=== PATIENT | female | born 1995 | race Caucasian/White ===

== ENCOUNTER → 2023-06-22 | Outpatient (CLI) | payer OTHER, SELFPAY | END | disposition home or self-care (01) | LOC: LAB 16:06 | PROVIDERS: Referring Provider Advanced Practice Midwife; Visit Provider Advanced Practice Midwife | DX: O26.859 Spotting complicating pregnancy, unspecified trimester (principal); Z3A.00 Weeks of gestation of pregnancy not specified | CPT/HCPCS: 36415; 84702; 86850; 86900; 86901 ==

== ENCOUNTER → 2023-06-24 | Outpatient (CLI) | payer OTHER, SELFPAY | END | disposition home or self-care (01) | LOC: LAB 07:46 | PROVIDERS: Referring Provider Advanced Practice Midwife; Visit Provider Advanced Practice Midwife | DX: O26.859 Spotting complicating pregnancy, unspecified trimester (principal); Z3A.00 Weeks of gestation of pregnancy not specified | CPT/HCPCS: 36415; 84702 ==

== ENCOUNTER → 2023-07-07 | Outpatient (CLI) | payer OTHER, SELFPAY ==
[2023-07-07 10:56] LABS: Absolute Lymphocyte Count 1.83 X10^3/uL (0.83-4.51); Absolute Neutrophil Count 6.8 X10^3/uL (2.0-7.7); Basophil# 0.04 X10^3/uL; Basophil% 0.4 % (0-1); Eosinophil# 0.07 X10^3/uL; Eosinophils% 0.8 % (0-5); Hematocrit 37.8 % (37-47); Hemoglobin 12.6 g/dL (12.0-15.0); Lymphocyte # 1.83 X10^3/ul (0.83-4.51); Lymphocyte % 19.7 % (19-41); Mean Corp Hgb Conc 33.3 g/dL (32-36); Mean Corpuscular Hgb 28.9 pg (27.0-32.0); Mean Corpuscular Volume 86.7 fL (81-99); Mean Platelet Vol. 9.8 fl (6.2-12.0); Monocyte# 0.49 X10^3/uL; Monocyte% 5.3 % (0-10); NRBC Flagged by Analyzer 0 % (0-5); Neutrophil # 6.82 X10^3/uL (2.7-7.7); Neutrophil % 73.5 % (47-70); Platelet Count 208 K/mm3 (150-450); RBC Distribution Width SD 40.6 fl (35.1-43.9); Red Blood Count 4.36 M/mm3 (4.2-5.4); White Blood Count 9.3 K/mm3 (4.4-11.0)
[2023-07-07 11:59] LABS: HIV - WCH Non-Reactive (Nonreactive); Hepatitis B Surface Antigen Non-Reactive (Nonreactive); Hepatitis C Antibody Non-Reactive (Nonreactive); Rubella IgG Reactive (Nonreactive); Syphilis Antibodies Non-reactive
[2023-07-10 22:07] LABS: Chlamydia By Nucleic Acid AMP Negative (Negative); Gonococcus By Nucleic Acid AMP Negative (Negative)
[2023-07-12 20:28] LABS: HPV Reflexed? NOT INDICATED
== END | disposition home or self-care (01) ==
PROVIDERS: Referring Provider Registered Nurse; Visit Provider Registered Nurse
DX: Z34.00 Encounter for supervision of normal first pregnancy, unspecified trimester (principal); Z3A.00 Weeks of gestation of pregnancy not specified
CPT/HCPCS: 36415; 85025; 86703; 86762; 86780; 86803; 86850; 86900; 86901; 87086; 87088; 87340; 87491; 87591; 88175; G0145

== ENCOUNTER → 2023-10-02 | Outpatient (CLI) | payer OTHER, SELFPAY | END | disposition home or self-care (01) | LOC: LAB 10:28 | PROVIDERS: Referring Provider Obstetrics & Gynecology; Visit Provider Obstetrics & Gynecology | DX: Z34.82 Encounter for supervision of other normal pregnancy, second trimester (principal); Z3A.00 Weeks of gestation of pregnancy not specified | CPT/HCPCS: 36415 ==

== ENCOUNTER 2023-10-31 08:10 | Outpatient (CLI) | payer OTHER, SELFPAY ==
[2023-10-31 08:26] VITALS: BP 110/72; PULSE 91; RESP 15; TEMP 36.5; O2SAT 100
[2023-10-31 08:27] VITALS: PULSE 93; O2SAT 99
--- NOTE | 2023-10-31 09:31 | OB.TRI.PN ---
Progress Notes Date of Service: 10/31/23 Progress Note: Patient presents for triage evaluation secondary to decreased movement FHT: 125 appropriate for gestational age reactive no decelerations [place]: no Contractions Assessment and plan: Reactive NST, reassuring maternal and status patient discharged to home to follow-up in office at next appt. movement present. See problem list details for additional plan information. Charges/Coding Multi Select Codes Urinary/Genital Urinary/Genital CPT Codes: 38486-78 non-stress test Interp Assessment & Plan (1) Decreased movement affecting management of mother, antepartum: PLAN: reactive NST (2) Nuchal fold thickening on ultrasound: COMMENT: mfm following and offered genetic testing. low risk NIPT. recommend growth US q 4 weeks 28 weeks on. weekly nsts from (3) headache in second trimester: COMMENT: declines RX. Enc tylenol, caffeine (4) Supervision of normal first : QUALIFIERS: Trimester: second trimester Qualified Code(s): Z34.02 - Encounter for supervision of normal first , second trimester COMMENT: PRR FANTA 02/06/24, surprise Kailash. (5) : QUALIFIERS: Weeks of gestation: 24 weeks Qualified Code(s): Z3A.24 - 24 weeks gestation of COMMENT: plan NIPT & carrier testing. DeclinesAFP NIPT low risk
[2023-10-31 09:43] VITALS: BP 101/70; PULSE 99
== END 2023-10-31 09:50 | disposition home or self-care (01) ==
LOC: WPOUT 08:20 → WP 08:20
PROVIDERS: Referring Provider Advanced Practice Midwife; Visit Provider Advanced Practice Midwife
DX: O36.8120 Decreased fetal movements, second trimester, not applicable or unspecified (principal); O26.892 Other specified pregnancy related conditions, second trimester; R51.9 Headache, unspecified; Z3A.24 24 weeks gestation of pregnancy
CPT/HCPCS: 59050; 99221; G0378

== ENCOUNTER → 2023-11-13 | Outpatient (CLI) | payer OTHER, SELFPAY ==
[2023-11-13 12:41] LABS: Absolute Lymphocyte Count 2.02 X10^3/uL (0.83-4.51); Absolute Neutrophil Count 6.8 X10^3/uL (2.0-7.7); Basophil# 0.05 X10^3/uL; Basophil% 0.5 % (0-1); Eosinophil# 0.05 X10^3/uL; Eosinophils% 0.5 % (0-5); Hematocrit 37.1 % (37-47); Hemoglobin 12.1 g/dL (12.0-15.0); Lymphocyte # 2.02 X10^3/ul (0.83-4.51); Lymphocyte % 21.3 % (19-41); Mean Corp Hgb Conc 32.6 g/dL (32-36); Mean Corpuscular Hgb 29.5 pg (27.0-32.0); Mean Corpuscular Volume 90.5 fL (81-99); Monocyte# 0.44 X10^3/uL; Monocyte% 4.6 % (0-10); NRBC Flagged by Analyzer 0 % (0-5); Neutrophil # 6.83 X10^3/uL (2.7-7.7); Neutrophil % 72.3 % (47-70); Platelet Count 176 K/mm3 (150-450); RBC Distribution Width CV 13.1 % (11.6-14.6); White Blood Count 9.5 K/mm3 (4.4-11.0)
[2023-11-13 12:59] LABS: Glucose Challenge Gest 1H 50g 96 mg/dL (70-140)
[2023-11-13 17:58] LABS: HIV - WCH Non-Reactive (Nonreactive); Syphilis Antibodies Non-reactive
== END | disposition home or self-care (01) ==
LOC: LAB 12:17
PROVIDERS: Referring Provider Registered Nurse; Visit Provider Registered Nurse
DX: Z34.90 Encounter for supervision of normal pregnancy, unspecified, unspecified trimester (principal); Z3A.00 Weeks of gestation of pregnancy not specified
CPT/HCPCS: 36415; 82950; 85025; 86703; 86780; 86850; 86900; 86901

== ENCOUNTER → 2023-11-22 | Outpatient (CLI) | payer OTHER, SELFPAY ==
--- NOTE | 2023-11-22 12:01 | US_ITS ---
EXAM: US , LIMITED CLINICAL INDICATION: growth TECHNIQUE: Real-time limited ultrasound of the maternal uterus with image documentation. COMPARISON: No relevant prior studies available. FINDINGS: FETUS: Single fetus. GESTATIONAL AGE: Gestational age by measurements is 30 weeks 0 days. Clinical gestational age is 29 weeks 1 day. AFNTA: Clinical FANTA is February 06, 2024. EFW: Estimated weight is 1375 g. Which is at the 44th percentile. BPD: Biparietal diameter is 7.7 cm. HC: Head circumference is 28.2 cm. AC: Abdominal circumference is 25.7 cm. FL: Femur length is 5.2 cm. POSITION: Cephalic presentation. HEART RATE: cardiac rate is 130 bpm. PLACENTA: Anterior placenta. AMNIOTIC FLUID: Amniotic fluid index is 16.8 cm which is normal. CERVIX: Cervix appears closed. US/OB Limited With Biometrics IMPRESSION: Single live early third trimester intrauterine gestation. Electronically Signed: Nigel Cordon MD at 16:11 EDT ,
== END | disposition home or self-care (01) ==
PROVIDERS: Referring Provider Obstetrics & Gynecology; Visit Provider Obstetrics & Gynecology
DX: O28.3 Abnormal ultrasonic finding on antenatal screening of mother (principal); Z3A.00 Weeks of gestation of pregnancy not specified
CPT/HCPCS: 76816

== ENCOUNTER → 2024-01-15 | Outpatient (CLI) | payer SELFPAY | END | disposition home or self-care (01) | PROVIDERS: Referring Provider Obstetrics & Gynecology; Visit Provider Obstetrics & Gynecology | DX: Z34.03 Encounter for supervision of normal first pregnancy, third trimester (principal); Z3A.00 Weeks of gestation of pregnancy not specified | CPT/HCPCS: 87077; 87081; 87186 ==

== ENCOUNTER → 2024-01-17 | Outpatient (CLI) | payer OTHER, SELFPAY ==
--- NOTE | 2024-01-17 09:15 | US_ITS ---
STUDY: SECOND AND THIRD TRIMESTER OBSTETRICAL ULTRASOUND - LIMITED REASON FOR EXAM: Female, 28 years old growth LMP: May 02, 2023. PRIOR ULTRASOUND: Comparison is made with prior study November 22, 2023. TECHNIQUE: Transabdominal TECHNICAL QUALITY: Adequate. FINDINGS: There is a single intrauterine fetus. The fetus is in a cephalic presentation. There is demonstrated cardiac activity with a heart rate of 121 bpm. There is a normal amniotic fluid volume. The largest amniotic fluid pocket measures 5.2 cm x 3.3 cm. The amniotic fluid index (GILBERT) is 17.03 cm. The placenta is anterior in location and is not low lying. There are Grade 2 placental changes. The cervix measures 3 cm in length. BIOMETRY: BPD: 9.3 cm: 37 weeks, 6 days HC: 33.84 cm: 38 weeks, 6 days AC: 33.84 sign: 37 weeks, 5 days FL: 6.81 cm: 35 weeks, 0 days Age by LMP: 37 weeks, 1 days. FANTA by LMP: February 06, 2024. age by prior US: 38 weeks, 0 days. FANTA by prior US: January 31, 2024. age by current US: 37 weeks, 4 days. FANTA by current US: February 03, 2024. Estimated weight: 3141 grams, +/- 471 grams, 58 percentile. US/OB Limited With Biometrics IMPRESSION: Single live uterine gestation with a mean gestational age of 38 weeks. The measurements obtained today fall within the normal expected range. Electronically Signed: Eb Wood MD at 14:30 EDT ,
== END | disposition home or self-care (01) ==
PROVIDERS: Referring Provider Obstetrics & Gynecology; Visit Provider Obstetrics & Gynecology
DX: O28.3 Abnormal ultrasonic finding on antenatal screening of mother (principal); Z3A.00 Weeks of gestation of pregnancy not specified
CPT/HCPCS: 76816

== ENCOUNTER 2024-01-26 15:45 | Inpatient (IN) | payer OTHER, SELFPAY ==
[2024-01-26] VITALS (13 sets, daily range): BP systolic 87–125; BP diastolic 48–83; PULSE 105–136; RESP 14–18; TEMP 36.2–37.5; O2SAT 99–100; BMI 28.3
[2024-01-26 17:42] LABS: Absolute Lymphocyte Count 0.71 X10^3/uL (0.83-4.51); Absolute Neutrophil Count 7.2 X10^3/uL (2.0-7.7); Basophil# 0.02 X10^3/uL; Basophil% 0.2 % (0-1); Eosinophil# 0.03 X10^3/uL; Eosinophils% 0.3 % (0-5); Hematocrit 35.2 % (37-47); Hemoglobin 11.8 g/dL (12.0-15.0); Lymphocyte # 0.71 X10^3/ul (0.83-4.51); Lymphocyte % 8.3 % (19-41); Mean Corp Hgb Conc 33.5 g/dL (32-36); Mean Corpuscular Hgb 29.8 pg (27.0-32.0); Mean Corpuscular Volume 88.9 fL (81-99); Mean Platelet Vol. 10.9 fl (6.2-12.0); Monocyte# 0.54 X10^3/uL; Monocyte% 6.3 % (0-10); NRBC Flagged by Analyzer 0 % (0-5); Neutrophil # 7.22 X10^3/uL (2.7-7.7); Neutrophil % 84.2 % (47-70); Platelet Count 156 K/mm3 (150-450); RBC Distribution Width CV 12.7 % (11.6-14.6); RBC Distribution Width SD 41.8 fl (35.1-43.9); Red Blood Count 3.96 M/mm3 (4.2-5.4); White Blood Count 8.6 K/mm3 (4.4-11.0)
[2024-01-26] MEDS: Penicillin G Pot 5,000,000 UNITS in 0.9% Normal Saline (100mL MB+) 100 ML 150 UNITS IV (18:08)
[2024-01-26 18:11] LABS: Syphilis Antibodies Non-reactive
[2024-01-26] MEDS: 0.9% Saline Lock 10 ML Syringe IV ×3 (18:15→19:56)
[2024-01-26] MEDS: Ondansetron 4 MG/2 ML Vial IV (19:18)
--- NOTE | 2024-01-26 19:38 | HP.PCM.OB_ITS ---
HPI - General General Date of Admission: 01/26/24 HPI Narrative NAVEEN DIAZ, is a 28 F who presents at at 38.3 with leaking of fluid at 9am, seen in the office with gross ROM observed. 4cm, presented to [facility] for active labor. GBS positive. Maternal Data Information FANTA Calculator Estimated Delivery Date Method Current WG Current Estimate 02/06/24 LMP (Certain) 38w 3d PFSH PFSH Home Medications ?Medication ?Instructions ?Recorded ?Last Taken ?Type multivitamin no.47-iron fum 27 cap PO 06/27/23 Unknown History mg-folate no.1 1 mg-dha 300 mg capsule (PNV-DHA) Allergy/AdvReac Type Severity Reaction Status Date / Time No Known Allergies Allergy Verified 01/26/24 16:06 Family History Mother Family history of recurrent miscarriage 3 miscarriages Surgical History [place] teeth extracted Social History adopted: No household members: spouse current occupational status: employed current occupation: [employer] current occupational exposures/hazards: No pets and animals: No history of recent travel: Yes ([facility] in December) out of country: Yes sexually active: Yes Smoking Status: Never smoker alcohol intake: never substance use type: does not use well-balanced diet: about half the time caffeine: No eating out: rarely or never during the past year weight has: remained stable what type of physical activity do you participate in: walking frequency: 1-2 times per week duration: 30-45 minutes/day kimberly/temple: Jewish seatbelt use: sometimes do you feel safe at home: Yes additional social history: Kailash - Boarding [employer] History 1 Elective abortions Hx Para 0 Spontaneous abortions Hx # Term Pregnancies Ectopic pregnancies Hx # Pregnancies Multiple births # of living children Visit Details Expected Delivery Route/Plan Labor Preferences- CB/BF classes: discussed labor support person: Kailash labor intervention preferences: unmedicated pain management options preferred: [] cut cord/dad catch: yes : wants PP control planned: discussed discussed possible routes of delivery and associated risks: [] special requests: [] Plans Covid status: [] Flu vaccine: declined Tdap vaccine: declines Rhogam:na LARC form signed: done Problem list reviewed and updated with the most current plan of care details and appropriate orders placed. Relevant counseling for the gestational age provided. Continue routine care and follow up unless otherwise noted in visit notes/problem list details OB Flowsheet Initial Weight: 141 lb Date -?-?-?-?-?-?-?-?-?-?-?-?- EGA Weight BP Urine Prot -?-?-?-?-?-?-?-?-?-?-?-?- Glucose FHR FuHt Pres Dilation -?-?-?-?-?-?-?-?-?-?-?-?- Effaced St Visit Note 07/07/23 -?-?-?-?-?-?-?-?-?-?-?-?- 9w 3d 141 lb (+0 oz) 92/56 Trace A -?-?-?-?-?-?-?-?-?-?-?-?- Negative 171 -?-?-?-?-?-?-?-?-?-?-?-?- LC- CRL con with LMP. LC- CRL con with LMP. consid ering nipt 08/02/23 -?-?-?-?-?-?-?-?-?-?-?-?- 13w 1d 139 lb (-2 lb) 122/80 Negative -?-?-?-?-?-?-?-?-?-?-?-?- Negative 144 -?-?-?-?-?-?-?-?-?-?-?-?- JV- CRL measured and is 13 weeks. normal labs. 08/30/23 -?-?-?-?-?-?-?-?-?-?-?-?- 17w 1d 141 lb 4 oz (+4 oz) 98/64 Negative -?-?-?-?-?-?-?-?-?-?-?-?- Negative 151 -?-?-?-?-?-?-?-?-?-?-?-?- MH-No VB or cram ping. Noting more headaches. No vision changes. Some benefit w tylenol/sleep. Discussed caffeine intake. Declines phenergan. 09/29/23 -?-?-?-?-?-?-?-?-?-?-?-?- 21w 3d 147 lb 6 oz (+6 lb 6 oz) 119/76 Negative -?-?-?-?-?-?-?-?-?-?-?-?- Negative 150 -?-?-?-?-?-?-?-?-?-?-?-?- SM- no vb lof cr amping SM- no vb lof cramping discu ssed anatomy US findings, plan NIPT today 10/23/23 -?-?-?-?-?-?-?-?-?-?-?-?- 24w 6d 151 lb (+10 lb) 113/82 Negative -?-?-?-?-?-?-?-?-?-?-?-?- Negative 130 24 -?-?-?-?-?-?-?-?-?-?-?-?- SM- no vb lof go od fm nor egualr ctx growth US ordered for increased NT. 11/22/23 -?-?-?-?-?-?-?-?-?-?-?-?- 29w 1d 156 lb 8 oz (+15 lb 8 oz) 108/71 Negative -?-?-?-?-?-?-?-?-?-?-?-?- Negative 135 -?-?-?-?-?-?-?-?-?-?-?-?- JV- pt to have g rowth scan today for thickened NT. low risk NIPT and declined amnio. no complaints today. tdap discussed. 12/04/23 -?-?-?-?-?-?-?-?-?-?-?-?- 30w 6d 155 lb 6 oz (+14 lb 6 oz) 117/81 Negative -?-?-?-?-?--?-?-?-?-?-?-?- Negative 128 30 -?-?-?-?-?-?-?-?-?-?-?-?- KW- no vb/lof/ct x. good fm. US at 44%NIPT low risk. Requesting not to do growth US due to nl NIPT and 44%. agreed to 36 week US per recommendations. LARC today. declined Tdap 12/21/23 -?-?-?-?-?-?-?-?-?-?-?-?- 33w 2d 160 lb (+19 lb) 114/78 Negative -?-?-?-?-?-?-?-?-?-?-?-?- Negative 126 33 -?-?-?-?-?-?-?-?-?-?-?-?- MH-No VB, LOF. G ood FM. Pt will rpt growth US 36 wk 01/01/24 -?-?-?-?-?--?-?-?-?-?-?-?- 34w 6d 164 lb 6 oz (+23 lb 6 oz) 111/74 Negative -?-?-?-?-?-?-?-?-?-?-?-?- Negative 120 34 Cephalic -?-?-?-?-?--?-?-?-?-?-?-?- kw- no vb/lof/ct x. good fm. no concerns today. 36 week US scheduled 01/08/24 -?-?-?-?-?-?-?-?-?-?-?-?- 35w 6d 165 lb (+24 lb) 110/74 Negative -?-?-?-?-?-?-?-?-?-?-?-?- Negative 123 35 -?-?-?-?-?-?-?-?-?-?-?-?- JV- no lof, vagi nal bleeding, or dec fm. has us next monday. plan gbs next visit. 01/15/24 -?-?-?-?-?-?-?-?-?-?-?-?- 36w 6d 169 lb (+28 lb) 116/77 Negative -?-?-?-?-?-?-?-?-?-?-?-?- Negative 134 35 0.5 -?-?-?-?-?-?-?-?-?-?-?-?- JV- no lof, vagi nal bleeding, or dec fm. has growth scan coming up. gbs collected. 01/26/24 -?-?-?-?-?-?-?-?-?-?-?-?- 38w 3d 171 lb 2 oz (+30 lb 2 oz) 121/81 Negative -?-?-?-?-?-?-?-?-?-?-?-?- Negative 140 4 -?-?-?-?-?-?-?-?-?-?-?-?- 90 -1 JV- pt is grossly ruptured and ermelinda. sending to L&D for labor management. ROS Cardiovascular Cardiovascular: Denies abdominal pain, chest pain, diaphoresis or dyspnea Respiratory/Chest Respiratory/Chest: Denies change in mental status, chest congestion, chest tightness, cough, shortness of breath at rest, shortness of breath with exertion, breast mass, breast pain, breast skin changes, breast swelling, change in breast shape or nipple discharge Genitourinary Genitourinary: Reports change in urinary stream Musculoskeletal Musculoskeletal: Reports none Integumentary Integumentary: Reports none Neurologic Neurologic: Reports none Psychiatric Psychiatric: Reports none Endocrine Endocrinology: Reports none Hematologic/Lymphatic Hematologic/Lymphatic: Reports none Allergic/Immunologic Allergic/Immunologic: Reports none Vital Signs Vital Signs Vital Signs: 01/26/24 17:26 01/26/24 17:26 01/26/24 17:27 Temperature Temperature Source Temporal Pulse Rate 106 H Blood Pressure 125/83 H BP Systolic 125 BP Diastolic 83 Pulse Ox 01/26/24 17:27 01/26/24 19:00 01/26/24 19:00 Temperature 98.7 F 97.1 F L Temperature Source Temporal Pulse Rate Blood Pressure BP Systolic BP Diastolic Pulse Ox 01/26/24 19:27 01/26/24 19:27 01/26/24 19:27 Temperature Temperature Source Pulse Rate 136 H 105 H Blood Pressure 87/48 L BP Systolic 87 BP Diastolic 48 Pulse Ox 01/26/24 19:27 01/26/24 19:28 01/26/24 19:28 Temperature Temperature Source Pulse Rate 111 H Blood Pressure 102/56 L BP Systolic 102 BP Diastolic 56 Pulse Ox 100 01/26/24 19:29 01/26/24 19:29 Temperature 98.4 F Temperature Source Temporal Pulse Rate Blood Pressure BP Systolic BP Diastolic Pulse Ox Weight Weight: 170 lb Body Mass Index (BMI) 28.3 Physical Exam Const alert, oriented x3 and no apparent distress General Appearance: cooperative, comfortable and well kempt Orientation / Consciousness: awake and oriented to person Exam Limitations: no limitations HEENT normocephalic Neck full ROM Chest inspection of chest normal Resp normal respiratory effort, normal air movement and no retractions Effort and Inspection: able to speak in complete sentences and symmetric chest movement Cardio regular rate Peripheral Pulses: pulses 2+ throughout GI normal to inspection, nondistended, normoactive bowel sounds Inspection: gravid no CVA tenderness and appearance of the vagina normal External Female Exam: normal appearance of the urethra; Negative for external lesion OB / External & Speculum: external exam normal Manual OB Exam: estimated gestational size appropriate and presentation cephalic Uterus Palpation: Negative for uterus tender Extremity normal to inspection Skin no rashes or lesions noted Neuro deep tendon reflexes 2+ bilaterally and gait normal Motor Exam: strength 5/5 throughout and clonus absent Psych Activity / Motor Behavior: appropriate eye contact Speech: normal speech Labs Labs Labs: Blood Type O POSITIVE Antibody Screen NEGATIVE Hct 35.2 % (37-47) L Hgb 11.8 g/dL (12.0-15.0) L Obstetrics Ultrasound Syphilis Total Ab Non-reactive Rubella IgG Antibody Reactive (Nonreactive) Hep Bs Antigen Non-Reactive (Nonreactive) Hepatitis C Antibody Non-Reactive (Nonreactive) Chlamydia DNA (BANDAR) Negative (Negative) N.gonorrhoeae DNA (BANDAR) Negative (Negative) HIV 1&2 Antibody Non-Reactive (Nonreactive) Glucose 1 Hr 50 gm 96 mg/dL (70-140) Assessment & Plan (1) Group B streptococcal infection during : COMMENT: PCN in labor (2) headache in second trimester: COMMENT: declines RX. Enc tylenol, caffeine (3) Supervision of normal first : QUALIFIERS: Trimester: third trimester Qualified Code(s): Z34.03 - Encounter for supervision of normal first , third trimester COMMENT: PRR FANTA 02/06/24, surprise Kailash. (4) : QUALIFIERS: Weeks of gestation: 38 weeks Qualified Code(s): Z3A .38 - 38 weeks gestation of COMMENT: plan NIPT & carrier testing. DeclinesAFP NIPT low risk PLAN: Plan Patient presents IAL, plan expectant management for , pitocin/AROM PRN if needed. Pain management: plans unmedicated. GBS positive plan IV PCN. Management of any complications: none I have reviewed the [facility] and made any clinically relevant updates. Dr. Peters updated on admission, exam and poc. low risk, primary midwifery management, available as needed
[2024-01-26] MEDS: proCHLORPERazine 10 MG/2 ML Vial IV (19:56)
[2024-01-26] MEDS: Lactated Ringers 1,000 ML 999 ML IV (20:28)
[2024-01-26] MEDS: Penicillin G 3,000,000 Units 50 ML 100 UNITS IV (22:10)
[2024-01-26] MEDS: Lidocaine 1% (20 ml mdv) 20 ML Vial INFILT (22:28)
[2024-01-26] MEDS: Oxytocin 15 Units/NS 250ml 15 UNITS/250 ML IV.SOLN 334 UNITS IV (22:40)
[2024-01-26] MEDS: Methylergonovine 0.2 MG/ML Ampul IM (22:43)
--- NOTE | 2024-01-26 22:57 | OP.PCM_ITS ---
Assessment & Plan (1) (spontaneous vaginal delivery): COMMENT: LC IAL/SROM boy: Richie (2) Hemorrhage: COMMENT: 600 EBL s/p pit, methergine manual clot removal Maternal Data Information FANTA Calculator Estimated Delivery Date Method Current WG Current Estimate 02/06/24 LMP (Certain) 38w 3d Final FANTA: 02/06/24 Final FANTA Source: LMP Gestational age: 38.3 Vaginal Delivery Maternal Presentation Maternal Presentation: Active Labor and Spontaneous Rupture of Membranes Operative Information Date of Procedure: 01/26/24 Pre-Operative Diagnosis: see problem list Post-Operative Diagnosis: Surgery / Procedure Performed: Spontaneous Vaginal Delivery Type of Anesthesia: Local with 1% Lidocaine Estimated Blood Loss: 600 Time of Delivery: 22:26 Findings Description of Procedure: Patient began pushing and delivered the head in the MARK ANTHONY presentation. The head was delivered atraumatically and a loose nuchal cord ?1 was identified and easily reduced over the 's head. The anterior and posterior shoulders delivered without complication followed by the rest of the and the infant was placed on the maternal abdomen. Delayed cord clamping was employed for approximately 60 seconds. Cord was clamped and cut and gentle traction was applied to the cord and the placenta delivered spontaneously immediately following it was noted to be intact with three-vessel cord. The perineum and vagina were inspected and noted to have 1st degree laceration, repaired with 3-0 vicryl in usual fashion. brisk bleeding noted after placenta removal, manual removal of clots, pitocin and methergine given for uterine atony. EBL was 600ml. excellent hemostasis achieved Patient and infant tolerated delivery well. Presentation: Vertex Amniotic Membrane Rupture Type: Spontaneous Time of Membrane Rupture: 0900 Amniotic Fluid Description: Clear Placental Delivery Description: Spontaneous Placenta Disposition: [facility] Cord Vessel Description: 3 Vessels Cord Entanglement: Around neck x 1, loose Infant A Gender: Male (1 minute): 9 (5 minute): 9 Delayed Cord Clamping: Yes Post Vaginal Delivery Medications Given After Delivery: IV Pitocin and IM Methergin Episiotomy Description: None Laceration: 1st degree Procedures Urinary/Genital [id number]: [id number] Vaginal Delivery [facility]
--- NOTE | 2024-01-26 23:02 | DCINST_ITS ---
Discharge Instructions Diet Discharge Diet: No restrictions Activity Discharge Activity: May Not Drive and May Shower May resume sexual activity in: 6 weeks Weight Bearing Status: Full weight bearing Dressing / Incision Call your doctor if your incision/area has: Sudden Increased Bleeding, Increased Pain/ Swelling and Foul Smelling Discharge Call your doctor if you observe: Fever of 101 or Higher, Numbness or Tingling, Change in Color, Inability to urinate, Inability to have a bowel movement, Using more than 1 pad per hour, Shortness of breath, Dizziness, Fainting spells, Chest pain, Calf discomfort and Uncontrolled pain Follow Up Care Please Follow Up With: Fauzia Martines CNM When: 6 weeks , please call office to make an appointment. Congratulations on the of your baby! Test Results: Test results from this visit will be discussed in further detail at your follow- up appointment, if applicable. Discharge Plan Admission Admit Date/Time: 01/26/24 15:45 Attending Provider: Fauzia Martines Primary Care Provider: KENNETH JAVIER Discharge Orders/Prescriptions Prescriptions: No Action PNV-DHA 27 mg iron-1 mg -300 mg capsule PO Referrals / Follow Up: KENNETH JAVIER [Other]
[2024-01-26] MEDS: Oxytocin 15 Units/NS 250ml 15 UNITS/250 ML IV.SOLN 83 UNITS IV (23:24)
[2024-01-27] VITALS (11 sets, daily range): BP systolic 94–125; BP diastolic 62–91; PULSE 72–108; RESP 15–18; TEMP 36.1–37.3; O2SAT 98–100
[2024-01-27] MEDS: Benzocaine/Lanolin/Aloe Vera 1 SPRAY EACH TOPICAL (00:46)
[2024-01-27] MEDS: Naproxen 500 MG Tablet PO ×3 (00:46→21:05)
[2024-01-27] MEDS: 0.9% Saline Lock 10 ML Syringe IV (02:26)
[2024-01-27 04:24] LABS: Absolute Lymphocyte Count 0.61 X10^3/uL (0.83-4.51); Absolute Neutrophil Count 12.4 X10^3/uL (2.0-7.7); Basophil# 0.02 X10^3/uL; Basophil% 0.1 % (0-1); Hematocrit 30.3 % (37-47); Hemoglobin 10.5 g/dL (12.0-15.0); Lymphocyte # 0.61 X10^3/ul (0.83-4.51); Lymphocyte % 4.4 % (19-41); Mean Corp Hgb Conc 34.7 g/dL (32-36); Mean Corpuscular Hgb 30.6 pg (27.0-32.0); Mean Corpuscular Volume 88.3 fL (81-99); Monocyte# 0.86 X10^3/uL; Monocyte% 6.2 % (0-10); NRBC Flagged by Analyzer 0 % (0-5); Neutrophil # 12.37 X10^3/uL (2.7-7.7); Neutrophil % 88.7 % (47-70); Platelet Count 110 K/mm3 (150-450); RBC Distribution Width CV 12.6 % (11.6-14.6); RBC Distribution Width SD 40.1 fl (35.1-43.9); Red Blood Count 3.43 M/mm3 (4.2-5.4); White Blood Count 13.9 K/mm3 (4.4-11.0)
--- NOTE | 2024-01-27 09:18 | PCM.PN.OB ---
Subjective Subjective Patient doing well without complaints. Tolerating PO. Ambulating and voiding without difficulty. Feeding well. Denies chest pain, shortness of breath, calf pain/swelling, fevers, chills, lightheadedness. Objective Data Objective Data Vital Signs: Vital Signs Temp Pulse Resp BP Pulse Ox O2 Del Method 98.6 F 89 15 94/62 99 Room Air 01/27/24 04:09 01/27/24 04:09 01/27/24 04:09 01/27/24 04:09 01/27/24 04:09 01/27/24 04:09 Oxygen Delivery Method Room Air Weight: 170 lb Body Mass Index (BMI) 28.3 Intake & Output: Intake and Output for Last 24 Hours 01/25/24 01/26/24 01/27/24 23:59 23:59 23:59 Intake Total 1219.33 / 1219.33 250 / 250 Output Total 600 / 600 200 / 200 Balance 619.33 / 619.33 50 / 50 Lab / Micro Data 01/27/24 04:15 Labs: Laboratory Results - last 24 hr 01/26/24 17:00: WBC 8.6, RBC 3.96 L, Hgb 11.8 L, Hct 35.2 L, MCV 88.9, MCH 29.8, MCHC 33.5, RDW Std Deviation 41.8, RDW Coeff of Porfirio 12.7, Plt Count 156, MPV 10.9, Immature Gran % (Auto) 0.700, Neut % (Auto) 84.2 H, Lymph % (Auto) 8.3 L, [place] % (Auto) 6.3, Eos % (Auto) 0.3, Baso % (Auto) 0.2, Absolute Neuts (auto) 7.2, Absolute Lymphs (auto) 0.71 L, Nucleated RBC % 0, Syphilis Total Ab Non-reactive, Blood Type O POSITIVE, Antibody Screen NEGATIVE 01/27/24 04:15: WBC 13.9 H, RBC 3.43 L, Hgb 10.5 L, Hct 30.3 L, MCV 88.3, MCH 30.6, MCHC 34.7, RDW Std Deviation 40.1, RDW Coeff of Porfirio 12.6, Plt Count 110 L, MPV 11.0, Immature Gran % (Auto) 0.600, Neut % (Auto) 88.7 H, Lymph % (Auto) 4.4 L, [place] % (Auto) 6.2, Eos % (Auto) 0.0, Baso % (Auto) 0.1, Absolute Neuts (auto) 12.4 H, Absolute Lymphs (auto) 0.61 L, Nucleated RBC % 0 Physical Exam Const alert and oriented x3 Eyes PERRL Neck full ROM Lymph Lymphatic: no lymphadenopathy noted Chest inspection of chest normal and inspection of breasts normal Resp normal respiratory effort and normal air movement Auscultation: clear to auscultation bilaterally Cardio regular rate and regular rhythm GI normal to inspection, nondistended, normoactive bowel sounds Uterus Palpation: uterus fundus firm Extremity normal to inspection, full ROM and no calf tenderness Skin no rashes or lesions noted Psych mental status grossly normal Assessment & Plan (1) Hemorrhage: COMMENT: 600 EBL s/p pit, methergine manual clot removal PLAN: stable H&H this AM. thrombocytopenia- likely due to consumption. plan to repeat cbc at 1600 (2) (spontaneous vaginal delivery): COMMENT: LC IAL/SROM boy: Richie (3) Thrombocytopenia: COMMENT: 110 /. likely d/t consumption. plan repeat at 1600 01/26 PLAN: Plan s/p PPD # 1 1. routine post delivery care 2. breast feeding- support given 3. rh positive 4. rubella immune 5. repeat cbc this afternoon 6. d/c home tomorrow
[2024-01-27 17:56] LABS: Absolute Neutrophil Count 8.6 X10^3/uL (2.0-7.7); Basophil# 0.04 X10^3/uL; Basophil% 0.4 % (0-1); Eosinophil# 0.04 X10^3/uL; Eosinophils% 0.4 % (0-5); Hematocrit 31.1 % (37-47); Hemoglobin 10.6 g/dL (12.0-15.0); Lymphocyte % 14.1 % (19-41); Mean Corp Hgb Conc 34.1 g/dL (32-36); Mean Corpuscular Hgb 30.4 pg (27.0-32.0); Mean Corpuscular Volume 89.1 fL (81-99); Mean Platelet Vol. 10.7 fl (6.2-12.0); Monocyte# 0.95 X10^3/uL; Monocyte% 8.4 % (0-10); NRBC Flagged by Analyzer 0 % (0-5); Neutrophil # 8.59 X10^3/uL (2.7-7.7); Neutrophil % 75.7 % (47-70); Platelet Count 149 K/mm3 (150-450); RBC Distribution Width CV 13.1 % (11.6-14.6); RBC Distribution Width SD 42.3 fl (35.1-43.9); Red Blood Count 3.49 M/mm3 (4.2-5.4); White Blood Count 11.3 K/mm3 (4.4-11.0)
[2024-01-28 02:00] VITALS: BP 101/64; PULSE 82; RESP 16; TEMP 36.2; O2SAT 99
[2024-01-28 08:53] VITALS: BP 107/76; PULSE 93; RESP 16; TEMP 36.4; O2SAT 100
--- NOTE | 2024-01-28 09:52 | PN.OBGYN_ITS ---
Subjective Subjective Patient doing well without complaints. Tolerating PO. Ambulating and voiding without difficulty. Feeding well. Denies chest pain, shortness of breath, calf pain/swelling, fevers, chills, lightheadedness. Objective Data Objective Data Vital Signs: Vital Signs Temp Pulse Resp BP Pulse Ox O2 Del Method 97.5 F L 93 16 107/76 100 Room Air 01/28/24 08:53 01/28/24 08:53 01/28/24 08:53 01/28/24 08:53 01/28/24 08:53 01/28/24 08:53 Oxygen Delivery Method Room Air Weight: 170 lb Body Mass Index (BMI) 28.3 Intake & Output: Intake and Output for Last 24 Hours 01/26/24 01/27/24 01/28/24 23:59 23:59 23:59 Intake Total 1219.33 / 1219.33 250 / 250 Output Total 600 / 600 1100 / 1100 Balance 619.33 / 619.33 -850 / -850 Lab / Micro Data 01/27/24 17:45 Labs: Laboratory Results - last 24 hr 01/27/24 17:45: WBC 11.3 H, RBC 3.49 L, Hgb 10.6 L, Hct 31.1 L, MCV 89.1, MCH 30.4, MCHC 34.1, RDW Std Deviation 42.3, RDW Coeff of Porfirio 13.1, Plt Count 149 L, MPV 10.7, Immature Gran % (Auto) 1.000 H, Neut % (Auto) 75.7 H, Lymph % (Auto) 14.1 L, [place] % (Auto) 8.4, Eos % (Auto) 0.4, Baso % (Auto) 0.4, Absolute Neuts (auto) 8.6 H, Absolute Lymphs (auto) 1.60, Nucleated RBC % 0 Physical Exam Const alert and oriented x3 Eyes PERRL Neck full ROM Lymph Lymphatic: no lymphadenopathy noted Chest inspection of chest normal and inspection of breasts normal Resp normal respiratory effort and normal air movement Auscultation: clear to auscultation bilaterally Cardio regular rate and regular rhythm GI normal to inspection, nondistended, normoactive bowel sounds Uterus Palpation: uterus fundus firm Extremity normal to inspection, full ROM and no calf tenderness Skin no rashes or lesions noted Psych mental status grossly normal Assessment & Plan (1) Thrombocytopenia: COMMENT: 110 01/26. likely d/t consumption. plan repeat at 1600 01/26 PLAN: normalized. (2) Hemorrhage: COMMENT: 600 EBL s/p pit, methergine manual clot removal PLAN: stable bleeding, cbc stable. (3) (spontaneous vaginal delivery): COMMENT: LC IAL/SROM boy: Richie PLAN: Plan s/p PPD # 1 1. routine post delivery care 2. breast feeding- support given 3. rh positive 4. rubella immune 5. plan on d/c home today after 24 hour testing is stable.
== END 2024-01-28 11:45 | disposition home or self-care (01) | DRG 807 ==
PROVIDERS: Admitting Provider Registered Nurse; Referring Provider Registered Nurse; Visit Provider Registered Nurse
DX: O99.824 Streptococcus B carrier state complicating childbirth (principal); Z37.0 Single live birth; D69.6 Thrombocytopenia, unspecified; O70.0 First degree perineal laceration during delivery; O99.12 Other diseases of the blood and blood-forming organs and certain disorders involving the immune mechanism complicating childbirth; O72.1 Other immediate postpartum hemorrhage; Z3A.38 38 weeks gestation of pregnancy; O69.81X0 Labor and delivery complicated by cord around neck, without compression, not applicable or unspecified
CPT/HCPCS: 59025; 59050; 85025; 86780; 86850; 86900; 86901; 99221; J7120; A4216; G0378; J2405

== ENCOUNTER → 2024-01-26 | Outpatient (CLI) | payer OTHER, SELFPAY ==
[2024-01-26 15:44] LABS: ROM Internal Control Test YES-OK TO RESULT pt. (Internal QC); ROM Patient Test POSITIVE (Negative); Record Kit Lot#, ROM+ K1866
== END | disposition home or self-care (01) ==
LOC: LABSPEC 15:18
PROVIDERS: Referring Provider Obstetrics & Gynecology; Visit Provider Obstetrics & Gynecology
DX: O26.899 Other specified pregnancy related conditions, unspecified trimester (principal); N89.8 Other specified noninflammatory disorders of vagina
CPT/HCPCS: 84112

== ENCOUNTER → 2024-06-19 | Outpatient (CLI) | payer OTHER, SELFPAY ==
[2024-06-19 16:20] LABS: Absolute Lymphocyte Count 2.23 X10^3/uL (0.83-4.51); Absolute Neutrophil Count 6.1 X10^3/uL (2.0-7.7); Basophil# 0.03 X10^3/uL; Basophil% 0.3 % (0-1); Eosinophil# 0.07 X10^3/uL; Eosinophils% 0.8 % (0-5); Hematocrit 37.9 % (37-47); Hemoglobin 12.5 g/dL (12.0-15.0); Lymphocyte # 2.23 X10^3/ul (0.83-4.51); Mean Corpuscular Hgb 27.4 pg (27.0-32.0); Mean Corpuscular Volume 82.9 fL (81-99); Monocyte# 0.49 X10^3/uL; Monocyte% 5.5 % (0-10); NRBC Flagged by Analyzer 0 % (0-5); Neutrophil # 6.06 X10^3/uL (2.7-7.7); Neutrophil % 68.1 % (47-70); Platelet Count 262 K/mm3 (150-450); RBC Distribution Width CV 13.4 % (11.6-14.6); RBC Distribution Width SD 40.7 fl (35.1-43.9); Red Blood Count 4.57 M/mm3 (4.2-5.4); White Blood Count 8.9 K/mm3 (4.4-11.0)
[2024-06-20 08:46] LABS: HIV - WCH Non-Reactive (Nonreactive); Hepatitis B Surface Antigen Non-Reactive (Nonreactive); Hepatitis C Antibody Non-Reactive (Nonreactive); Rubella IgG Reactive (Nonreactive); Syphilis Antibodies Non-reactive
[2024-06-22 10:07] LABS: Chlamydia By Nucleic Acid AMP Negative (Negative); Gonococcus By Nucleic Acid AMP Negative (Negative)
== END | disposition home or self-care (01) ==
LOC: BWCLAB 14:39
PROVIDERS: Referring Provider Obstetrics & Gynecology; Visit Provider Obstetrics & Gynecology
DX: Z34.90 Encounter for supervision of normal pregnancy, unspecified, unspecified trimester (principal)
CPT/HCPCS: 36415; 85025; 86703; 86762; 86780; 86803; 86850; 86900; 86901; 87086; 87340; 87491; 87591

== ENCOUNTER → 2024-11-07 | Outpatient (CLI) | payer OTHER, SELFPAY ==
[2024-11-07 14:34] LABS: Absolute Lymphocyte Count 1.84 X10^3/uL (0.83-4.51); Absolute Neutrophil Count 6.1 X10^3/uL (2.0-7.7); Basophil# 0.03 X10^3/uL; Basophil% 0.3 % (0-1); Eosinophil# 0.09 X10^3/uL; Hemoglobin 12.3 g/dL (12.0-15.0); Lymphocyte # 1.84 X10^3/ul (0.83-4.51); Lymphocyte % 21.4 % (19-41); Mean Corp Hgb Conc 34.2 g/dL (32-36); Mean Corpuscular Hgb 30.2 pg (27.0-32.0); Mean Corpuscular Volume 88.5 fL (81-99); Mean Platelet Vol. 9.7 fl (6.2-12.0); Monocyte# 0.48 X10^3/uL; Monocyte% 5.6 % (0-10); NRBC Flagged by Analyzer 0 % (0-5); Neutrophil # 6.06 X10^3/uL (2.7-7.7); Neutrophil % 70.7 % (47-70); Platelet Count 191 K/mm3 (150-450); RBC Distribution Width CV 13.8 % (11.6-14.6); RBC Distribution Width SD 44.6 fl (35.1-43.9); Red Blood Count 4.07 M/mm3 (4.2-5.4); White Blood Count 8.6 K/mm3 (4.4-11.0)
[2024-11-07 15:41] LABS: Glucose Challenge Gest 1H 50g 81 mg/dL (70-140); HIV Nonreactive (Nonreactive); Syphilis Antibodies Nonreactive (Nonreactive)
== END | disposition home or self-care (01) ==
LOC: BWCLAB 14:10
PROVIDERS: Referring Provider Obstetrics & Gynecology; Visit Provider Obstetrics & Gynecology
DX: Z34.82 Encounter for supervision of other normal pregnancy, second trimester (principal)
CPT/HCPCS: 36415; 82950; 85025; 86703; 86780

== ENCOUNTER → 2025-01-02 | Outpatient (CLI) | payer OTHER, SELFPAY | END | disposition home or self-care (01) | LOC: LABSPEC 11:13 | PROVIDERS: Referring Provider Obstetrics & Gynecology; Visit Provider Obstetrics & Gynecology | DX: Z34.83 Encounter for supervision of other normal pregnancy, third trimester (principal) | CPT/HCPCS: 87077; 87081; 87186 ==

== ENCOUNTER 2025-01-20 00:48 | Inpatient (IN) | payer OTHER, SELFPAY ==
[2025-01-19 22:46] VITALS: BMI 28.3
--- OUTSIDE RECORDS SUMMARY | 2025-01-19 22:48 | XMS RPT_ITS | CCD ---
Author Organization [facility] CliniSyn[facility] Care Team Providers Care Toxics Program Officer Name Role Phone Davis, Kenneth Unavailable Unavailable Davis, Kenneth N Unavailable Unavailable Update Needed Unavailable Unavailable Unavailable Primary Care Provider Unavailabl e Davis DO, Kenneth N Primary Care Provider [phone] ZOHAIB Martines Attending Provider [phone] davis, kenneth Primary Care Provider Unavailabl e davis, kenneth Referring Provider Unavailable ZOHAIB Martines Attending Provider davis, kenneth Primary Care Provider Unavailabl e davis, kenneth Referring Provider Unavailable Dr. Tracie Mcdaniels Attending Provider [phone] DAVIS, KENNETH Primary Care Provider Unavailabl e DAVIS, KENNETH Referring Provider Unavailable Tamir FILLING TECHNICIAN, FILLING TECHNICIAN-C Jarrell Attending Provider [phone] Dr. Renuka Peters Attending Provider [phone] Care Physician, No Primary Primary Care Provider Unavailable ZOHAIB Thurston Attending Provider [phone] ZOHAIB Thurston Referring Provider [phone] ZOHAIB Thurston Other Provider [phone] NO PRIMARY CARE, MD Primary Care Unavailable LACI HEWITT Attending Unavailable TRACIE ZHOU Referring Unavailab le JARRELL ALVARES Referring Unavailable DAVIS, KENNETH Primary Care Unavailable JARRELL ALVARES S Attending Unavailable Tamir HUANGCJarrell Attending Provider Dr. Tracie Mcdaniels DO Attending Provider Dr. Renuka Peters MD Attending Provider Dr. Renuka Peters MD Referring Provider [phone] Jarrell Delarosa Attending Provider Conrad PENNY, Fauzia Attending Provider [phone] Tamir DANIEL, Jarrell Attending Provider [phone] Bertrand PENNY, Renée Attending Provider [phone] Dr. Tracie Mcdaniels DO Attending Provider Tamir FILLING TECHNICIAN, Jarrell Attending Unavailable Andrey Jackson, Tracie Attending Unavailabl e MarcanthRenuka guzmán Attending Unavailable Vande Velever, Tracie Attending Unavailabl e Vande Velde, Tracie Attending Unavailabl e [facility] Unavailable Care Physician, No Primary Referring Unava ilable Martines, Fauzia Admitting Unavailable Martines, Fauzia Referring Unavailable Martines, Fauzia Attending Unavailable [facility] Primary Care Unavailable Marcanthony, Renuka Referring Unavailable Marcanthony, Renuka Attending Unavailable Marcanthony, Renuka Referring Unavailable Marcanthony, Renuka Attending Unavailable Marcanthony, Renuka Referring Unavailable Marcanthony, Renuka Attending Unavailable Vande Velever, Tracie Referring Unavailabl e Vande Velde, Tracie Attending Unavailabl e WILL, GELY Primary Care Unavailable Marcanthony, Renuka Attending Unavailable Tamir FILLING TECHNICIAN, Jarrell Attending Unavailable Kang FILLING TECHNICIAN, Pat Attending Unavailable [facility] Primary Care Unavailable Marcanthony, Renuka Attending Unavailable Martines, Fauzia Consulting Unavailable Martines, Fauzia Admitting Unavailable Martines, Fauzia Referring Unavailable Martines, Fauzia Attending [facility]available [facility] Primary Care Unavailable Vande Velever, Tracie Attending Unavailabl e Vande Velde, Tracie Attending Unavailabl e Martines, Fauzia Attending Unavailable Marcanthony, Renuka Attending Unavailable Tamir FILLING TECHNICIAN, Jarrell Attending Unavailable Renée Thurston Attending Unavailable Fran, Renuka Attending Unavailable Medications Current Medications Medication Drug Class(es) Dates Sig (Normalized) Sig (Original) atovaquone 250 mg / proguanil hydrochloride 100 mg oral tablet (1 source) Antimalarial, Antiprotozoal Start: 12-01-2022 atovaquone-progu Iraida (Malarone) 250-100 mg tablet Indications: Encounter for counseling for travel Start taking 1-2 days prior to travel and continue until 7 days after exposure Do not start before December 01, 2022. 60 tablet 0 12/01/2022 Active Start: 12-01-2022 atovaquone-pro guaniL (Malarone) 250-100 mg tablet Indications: Encounter for counseling for travel Start taking 1-2 days prior to travel and continue until 7 days after exposure Do not start before December 01, 2022. 60 tablet 0 12/01/2022 Active cholecalciferol 0.025 mg oral capsule (9 sources) Vitamin D Start: 03-08-2024 take 1 capsule by mouth once daily Cholecalciferol (Vitamin D3) 25 mcg (1,000 unit) capsule Active 25 ug PO daily March 08, 2024 12:00am Start: 09-07-2020 take 1 capsule by mo [facility] once daily cholecalciferol (Vitamin D-3) 50 mcg (2,000 unit) capsule Take 1 capsule (50 mcg) by mouth once daily. 0 09/07/2020 Active ciprofloxacin 500 mg oral tablet (1 source) Quinolone Antimicrobial Start: 10-05-2022 End: 10-12-2022 take 1 tablet by mouth in the morning ciprofloxacin (Cipro) 500 mg tablet Indications: Encounter for counseling for travel Take 1 tablet (500 mg) by mouth in the morning and 1 tablet (500 mg) before bedtime. Do all this for 7 days. 14 tablet 0 10/05/2022 10/12/2022 Active Multivit 18-Xmdd-Grgxth 1-Dha (Pnv-Dha) 27 mg iron-1 mg -300 mg capsule (13 sources) Start: 06-27-2023 Multivit 34-Xhlb-Fywope 1-Dha (Pnv-Dha) 27 mg iron-1 mg -300 mg capsule Active NMA PO June 27, 2023 1:00am Start: 06-27-2023 Multivit 47-Ir on-Folate 1-Dha (Pnv-Dha) 27 mg iron-1 mg -300 mg capsule Active CAP PO June 27, 2023 1:00am Start: 06-27-2023 Multivit 47-Ir on-Folate 1-Dha (Pnv-Dha) 27 mg iron-1 mg -300 mg capsule Active CAP PO June 27, 2023 12:00am Completed/Discontinued Medications Medication Drug Class(es) Dates Sig (Normalized) Sig (Original) amoxicillin 875 mg oral tablet (1 source) Penicillin-class Antibacterial Start: 03-20-2019 take 1 tablet by mouth every twelve hours Amoxicillin 875 MG Oral Tablet TAKE 1 TABLET Every twelve hours Quantity: 20 Refills: 0 Kenneth Davis DO Start : 20-Mar-2019 Active nitrofurantoin, macrocrystals 25 mg / nitrofurantoin, monohydrate 75 mg oral capsule (11 sources) Nitrofuran Antibacterial Start: 07-07-2023 End: 07-07-2023 take 1 capsule by mouth every twelve hours at mealtime Nitrofurantoin Monohyd/M-Cryst (Macrobid) 100 mg capsule Discontinued 100 mg PO Q12H 14 7 0 July 07, 2023 1:00am July 13, 2023 1:00am July 07, 2023 7:23pm must administer with a meal/food phenazopyridine hydrochloride 100 mg oral tablet (11 sources) Start: 07-07-2023 End: 07-07-2023 take 1 tablet by mouth three times daily Phenazopyridine (Pyridium) 100 mg tablet Discontinued 100 mg PO THREE TIMES A DAY 9 0 July 07, 2023 1:00am July 07, 2023 7:23pm Problems Active Problems Problem Classification Problem Date Documented Date Episodic/Chronic Administrative/socia l admission (1 source) Patient encounter status; Translations: [Encounter for health counseling related to travel] 10-05-2022 Episodic Cardiac dysrhythmias (1 source) Tachycardia; Translations: [Tachycardia] Episodic Coagulation and hemorrhagic disorders (9 sources) Thrombocytopenic disorder; Translations: [Thrombocytopenia, unspecified] Onset: 02-22-2024 02-03-2024 Chronic Comment on above: 110 01/26.likely d/t consumption. plan repeat at 1600 01/26 Headache; including migraine (2 sources) Headache; including migraine; Translations: [Headache, unspecified] Onset: 01-26-2024 Other circulatory disease (8 sources) Bleeding; Translations: [Hemorrhage, not elsewhere classified] 02-03-2024 Episodic Comment on above: 600 EBL s/p pit, met hergine manual clot removal Other complications of (13 sources) Spotting per vagina in ; Translations: [Spotting complicating , unspecified trimester] 06-22-2023 Episodic Comment on above: HCG x 2, type & scre en Other complications of (10 sources) Headache; Translations: [Other specified related conditions, second trimester] 08-30-2023 Episodic Comment on above: declines RX. Enc tyl enol, caffeine Other complications of (10 sources) ultrasound scan abnormal; Translations: [Abnormal ultrasonic finding on screening of mother] 09-29-2023 Episodic Comment on above: low risk NIPT. recom mend growth US q 4 weeks 28 weeks on. 44%. Pt request to repeat at 36 wk only. 01/16: 38 wk: EFW 58%. AC 78% Other complications of (2 sources) Spotting complicating , unspecified trimester; Translations: [Spotting complicating , unspecified as to episode of care or not applicable] 08-02-2023 Episodic Other complications of (9 sources) Reduced movement; Translations: [Decreased movements, unspecified trimester, not applicable or unspecified] 10-31-2023 Episodic Other complications of (8 sources) Streptococcus agalactiae infection; Translations: [Other maternal infectious and parasitic diseases complicating , unspecified trimester] 06-11-2024 Episodic Comment on above: PCN in labor Other complications of (7 sources) Group B Streptococcus carrier; Translations: [Streptococcus B carrier state complicating ] 01-06-2025 Episodic Comment on above: treat in labor Other complications of (1 source) Streptococcus B carrier state complicating ; Translations: [Streptococcus B carrier state complicating ] Onset: 01-14-2025 Episodic Other and delivery including normal (20 sources) Normal ; Translations: [Encounter for supervision of normal first , unspecified trimester] Onset: 01-30-2024 06-27-2023 Episodic Comment on above: PRR FANTA 02/06/24, surprise Kailash. PRR , FANTA 5,girl (gender and name secret) PC Richie Kailash. LC IAL/SROM boy: Richie declined NIPT & Fuentes ier testing. nl anatomy w/MFM. plan NIPT & carrier testing. DeclinesAFPNIPT low risk Residual codes; unclassified (20 sources) Family history of disorder; Translations: [Family history of other specified conditions] 06-11-2024 Episodic Comment on above: Mother 3 miscarriage s Residual codes; unclassified (1 source) Family history of other specified conditions; Translations: [Family history of other specified conditions] Onset: 01-14-2025 Episodic Residual codes; unclassified (2 sources) 38 weeks gestation of ; Translations: [38 weeks gestation of ] Onset: 02-24-2024 Episodic Residual codes; unclassified (1 source) 37 weeks gestation of ; Translations: [37 weeks gestation of ] Onset: 01-08-2025 Episodic Residual codes; unclassified (1 source) 36 weeks gestation of ; Translations: [36 weeks gestation of ] Onset: 01-02-2025 Episodic Residual codes; unclassified (1 source) 34 weeks gestation of ; Translations: [34 weeks gestation of ] Onset: 12-18-2024 Episodic Past or Other Problems Problem Classification Problem Date Documented Date Episodic/Chronic Acute bronchitis (1 source) Acute bronchitis; Translations: [Acute bronchitis] Episodic Bacterial infection; unspecified site (2 sources) Streptococcus, group B, as the cause of diseases classified elsewhere; Translations: [Streptococcus, group B, as the cause of diseases classified elsewhere] Onset: 01-26-2024 Episodic Other circulatory disease (1 source) Hemorrhage, not elsewhere classified; Translations: [Hemorrhage, not elsewhere classified] Onset: 02-22-2024 Episodic Other complications of (8 sources) Other specified related conditions, second trimester; Translations: [Other specified complications of , antepartum condition or complication] Onset: 01-26-2024 08-30-2023 Episodic Other complications of (5 sources) Abnormal ultrasonic finding on screening of mother; Translations: [Abnormal finding on screening] Onset: 01-26-2024 09-29-2023 Episodic Other complications of (2 sources) Decreased movements, unspecified trimester, not applicable or unspecified; Translations: [Decreased movements, affecting management of mother, antepartum condition or complication] Onset: 01-26-2024 10-31-2023 Episodic Other complications of (2 sources) Other maternal infectious and parasitic diseases complicating , unspecified trimester; Translations: [Other maternal infectious and parasitic diseases complicating , unspecified trimester] Onset: 01-26-2024 Episodic Other complications of (1 source) Other specified related conditions, unspecified trimester; Translations: [Other specified related conditions, unspecified trimester] Onset: 02-19-2024 Episodic Other female genital disorders (1 source) Other specified noninflammatory disorders of vagina; Translations: [Other specified noninflammatory disorders of vagina] Onset: 01-26-2024 Episodic Residual codes; unclassified (1 source) 8 weeks gestation of ; Translations: [8 weeks gestation of ] Onset: 06-19-2024 Episodic Results Test Name Value Interpretation Reference Range Facility Respiratory Director Office Visit Reporton 01-14-2025 Respiratory Director Office Visit Report [facility]'s [address], [address] [place] [address] OFFICE VISIT Date of Service: 01/14/25 MR#: [id number] Acct: [id number] Name: SHELBY DIAZ Rep #: [id number] : 1995 Provider: Dr. Tracie Mujica DO Age/Sex: 29/F [place] [facility] [place]: [place]igned Intake Vital Signs 12/18/24 13:09 01/08/25 07:58 01/14/25 14:21 Height 5 ft 5 in 5 ft 5 in 5 ft 5 in Weight: 172 lb BMI 28.6 BP 112/77 Intake Visit Reasons: 38 wk ob Chief Complaint: 38wk OB Tension Worker Required: No Is patient in pain?: No Allergies No Known Allergies Allergy (Verified 01/14/25 14:19) Medications ???Medication ???Instructions ???Recorded ???Confirmed ???Type multivitamin no.47-iron fum 27 cap PO 06/27/23 01/14/25 History mg-folate no.1 1 mg-dha 300 mg capsule (PNV-DHA) cholecalciferol (vitamin D3) 25 25 mcg PO QDAY 03/08/24 01/14/25 H istory mcg (1,000 unit) capsule Last Menstrual Period: 04/20/24 : No Have you fallen in the past year?: No PFSH PFSH Surgical History [place] teeth extracted Family History Mother Family history of recurrent miscarriage 3 miscarriages Social History adopted: No household members: spouse and children number of children: 1 current occupational status: unemployed current occupation: [employer] current occupational exposures/hazards: No pets and animals: No history of recent travel: Yes (- May) out of state: Yes out of country: No sexually active: Yes Smoking Status: Never smoker alcohol intake: never substance use type: does not use well-balanced diet: about half the time caffeine: No eating out: rarely or never during the past year weight has: increased > 10 lbs what type of physical activity do you participate in: walking frequency: 1-2 times per week duration: 30-45 minutes/day kimberly/orthodoxy: Jain seatbelt use: always do you feel safe at home: Yes 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 Date Name GA/Weeks Outcome Route Bth Weight Infant Gen Labor Lgth Anesthesia Del Locatn Provider FOB 01/26/24 Richie 38 live - full term 7#1oz Male none [facility] Kailash Delivery Date: 01/26/24 Last Updated by: Chanelle Kerns IOL [facility] HPI 38 wk ob Details: SHELBY DIAZ is a 29 year old who presents for routine OB visit. OB Visit FANTA Calculator Estimated Delivery Date Method Current WG Current Estimate 01/25/25 LMP (Certain) 38w 3d Other Estimates 01/29/25 Ultrasound #1 37w 6d Expected Delivery Route/Plan Labor Preferences- CB/BF classes: no labor support person: Kailash labor intervention preferences: [] pain management options preferred: limited cut cord/dad catch: yes : yes PP control planned: discussed discussed possible routes of delivery and associated risks: [] special requests: [] Specific Issue/Plans Covid status: [] Flu vaccine: [] Tdap vaccine: declines Rhogam: na LARC form signed: yes Problem list reviewed and updated with the most current plan of care details and appropriate orders placed. Relevant counseling for the gestational age provided. Continue routine care and follow up unless otherwise noted in visit notes/problem list details Initial Weight: Not Recorded Date -???-???-???-???-???- ???-???-???-???-???-? ??-???- EGA Weight BP Urine Prot -???-???-???-???-???- ???-???-???-???-???-? ??-???- Glucose FHR FuHt Pres Dilation -???-???-???-???-???- ???-???-???-???-???-? ??-???- Effaced St Visit Note 06/19/24 -???-???-???-???-???- ???-???-???-???-???-? ??-???- 8w 4d 153 lb 2 oz 108/73 -???-???-???-???-???- ???-???-???-???-???-? ??-???- 160 -???-???-???-???-???- ???-???-???-???-???-? ??-???- SM- no vb cr amping CRL SM- no vb cramping CRL 8w0d cons w ith LMP 07/17/24 -???-???-???-???-???- ???-???-???-???-???-? ??-???- 12w 4d 150 lb 9.6 oz 110/76 Negati ve -???-???-???-???-???- ???-???-???-???-???-? ??-???- Negative 150 -???-???-???-???-???- ???-???-???-???-???-? ??-???- -No VB. Ma naging nausea. PN labs reviewed. 08/14/24 -???-???-???-???-???- ???-???-???-???-???-? ??-???- 16w 4d 152 lb 6 oz 113/76 Negative -???-???-???-???-???- ???-???-???-???-???-? ??-???- Negative 148 -???-???-???-???-???- ???-???-???-???-???-? ??-???- -No VB. No flutters yet. Nausea resolved. Anatomy US scheduled 09/12/24 (more content not included)... Normal [facility] - Chemistry and C hemistry - challengeOrdered By: Renée Thurstno on 01-08-2025 Glucose Ql (U) Negative [facility] - UrinalysisOrder ed By: Renée Thurston on 01-08-2025 Protein Ql (U) Trace [facility] Respiratory Director Office Visit Reporton 01-08-2025 Respiratory Director Office Visit Report [facility]'s [address], [address] [place] [address] OFFICE VISIT Date of Service: 01/08/25 MR#: [id number] Acct: [id number] Name: SHELBY DIAZ Rep #: [id number] : 1995 Provider: ZOHAIB Mcclellan ams Age/Sex: 29/F Location: [facility] Status: Signed Intake Vital Signs 12/18/24 13:09 01/02/25 09:58 01/08/25 07:54 01/08/25 07:58 Height 5 ft 5 in 5 ft 5 in 5 ft 5 in 5 ft 5 in Weight: 169 lb BMI 28.1 BP 102/72 Intake Visit Reasons: 37 wk ob Tension Worker Required: No Is patient in pain?: No Allergies No Known Allergies Allergy (Verified 01/08/25 07:53) Medications ???Medication ???Instructions ???Recorded ???Confirmed ???Type multivitamin no.47-iron fum 27 cap PO 06/27/23 01/08/25 History mg-folate no.1 1 mg-dha 300 mg capsule (PNV-DHA) cholecalciferol (vitamin D3) 25 25 mcg PO QDAY 03/08/24 01/08/25 H istory mcg (1,000 unit) capsule Last Menstrual Period: 04/20/24 : No PFSH PFSH Surgical History [place] teeth extracted Family History Mother Family history of recurrent miscarriage 3 miscarriages Social History adopted: No household members: spouse and children number of children: 1 current occupational status: unemployed current occupation: [employer] current occupational exposures/hazards: No pets and animals: No history of recent travel: Yes (- May) out of state: Yes out of country: No sexually active: Yes Smoking Status: Never smoker alcohol intake: never substance use type: does not use well-balanced diet: about half the time caffeine: No eating out: rarely or never during the past year weight has: increased > 10 lbs what type of physical activity do you participate in: walking frequency: 1-2 times per week duration: 30-45 minutes/day kimberly/orthodoxy: Jain seatbelt use: always do you feel safe at home: Yes 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 Date Name GA/Weeks Outcome Route Bth Weight Gen Labor Lgth Anesthesia Del Locatn Provider FOB 01/26/24 Richie 38 live - full term 7#1oz Male none [facility] Kail[facility] Delivery Date: 01/26/24 Last Updated by: Chanelle Kerns IOL [facility] HPI 37 wk ob Details: SHELBY DIAZ is a 29 year old who presents for routine OB visit. OB Visit FANTA Calculator Estimated Delivery Date Method Current WG Current Estimate 01/25/25 LMP (Certain) 37w 4d Other Estimates 01/29/25 Ultrasound #1 37w 0d Expected Delivery Route/Plan Labor Preferences- CB/BF classes: no labor support person: Kailash labor intervention preferences: [] pain management options preferred: limited cut cord/dad catch: yes : yes PP control planned: discussed discussed possible routes of delivery and associated risks: [] special requests: [] Specific Issue/Plans Covid status: [] Flu vaccine: [] Tdap vaccine: declines Rhogam: na LARC form signed: yes Problem list reviewed and updated with the most current plan of care details and appropriate orders placed. Relevant counseling for the gestational age provided. Continue routine care and follow up unless otherwise noted in visit notes/problem list details Initial Weight: Not Recorded Date -???-???-???-???-???- ???-???-???-???-???-? ??-???- EGA Weight BP Urine Prot -???-???-???-???-???- ???-???-???-???-???-? ??-???- Glucose FHR FuHt Pres Dilation -???-???-???-???-???- ???-???-???-???-???-? ??-???- Effaced St Visit Note 06/19/24 -???-???-???-???-???- ???-???-???-???-???-? ??-???- 8w 4d 153 lb 2 oz 108/73 -???-???-???-???-???- ???-???-???-???-???-? ??-???- 160 -???-???-???-???-???- ???-???-???-???-???-? ??-???- SM- no vb cr amping CRL SM- no vb cramping CRL 8w0d cons w ith LMP 07/17/24 -???-???-???-???-???- ???-???-???-???-???-? ??-???- 12w 4d 150 lb 9.6 oz 110/76 Negati ve -???-???-???-???-???- ???-???-???-???-???-? ??-???- Negative 150 -???-???-???-???-???- ???-???-???-???-???-? ??-???- -No VB. Ma naging nausea. PN labs reviewed. 08/14/24 -???-???-???-???-???- ???-???-???-???-???-? ??-???- 16w 4d 152 lb 6 oz 113/76 Negative -???-???-???-???-???- ???-???-???-???-???-? ??-???- Negative 148 -???-???-???-???-???- ???-???-???-???-???-? ??-???- -No VB. No flutters yet. Nausea resolved. Anatomy US scheduled 09/12/24 -???-???-???-???-???- ???-???-???-???-???-? ??-??? (more content not included)... Normal [facility] Rule out Beta Strep (Grp. B) on 01-06-2025 JESUS Streptococcus agalactiae (B) Amount Growth Growth Streptococcus agalactiae (B): REACTION Ampicillin Islt CHILO <=0.25 cefTRIAXone Islt CHILO <=0.12 S Clindamycin Islt CHILO >=1 R Clindamycin.induced Susc Islt NEG Linezolid Islt CHILO <=2 S Vancomycin Islt CHILO 0.5 S Normal [facility] Comment on above: Performed By: #### M 100.3400 #### [facility] [address] [place], [address] Laboratory - Chemistry and C hemistry - challengeOrdered By: Renuka Peters on 01-02-2025 Glucose Ql (U) Negative [facility] - UrinalysisOrder ed By: Renuka Peters on 01-02-2025 Protein Ql (U) Negative [facility] Respiratory Director Office Visit Reporton 01-02-2025 Respiratory Director Office Visit Report [facility]'s [address], [address] [place] [address] OFFICE VISIT Date of Service: 01/02/25 MR#: [id number] Acct: [id number] Name: SHELBY DIAZ Rep #: [id number] : 1995 Provider: Dr. Renuka wilkinson MD Age/Sex: 29/F [place] [facility] [place]: Signed Intake Vital Signs 11/07/24 14:15 12/18/24 13:09 01/02/25 09:55 01/02/25 09:58 Height 5 ft 5 in 5 ft 5 in 5 ft 5 in 5 ft 5 in Weight: 168 lb 4 oz BMI 28.0 BP 112/78 Intake Visit Reasons: 36 wk ob Tension Worker Required: No Is patient in pain?: No Allergies No Known Allergies Allergy (Verified 01/02/25 09:54) Medications ???Medication ???Instructions ???Recorded ???Confirmed ???Type multivitamin no.47-iron fum 27 cap PO 06/27/23 01/02/25 History mg-folate no.1 1 mg-dha 300 mg capsule (PNV-DHA) cholecalciferol (vitamin D3) 25 25 mcg PO QDAY 03/08/24 01/02/25 H istory mcg (1,000 unit) capsule Last Menstrual Period: 04/20/24 Zika: Zika virus screening: Negative : No PFSH PFSH Surgical History [place] teeth extracted Family History Mother Family history of recurrent miscarriage 3 miscarriages Social History adopted: No household members: spouse and children number of children: 1 current occupational status: unemployed current occupation: [employer] current occupational exposures/hazards: No pets and animals: No history of recent travel: Yes (- May) out of state: Yes out of country: No sexually active: Yes Smoking Status: Never smoker alcohol intake: never substance use type: does not use well-balanced diet: about half the time caffeine: No eating out: rarely or never during the past year weight has: increased > 10 lbs what type of physical activity do you participate in: walking frequency: 1-2 times per week duration: 30-45 minutes/day kimberly/orthodoxy: Jain seatbelt use: always do you feel safe at home: Yes 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 Date Name GA/Weeks Outcome Route Bth Weight Infant Gen Labor Lgth Anesthesia Del Locatn Provider FOB 01/26/24 Richie 38 live - full term 7#1oz Male none [facility] Kailash Delivery Date: 01/26/24 Last Updated by: Chanelle Kerns IOL SROM HPI 36 wk ob Details: SHELBY DIAZ is a 29 year old who presents for routine OB visit. OB Visit FANTA Calculator Estimated Delivery Date Method Current WG Current Estimate 01/25/25 LMP (Certain) 36w 5d Other Estimates 01/29/25 Ultrasound #1 36w 1d Expected Delivery Route/Plan Labor Preferences- CB/BF classes: no labor support person: Kailash labor intervention preferences: [] pain management options preferred: limited cut cord/dad catch: yes : yes PP control planned: discussed discussed possible routes of delivery and associated risks: [] special requests: [] Specific Issue/Plans Covid status: [] Flu vaccine: [] Tdap vaccine: declines Rhogam: na LARC form signed: yes Problem list reviewed and updated with the most current plan of care details and appropriate orders placed. Relevant counseling for the gestational age provided. Continue routine care and follow up unless otherwise noted in visit notes/problem list details Initial Weight: Not Recorded Date -???-???-???-???-???- ???-???-???-???-???-? ??-???- EGA Weight BP Urine Prot -???-???-???-???-???- ???-???-???-???-???-? ??-???- Glucose FHR FuHt Pres Dilation -???-???-???-???-???- ???-???-???-???-???-? ??-???- Effaced St Visit Note 06/19/24 -???-???-???-???-???- ???-???-???-???-???-? ??-???- 8w 4d 153 lb 2 oz 108/73 -???-???-???-???-???- ???-???-???-???-???-? ??-???- 160 -???-???-???-???-???- ???-???-???-???-???-? ??-???- SM- no vb cr amping CRL SM- no vb cramping CRL 8w0d cons w ith LMP 07/17/24 -???-???-???-???-???- ???-???-???-???-???-? ??-???- 12w 4d 150 lb 9.6 oz 110/76 Negati ve -???-???-???-???-???- ???-???-???-???-???-? ??-???- Negative 150 -???-???-???-???-???- ???-???-???-???-???-? ??-???- -No VB. Ma naging nausea. PN labs reviewed. 08/14/24 -???-???-???-???-???- ???-???-???-???-???-? ??-???- 16w 4d 152 lb 6 oz 113/76 Negative -???-???-???-???-???- ???-???-???-???-???-? ??-???- Negative 148 -???-???-???-???-???- ???-???-???-???-???-? ??-???- -No VB. No flutters yet. Nausea resolved. Anatomy US scheduled (more content not included)... Normal [facility] Screening beta-hemolytic Str eptococcus cultureOrdered By: Renuka Peters on 01-02-2025 Beta-hemolytic Streptococcus culture Streptococcus agalactiae (B) Abnormal [facility] - Chemistry and C hemistry - challengeOrdered By: Renuka Peters on 12-18-2024 Glucose Ql (U) Negative [facility] - UrinalysisOrder ed By: Renuka Peters on 12-18-2024 Protein Ql (U) Negative [facility] Respiratory Director Office Visit Reporton 12-18-2024 Respiratory Director Office Visit Report [facility]'s [address], [address] [place] [address] OFFICE VISIT Date of Service: 12/18/24 MR#: [id number] Acct: [id number] Name: JOE,SHELBY LINETTE Rep #: [id number] : 1995 Provider: Dr. Renuka wilkinson MD Age/Sex: 29/F [place] [facility] [place]: Signed Intake Vital Signs 11/07/24 14:15 12/06/24 14:05 12/18/24 13:05 12/18/24 13:09 Height 5 ft 5 in 5 ft 5 in 5 ft 5 in 5 ft 5 in Weight: 168 lb 4 oz BMI 28.0 BP 111/74 Intake Visit Reasons: 34 wk ob Tension Worker Required: No Is patient in pain?: No Allergies No Known Allergies Allergy (Verified 12/18/24 13:06) Medications ???Medication ???Instructions ???Recorded ???Confirmed ???Type multivitamin no.47-iron fum 27 cap PO 06/27/23 12/18/24 History mg-folate no.1 1 mg-dha 300 mg capsule (PNV-DHA) cholecalciferol (vitamin D3) 25 25 mcg PO QDAY 03/08/24 12/18/24 H istory mcg (1,000 unit) capsule Last Menstrual Period: 04/20/24 Zika: Zika virus screening: Negative : No PFSH PFSH Surgical History [place] teeth extracted Family History Mother Family history of recurrent miscarriage 3 miscarriages Social History adopted: No household members: spouse and children number of children: 1 current occupational status: unemployed current occupation: [employer] current occupational exposures/hazards: No pets and animals: No history of recent travel: Yes (- May) out of state: Yes out of country: No sexually active: Yes Smoking Status: Never smoker alcohol intake: never substance use type: does not use well-balanced diet: about half the time caffeine: No eating out: rarely or never during the past year weight has: increased > 10 lbs what type of physical activity do you participate in: walking frequency: 1-2 times per week duration: 30-45 minutes/day kimberly/orthodoxy: Jain seatbelt use: always do you feel safe at home: Yes 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 Date Name GA/Weeks Outcome Route Bth Weight Gen Labor Lgth Anesthesia Del Maganatn Provider FOB 01/26/24 Richie 38 live - full term 7#1oz Male none [facility] Kailash Delivery Date: 01/26/24 Last Updated by: Chanelle Kerns IOL SROM HPI 34 wk ob Details: SHELBY DIAZ is a 29 year old who presents for routine OB visit. OB Visit FANTA Calculator Estimated Delivery Date Method Current WG Current Estimate 01/25/25 LMP (Certain) 34w 4d Other Estimates 01/29/25 Ultrasound #1 34w 0d Expected Delivery Route/Plan Labor Preferences- CB/BF classes: no labor support person: Kailash labor intervention preferences: [] pain management options preferred: limited cut cord/dad catch: yes : yes PP control planned: discussed discussed possible routes of delivery and associated risks: [] special requests: [] Specific Issue/Plans Covid status: [] Flu vaccine: [] Tdap vaccine: declines Rhogam: na LARC form signed: yes Problem list reviewed and updated with the most current plan of care details and appropriate orders placed. Relevant counseling for the gestational age provided. Continue routine care and follow up unless otherwise noted in visit notes/problem list details Initial Weight: Not Recorded Date -???-???-???-???-???- ???-???-???-???-???-? ??-???- EGA Weight BP Urine Prot -???-???-???-???-???- ???-???-???-???-???-? ??-???- Glucose FHR FuHt Pres Dilation -???-???-???-???-???- ???-???-???-???-???-? ??-???- Effaced St Visit Note 06/19/24 -???-???-???-???-???- ???-???-???-???-???-? ??-???- 8w 4d 153 lb 2 oz 108/73 -???-???-???-???-???- ???-???-???-???-???-? ??-???- 160 -???-???-???-???-???- ???-???-???-???-???-? ??-???- SM- no vb cr amping CRL SM- no vb cramping CRL 8w0d cons w ith LMP 07/17/24 -???-???-???-???-???- ???-???-???-???-???-? ??-???- 12w 4d 150 lb 9.6 oz 110/76 Negati ve -???-???-???-???-???- ???-???-???-???-???-? ??-???- Negative 150 -???-???-???-???-???- ???-???-???-???-???-? ??-???- -No VB. Ma naging nausea. PN labs reviewed. 08/14/24 -???-???-???-???-???- ???-???-???-???-???-? ??-???- 16w 4d 152 lb 6 oz 113/76 Negative -???-???-???-???-???- ???-???-???-???-???-? ??-???- Negative 148 -???-???-???-???-???- ???-???-???-???-???-? ??-???- MH-No VB. No flutters yet. Nausea resolved. Anatomy US scheduled (more content not included)... Normal [facility] - Chemistry and C hemistry - challengeOrdered By: Fauzia Martines on 12-06-2024 Glucose Ql (U) Negative [facility] - UrinalysisOrder ed By: Fauzia Martines on 12-06-2024 Protein Ql (U) Trace [facility] Respiratory Director Office Visit Reporton 12-06-2024 Respiratory Director Office Visit Report [facility]'s [address], [address] [place] [address] OFFICE VISIT Date of Service: 12/06/24 MR#: [id number] Acct: [id number] Name: SHELBY DIAZ Rep #: [id number] : 1995 Provider: ZOHAIB landa Age/Sex: 29/F [place] [facility] [place]: Signed Intake Vital Signs 07/17/24 08:52 11/20/24 09:09 12/06/24 14:05 Height 5 ft 5 in 5 ft 5 in 5 ft 5 in Weight: 165 lb 2 oz BMI 27.4 BP 109/72 Intake Visit Reasons: 32 wk ob Tension Worker Required: No Is patient in pain?: No Allergies No Known Allergies Allergy (Verified 12/06/24 14:06) Medications ???Medication ???Instructions ???Recorded ???Confirmed ???Type multivitamin no.47-iron fum 27 cap PO 06/27/23 12/06/24 History mg-folate no.1 1 mg-dha 300 mg capsule (PNV-DHA) cholecalciferol (vitamin D3) 25 25 mcg PO QDAY 03/08/24 12/06/24 H istory mcg (1,000 unit) capsule Last Menstrual Period: 04/20/24 Zika: Zika virus screening: Negative : No PFSH PFSH Surgical History [place] teeth extracted Family History Mother Family history of recurrent miscarriage 3 miscarriages Social History adopted: No household members: spouse and children number of children: 1 current occupational status: unemployed current occupation: [employer] current occupational exposures/hazards: No pets and animals: No history of recent travel: Yes (- May) out of state: Yes out of country: No sexually active: Yes Smoking Status: Never smoker alcohol intake: never substance use type: does not use well-balanced diet: about half the time caffeine: No eating out: rarely or never during the past year weight has: increased > 10 lbs what type of physical activity do you participate in: walking frequency: 1-2 times per week duration: 30-45 minutes/day kimberly/orthodoxy: Jain seatbelt use: always do you feel safe at home: Yes 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 Date Name GA/Weeks Outcome Route Bth Weight Gen Labor Lgth Anesthesia Del Locatn Provider FOB 01/26/24 Richie 38 live - full term 7#1oz Male none [facility] Delivery Date: 01/26/24 Last Updated by: Chanelle Kerns IOL SROM HPI 32 wk ob Details: SHELBY DIAZ is a 29 year old who presents for routine OB visit. OB Visit FANTA Calculator Estimated Delivery Date Method Current Current Estimate 01/25/25 LMP (Certain) 32w 6d Other Estimates 01/29/25 Ultrasound #1 32w 2d Expected Delivery Route/Plan Labor Preferences- CB/BF classes: no labor support person: Kailash labor intervention preferences: [] pain management options preferred: limited cut cord/dad catch: yes : yes PP control planned: discussed discussed possible routes of delivery and associated risks: [] special requests: [] Specific Issue/Plans Covid status: [] Flu vaccine: [] Tdap vaccine: declines Rhogam: na LARC form signed: yes Problem list reviewed and updated with the most current plan of care details and appropriate orders placed. Relevant counseling for the gestational age provided. Continue routine care and follow up unless otherwise noted in visit notes/problem list details Initial Weight: Not Recorded Date -???-???-???-???-???- ???-???-???-???-???-? ??-???- EGA Weight BP Urine Prot -???-???-???-???-???- ???-???-???-???-???-? ??-???- Glucose FHR FuHt Pres Dilation -???-???-???-???-???- ???-???-???-???-???-? ??-???- Effaced St Visit Note 06/19/24 -???-???-???-???-???- ???-???-???-???-???-? ??-???- 8w 4d 153 lb 2 oz 108/73 -???-???-???-???-???- ???-???-???-???-???-? ??-???- 160 -???-???-???-???-???- ???-???-???-???-???-? ??-???- SM- no vb cr amping CRL SM- no vb cramping CRL 8w0d cons w ith LMP 07/17/24 -???-???-???-???-???- ???-???-???-???-???-? ??-???- 12w 4d 150 lb 9.6 oz 110/76 Negati ve -???-???-???-???-???- ???-???-???-???-???-? ??-???- Negative 150 -???-???-???-???-???- ???-???-???-???-???-? ??-???- MH-No VB. Ma naging nausea. PN labs reviewed. 08/14/24 -???-???-???-???-???- ???-???-???-???-???-? ??-???- 16w 4d 152 lb 6 oz 113/76 Negative -???-???-???-???-???- ???-???-???-???-???-? ??-???- Negative 148 -???-???-???-???-???- ???-???-???-???-???-? ??-???- MH-No VB. No flutters yet. Nausea resolved. Anatomy US scheduled 09/12/24 -???-???-???-???-???- (more content not included)... Normal [facility] - Chemistry and C hemistry - challengeOrdered By: Tracie Jackson on 11-20-2024 Glucose Ql (U) Negative [facility] - UrinalysisOrder ed By: Tracie Jackson on 11-20-2024 Protein Ql (U) Negative [facility] Respiratory Director Office Visit Reporton 11-20-2024 Respiratory Director Office Visit Report [facility]'s [address], [address] [place] [address] OFFICE VISIT Date of Service: 11/20/24 MR#: [id number] Acct: [id number] Name: SHELBY DIAZ Rep #: [id number] : 1995 Provider: Dr. Tracie Mujica, Age/Sex: 29/F [place] [facility] [place]: Signed Intake Vital Signs 07/17/24 08:52 11/07/24 14:15 11/20/24 09:09 11/20/24 09:09 Height 5 ft 5 in 5 ft 5 in 5 ft 5 in 5 ft 5 in Weight: 165 lb 8 oz BMI 27.5 BP 113/74 Intake Visit Reasons: 30 wk ob Tension Worker Required: No Is patient in pain?: No Allergies No Known Allergies Allergy (Verified 11/20/24 09:09) Medications ???Medication ???Instructions ???Recorded ???Confirmed ???Type multivitamin no.47-iron fum 27 cap PO 06/27/23 11/20/24 History mg-folate no.1 1 mg-dha 300 mg capsule (PNV-DHA) cholecalciferol (vitamin D3) 25 25 mcg PO QDAY 03/08/24 11/20/24 H istory mcg (1,000 unit) capsule Last Menstrual Period: 04/20/24 Zika: Zika virus screening: Negative : No PFSH PFSH Surgical History [place] teeth extracted Family History Mother Family history of recurrent miscarriage 3 miscarriages Social History adopted: No household members: spouse and children number of children: 1 current occupational status: unemployed current occupation: [employer] current occupational exposures/hazards: No pets and animals: No history of recent travel: Yes (- May) out of state: Yes out of country: No sexually active: Yes Smoking Status: Never smoker alcohol intake: never substance use type: does not use well-balanced diet: about half the time caffeine: No eating out: rarely or never during the past year weight has: increased > 10 lbs what type of physical activity do you participate in: walking frequency: 1-2 times per week duration: 30-45 minutes/day kimberly/orthodoxy: Jain seatbelt use: always do you feel safe at home: Yes 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 Date Name GA/Weeks Outcome Route Bth Weight Infant Gen Labor Lgth Anesthesia Del Locatn Provider FOB 01/26/24 Richie 38 live - full term 7#1oz Male none [facility] Delivery Date: 01/26/24 Last Updated by: Chanelle Kerns IOL SROM HPI 30 wk ob Details: SHELBY DIAZ is a 29 year old who presents for routine OB visit. OB Visit FANTA Calculator Estimated Delivery Date Method Current WG Current Estimate 01/25/25 LMP (Certain) 30w 4d Other Estimates 01/29/25 Ultrasound #1 30w 0d Expected Delivery Route/Plan Labor Preferences- CB/BF classes: no labor support person: Kailash labor intervention preferences: [] pain management options preferred: limited cut cord/dad catch: yes : yes PP control planned: discussed discussed possible routes of delivery and associated risks: [] special requests: [] Specific Issue/Plans Covid status: [] Flu vaccine: [] Tdap vaccine: declines Rhogam: na LARC form signed: yes Problem list reviewed and updated with the most current plan of care details and appropriate orders placed. Relevant counseling for the gestational age provided. Continue routine care and follow up unless otherwise noted in visit notes/problem list details Initial Weight: Not Recorded Date -???-???-???-???-???- ???-???-???-???-???-? ??-???- EGA Weight BP Urine Prot -???-???-???-???-???- ???-???-???-???-???-? ??-???- Glucose FHR FuHt Pres Dilation -???-???-???-???-???- ???-???-???-???-???-? ??-???- Effaced St Visit Note 06/19/24 -???-???-???-???-???- ???-???-???-???-???-? ??-???- 8w 4d 153 lb 2 oz 108/73 -???-???-???-???-???- ???-???-???-???-???-? ??-???- 160 -???-???-???-???-???- ???-???-???-???-???-? ??-???- SM- no vb cr amping CRL SM- no vb cramping CRL 8w0d cons w ith LMP 07/17/24 -???-???-???-???-???- ???-???-???-???-???-? ??-???- 12w 4d 150 lb 9.6 oz 110/76 Negati ve -???-???-???-???-???- ???-???-???-???-???-? ??-???- Negative 150 -???-???-???-???-???- ???-???-???-???-???-? ??-???- -No VB. Ma naging nausea. PN labs reviewed. 08/14/24 -???-???-???-???-???- ???-???-???-???-???-? ??-???- 16w 4d 152 lb 6 oz 113/76 Negative -???-???-???-???-???- ???-???-???-???-???-? ??-???- Negative 148 -???-???-???-???-???- ???-???-???-???-???-? ??-???- MH-No VB. No flutters yet. Nausea resolved. Anatomy US scheduled (more content not included)... Normal [facility] Absolute lymphocyte countOrd ered By: Renuka Peters on 11-07-2024 Lymphocytes Auto (Unsp spec) [#/Vol] 1.84 10*3/uL 0.83-4.51 [facility] Absolute neutrophil countOrd ered By: Renuka Peters on 11-07-2024 Neutrophils (Bld) [#/Vol] 6.1 10*3/uL 2.0-7.7 [facility] Automated lymphocyte count a s percentage of total leukocytesOrdered By: Renuka Peters on 11-07-2024 Lymphocytes/100 WBC Auto (Unsp spec) 21.4 % 19-41 [facility] Basophil percentageOrdered B y: Renuka Peters on 11-07-2024 Basophils/100 WBC (Bld) 0.3 % 0-1 [facility] CBC W/Diff, Automatedon Absolute Lymph 1.84 X10 3/uL Normal 0.83-4.51 [facility] Comment on above: Performed By: #### L 100.0100, L501.0250, L509.8002, L3890.6006 #### [facility] [address] [place], [address] Absolute Neut 6.1 X10 3/uL Normal 2.0-7.7 [facility] Comment on above: Performed By: #### L 100.0100, L501.0250, L509.8002, L3890.6006 #### [facility] [address] [place], [address] Basophils/100 WBC (Bld) 0.3 % Normal 0-1 [facility] Comment on above: Performed By: #### L 100.0100, L501.0250, L509.8002, L3890.6006 #### [facility] [address] [place], [address] Eosinophils/100 WBC (Bld) 1.0 % Normal 0-5 [facility] Comment on above: Performed By: #### L 100.0100, L501.0250, L509.8002, [id number] #### [facility] [address] [place], [address] Erythrocyte distribution width (RBC) [Ratio] 13.8 % Normal 11.6-14.6 [facility] Comment on above: Performed By: #### L 100.0100, L501.0250, L509.8002, L3890.6006 #### [facility] [address] [place], [address] Hematocrit (Bld) [Volume fraction] 36.0 % Low 37-47 [facility] Comment on above: Performed By: #### L 100.0100, L501.0250, L509.8002, L3890.6006 #### [facility] [address] [place], [address] Hemoglobin (Bld) [Mass/Vol] 12.3 g/dL Normal 12.0-15.0 [facility] Comment on above: Performed By: #### L 100.0100, L501.0250, L509.8002, L3890.6006 #### [facility] [address] [place], [address] IG% 1.000 High 0.0-0.9 [facility] Comment on above: Result Comment: IG% - Immature Granulocytes (promyelocytes, myelocytes and metamyelocytes) > 1% indicates that a LEFT SHIFT is Present. Performed By: #### L 100.0100, L501.0250, L509.8002, L3890.6006 #### [facility] [address] [place], [address] Lymphocytes/100 WBC (Bld) 21.4 % Normal 19-41 [facility] Comment on above: Performed By: #### L 100.0100, L501.0250, L509.8002, L3890.6006 #### [facility] [address] [place], [address] MCH (RBC) [Entitic mass] 30.2 pg Normal 27.0-32.0 [facility] Comment on above: Performed By: #### L 100.0100, L501.0250, L509.8002, L3890.6006 #### [facility] [address] [place], [address] MCHC (RBC) [Mass/Vol] 34.2 g/dL Normal 32-36 [facility] Comment on above: Performed By: #### L 100.0100, L501.0250, L509.8002, L3890.6006 #### [facility] [address] [place], [address] MCV (RBC) [Entitic vol] 88.5 fL Normal 81-99 [facility] Comment on above: Performed By: #### L 100.0100, L501.0250, L509.8002, L3890.6006 #### [facility] [address] [place], [address] Monocytes/100 WBC (Bld) 5.6 % Normal 0-10 [facility] Comment on above: Performed By: #### L 100.0100, L501.0250, L509.8002, L3890.6006 #### [facility] [address] [place], [address] Neutrophils/100 WBC (Bld) 70.7 % High 47-70 [facility] Comment on above: Performed By: #### L 100.0100, L501.0250, L509.8002, L3890.6006 #### [facility] [address] [place], [address] Nucleated RBC (Bld) [#/Vol] 0 10*3/uL Normal 0-5 [facility] Comment on above: Performed By: #### L 100.0100, L501.0250, L509.8002, L3890.6006 #### [facility] [address] [place], [address] Platelet mean volume (Bld) [Entitic vol] 9.7 fL Normal 6.2-12.0 [facility] Comment on above: Performed By: #### L 100.0100, L501.0250, L509.8002, L3890.6006 #### [facility] [address] [place], [address] Platelets (Bld) [#/Vol] 191 10*3/uL Normal 150-450 [facility] Comment on above: Performed By: #### L 100.0100, L501.0250, L509.8002, L3890.6006 #### [facility] [address] [place], [address] RBC (Bld) [#/Vol] 4.07 10*6/uL Low 4.2-5.4 [facility] Comment on above: Performed By: #### L 100.0100, L501.0250, L509.8002, L3890.6006 #### [facility] [address] [place], [address] RDW SD 44.6 fl High 35.1-43.9 [facility] Comment on above: Performed By: #### L 100.0100, L501.0250, L509.8002, L3890.6006 #### [facility] [address] [place], [address] WBC (Bld) [#/Vol] 8.6 10*3/uL Normal 4.4-11.0 [facility] Comment on above: Performed By: #### L 100.0100, L501.0250, L509.8002, L3890.6006 #### [facility] [address] [place], [address] Eosinophil percentageOrdered By: Renuka Peters on 11-07-2024 Eosinophils/100 WBC (Bld) 1.0 % 0-5 [facility] Erythrocyte distribution wid th ratioOrdered By: Renuka Peters on 11-07-2024 Erythrocyte distribution width (RBC) [Ratio] 13.8 % 11.6-14.6 [facility] Erythrocyte distribution wid th standard deviationOrdered By: Renuka Peters on 11-07-2024 Erythrocyte distribution width (RBC) [Ratio] 44.6 fl High 35.1-43.9 [facility] Glucose Challenge Gest 1H 50 acacia 11-07-2024 GLU GEST 50g 1H 81 mg/dL Normal 70-140 [facility] Comment on above: Performed By: #### L 100.0100, L501.0250, L509.8002, L3890.6006 #### [facility] [address] [place], [address] Glucose measurement at 2 radha rs post-dose gestational glucose tolerance testOrdered By: Renuka Peters on 11-07-2024 Glucose [Mass/Vol] 81 mg/dL 70-140 [facility] HIVon 11-07-2024 HIV Non-Reactive Normal Nonreactive [facility] Comment on above: Result Comment: Non- Reactive Reactive Repeatedly reactive samples must be confirmed according to CDC recommended confirmatory algorithms. The subresults for either HIVAG or AHIV can be used as an aid in the selection of the confirmation algorithm for reactive samples. Send out specimens with Reactive results to [facility] for confirmation. Order the HIV antibody detection and differentiation: #[id number] Performed By: #### L 100.0100, L501.0250, L509.8002, L3890.6006 #### [facility] [address] [place], [place], [id number] Hematocrit Auto (Bld) [Volum e fraction]Ordered By: Renuka Peters on 11-07-2024 Hematocrit (Bld) [Volume fraction] 36.0 % Low 37-47 [facility] Hemoglobin measurementOrdere d By: Renuka Peters on 11-07-2024 Hemoglobin (Bld) [Mass/Vol] 12.3 g/dL 12.0-15.0 [facility] Immature granulocytes/100 WB C Auto (Bld)Ordered By: Renuka Peters on 11-07-2024 Immature granulocytes/100 WBC (Bld) 1.000 % High 0.0-0.9 [facility] Comment on above: IG% - Immature Granu locytes (promyelocytes, myelocytes and metamyelocytes) > 1% indicates that a LEFT SHIFT is Present. Laboratory - Chemistry and C hemistry - challengeOrdered By: Jarrell Alvares on 11-07-2024 Glucose Ql (U) Negative [facility] - UrinalysisOrder ed By: Jarrell Alvares on 11-07-2024 Protein Ql (U) Negative [facility] MCV (mean corpuscular volume ) determinationOrdered By: Renuka Peters on 11-07-2024 MCV (RBC) [Entitic vol] 88.5 fL 81-99 [facility] Mean corpuscular hemoglobin (MCH) determinationOrdered By: Renuka Peters on 11-07-2024 MCH (RBC) [Entitic mass] 30.2 pg 27.0-32.0 [facility] Mean corpuscular hemoglobin concentration (MCHC) determinationOrdered By: Renuka Peters on 11-07-2024 MCHC (RBC) [Mass/Vol] 34.2 g/dL 32-36 [facility] Mean platelet volume determi nationOrdered By: Renuka Peters on 11-07-2024 Platelet mean volume (Bld) [Entitic vol] 9.7 fL 6.2-12.0 [facility] Monocyte percentageOrdered B y: Renuka Peters on 11-07-2024 Monocytes/100 WBC (Bld) 5.6 % 0-10 [facility] Neutrophil percentageOrdered By: Renuka Peters on 11-07-2024 Neutrophils/100 WBC (Bld) 70.7 % High 47-70 [facility] No Panel InformationOrdered By: Renuka Peters on 11-07-2024 HIV (1&2) Antibody Non-Reactive Nonreactive [facility] Comment on above: Non-ReactiveReactive Repeatedly reactive samples must be confirmed according to CDC recommended confirmatory algorithms. The subresults for either HIVAG or AHIV can be used as an aid in the selection of the confirmation algorithm for reactive samples.Send out specimens with Reactive results to [facility] for confirmation.Order the HIV antibody detection and differentiation: #[id number] Nucleated red blood cell per centageOrdered By: Renuka Peters on 11-07-2024 Nucleated RBC/100 WBC (Bld) [Ratio] 0 % 0-5 [facility] Respiratory Director Office Visit Reporton 11-07-2024 Respiratory Director Office Visit Report [facility] [address], [address] [place] [address] OFFICE VISIT Date of Service: 11/07/24 MR#: [id number] Acct: [id number] Name: SHELBY DIAZ Rep #: [id number] : 1995 Provider: MARÍA andrew Age/Sex: 29/F [place] [facility] [place]: [place]igned Intake Vital Signs 07/17/24 08:52 10/09/24 09:41 11/07/24 14:14 11/07/24 14:15 Height 5 ft 5 in 5 ft 5 in 5 ft 5 in 5 ft 5 in Weight: 162 lb 8 oz BMI 27.0 BP 112/64 Intake Visit Reasons: 28 wk ob/glucose Chief Complaint: 28 Week OB Tension Worker Required: No Is patient in pain?: No Allergies No Known Allergies Allergy (Verified 11/07/24 14:14) Medications ???Medication ???Instructions ???Recorded ???Confirmed ???Type multivitamin no.47-iron fum 27 cap PO 06/27/23 11/07/24 History mg-folate no.1 1 mg-dha 300 mg capsule (PNV-DHA) cholecalciferol (vitamin D3) 25 25 mcg PO QDAY 03/08/24 11/07/24 H istory mcg (1,000 unit) capsule Last Menstrual Period: 04/20/24 Zika: Zika virus screening: Negative : Yes PFSH PFSH Surgical History [place] teeth extracted Family History Mother Family history of recurrent miscarriage 3 miscarriages Social History adopted: No household members: spouse and children number of children: 1 current occupational status: unemployed current occupation: SAHM current occupational exposures/hazards: No pets and animals: No history of recent travel: Yes (- May) out of state: Yes out of country: No sexually active: Yes Smoking Status: Never smoker alcohol intake: never substance use type: does not use well-balanced diet: about half the time caffeine: No eating out: rarely or never during the past year weight has: increased > 10 lbs what type of physical activity do you participate in: walking frequency: 1-2 times per week duration: 30-45 minutes/day kimberly/orthodoxy: Jain seatbelt use: always do you feel safe at home: Yes 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 Date Name GA/Weeks Outcome Route Bth Weight Infant Gen Labor Lgth Anesthesia Del Locatn Provider FOB 01/26/24 Richie 38 live - full term 7#1oz Male none [facility] Delivery Date: 01/26/24 Last Updated by: Chanelle Kerns IOL SROM HPI 28 wk ob/glucose Details: SHELBY DIAZ is a 29 year old who presents for routine OB visit. OB Visit FANTA Calculator Estimated Delivery Date Method Current WG Current Estimate 01/25/25 LMP (Certain) 28w 5d Other Estimates 01/29/25 Ultrasound #1 28w 1d Expected Delivery Route/Plan Labor Preferences- CB/BF classes: no labor support person: Kailash labor intervention preferences: [] pain management options preferred: limited cut cord/dad catch: yes : yes PP control planned: discussed discussed possible routes of delivery and associated risks: [] special requests: [] Specific Issue/Plans Covid status: [] Flu vaccine: [] Tdap vaccine: declines Rhogam: na LARC form signed: yes Problem list reviewed and updated with the most current plan of care details and appropriate orders placed. Relevant counseling for the gestational age provided. Continue routine care and follow up unless otherwise noted in visit notes/problem list details Initial Weight: Not Recorded Date -???-???-???-???-???- ???-???-???-???-???-? ??-???- EGA Weight BP Urine Prot -???-???-???-???-???- ???-???-???-???-???-? ??-???- Glucose FHR FuHt Pres Dilation -???-???-???-???-???- ???-???-???-???-???-? ??-???- Effaced St Visit Note 06/19/24 -???-???-???-???-???- ???-???-???-???-???-? ??-???- 8w 4d 153 lb 2 oz 108/73 -???-???-???-???-???- ???-???-???-???-???-? ??-???- 160 -???-???-???-???-???- ???-???-???-???-???-? ??-???- SM- no vb cr amping CRL SM- no vb cramping CRL 8w0d cons w ith LMP 07/17/24 -???-???-???-???-???- ???-???-???-???-???-? ??-???- 12w 4d 150 lb 9.6 oz 110/76 Negati ve -???-???-???-???-???- ???-???-???-???-???-? ??-???- Negative 150 -???-???-???-???-???- ???-???-???-???-???-? ??-???- MH-No VB. Ma naging nausea. PN labs reviewed. 08/14/24 -???-???-???-???-???- ???-???-???-???-???-? ??-???- 16w 4d 152 lb 6 oz 113/76 Negative -???-???-???-???-???- ???-???-???-???-???-? ??-???- Negative 148 -???-???-???-???-???- ???-???-???-???-???-? ??-???- MH-No VB. No flutters ye (more content not included)... Normal [facility] Platelet countOrdered By: Rob Peters on 11-07-2024 Platelets (Bld) [#/Vol] 191 10*3/uL 150-450 [facility] RBC Auto (Bld) [#/Vol]Ordere d By: Renuka Peters on 11-07-2024 RBC (Bld) [#/Vol] 4.07 10*6/uL Low 4.2-5.4 [facility] Syphilis Antibodieson 2024 Syphilis Abs Non-Reactive Normal Nonreactive [facility] Comment on above: Performed By: #### L 100.0100, L501.0250, L509.8002, L3890.6006 #### [facility] [address] [place], [place] [address], [address] White blood cell (WBC) count Ordered By: Renuka Peters on 11-07-2024 WBC (Bld) [#/Vol] 8.6 10*3/uL 4.4-11.0 [facility] - Chemistry and C hemistry - challengeOrdered By: Renuka Peters on 10-09-2024 Glucose Ql (U) Negative [facility] - UrinalysisOrder ed By: Renuka Peters on 10-09-2024 Protein Ql (U) Negative [facility] Respiratory Director Office Visit Reporton 10-09-2024 Respiratory Director Office Visit Report [facility] [address], [address] [place] [address] OFFICE VISIT Date of Service: 10/09/24 MR#: [id number] Acct: [id number] Name: SHELBY DIAZ Rep #: [id number] : 1995 Provider: Dr. Renuka wilkinson MD Age/Sex: 29/F [place] [facility] [place]: Signed Intake Vital Signs 07/17/24 08:52 08/14/24 13:49 09/12/24 09:50 10/09/24 09:41 Height 5 ft 5 in 5 ft 5 in 5 ft 5 in 5 ft 5 in Weight: 156 lb 2 oz BMI 25.9 BP 115/61 Intake Visit Reasons: 24 wk ob Tension Worker Required: No Is patient in pain?: No Allergies No Known Allergies Allergy (Verified 10/09/24 09:46) Medications ???Medication ???Instructions ???Recorded ???Confirmed ???Type multivitamin no.47-iron fum 27 cap PO 06/27/23 10/09/24 History mg-folate no.1 1 mg-dha 300 mg capsule (PNV-DHA) cholecalciferol (vitamin D3) 25 25 mcg PO QDAY 03/08/24 10/09/24 H istory mcg (1,000 unit) capsule Last Menstrual Period: 04/20/24 Zika: Zika virus screening: Negative : No PFSH PFSH Surgical History [place] teeth extracted Family History Mother Family history of recurrent miscarriage 3 miscarriages Social History adopted: No household members: spouse and children number of children: 1 current occupational status: unemployed current occupation: [employer] current occupational exposures/hazards: No pets and animals: No history of recent travel: Yes (- May) out of state: Yes out of country: No sexually active: Yes Smoking Status: Never smoker alcohol intake: never substance use type: does not use well-balanced diet: about half the time caffeine: No eating out: rarely or never during the past year weight has: increased > 10 lbs what type of physical activity do you participate in: walking frequency: 1-2 times per week duration: 30-45 minutes/day kimberly/orthodoxy: Jain seatbelt use: always do you feel safe at home: Yes 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 Date Name GA/Weeks Outcome Route Bth Weight Gen Labor Lgth Anesthesia Del Locatn Provider FOB 01/26/24 Richie 38 live - full term 7#1oz Male none [facility] Delivery Date: 01/26/24 Last Updated by: Chanelle Kerns IOL SROM HPI 24 wk ob Details: SHELBY DIAZ is a 29 year old who presents for routine OB visit. OB Visit FANTA Calculator Estimated Delivery Date Method Current WG Current Estimate 01/25/25 LMP (Certain) 24w 4d Other Estimates 01/29/25 Ultrasound #1 24w 0d Expected Delivery Route/Plan Labor Preferences- CB/BF classes: [] labor support person: [] labor intervention preferences: [] pain management options preferred: [] cut cord/dad catch: [] : [] PP control planned: [] discussed possible routes of delivery and associated risks: [] special requests: [] Specific Issue/Plans Covid status: [] Flu vaccine: [] Tdap vaccine: [] Rhogam: [] LARC form signed: [] Problem list reviewed and updated with the most current plan of care details and appropriate orders placed. Relevant counseling for the gestational age provided. Continue routine care and follow up unless otherwise noted in visit notes/problem list details Initial Weight: Not Recorded Date -???-???-???-???-???- ???-???-???-???-???-? ??-???- EGA Weight BP Urine Prot -???-???-???-???-???- ???-???-???-???-???-? ??-???- Glucose FHR FuHt Pres Dilation -???-???-???-???-???- ???-???-???-???-???-? ??-???- Effaced St Visit Note 06/19/24 -???-???-???-???-???- ???-???-???-???-???-? ??-???- 8w 4d 153 lb 2 oz 108/73 -???-???-???-???-???- ???-???-???-???-???-? ??-???- 160 -???-???-???-???-???- ???-???-???-???-???-? ??-???- SM- no vb cr amping CRL SM- no vb cramping CRL 8w0d cons w ith LMP 07/17/24 -???-???-???-???-???- ???-???-???-???-???-? ??-???- 12w 4d 150 lb 9.6 oz 110/76 Negati ve -???-???-???-???-???- ???-???-???-???-???-? ??-???- Negative 150 -???-???-???-???-???- ???-???-???-???-???-? ??-???- MH-No VB. Ma naging nausea. PN labs reviewed. 08/14/24 -???-???-???-???-???- ???-???-???-???-???-? ??-???- 16w 4d 152 lb 6 oz 113/76 Negative -???-???-???-???-???- ???-???-???-???-???-? ??-???- Negative 148 -???-???-???-???-???- ???-???-???-???-???-? ??-???- MH-No VB. No flutters yet. Nausea resolved. Anatomy US scheduled 09/12/24 -???-???-???-???- (more content not included)... Normal [facility] - Chemistry and C hemistry - challengeOrdered By: Tracie Jackson on 09-12-2024 Glucose Ql (U) Negative [facility] - UrinalysisOrder ed By: Tracie Jackson on 09-12-2024 Protein Ql (U) Negative [facility] Respiratory Director Office Visit Reporton 09-12-2024 Respiratory Director Office Visit Report [facility] [address], [address] [place] [address] OFFICE VISIT Date of Service: 09/12/24 MR#: [id number] Acct: [id number] Name: SHELBY DIAZ Rep #: [id number] : 1995 Provider: Dr. Tracie Mujica DO Age/Sex: 29/F [place] [facility] [place]: Signed Intake Vital Signs 07/17/24 08:52 08/14/24 13:49 09/12/24 09:50 Height 5 ft 5 in 5 ft 5 in 5 ft 5 in Weight: 153 lb 2 oz BMI 25.4 BP 111/71 Intake Visit Reasons: 20 wk ob Tension Worker Required: No Is patient in pain?: No Allergies No Known Allergies Allergy (Verified 08/14/24 13:50) Medications ???Medication ???Instructions ???Recorded ???Confirmed ???Type multivitamin no.47-iron fum 27 cap PO 06/27/23 09/12/24 History mg-folate no.1 1 mg-dha 300 mg capsule (PNV-DHA) cholecalciferol (vitamin D3) 25 25 mcg PO QDAY 03/08/24 09/12/24 H istory mcg (1,000 unit) capsule Last Menstrual Period: 04/20/24 Zika: Zika virus screening: Negative : No PFSH PFSH Surgical History [place] teeth extracted Family History Mother Family history of recurrent miscarriage 3 miscarriages Social History adopted: No household members: spouse and children number of children: 1 current occupational status: unemployed current occupation: [employer] current occupational exposures/hazards: No pets and animals: No history of recent travel: Yes (- May) out of state: Yes out of country: No sexually active: Yes Smoking Status: Never smoker alcohol intake: never substance use type: does not use well-balanced diet: about half the time caffeine: No eating out: rarely or never during the past year weight has: increased > 10 lbs what type of physical activity do you participate in: walking frequency: 1-2 times per week duration: 30-45 minutes/day kimberly/orthodoxy: Jain seatbelt use: always do you feel safe at home: Yes 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 Date Name GA/Weeks Outcome Route Bth [facility] Richie 38 live - full term 7#1oz Male none [facility] Delivery Date: 01/26/24 Last Updated by: Chanelle Kerns IOL SROM HPI 20 wk ob Details: SHELBY DIAZ is a 29 year old who presents for routine OB visit. OB Visit FANTA Calculator Estimated Delivery Date Method Current WG Current Estimate 01/25/25 LMP (Certain) 20w 5d Other Estimates 01/29/25 Ultrasound #1 20w 1d Expected Delivery Route/Plan Labor Preferences- CB/BF classes: [] labor support person: [] labor intervention preferences: [] pain management options preferred: [] cut cord/dad catch: [] : [] PP control planned: [] discussed possible routes of delivery and associated risks: [] special requests: [] Specific Issue/Plans Covid status: [] Flu vaccine: [] Tdap vaccine: [] Rhogam: [] LARC form signed: [] Problem list reviewed and updated with the most current plan of care details and appropriate orders placed. Relevant counseling for the gestational age provided. Continue routine care and follow up unless otherwise noted in visit notes/problem list details Initial Weight: Not Recorded Date -???-???-???-???-???- ???-???-???-???-???-? ??-???- EGA Weight BP Urine Prot -???-???-???-???-???- ???-???-???-???-???-? ??-???- Glucose FHR FuHt Pres Dilation -???-???-???-???-???- ???-???-???-???-???-? ??-???- Effaced St Visit Note 06/19/24 -???-???-???-???-???- ???-???-???-???-???-? ??-???- 8w 4d 153 lb 2 oz 108/73 -???-???-???-???-???- ???-???-???-???-???-? ??-???- 160 -???-???-???-???-???- ???-???-???-???-???-? ??-???- SM- no vb cr amping CRL SM- no vb cramping CRL 8w0d cons w ith LMP 07/17/24 -???-???-???-???-???- ???-???-???-???-???-? ??-???- 12w 4d 150 lb 9.6 oz 110/76 Negati ve -???-???-???-???-???- ???-???-???-???-???-? ??-???- Negative 150 -???-???-???-???-???- ???-???-???-???-???-? ??-???- -No VB. Ma naging nausea. PN labs reviewed. 08/14/24 -???-???-???-???-???- ???-???-???-???-???-? ??-???- 16w 4d 152 lb 6 oz 113/76 Negative -???-???-???-???-???- ???-???-???-???-???-? ??-???- Negative 148 -???-???-???-???-???- ???-???-???-???-???-? ??-???- -No VB. No flutters yet. Nausea resolved. Anatomy US scheduled 09/12/24 -???-???-???-???-???- ???-???-???-??? (more content not included)... Normal [facility] - Chemistry and C hemistry - challengeOrdered By: Renuka Peters on 08-14-2024 Glucose Ql (U) Negative [facility] - UrinalysisOrder ed By: Renuka Peters on 08-14-2024 Protein Ql (U) Negative [facility] Respiratory Director Office Visit Reporton 08-14-2024 Respiratory Director Office Visit Report [address], [address] [place] [address] OFFICE VISIT Date of Service: 08/14/24 MR#: [id number] Acct: [id number] Name: SHELBY DIAZ Rep #: [id number] : 1995 Provider: MARÍA andrew Age/Sex: 29/F [place] [facility] [place]: Signed Intake Vital Signs 06/19/24 14:00 07/17/24 08:52 08/14/24 13:49 Height 5 ft 5 in 5 ft 5 in 5 ft 5 in Weight: 152 lb 6 oz BMI 25.3 BP 113/76 Intake Visit Reasons: 16 wk ob Tension Worker Required: No Is patient in pain?: No Feel stressed/tense/nervou s/anxious/difficulty sleeping: not at all Allergies No Known Allergies Allergy (Verified 08/14/24 13:50) Medications ???Medication ???Instructions ???Recorded ???Confirmed ???Type multivitamin no.47-iron fum 27 cap PO 06/27/23 08/14/24 History mg-folate no.1 1 mg-dha 300 mg capsule (PNV-DHA) cholecalciferol (vitamin D3) 25 25 mcg PO QDAY 03/08/24 08/14/24 H istory mcg (1,000 unit) capsule Last Menstrual Period: 04/20/24 Zika: Zika virus screening: Negative : No Have you fallen in the past year?: No PFSH PFSH Surgical History [place] teeth extracted Family History Mother Family history of recurrent miscarriage 3 miscarriages Social History adopted: No household members: spouse and children number of children: 1 current occupational status: unemployed current occupation: [employer] current occupational exposures/hazards: No pets and animals: No history of recent travel: Yes (- May) out of state: Yes out of country: No sexually active: Yes Smoking Status: Never smoker alcohol intake: never substance use type: does not use well-balanced diet: about half the time caffeine: No eating out: rarely or never during the past year weight has: increased > 10 lbs what type of physical activity do you participate in: walking frequency: 1-2 times per week duration: 30-45 minutes/day kimberly/orthodoxy: Jain seatbelt use: always do you feel safe at home: Yes 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 Date Name GA/Weeks Outcome Route Bth Weight Infant Gen Labor Lgth Anesthesia Del Locatn Provider FOB 01/26/24 Richie 38 live - full term 7#1oz Male none [facility] Delivery Date: 01/26/24 Last Updated by: Chanelle Kerns IOL SROM HPI 16 wk ob Details: SHELBY DIAZ is a 29 year old who presents for routine OB visit. OB Visit FANTA Calculator Estimated Delivery Date Method Current WG Current Estimate 01/25/25 LMP (Certain) 16w 4d Other Estimates 01/29/25 Ultrasound #1 16w 0d Expected Delivery Route/Plan Labor Preferences- CB/BF classes: [] labor support person: [] labor intervention preferences: [] pain management options preferred: [] cut cord/dad catch: [] : [] PP control planned: [] discussed possible routes of delivery and associated risks: [] special requests: [] Specific Issue/Plans Covid status: [] Flu vaccine: [] Tdap vaccine: [] Rhogam: [] LARC form signed: [] Problem list reviewed and updated with the most current plan of care details and appropriate orders placed. Relevant counseling for the gestational age provided. Continue routine care and follow up unless otherwise noted in visit notes/problem list details Initial Weight: Not Recorded Date -???-???-???-???-???- ???-???-???-???-???-? ??-???- EGA Weight BP Urine Prot -???-???-???-???-???- ???-???-???-???-???-? ??-???- Glucose FHR FuHt Pres Dilation -???-???-???-???-???- ???-???-???-???-???-? ??-???- Effaced St Visit Note 06/19/24 -???-???-???-???-???- ???-???-???-???-???-? ??-???- 8w 4d 153 lb 2 oz 108/73 -???-???-???-???-???- ???-???-???-???-???-? ??-???- 160 -???-???-???-???-???- ???-???-???-???-???-? ??-???- SM- no vb cr amping CRL SM- no vb cramping CRL 8w0d cons w ith LMP 07/17/24 -???-???-???-???-???- ???-???-???-???-???-? ??-???- 12w 4d 150 lb 9.6 oz 110/76 Negati ve -???-???-???-???-???- ???-???-???-???-???-? ??-???- Negative 150 -???-???-???-???-???- ???-???-???-???-???-? ??-???- MH-No VB. Ma naging nausea. PN labs reviewed. 08/14/24 -???-???-???-???-???- ???-???-???-???-???-? ??-???- 16w 4d 152 lb 6 oz 113/76 Negative -???-???-???-???-???- ???-???-???-???-???-? ??-???- Negative 148 -???-???-???-???-???- ???-???-???-???-???-? ??-???- MH-No VB. No flutters (more content not included)... Normal [facility] - Chemistry and C hemistry - challengeon 07-17-2024 Glucose Ql (U) Negative [facility] - Urinalysison Protein Ql (U) Negative [facility] Respiratory Director Office Visit Reporton 07-17-2024 Respiratory Director Office Visit Report [facility], [address] [place] [address] OFFICE VISIT Date of Service: 07/17/24 MR#: [id number] Acct: [id number] Name: SHELBY DIAZ Rep #: [id number] : 1995 Provider: MARÍA andrew Age/Sex: 29/F [place] [facility] [place]: Signed Intake Vital Signs 03/08/24 15:16 06/19/24 14:00 07/17/24 08:52 07/17/24 09:14 Height 5 ft 5 in 5 ft 5 in 5 ft 5 in Weight: 150 lb 9.6 oz BP 110/76 Intake Visit Reasons: 12wk OB Chief Complaint: 12 Week OB Tension Worker Required: No Is patient in pain?: No Allergies No Known Allergies Allergy (Verified 07/17/24 08:57) Medications ???Medication ???Instructions ???Recorded ???Confirmed ???Type multivitamin no.47-iron fum 27 cap PO 06/27/23 07/17/24 History mg-folate no.1 1 mg-dha 300 mg capsule (PNV-DHA) cholecalciferol (vitamin D3) 25 25 mcg PO QDAY 03/08/24 07/17/24 History mcg (1,000 unit) capsule Last Menstrual Period: 04/20/24 Zika: Zika virus screening: Negative : No PFSH PFSH Surgical History [place] teeth extracted Family History Mother Family history of recurrent miscarriage 3 miscarriages Social History adopted: No household members: spouse and children number of children: 1 current occupational status: unemployed current occupation: [employer] current occupational exposures/hazards: No pets and animals: No history of recent travel: Yes (- May) out of state: Yes out of country: No sexually active: Yes Smoking Status: Never smoker alcohol intake: never substance use type: does not use well-balanced diet: about half the time caffeine: No eating out: rarely or never during the past year weight has: increased > 10 lbs what type of physical activity do you participate in: walking frequency: 1-2 times per week duration: 30-45 minutes/day kimberly/orthodoxy: Jain seatbelt use: always do you feel safe at home: Yes 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 Date Name GA/Weeks Outcome Route Bth Weight Infant Gen Labor Lgth Anesthesia Del Locatn Provider FOB 01/26/24 Richie 38 live - full term 7#1oz Male none [facility]ailash Delivery Date: 01/26/24 Last Updated by: Chanelle Kerns IOL SROM HPI 12wk OB Details: SHELBY DIAZ is a 29 year old who presents for routine OB visit. OB Visit FANTA Calculator Estimated Delivery Date Method Current WG Current Estimate 01/25/25 LMP (Certain) 12w 4d Other Estimates 01/29/25 Ultrasound #1 12w 0d Expected Delivery Route/Plan Labor Preferences- CB/BF classes: [] labor support person: [] labor intervention preferences: [] pain management options preferred: [] cut cord/dad catch: [] : [] PP control planned: [] discussed possible routes of delivery and associated risks: [] special requests: [] Specific Issue/Plans Covid status: [] Flu vaccine: [] Tdap vaccine: [] Rhogam: [] LARC form signed: [] Problem list reviewed and updated with the most current plan of care details and appropriate orders placed. Relevant counseling for the gestational age provided. Continue routine care and follow up unless otherwise noted in visit notes/problem list details Initial Weight: Not Recorded Date -???-???-???-???-???- ???-???-???-???-???-? ??-???- EGA Weight BP Urine Prot -???-???-???-???-???- ???-???-???-???-???-? ??-???- Glucose FHR FuHt Pres Dilation -???-???-???-???-???- ???-???-???-???-???-? ??-???- Effaced St Visit Note 06/19/24 -???-???-???-???-???- ???-???-???-???-???-? ??-???- 8w 4d 153 lb 2 oz 108/73 -???-???-???-???-???- ???-???-???-???-???-? ??-???- 160 -???-???-???-???-???- ???-???-???-???-???-? ??-???- SM- no vb cr amping CRL SM- no vb cramping CRL 8w0d cons w ith LMP 07/17/24 -???-???-???-???-???- ???-???-???-???-???-? ??-???- 12w 4d 150 lb 9.6 oz 110/76 Negati ve -???-???-???-???-???- ???-???-???-???-???-? ??-???- Negative 150 -???-???-???-???-???- ???-???-???-???-???-? ??-???- MH-No VB. Angelica galvan nausea. PN labs reviewed. ACOG First Trimester First Trimester: Desire for , Alcohol, Tobacco Cessation, Illicit/Recreational Drug/Substance Use, Intimate Partner Violence, Barriers to care, Unstable Housing, Communication Barriers, Environmental/Work Hazards, Anticipated Course of Care, Toxoplasmosis Precati (more content not included)... Normal [facility] Chlamydia/GC BANDAR aptimaon CHLAMY,NUC ACID Negative Normal Negative [facility] Comment on above: Performed By: #### L 7000.1800, M100.2200 ####[facility] [address] [place], [address] GC BY NUC ACID Negative Normal Negative [facility] Comment on above: Result Comment: Perf ormed at: =G - [facility] [address] [id number] Bobbin Trucker: Bea Acosta MD, Phone: [phone] Performed By: #### L 7000.1800, M100.2200 ####[facility] [address] [place], [address] HIV - WCHon 06-20-2024 HIV Non-Reactive Normal Nonreactive [facility] Comment on above: Order Comment: Reaso n for Exam: Performed By: #### L 509.8000, L3890.6005, L100.0100, L3890.6300, L3890.6100, BTS, L509.4005 ####[facility] [address] [place], [address] Hepatitis B Surface Antigeno n 06-20-2024 HEP B Surf Ag Non-Reactive Normal Nonreactive [facility] Comment on above: Order Comment: Reaso n for Exam: Performed By: #### L 509.8000, L3890.6005, L100.0100, L3890.6300, L3890.6100, BTS, L509.4005 ####[facility] [address] [place], [address] Hepatitis C Antibodyon 06-20 Hepatitis C AB Non-Reactive Normal Nonreactive [facility] Comment on above: Order Comment: Reaso n for Exam: Result Comment: Non Reactive: < 0.8 Equivocal: >/= 0.8 to < 1.0 Reactive: >/= 1.[address] [facility] requires that a reactive/equivocal HCV antibody result be sent out for confirmation. HCV Quant by PCR testing. Performed By: #### L 509.8000, L3890.6005, L100.0100, L3890.6300, L3890.6100, BTS, L509.4005 ####[facility] [address] [place], [address] L509.8000on 06-20-2024 Syphilis Abs Non-Reactive Normal [facility] Comment on above: Order Comment: Reaso n for Exam: Performed By: #### L 509.8000, L3890.6005, L100.0100, L3890.6300, L3890.6100, BTS, L509.4005 ####[facility] [address] [place], [address] Rubella IgGon 06-20-2024 Rubella IgG Reactive Normal Nonreactive [facility] Comment on above: Order Comment: Reaso n for Exam: Result Comment: Anti body Results Interpretation of Immune Status Non Reactive Presumed Non-Immune Equivocal Equivocal Reactive Presumed Immune Performed By: #### L 509.8000, L3890.6005, L100.0100, L3890.6300, L3890.6100, BTS, L509.4005 ####[facility] [address] [place], [address] Urine Cultureon 06-20-2024 URC Culture exhibits no growth. Normal [facility] Comment on above: Performed By: #### L 7000.1800, M100.2200 ####[facility] [address] [place], [address] CBC W/Diff, Automatedon 06-02 Absolute Lymph 2.23 X10 3/uL Normal 0.83-4.51 [facility] Comment on above: Performed By: #### L 509.8000, L3890.6005, L100.0100, L3890.6300, L3890.6100, BTS, L509.4005 #### [facility] [address] [place], [address] Absolute Neut 6.1 X10 3/uL Normal 2.0-7.7 [facility] Comment on above: Performed By: #### L 509.8000, L3890.6005, L100.0100, L3890.6300, L3890.6100, BTS, L509.4005 #### [facility] [address] [place], [address] Basophils/100 WBC (Bld) 0.3 % Normal 0-1 [facility] Comment on above: Performed By: #### L 509.8000, L3890.6005, L100.0100, L3890.6300, L3890.6100, BTS, L509.4005 #### [facility] [address] [place], [address] Eosinophils/100 WBC (Bld) 0.8 % Normal 0-5 [facility] Comment on above: Performed By: #### L 509.8000, L3890.6005, L100.0100, L3890.6300, L3890.6100, BTS, L509.4005 #### [facility] [address] [place], [address] Erythrocyte distribution width (RBC) [Ratio] 13.4 % Normal 11.6-14.6 [facility] Comment on above: Performed By: #### L 509.8000, L3890.6005, L100.0100, L3890.6300, L3890.6100, BTS, L509.4005 #### [facility] [address] [place], [address] Hematocrit (Bld) [Volume fraction] 37.9 % Normal 37-47 [facility] Comment on above: Performed By: #### L 509.8000, L3890.6005, L100.0100, L3890.6300, L3890.6100, BTS, L509.4005 #### [facility] [address] [place], [address] Hemoglobin (Bld) [Mass/Vol] 12.5 g/dL Normal 12.0-15.0 [facility] Comment on above: Performed By: #### L 509.8000, L3890.6005, L100.0100, L3890.6300, L3890.6100, BTS, L509.4005 #### [facility] [address] [place], [address] IG% 0.300 Normal 0.0-0.9 [facility] Comment on above: Result Comment: IG% - Immature Granulocytes (promyelocytes, myelocytes and metamyelocytes) > 1% indicates that a LEFT SHIFT is Present. Performed By: #### L 509.8000, L3890.6005, L100.0100, L3890.6300, L3890.6100, BTS, L509.4005 #### [facility] [address] [place], [address] Lymphocytes/100 WBC (Bld) 25.0 % Normal 19-41 [facility] Comment on above: Performed By: #### L 509.8000, L3890.6005, L100.0100, L3890.6300, L3890.6100, BTS, L509.4005 #### [facility] [address] [place], [address] MCH (RBC) [Entitic mass] 27.4 pg Normal 27.0-32.0 [facility] Comment on above: Performed By: #### L 509.8000, L3890.6005, L100.0100, L3890.6300, L3890.6100, BTS, L509.4005 #### [facility] [address] [place], [address] MCHC (RBC) [Mass/Vol] 33.0 g/dL Normal 32-36 [facility] Comment on above: Performed By: #### L 509.8000, L3890.6005, L100.0100, L3890.6300, L3890.6100, BTS, L509.4005 #### [facility] [address] [place], [address] MCV (RBC) [Entitic vol] 82.9 fL Normal 81-99 [facility] Comment on above: Performed By: #### L 509.8000, L3890.6005, L100.0100, L3890.6300, L3890.6100, BTS, L509.4005 #### [facility] [address] [place], [address] Monocytes/100 WBC (Bld) 5.5 % Normal 0-10 [facility] Comment on above: Performed By: #### L 509.8000, L3890.6005, L100.0100, L3890.6300, L3890.6100, BTS, L509.4005 #### [facility] [address] [place], [address] Neutrophils/100 WBC (Bld) 68.1 % Normal 47-70 [facility] Comment on above: Performed By: #### L 509.8000, L3890.6005, L100.0100, L3890.6300, L3890.6100, BTS, L509.4005 #### [facility] [address] [place], [address] Nucleated RBC (Bld) [#/Vol] 0 10*3/uL Normal 0-5 [facility] Comment on above: Performed By: #### L 509.8000, L3890.6005, L100.0100, L3890.6300, L3890.6100, BTS, L509.4005 #### [facility] [address] [place], [address] Platelet mean volume (Bld) [Entitic vol] 10.0 fL Normal 6.2-12.0 [facility] Comment on above: Performed By: #### L 509.8000, L3890.6005, L100.0100, L3890.6300, L3890.6100, BTS, L509.4005 #### [facility] [address] [place], [address] Platelets (Bld) [#/Vol] 262 10*3/uL Normal 150-450 [facility] Comment on above: Performed By: #### L 509.8000, L3890.6005, L100.0100, L3890.6300, L3890.6100, BTS, L509.4005 #### [facility] [address] [place], [address] RBC (Bld) [#/Vol] 4.57 10*6/uL Normal 4.2-5.4 [facility] Comment on above: Performed By: #### L 509.8000, L3890.6005, L100.0100, L3890.6300, L3890.6100, BTS, L509.4005 #### [facility] [address] [place], [address] RDW SD 40.7 fl Normal 35.1-43.9 [facility] Comment on above: Performed By: #### L 509.8000, L3890.6005, L100.0100, L3890.6300, L3890.6100, BTS, L509.4005 #### [facility] [address] [place], [address] WBC (Bld) [#/Vol] 8.9 10*3/uL Normal 4.4-11.0 [facility] Comment on above: Performed By: #### L 509.8000, L3890.6005, L100.0100, L3890.6300, L3890.6100, BTS, L509.4005 #### [facility] [address] [place], [address] Respiratory Director Office Visit Reporton 06-19-2024 Respiratory Director Office Visit Report [facility] [address], [address] [place] [address] OFFICE VISIT Date of Service: 06/19/24 MR#: [id number] Acct: [id number] Name: SHELBY DIAZ Rep #: [id number] : 1995 Provider: Dr. Renuka wilkinson MD Age/Sex: 29/F [place] [facility] [place]: Signed Intake Vital Signs 03/08/24 15:16 06/19/24 13:59 06/19/24 14:00 06/19/24 14:36 Height 5 ft 5 in 5 ft 5 in 5 ft 5 in Weight: 153 lb 2 oz BMI 25.4 BP 108/73 Intake Visit Reasons: New OB, LMP 04/20, FANTA 01/25 Tension Worker Required: No Is patient in pain?: No Feel stressed/tense/nervou s/anxious/difficulty sleeping: not at all Allergies No Known Allergies Allergy (Verified 06/19/24 13:59) Medications ???Medication ???Instructions ???Recorded ???Confirmed ???Type multivitamin no.47-iron fum 27 cap PO 06/27/23 03/08/24 History mg-folate no.1 1 mg-dha 300 mg capsule (PNV-DHA) cholecalciferol (vitamin D3) 25 25 mcg PO QDAY 03/08/24 03/08/24 History mcg (1,000 unit) capsule Last Menstrual Period: 04/20/24 : No Have you fallen in the past year?: No PFSH PFSH Surgical History [place] teeth extracted Family History Mother Family history of recurrent miscarriage 3 miscarriages Social History adopted: No household members: spouse and children number of children: 1 service: No current occupational status: unemployed current occupation: [employer] current occupational exposures/hazards: No pets and animals: No history of recent travel: Yes (- May) out of state: Yes out of country: No sexually active: Yes Smoking Status: Never smoker alcohol intake: never substance use type: does not use well-balanced diet: about half the time caffeine: No eating out: rarely or never during the past year weight has: increased > 10 lbs what type of physical activity do you participate in: walking frequency: 1-2 times per week duration: 30-45 minutes/day kimberly/orthodoxy: Jain seatbelt use: always do you feel safe at home: Yes 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 Date Name GA/Weeks Outcome Route Bth Weight Gen Labor Lgth Anesthesia Del Locatn Provider FOB 01/26/24 Richie 38 live - full term 7#1oz Male none [facility] Delivery Date: 01/26/24 Last Updated by: Chanelle Kerns IOL SROM HPI New OB, LMP 04/20, FANTA 01/25 Details: SHELBY DIAZ is a 29 year old who presents for New OB visit. OB Visit FANTA Calculator Estimated Delivery Date Method Current WG Current Estimate 01/25/25 LMP (Certain) 8w 4d Other Estimates 01/29/25 Ultrasound #1 8w 0d Comments: HIV: Urine Culture: Sequential Screen: NIPT Screen: Estimated Due Date: 01/25/25 Expected Delivery Route/Plan Labor Preferences- CB/BF classes: [] labor support person: [] labor intervention preferences: [] pain management options preferred: [] cut cord/dad catch: [] : [] PP control planned: [] discussed possible routes of delivery and associated risks: [] special requests: [] Specific Issue/Plans Covid status: [] Flu vaccine: [] Tdap vaccine: [] Rhogam: [] LARC form signed: [] Problem list reviewed and updated with the most current plan of care details and appropriate orders placed. Relevant counseling for the gestational age provided. Continue routine care and follow up unless otherwise noted in visit notes/problem list details Initial Weight: Not Recorded Date -???-???-???-???-???- ???-???-???-???-???-? ??-???- EGA Weight BP Urine Prot -???-???-???-???-???- ???-???-???-???-???-? ??-???- Glucose FHR FuHt Pres Dilation -???-???-???-???-???- ???-???-???-???-???-? ??-???- Effaced St Visit Note 06/19/24 -???-???-???-???-???- ???-???-???-???-???-? ??-???- 8w 4d 153 lb 2 oz 108/73 -???-???-???-???-???- ???-???-???-???-???-? ??-???- 160 -???-???-???-???-???- ???-???-???-???-???-? ??-???- SM- no vb cr amping CRL SM- no vb cramping CRL 8w0d cons w ith LMP Menstrual History Last Menstrual Period: 04/20/24 Reported LMP: definite Normal amount/duration: Yes Frequency in days: 28 On hormonal BC at conception: No hCG+: 06/03/24 Antepartum Record Genetic Screening: Congenital Heart Defect: Other, Neural Tube Defect: Other, Hemoglobinopathy Or Carrier: Other, Cystic Fibrosis: Other, Chromosome Abnormality: Other, (more content not included)... Normal [facility] Type AND Screenon 06-19-2024 ABO and Rh group Nom (Bld) Blood group O Rh(D) positive Normal [facility] Comment on above: Order Comment: PN Performed By: #### L 509.8000, L3890.6005, L100.0100, L3890.6300, L3890.6100, BTS, L509.4005 ####[facility] [address] [place], [address] Respiratory Director Office Visit Reporton 03-08-2024 Respiratory Director Office Visit Report [facility] [address], [address] [place] [address] OFFICE VISIT Date of Service: 03/08/24 MR#: [id number] Acct: [id number] Name: SHELBY DIAZ Rep #: [id number] : 1995 Provider: Dr. Renuka wilkinson MD Age/Sex: 28/F [place] [facility] [place]: Signed Intake Vital Signs 01/29/24 08:56 03/08/24 15:14 03/08/24 15:16 Height 5 ft 5 in 5 ft 5 in 5 ft 5 in Weight: 151 lb BMI 25.1 BP 114/75 Intake Visit Reasons: visit (obstetrics) Tension Worker Required: No Is patient in pain?: No Allergies No Known Allergies Allergy (Verified 03/08/24 15:14) Medications ???Medication ???Instructions ???Recorded ???Confirmed ???Type multivitamin no.47-iron fum 27 cap PO 06/27/23 03/08/24 History mg-folate no.1 1 mg-dha 300 mg capsule (PNV-DHA) cholecalciferol (vitamin D3) 25 25 mcg PO QDAY 03/08/24 03/08/24 History mcg (1,000 unit) capsule : Yes PFSH Surgical History [place] teeth extracted Family History Mother Family history of recurrent miscarriage 3 miscarriages Social History adopted: No household members: spouse current occupational status: employed current occupation: [employer] current occupational exposures/hazards: No pets and animals: No history of recent travel: Yes ([place] in December) out of country: Yes sexually active: Yes Smoking Status: Never smoker alcohol intake: never substance use type: does not use well-balanced diet: about half the time caffeine: No eating out: rarely or never during the past year weight has: remained stable what type of physical activity do you participate in: walking frequency: 1-2 times per week duration: 30-45 minutes/day kimberly/orthodoxy: Jain seatbelt use: sometimes do you feel safe at home: Yes additional social history: Kailash - [employer] History 1 Elective abortions Hx Para 0 Spontaneous abortions Hx # Term Pregnancies 1 Ectopic pregnancies Hx # Pregnancies Multiple births # of living children 1 Past Pregnancies Del. Date Name GA/Weeks Outcome Route Bth Weight Infant Gen Labor Lgth Anesthesia [facility] Provider FOB 01/26/24 Richie 38 live - full term Male [facility] Delivery Date: 01/26/24 Last Updated by: Chanelle MCKINNON SROM Depression Screen PHQ-2/9 PHQ-2 Over the last 2 weeks, how often have you been bothered by any of the following problems? 1. Little interest or pleasure in doing things: not at all 2. Feeling down, depressed, or hopeless: not at all Total score: 0 Post HPI Routine Follow-Up: Details: SHELBY DIAZ is a 28 year old who presents for her post visit. Infant Feeding: Breast Menses resumed: No [place] since delivery: No Emotional Support: Yes Last Pap:: 07/07/2023 ROS Const Reports system reviewed and no additional complaints, except as documented GI Reports system reviewed and no additional complaints, except as documented, Denies bloating, Denies constipation, Denies nausea and Denies vomiting Reports system reviewed and no additional complaints, except as documented, Denies abnormal vaginal bleeding, Denies pelvic pain, Denies sexual dysfunction, Denies urinary incontinence, Denies urinary hesitancy, Denies urinary urgency and Denies vaginal discharge Skin/Breast Reports system reviewed and no additional complaints, except as documented and Reports as per HPI Psych Reports as per HPI Exam Const General: cooperative, healthy appearing, comfortable and no acute distress HENMT Head: normal to inspection Neck Neck: normal visual inspection and no lymphadenopathy Thyroid: thyroid normal Chest Breast inspection: normal inspection of the breasts and normal inspection of the axillae Breast palpation: normal palpation of the breasts and normal palpation of the axillae Resp Effort Inspection: normal respiratory effort GI Inspection: normal to inspection Palpation: soft, no hepatosplenomegaly and nontender General: bladder normal to palpation External Female Exam: normal external appearance and normal appearance of the urethra Urethra: normal appearance of the urethra Speculum Exam - Vagina: normal appearance of the vagina and normal vaginal discharge Speculum Exam - Cervix: normal appearance of the cervix Bimanual Exam- Vagina Uterus: normal bimanual exam, uterine size normal, bladder normal to palpation, uterine shape normal and non-tender Bimanual Exam- Adnexa, other: normal adnexae and normal Pelvic Support: normal Skin General: no rashes or lesions noted Coding Level of (more content not included)... Normal [facility] [address] [facility] [place] [address] OFFICE VISIT Date of Service: 01/29/24 MR#: [id number] Acct: [id number] Name: SHELBY DIAZ Rep #: [id number] : 1995 Provider: Pat Kapadia NP Age/Sex: 28/F Location: [facility] [place] [place] Status: Signed Intake Vital Signs 01/26/24 16:13 Height 5 ft 5 in Intake Visit Reasons: Chief Complaint: assessment Accompanied by: Allergies No Known Allergies Allergy (Verified 01/26/24 16:06) : Yes PFSH PFSH Surgical History [place] teeth extracted Family History Mother Family history of recurrent miscarriage 3 miscarriages Social History adopted: No household members: spouse current occupational status: employed current occupation: [employer] current occupational exposures/hazards: No pets and animals: No history of recent travel: Yes ([place] in December) out of country: Yes sexually active: Yes Smoking Status: Never smoker alcohol intake: never substance use type: does not use well-balanced diet: about half the time caffeine: No eating out: rarely or never during the past year weight has: remained stable what type of physical activity do you participate in: walking frequency: 1-2 times per week duration: 30-45 minutes/day kimberly/orthodoxy: Jain seatbelt use: sometimes do you feel safe at home: Yes 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 History provided by the patient. ROS ROS Const Constitutional: Denies fever(s) or lethargy : Denies nipple discharge Skin Skin/Breast: Denies breast pain, breast skin changes or nipple discharge Details: q2.5-3 hours, 7-15 minutes per side, states milk starting to come in, feeling more full and hearing more frequent swallowing with feeds, having some nipple discomfort with latch, at times is does last the whole feed, using cream PRN Exam Maternal Assessment Breast Assessment Bilateral Breasts: Full Areolar Tissue Areolar Tissue: Pliable Assessment Baby Feeding History Is your baby latching onto the breast: Yes Number of Breast Feedings in 24 hours: 8-10 Minutes per breast: First Breast: 7-15 Minutes per breast: Second Breast: 7-15 Supplements Supplement Type:: None Breast Pumping Type of Breast Pump: Spectra, Haakaa Frequency: has not started pumping Goals Breast Feeding Goals: Exclusive Exam Const General: comfortable and no acute distress Orientation: alert and oriented x3 Chest Breast inspection: normal inspection of the breasts Breast palpation: normal palpation of the breasts Other: right nipple slight reddened Resp Effort Inspection: normal respiratory effort Skin General: no rashes or lesions noted Psych Appearance: grossly normal Mental Status: mental status grossly normal Affect: normal affect Assessment and Plan Assessment and Plan (1) Care and examination of lactating mother: Plan: Educated on feeding on demand, offering both sides with each feed, haakaa use, pumping, milk supply, milk storage and milk regulation. Provided with gel pads for nipple discomfort and can use cream as well, never using together (recommended alternating). Follow up with PRN. Coding Level of Care Code 96945 PRVT COUNSELING INDIVID Diagnoses Care and examination of lactating mother Z39.1 Time Spent (min) 01/29/24 0856 Date Pat Kang FILLING TECHNICIAN FILLING TECHNICIAN-C Cosigner Signature: Date (if applicable) CC: Normal [facility] CBC W/Diff, Automatedon 07-2 Absolute Lymph 1.60 X10 3/uL Normal 0.83-4.51 [facility] Comment on above: Performed By: #### L 100.0100 ####[facility] [address] [place], [address] Absolute Neut 8.6 X10 3/uL High 2.0-7.7 [facility] Comment on above: Performed By: #### L 100.0100 ####[facility] [address] [place], [address] Basophils/100 WBC (Bld) 0.4 % Normal 0-1 [facility] Comment on above: Performed By: #### L 100.0100 ####[facility] [address] [place], [address] Eosinophils/100 WBC (Bld) 0.4 % Normal 0-5 [facility] Comment on above: Performed By: #### L 100.0100 ####[facility] [address] [place], [address] Erythrocyte distribution width (RBC) [Ratio] 13.1 % Normal 11.6-14.6 [facility] Comment on above: Performed By: #### L 100.0100 ####[facility] [address] [place], [address] Hematocrit (Bld) [Volume fraction] 31.1 % Low 37-47 [facility] Comment on above: Performed By: #### L 100.0100 ####[facility] [address] [place], [address] Hemoglobin (Bld) [Mass/Vol] 10.6 g/dL Low 12.0-15.0 [facility] Comment on above: Performed By: #### L 100.0100 ####[facility] [address] [place], [address] IG% 1.000 High 0.0-0.9 [facility] Comment on above: Result Comment: IG% - Immature Granulocytes (promyelocytes, myelocytes and metamyelocytes) > 1% indicates that a LEFT SHIFT is Present. Performed By: #### L 100.0100 ####[facility] [address] [place], [address] Lymphocytes/100 WBC (Bld) 14.1 % Low 19-41 [facility] Comment on above: Performed By: #### L 100.0100 ####[facility] [address] [place], [address] MCH (RBC) [Entitic mass] 30.4 pg Normal 27.0-32.0 [facility] Comment on above: Performed By: #### L 100.0100 ####[facility] [address] [place], [address] MCHC (RBC) [Mass/Vol] 34.1 g/dL Normal 32-36 [facility] Comment on above: Performed By: #### L 100.0100 ####[facility] [address] [place], [address] MCV (RBC) [Entitic vol] 89.1 fL Normal 81-99 [facility] Comment on above: Performed By: #### L 100.0100 ####[facility] [address] [place], [address] Monocytes/100 WBC (Bld) 8.4 % Normal 0-10 [facility] Comment on above: Performed By: #### L 100.0100 ####[facility] [address] [place], [address] Neutrophils/100 WBC (Bld) 75.7 % High 47-70 [facility] Comment on above: Performed By: #### L 100.0100 ####[facility] [address] [place], [address] Nucleated RBC (Bld) [#/Vol] 0 10*3/uL Normal 0-5 [facility] Comment on above: Performed By: #### L 100.0100 ####[facility] [address] [place], [address] Platelet mean volume (Bld) [Entitic vol] 10.7 fL Normal 6.2-12.0 [facility] Comment on above: Performed By: #### L 100.0100 ####[facility] [address] [place], [address] Platelets (Bld) [#/Vol] 149 10*3/uL Low 150-450 [facility] Comment on above: Performed By: #### L 100.0100 ####[facility] [address] [place], [address] RBC (Bld) [#/Vol] 3.49 10*6/uL Low 4.2-5.4 [facility] Comment on above: Performed By: #### L 100.0100 ####[facility] [address] [place], [address] RDW SD 42.3 fl Normal 35.1-43.9 [facility] Comment on above: Performed By: #### L 100.0100 ####[facility] [address] [place], [address] WBC (Bld) [#/Vol] 11.3 10*3/uL High 4.4-11.0 [facility] Comment on above: Performed By: #### L 100.0100 ####[facility] [address] [place], [address] Absolute Lymph 0.61 X10 3/uL Low 0.83-4.51 [facility] Comment on above: Order Comment: Comme nts: First day Performed By: #### L 100.0100 ####[facility] [address] [place], [address] Absolute Neut 12.4 X10 3/uL High 2.0-7.7 [facility] Comment on above: Order Comment: Comme nts: First day Performed By: #### L 100.0100 ####[facility] [address] [place], [address] Basophils/100 WBC (Bld) 0.1 % Normal 0-1 [facility] Comment on above: Order Comment: Comme nts: First day Performed By: #### L 100.0100 ####[facility] [address] [place], [address] Eosinophils/100 WBC (Bld) 0.0 % Normal 0-5 [facility] Comment on above: Order Comment: Comme nts: First day Performed By: #### L 100.0100 ####[facility] [address] [place], [address] Erythrocyte distribution width (RBC) [Ratio] 12.6 % Normal 11.6-14.6 [facility] Comment on above: Order Comment: Comme nts: First day Performed By: #### L 100.0100 ####[facility] [address] [place], [address] Hematocrit (Bld) [Volume fraction] 30.3 % Low 37-47 [facility] Comment on above: Order Comment: Comme nts: First day Performed By: #### L 100.0100 ####[facility] [address] [place], [address] Hemoglobin (Bld) [Mass/Vol] 10.5 g/dL Low 12.0-15.0 [facility] Comment on above: Order Comment: Comme nts: First day Performed By: #### L 100.0100 ####[facility] [address] [place], [address] IG% 0.600 Normal 0.0-0.9 [facility] Comment on above: Order Comment: Comme nts: First day Result Comment: IG% - Immature Granulocytes (promyelocytes, myelocytes and metamyelocytes) > 1% indicates that a LEFT SHIFT is Present. Performed By: #### L 100.0100 ####[facility] [address] [place], [address] Lymphocytes/100 WBC (Bld) 4.4 % Low 19-41 [facility] Comment on above: Order Comment: Comme nts: First day Performed By: #### L 100.0100 ####[facility] [address] [place], [address] MCH (RBC) [Entitic mass] 30.6 pg Normal 27.0-32.0 [facility] Comment on above: Order Comment: Comme nts: First day Performed By: #### L 100.0100 ####[facility] [address] [place], [address] MCHC (RBC) [Mass/Vol] 34.7 g/dL Normal 32-36 [facility] Comment on above: Order Comment: Comme nts: First day Performed By: #### L 100.0100 ####[facility] [address] [place], [address] MCV (RBC) [Entitic vol] 88.3 fL Normal 81-99 [facility] Comment on above: Order Comment: Comme nts: First day Performed By: #### L 100.0100 ####[facility] [address] [place], [address] Monocytes/100 WBC (Bld) 6.2 % Normal 0-10 [facility] Comment on above: Order Comment: Comme nts: First day Performed By: #### L 100.0100 ####[facility] [address] [place], [address] Neutrophils/100 WBC (Bld) 88.7 % High 47-70 [facility] Comment on above: Order Comment: Comme nts: First day Performed By: #### L 100.0100 ####[facility] [address] [place], [address] Nucleated RBC (Bld) [#/Vol] 0 10*3/uL Normal 0-5 [facility] Comment on above: Order Comment: Comme nts: First day Performed By: #### L 100.0100 ####[facility] [address] [place], [address] Platelet mean volume (Bld) [Entitic vol] 11.0 fL Normal 6.2-12.0 [facility] Comment on above: Order Comment: Comme nts: First day Performed By: #### L 100.0100 ####[facility] [address] [place], [address] Platelets (Bld) [#/Vol] 110 10*3/uL Low 150-450 [facility] Comment on above: Order Comment: Comme nts: First day Performed By: #### L 100.0100 ####[facility] [address] [place], [address] RBC (Bld) [#/Vol] 3.43 10*6/uL Low 4.2-5.4 [facility] Comment on above: Order Comment: Comme nts: First day Performed By: #### L 100.0100 ####[facility] [address] [place], [address] RDW SD 40.1 fl Normal 35.1-43.9 [facility] Comment on above: Order Comment: Comme nts: First day Performed By: #### L 100.0100 ####[facility] [address] [place], [address] WBC (Bld) [#/Vol] 13.9 10*3/uL High 4.4-11.0 [facility] Comment on above: Order Comment: Comme nts: First day Performed By: #### L 100.0100 ####[facility] [address] [place], [address] (ROM) Rupture Of Membraneson 01-26-2024 ROM Positive Abnormal Negative [facility] Comment on above: Result Comment: Amni otic fluid present indicates rupture of Membranes. RESULTS CALLED TO SANTINO SNYDER AT [facility] 01/26/24 Coby4 Renetta Santos. REPORT READ BACK BY SAME . Performed By: #### L 205.1000 ####[facility] [address] [place], [address] CBC W/Diff, Automatedon - Absolute Lymph 0.71 X10 3/uL Low 0.83-4.51 [facility] Comment on above: Performed By: #### B BRENDAN, L100.0100 ####[facility] [address] [place], [address] Absolute Neut 7.2 X10 3/uL Normal 2.0-7.7 [facility] Comment on above: Performed By: #### B BRENDAN, L100.0100 ####[facility] [address] [place], [address] Basophils/100 WBC (Bld) 0.2 % Normal 0-1 [facility] Comment on above: Performed By: #### B BRENDAN, L100.0100 ####[facility] [address] [place], [address] Eosinophils/100 WBC (Bld) 0.3 % Normal 0-5 [facility] Comment on above: Performed By: #### Nasrin CARDONA, L100.0100 ####[facility] [address] [place], [address] Erythrocyte distribution width (RBC) [Ratio] 12.7 % Normal 11.6-14.6 [facility] Comment on above: Performed By: #### Nasrin CARDONA, L100.0100 ####[facility] [address] [place], [address] Hematocrit (Bld) [Volume fraction] 35.2 % Low 37-47 [facility] Comment on above: Performed By: #### Nasrin CARDONA, L100.0100 ####[facility] [address] [place], [address] Hemoglobin (Bld) [Mass/Vol] 11.8 g/dL Low 12.0-15.0 [facility] Comment on above: Performed By: #### Nasrin CARDONA, L100.0100 ####[facility] [address] [place], [address] IG% 0.700 Normal 0.0-0.9 [facility] Comment on above: Result Comment: IG% - Immature Granulocytes (promyelocytes, myelocytes and metamyelocytes) > 1% indicates that a LEFT SHIFT is Present. Performed By: #### Nasrin CARDONA, L100.0100 ####[facility] [address] [place], [address] Lymphocytes/100 WBC (Bld) 8.3 % Low 19-41 [facility] Comment on above: Performed By: #### Nasrin CARDONA, L100.0100 ####[facility] [address] [place], [address] MCH (RBC) [Entitic mass] 29.8 pg Normal 27.0-32.0 [facility] Comment on above: Performed By: #### Nasrin CARDONA, L100.0100 ####[facility] [address] [place], [address] MCHC (RBC) [Mass/Vol] 33.5 g/dL Normal 32-36 [facility] Comment on above: Performed By: #### Nasrin CARDONA, L100.0100 ####[facility] [address] [place], [address] MCV (RBC) [Entitic vol] 88.9 fL Normal 81-99 [facility] Comment on above: Performed By: #### Nasrin CARDONA, L100.0100 ####[facility] [address] [place], [address] Monocytes/100 WBC (Bld) 6.3 % Normal 0-10 [facility] Comment on above: Performed By: #### Nasrin CADRONA, L100.0100 ####[facility] [address] [place], [address] Neutrophils/100 WBC (Bld) 84.2 % High 47-70 [facility] Comment on above: Performed By: #### Nasrin CARDONA, L100.0100 ####[facility] [address] [place], [address] Nucleated RBC (Bld) [#/Vol] 0 10*3/uL Normal 0-5 [facility] Comment on above: Performed By: #### Nasrin CARDONA, L100.0100 ####[facility] [address] [place], [address] Platelet mean volume (Bld) [Entitic vol] 10.9 fL Normal 6.2-12.0 [facility] Comment on above: Performed By: #### Nasrin CARDONA, L100.0100 ####[facility] [address] [place], [address] Platelets (Bld) [#/Vol] 156 10*3/uL Normal 150-450 [facility] Comment on above: Performed By: #### Nasrin CARDONA, L100.0100 ####[facility] [address] [place], [address] RBC (Bld) [#/Vol] 3.96 10*6/uL Low 4.2-5.4 [facility] Comment on above: Performed By: #### Nasrin CARDONA, L100.0100 ####[facility] [address] [place], [address] RDW SD 41.8 fl Normal 35.1-43.9 [facility] Comment on above: Performed By: #### Nasrin CARDONA, L100.0100 ####[facility] [address] [place], [address] WBC (Bld) [#/Vol] 8.6 10*3/uL Normal 4.4-11.0 [facility] Comment on above: Performed By: #### Nasrin CARDONA, L100.0100 ####[facility] [address] [place], [address] Discharge Instructionon 01-[address] [facility] [address] [place] [address] Instructions for Home/Discharge Instructions 01/26/24 2302 MR#: [id number] Acct: [id number] Name: SHELBY DIAZ Rep #: [id number] : 1995 28 From: Fauzia Martines CNM PCP: KENNETH DAVIS Status:ADM IN Discharge Instructions Diet Discharge Diet: No restrictions Activity Discharge Activity: May Not Drive and May Shower May resume sexual activity in: 6 weeks Weight Bearing Status: Full weight bearing Dressing / Incision Call your doctor if your incision/area has: Sudden Increased Bleeding, Increased Pain/ Swelling and Foul Smelling Discharge Call your doctor if you observe: Fever of 101 or Higher, Numbness or Tingling, Change in Color, Inability to urinate, Inability to have a bowel movement, Using more than 1 pad per hour, Shortness of breath, Dizziness, Fainting spells, Chest pain, Calf discomfort and Uncontrolled pain Follow Up Care Please Follow Up With: Fauzia Martines CNM When: 6 weeks , please call office to make an appointment. Congratulations on the of your baby! Test Results: Test results from this visit will be discussed in further detail at your follow-up appointment, if applicable. Discharge Plan Admission Admit Date/Time: 01/26/24 15:45 Attending Provider: Fauzia Martines Primary Care Provider: KENNETH DAVIS Discharge Orders/Prescriptions Prescriptions: No Action PNV-DHA 27 mg iron-1 mg -300 mg capsule PO Referrals / Follow Up: KENNETH DAVIS [Other] 01/26/242301 Fauzia Martines CNM CC: KENNETH DAVIS Signed Normal [facility] H AND P Exam - OB/GYNon 01-01 H&P Exam - QUALITY IMPROVEMENT MANAGER [facility] [address] [place] [address] H P Exam - QUALITY IMPROVEMENT MANAGER 01/26/24 1938 MR#: [id number] Acct: [id number] Name: SHELBY DIAZ Rep #: [id number] : 1995 From: Fauzia Martines CNM PCP: KENNETH DAVIS Status:ADM IN Location: [id number] HPI - General General Date of Admission: 01/26/24 HPI Narrative SHELBY DIAZ, is a 28 F who presents at at 38.3 with leaking of fluid at 9am, seen in the office with gross ROM observed. 4cm, presented to for active labor. GBS positive. Maternal Data Information FANTA Calculator Estimated Delivery Date Method Current WG Current Estimate 02/06/24 LMP (Certain) 38w 3d PFSH PFSH Home Medications ???Medication ???Instructions ???Recorded ???Last Taken ???Type multivitamin no.47-iron fum 27 cap PO 06/27/23 Unknown History mg-folate no.1 1 mg-dha 300 mg capsule (PNV-DHA) Allergy/AdvReac Type Severity Reaction Status Date / Time No Known Allergies Allergy Verified 01/26/24 16:06 Family History Mother Family history of recurrent miscarriage 3 miscarriages Surgical History [place] teeth extracted Social History adopted: No household members: spouse current occupational status: employed current occupation: [employer] current occupational exposures/hazards: No pets and animals: No history of recent travel: Yes ([facility] in December) out of country: Yes sexually active: Yes Smoking Status: Never smoker alcohol intake: never substance use type: does not use well-balanced diet: about half the time caffeine: No eating out: rarely or never during the past year weight has: remained stable what type of physical activity do you participate in: walking frequency: 1-2 times per week duration: 30-45 minutes/day kimberly/orthodoxy: Jain seatbelt use: sometimes do you feel safe at home: Yes additional social history: Kailash - [employer] History 1 Elective abortions Hx Para 0 Spontaneous abortions Hx # Term Pregnancies Ectopic pregnancies Hx # Pregnancies Multiple births # of living children Visit Details Expected Delivery Route/Plan Labor Preferences- CB/BF classes: discussed labor support person: Kailash labor intervention preferences: unmedicated pain management options preferred: [] cut cord/dad catch: yes : wants PP control planned: discussed discussed possible routes of delivery and associated risks: [] special requests: [] Plans Covid status: [] Flu vaccine: declined Tdap vaccine: declines Rhogam:na LARC form signed: done Problem list reviewed and updated with the most current plan of care details and appropriate orders placed. Relevant counseling for the gestational age provided. Continue routine care and follow up unless otherwise noted in visit notes/problem list details OB Flowsheet Initial Weight: 141 lb Date -???-???-???-???-???- ???-???-???-???-???-? ??-???- EGA Weight BP Urine Prot -???-???-???-???-???- ???-???-???-???-???-? ??-???- Glucose FHR FuHt Pres Dilation -???-???-???-???-???- ???-???-???-???-???-? ??-???- Effaced St Visit Note 07/07/23 -???-???-???-???-???- ???-???-???-???-???-? ??-???- 9w 3d 141 lb (+0 oz) 92/56 Trace A -???-???-???-???-???- ???-???-???-???-???-? ??-???- Negative 171 -???-???-???-???-???- ???-???-???-???-???-? ??-???- LC- CRL con with LMP. LC- CRL con with LMP. considering nipt 08/02/23 -???-???-???-???-???- ???-???-???-???-???-? ??-???- 13w 1d 139 lb (-2 lb) 122/80 Negative -???-???-???-???-???- ???-???-???-???-???-? ??-???- Negative 144 -???-???-???-???-???- ???-???-???-???-???-? ??-???- JV- CRL otis ured and is 13 weeks. normal labs. 08/30/23 -???-???-???-???-???- ???-???-???-???-???-? ??-???- 17w 1d 141 lb 4 oz (+4 oz) 98/64 Negative -???-???-???-???-???- ???-???-???-???-???-? ??-???- Negative 151 -???-???-???-???-???- ???-???-???-???-???-? ??-???- MH-No VB or cramping. Noting more headaches. No vision changes. Some benefit w tylenol/sleep. Discussed caffeine intake. Declines phenergan. 09/29/23 -???-???-???-???-???- ???-???-???-???-???-? ??-???- 21w 3d 147 lb 6 oz (+6 lb 6 oz) 119/76 Negative -???-???-???-???-???- ???-???-???-???-???-? ??-???- Negative 150 -???-???-???-???-???- ???-???-???-???-???-? ??-???- SM- no vb lo f cramping SM- no vb lof cramping discussed a natomy US findings, plan NIPT today 10/23/23 -???-???-???-???-???- ???-???-???-???-???-? ??-???- 24w 6d 151 lb (+10 lb) 113/82 Negative -???-???-???-???-???- ???-???-???-???-???-? ??-???- Negative 130 24 -???-???-???-???-???- ???-???-???-???-? (more content not included)... Normal [facility] L509.8000on 01-26-2024 Syphilis Abs Non-Reactive Normal [facility] Comment on above: Performed By: #### L 509.8000 ####[facility] [address] [place], [address] Respiratory Director Office Visit Reporton 01-26-2024 Respiratory Director Office Visit Report [facility] [address] [place] [address] OFFICE VISIT Date of Service: 01/26/24 MR#: [id number] Acct: [id number] Name: SHELBY DIAZ Rep #: [id number] : 1995 Provider: Dr. Tracie Mujica DO Age/Sex: 28/F [place] [facility] [place]: Signed Intake Vital Signs 12/21/23 13:44 01/15/24 11:55 01/26/24 14:31 01/26/24 14:31 Height 5 ft 5 in 5 ft 5 in 5 ft 5 in 5 ft 5 in Weight: 171 lb 2 oz BMI 28.5 BP 121/81 H Intake Visit Reasons: 38 WK OB Tension Worker Required: No Is patient in pain?: No Allergies No Known Allergies Allergy (Verified 01/26/24 14:31) Medications ???Medication ???Instructions ???Recorded ???Confirmed ???Type multivitamin no.47-iron fum 27 cap PO 06/27/23 01/26/24 History mg-folate no.1 1 mg-dha 300 mg capsule (PNV-DHA) Last Menstrual Period: 05/02/23 Zika: Zika virus screening: Negative : No PFSH PFSH Surgical History [place] teeth extracted Family History Mother Family history of recurrent miscarriage 3 miscarriages Social History adopted: No household members: spouse current occupational status: employed current occupation: [employer] current occupational exposures/hazards: No pets and animals: No history of recent travel: Yes ([facility] in December) out of country: Yes sexually active: Yes Smoking Status: Never smoker alcohol intake: never substance use type: does not use well-balanced diet: about half the time caffeine: No eating out: rarely or never during the past year weight has: remained stable what type of physical activity do you participate in: walking frequency: 1-2 times per week duration: 30-45 minutes/day kimberly/orthodoxy: Jain seatbelt use: sometimes do you feel safe at home: Yes 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 OB Visit FANTA Calculator Estimated Delivery Date Method Current WG Current Estimate 02/06/24 LMP (Certain) 38w 3d Expected Delivery Route/Plan Labor Preferences- CB/BF classes: discussed labor support person: Kailash labor intervention preferences: unmedicated pain management options preferred: [] cut cord/dad catch: yes : wants PP control planned: discussed discussed possible routes of delivery and associated risks: [] special requests: [] Specific Issue/Plans Covid status: [] Flu vaccine: declined Tdap vaccine: declines Rhogam:na LARC form signed: done Problem list reviewed and updated with the most current plan of care details and appropriate orders placed. Relevant counseling for the gestational age provided. Continue routine care and follow up unless otherwise noted in visit notes/problem list details Initial Weight: 141 lb Date -???-???-???-???-???- ???-???-???-???-???-? ??-???- EGA Weight BP Urine Prot -???-???-???-???-???- ???-???-???-???-???-? ??-???- Glucose FHR FuHt Pres Dilation -???-???-???-???-???- ???-???-???-???-???-? ??-???- Effaced St Visit Note 07/07/23 -???-???-???-???-???- ???-???-???-???-???-? ??-???- 9w 3d 141 lb (+0 oz) 92/56 Trace A -???-???-???-???-???- ???-???-???-???-???-? ??-???- Negative 171 -???-???-???-???-???- ???-???-???-???-???-? ??-???- LC- CRL con with LMP. LC- CRL con with LMP. considering nipt 08/02/23 -???-???-???-???-???- ???-???-???-???-???-? ??-???- 13w 1d 139 lb (-2 lb) 122/80 Negative -???-???-???-???-???- ???-???-???-???-???-? ??-???- Negative 144 -???-???-???-???-???- ???-???-???-???-???-? ??-???- JV- CRL otis ured and is 13 weeks. normal labs. 08/30/23 -???-???-???-???-???- ???-???-???-???-???-? ??-???- 17w 1d 141 lb 4 oz (+4 oz) 98/64 Negative -???-???-???-???-???- ???-???-???-???-???-? ??-???- Negative 151 -???-???-???-???-???- ???-???-???-???-???-? ??-???- MH-No VB or cramping. Noting more headaches. No vision changes. Some benefit w tylenol/sleep. Discussed caffeine intake. Declines phenergan. 09/29/23 -???-???-???-???-???- ???-???-???-???-???-? ??-???- 21w 3d 147 lb 6 oz (+6 lb 6 oz) 119/76 Negative -???-???-???-???-???- ???-???-???-???-???-? ??-???- Negative 150 -???-???-???-???-???- ???-???-???-???-???-? ??-???- SM- no vb lo f cramping SM- no vb lof cramping discussed a natomy US findings, plan NIPT today 10/23/23 -???-???-???-???-???- ?? (more content not included)... Normal [facility] Operative Reporton 4 Operative Report [facility] Medical Records Department [address] [place] [address] Operative Report 01/26/24 2257 MR#: [id number] Acct: [id number] Name: SHELBY DIAZ Rep #: [id number] : 1995 28 From: Fauzia Martines CNM PCP: KENNETH DAVIS Status:ADM IN Location: [id number] Assessment Plan (1) (spontaneous vaginal delivery): COMMENT: LC IAL/SROM boy: Richie (2) Hemorrhage: COMMENT: 600 EBL s/p pit, methergine manual clot removal Maternal Data Information FANTA Calculator Estimated Delivery Date Method Current WG Current Estimate 02/06/24 LMP (Certain) 38w 3d Final FANTA: 02/06/24 Final FANTA Source: LMP Gestational age: 38.3 Vaginal Delivery Maternal Presentation Maternal Presentation: Active Labor and Spontaneous Rupture of Membranes Operative Information Date of Procedure: 01/26/24 Pre-Operative Diagnosis: see problem list Post-Operative Diagnosis: Surgery / Procedure Performed: Spontaneous Vaginal Delivery Type of Anesthesia: Local with 1% Lidocaine Estimated Blood Loss: 600 Time of Delivery: 22:26 Findings Description of Procedure: Patient began pushing and delivered the head in the MARK ANTHONY presentation. The head was delivered atraumatically and a loose nuchal cord ???1 was identified and easily reduced over the infant's head. The anterior and posterior shoulders delivered without complication followed by the rest of the infant and the was placed on the maternal abdomen. Delayed cord clamping was employed for approximately 60 seconds. Cord was clamped and cut and gentle traction was applied to the cord and the placenta delivered spontaneously immediately following it was noted to be intact with three- vessel cord. The perineum and vagina were inspected and noted to have 1st degree laceration, repaired with 3-0 vicryl in usual fashion. brisk bleeding noted after placenta removal, manual removal of clots, pitocin and methergine given for uterine atony. EBL was 600ml. excellent hemostasis achieved Patient and infant tolerated delivery well. Presentation: Vertex Amniotic Membrane Rupture Type: Spontaneous Time of Membrane Rupture: 0900 Amniotic Fluid Description: Clear Placental Delivery Description: Spontaneous Placenta Disposition: [facility] Cord Vessel Description: 3 Vessels Cord Entanglement: Around neck x 1, loose A Gender: Male (1 minute): 9 (5 minute): 9 Delayed Cord Clamping: Yes Post Vaginal Delivery Medications Given After Delivery: IV Pitocin and IM Methergin Episiotomy Description: None Laceration: 1st degree Procedures Urinary/Genital 52xxx-59xxx: 35687 Vaginal Delivery global pkg 01/26/24 2302 Cosigner Signature (if applicable): CC: ZOHAIB Martines; KENNETH DAVIS Signed Normal [facility] Type AND Screenon 01-26-2024 Ab SCREEN GEL Negative Normal [facility] Comment on above: Order Comment: Labor Performed By: #### B TS, L100.0100 ####[facility] [id number] [place], [address] Laboratory - Chemistry and C hemistry - challengeon 10-23-2023 Glucose Ql (U) Negative [facility] Laboratory - Urinalysison Protein Ql (U) Negative [facility] No Panel InformationOrdered By: Renuka Peters on 10-02-2023 Miscellaneous Test Comment SEE SCANNED REPORT [facility] Laboratory - Chemistry and C hemistry - challengeon 09-29-2023 Glucose Ql (U) Negative [facility] Laboratory - Urinalysison Protein Ql (U) Negative [facility] Laboratory - Chemistry and C hemistry - challengeon 08-30-2023 Glucose Ql (U) Negative [facility] Laboratory - Urinalysison Protein Ql (U) Negative [facility] Laboratory - Chemistry and C hemistry - challengeon 08-02-2023 Glucose Ql (U) Negative [facility] Laboratory - Urinalysison Protein Ql (U) Negative [facility] Absolute lymphocyte countOrd ered By: Fauzia Martines on 07-07-2023 Lymphocytes Auto (Unsp spec) [#/Vol] 1.83 10*3/uL 0.83-4.51 [facility] Basophil percentageOrdered B y: Fauzia Martines on 07-07-2023 Basophils/100 WBC (Bld) 0.4 % 0-1 [facility] Eosinophils/100 WBC (Bld) 0.8 % 0-5 [facility] Neutrophils (Bld) [#/Vol] 6.8 10*3/uL 2.0-7.7 [facility] Neutrophils/100 WBC (Bld) 73.5 % 47-70 [facility] WBC (Bld) [#/Vol] 9.3 10*3/uL 4.4-11.0 [facility] Blood erythrocytes count (nu mber/volume)Ordered By: Fauzia Martines on 07-07-2023 RBC (Bld) [#/Vol] 4.36 10*6/uL 4.2-5.4 [facility] Blood hemoglobin measurement (mass/volume)Ordered By: Fauzia Martines on 07-07-2023 Hemoglobin (Bld) [Mass/Vol] 12.6 g/dL 12.0-15.0 [facility] Blood lymphocytes/100 leukoc ytesOrdered By: Fauzia Martines on 07-07-2023 Lymphocytes/100 WBC (Bld) 19.7 % 19-41 [facility] Blood monocytes/100 leukocyt esOrdered By: Fauzia Martines on 07-07-2023 Monocytes/100 WBC (Bld) 5.3 % 0-10 [facility] Blood platelet mean volumeOr dered By: Fauzia Martines on 07-07-2023 Platelet mean volume (Bld) [Entitic vol] 9.8 fL 6.2-12.0 [facility] Cervical or vagninal specime n microscopic examination by cytology stain (reported asOrdered By: Fauzia Martines on 07-07-2023 Cytology report Cyto stain Doc (Cvx/Vag) Comment . [facility] Comment on above: The Pap smear is a s creening test designed to aid in thedetection of premalignant and malignant conditions of theuterine cervix. It is not a diagnostic procedure andshould not be used as the sole means of detecting cervicalcancer. Both false-positive and false-negative reports dooccur. Chlamydia trachomatis rRNA d etection by probe and target amplification methodOrdered By: Fauzia Martines on 07-07-2023 C. trachomatis rRNA BANDAR+probe Ql (Unsp spec) Negative Negative [facility] Culture, urineOrdered By: Modesta Martines on 07-07-2023 Bacteria identified Cx Nom (U) Mixed Gram Pos & Gram Neg Org [facility] Bacteria identified Cx Nom (U) Mixed Gram Pos & Gram Neg Org [facility] Determination of erythrocyte mean corpuscular volume (MCV)Ordered By: Fauzia Martines on 07-07-2023 MCV (RBC) [Entitic vol] 86.7 fL 81-99 [facility] HIV 1 and HIV-2 antibody ass ay with HIV-1 p24 antigen detectionOrdered By: Fauzia Martines on 07-07-2023 HIV 1+2 Ab+HIV1 p24 Ag IA Ql Non-Reactive Nonreactive [facility] Hematocrit Auto (Bld) [Volum e fraction]Ordered By: Fauzia Martines on 07-07-2023 Hematocrit (Bld) [Volume fraction] 37.8 % 37-47 [facility] Laboratory - Chemistry and C hemistry - challengeon 07-07-2023 Bilirubin Ql (U) Small (1+) [facility] Glucose Ql (U) Negative [facility] Ketones Ql (U) Negative [facility] pH (U) 5.0 [pH] [facility] Specific gravity (U) [Rel density] 1.015 [facility] Urobilinogen (U) [Mass/Vol] 0.9705032 mg/dL [facility] Laboratory - CytologyOrdered By: Fauzia Martines on 07-07-2023 Networking Technician Cyto stain Nom (Cvx/Vag) [ID] Comment . [facility] Comment on above: Flo Tapia , Change Analyst (ASCP) Laboratory - Hematology and Cell countsOrdered By: Fauzia Martines on 07-07-2023 Erythrocyte distribution width (RBC) [Entitic vol] 40.6 fL 35.1-43.9 [facility] Erythrocyte distribution width (RBC) [Ratio] 13.0 % 11.6-14.6 [facility] Immature granulocytes/100 WBC (Bld) 0.300 % 0.0-0.9 [facility] Comment on above: IG% - Immature Granu locytes (promyelocytes, myelocytes and metamyelocytes) > 1% indicates that a LEFT SHIFT is Present. MCH (RBC) [Entitic mass] 28.9 pg 27.0-32.0 [facility] Nucleated RBC/100 WBC (Bld) [Ratio] 0 % 0-5 [facility] Laboratory - Hematology and Cell countson 07-07-2023 Hemoglobin Ql (U) Negative [facility] Laboratory - Microbiology an d Antimicrobial susceptibilityOrdered By: Fauzia Martines on 07-07-2023 N. gonorrhoeae DNA BANDAR+probe Ql (Unsp spec) Negative Negative [facility] Comment on above: Performed at: =G - [facility] [address] [id number] Director: Bea Acosta MD, Phone: [phone] Laboratory - Miscellaneous t estsOrdered By: Fauzia Martines on 07-07-2023 Service comment (Unsp spec) [Interp] Comment . [facility] Comment on above: This liquid based Th inPrep(R) pap test was screened withthe use of an image guided system. Service comment (Unsp spec) [Interp] . . [facility] Laboratory - Specimen inform ationon 07-07-2023 Clarity (U) Slightly Hazy [facility] Color (U) DARK YELLOW [facility] Laboratory - Urinalysison Nitrite Ql (U) Negative [facility] Protein Ql (U) Trace [facility] MCHC Auto (RBC) [Mass/Vol]Or dered By: Fauzia Martines on 07-07-2023 MCHC (RBC) [Mass/Vol] 33.3 g/dL 32-36 [facility] No Panel InformationOrdered By: Fauzia Martines on 07-07-2023 Human Papillomavirus Screen Comment . [facility] Comment on above: The HPV DNA reflex c riteria were not met with this specimenresult therefore, no HPV testing was performed.Performed at: WB - [facility] [address] [id number] Director: Bea Acosta MD, Phone: [phone] Pathology report final diagnosis Narrative Comment . [facility] Comment on above: NEGATIVE FOR INTRAEP ITHELIAL LESION OR MALIGNANCY. Hepatitis B Surface Antigen Non-Reactive Nonreactive [facility] Hepatitis C Antibody Non-Reactive Nonreactive [facility] Comment on above: Non Reactive: < 0.8 Equivocal: >/= 0.8 to < 1.0 Reactive: >/= 1.0The CDC recommends that a reactive/equivocal HCV antibody result be followed up by the HCV Nucleic Acid Amplificationtest (150036) Rubella IgG Antibody Reactive Nonreactive [facility] Comment on above: Antibody Results Int erpretation of Immune Status Non Reactive Presumed Non-Immune Equivocal Equivocal Reactive Presumed Immune No Panel Informationon 07-07 Urine Leukocytes Positive [facility] Urine Non-Hemolyzed Blood Negative [facility] Platelets bldOrdered By: Deysi Martines on 07-07-2023 Platelets (Bld) [#/Vol] 208 10*3/uL 150-450 [facility] Serum Treponema species anti body detectionOrdered By: Fauzia Martines on 07-07-2023 Treponema sp Ab Ql (S) Non-Reactive [facility] Serum or plasma choriogonado tropin detectionOrdered By: Renée Thurston on 06-24-2023 HCG ( [place]) [place] [address] mIU/mL <4 [facility] Comment on above: hCG levels with Gest ational AgeGestational Age hCG mIU/mL (IU/L)0.2 - 1 week 5 - 501-2 weeks 50 - 5002-3 weeks 100 - 66232-7 weeks 500 - 582780-2 weeks 1000 - 189906-4 weeks 81019 - 100,0006-8 weeks 42411 - 200,0002-3 months 20845 - 100,000 Serum or plasma choriogonado tropin detectionOrdered By: Renée Thurston on 06-22-2023 HCG ( test) Ql 28789 mIU/mL <4 [facility] Comment on above: hCG levels with Gest ational AgeGestational Age hCG mIU/mL (IU/L)0.2 - 1 week 5 - 501-2 weeks 50 - 5002-3 weeks 100 - 70099-9 weeks 500 - 685359-4 weeks 1000 - 906987-3 weeks 54636 - 100,0006-8 weeks 61642 - 200,0002-3 months 75259 - 100,000 NURSING PROGon 09-23-2020 NURSING PROG HNO ID: [id number] Author: Fouzia (Rn) LILLIAN Kevin Service: Cardiovascular Testing Author Type: Registered Nurse Type: Nursing Progress Note Filed: 09/23/2020 10:30 AM Note Text: Echo with Agitated Saline Bubble Study performed per protocol. IV #22 Left AC inserted. Pt tolerated well. IV d/cd prior to discharge - no infiltrate. Normal [facility] Otheron 09-23-2020 LV Ejection Fraction 60 % [facility] PT EDon 09-21-2020 PT ED HNO ID: [id number] Author: Tamara SheaRn) LILLIAN Barfield Service: ? Author Type: Registered Nurse Type: Patient Education Filed: 09/21/2020 3:19 PM Note Text: Patient educated on 48 hour holter monitor, and verbalizes understanding. Normal [facility] CBC AND DIFFERENTIALon 09-04 % AUTOMATED IMMATURE GRAN 0.3 % Normal 0.0 - 0.9 [facility] Comment on above: Result Comment: Maria Del Carmen ture Granulocyte Count (IG) includes promyelocytes, myelocytes and metamyelocytes but does not include bands. Percent differential counts (%) should be interpreted in the context of the absolute cell counts (cells/L). Performed By: #### C BCDF #### [facility] [address] [place] [address] Basophils (Bld) [#/Vol] 0.05 10*3/uL Normal 0.00 - 0.1 0 [facility] Comment on above: Performed By: #### C BCDF #### [facility] [address] [place] [address] Basophils/100 WBC (Bld) 0.8 % Normal 0.0 - 2.0 [facility] Comment on above: Performed By: #### C BCDF #### [facility] [address] [place] [address] Eosinophils (Bld) [#/Vol] 0.10 10*3/uL Normal 0.00 - 0.70 [facility] Comment on above: Performed By: #### C BCDF #### [facility] [address] [place] [address] Eosinophils/100 WBC (Bld) 1.5 % Normal 0.0 - 6.0 [facility] Comment on above: Performed By: #### C BCDF #### [facility] [address] [place] [address] Erythrocyte distribution width (RBC) [Ratio] 12.8 % Normal 11.5 - 14.5 [facility] Comment on above: Performed By: #### C BCDF #### [facility] [address] [place] [address] Hematocrit (Bld) [Volume fraction] 43.3 % Normal 36.0 - 46.0 [facility] Comment on above: Performed By: #### C BCDF #### [facility] [address] [place] [address] Hemoglobin (Bld) [Mass/Vol] 14.2 g/dL Normal 12.0 - 16.0 [facility] Comment on above: Performed By: #### C BCDF #### [facility] [address] [place] [address] Lymphocytes (Bld) [#/Vol] 2.69 10*3/uL Normal 1.20 - 4.80 [facility] Comment on above: Performed By: #### C BCDF #### [facility] [address] [place] [address] Lymphocytes/100 WBC (Bld) 41.4 % Normal 13.0 - 44.0 [facility] Comment on above: Performed By: #### C BCDF #### [facility] [address] [place] [address] MCHC (RBC) [Mass/Vol] 32.8 g/dL Normal 32.0 - 36.0 [facility] Comment on above: Performed By: #### C BCDF #### [facility] [address] [place] [address] MCV (RBC) [Entitic vol] 90 fL Normal 80 - 100 [facility] Comment on above: Performed By: #### C BCDF #### [facility] [address] [place] [address] Monocytes (Bld) [#/Vol] 0.48 10*3/uL Normal 0.10 - 1.0 0 [facility] Comment on above: Performed By: #### C BCDF #### [place] [address] [place] [address] Monocytes/100 WBC (Bld) 7.4 % Normal 2.0 - 10.0 [facility] Comment on above: Performed By: #### C BCDF #### [facility] [address] [place] [address] Neutrophils (Bld) [#/Vol] 3.15 10*3/uL Normal 1.20 - 7.70 [facility] Comment on above: Performed By: #### C BCDF #### [facility] [address] [place] [address] Neutrophils/100 WBC (Bld) 48.6 % Normal 40.0 - 80.0 [facility] Comment on above: Performed By: #### C BCDF #### [facility] [address] [place] [address] Nucleated RBC/100 WBC (Bld) [Ratio] 0.0 /100 WBC Normal 0.0-0.0 [facility] Comment on above: Performed By: #### C BCDF #### [facility] [address] [place] [address] Platelets (Bld) [#/Vol] 252 10*3/uL Normal 150 - 450 [facility] Comment on above: Performed By: #### C BCDF #### [facility] [address] [place] [address] RBC (Bld) [#/Vol] 4.81 x10E12/L Normal 4.00 - 5.20 [facility] Comment on above: Performed By: #### C BCDF #### [facility] [address] [place] [address] WBC (Bld) [#/Vol] 6.5 10*3/uL Normal 4.4 - 11.3 [facility] Comment on above: Performed By: #### C BCDF #### [facility] [address] [place] [address] COMPREHENSIVE PANELon 2020 Albumin [Mass/Vol] 4.5 g/dL Normal 3.4 - 5.0 [facility] Comment on above: Performed By: #### C MP #### [facility] [address] [place] [address] ALP [Catalytic activity/Vol] 59 U/L Normal 33 - 110 [facility] Comment on above: Performed By: #### C MP #### [facility] [address] [place] [address] ALT [Catalytic activity/Vol] 22 U/L Normal 7 - 45 [facility] Comment on above: Result Comment: Estela ents treated with Sulfasalazine may generate falsely decreased results for ALT. Performed By: #### C MP #### [facility] [address] [place] [address] Anion gap [Moles/Vol] 13 mmol/L Normal 10 - 20 [facility] Comment on above: Performed By: #### C MP #### [facility] [address] [place] [address] AST [Catalytic activity/Vol] 17 U/L Normal 9 - 39 [facility] Comment on above: Performed By: #### C MP #### [facility] [address] [place] [address] Bilirubin [Mass/Vol] 0.5 mg/dL Normal 0.0 - 1.2 [facility] Comment on above: Performed By: #### C MP #### [facility] [address] [place] [address] Calcium [Mass/Vol] 9.4 mg/dL Normal 8.6 - 10.6 [facility] Comment on above: Performed By: #### C MP #### [facility] [address] [place] [address] Chloride [Moles/Vol] 104 mmol/L Normal 98 - 107 [facility] Comment on above: Performed By: #### C MP #### [facility] [address] [place] [address] Creatinine [Mass/Vol] 0.92 mg/dL Normal 0.50 - 1.05 [facility] Comment on above: Performed By: #### C MP #### [facility] [address] [place] [address] GFR- AM. >60 Normal >60 [facility] Comment on above: Result Comment: CALC ULATIONS OF ESTIMATED GFR ARE PERFORMED USING THE MDRD STUDY EQUATION FOR THE IDMS-TRACEABLE CREATININE METHODS. CLIN CHEM 2007;53:766-72 Performed By: #### C MP #### [facility] [address] [place] [address] GFR-NON AM. >60 Normal >60 [facility] Comment on above: Performed By: #### C MP #### [facility] [address] [place] [address] Glucose [Mass/Vol] 85 mg/dL Normal 74 - 99 [facility] Comment on above: Performed By: #### C MP #### [facility] [address] [place] [address] HCO3 (Bld) [Moles/Vol] 26 mmol/L Normal 21 - 32 [facility] Comment on above: Performed By: #### C MP #### [facility] [address] [place] [address] Potassium [Moles/Vol] 4.2 mmol/L Normal 3.5 - 5.3 [facility] Comment on above: Performed By: #### C MP #### [facility] [address] [place] [address] Protein [Mass/Vol] 7.0 g/dL Normal 6.4 - 8.2 [facility] Comment on above: Performed By: #### C MP #### [facility] [address] [place] [address] Sodium [Moles/Vol] 139 mmol/L Normal 136 - 145 [facility] Comment on above: Performed By: #### C MP #### [facility] [address] [place] [address] Urea nitrogen [Mass/Vol] 13 mg/dL Normal 6 - 23 [facility] Comment on above: Performed By: #### C MP #### [facility] [address] [place] [address] LIPID PANEL (CORONARY RISK 2 )on 09-04-2020 Cholesterol [Mass/Vol] 177 mg/dL Normal 0 - 199 [facility] Comment on above: Result Comment: . AGE DESIRABLE BORDERLINE HIGH HIGH 0-19 Y 0 - 169 170 - 199 >/= 200 20-24 Y 0 - 189 190 - 224 >/= 225 >24 Y 0 - 199 200 - 239 >/= 240 All ranges are based on fasting samples. Specific therapeutic targets will vary based on patient-specific cardiac risk. . Pediatric guidelines reference:Pediatrics 2011, 128(S5). Adult guidelines reference: NCEP ATPIII Guidelines, SAGAR 2001, 258:2486-97 . Venipuncture immediately after or during the administration of Metamizole may lead to falsely low results. Testing should be performed immediately prior to Metamizole dosing. Performed By: #### L IPID #### [facility] [address] [place] [address] Cholesterol in HDL [Mass/Vol] 69.3 mg/dL Normal [facility] Comment on above: Result Comment: . AGE VERY LOW LOW NORMAL HIGH 0-19 Y < 35 < 40 40-45 ---- 20-24 Y ---- < 40 >45 ---- >24 Y ---- < 40 40-60 >60 . Performed By: #### L IPID #### [facility] [address] [place] [address] Cholesterol in LDL [Mass/Vol] 98 mg/dL Normal 0 - 119 [facility] Comment on above: Result Comment: . NEAR BORD AGE DESIRABLE OPTIMAL HIGH HIGH VERY HIGH 0-19 Y 0 - 109 --- 110-129 >/= 130 ---- 20-24 Y 0 - 119 --- 120-159 >/= 160 ---- >24 Y 0 - 99 100-129 130-159 160-189 >/=190 . Performed By: #### L IPID #### [facility] [address] [place] [address] Cholesterol in VLDL [Mass/Vol] 10 mg/dL Normal 0 - 40 [facility] Comment on above: Performed By: #### L IPID #### [facility] [id number] [place] [id number] Cholesterol.total/Choles terol in HDL [Mass ratio] 2.6 {ratio} Normal [facility] Comment on above: Result Comment: REF VALUES DESIRABLE < 3.4 HIGH RISK > 5.0 Performed By: #### L IPID #### [facility] [address] [place] [address] Triglyceride [Mass/Vol] 50 mg/dL Normal 0 - 149 [facility] Comment on above: Result Comment: . AGE DESIRABLE BORDERLINE HIGH HIGH VERY HIGH 0 D-90 D 19 - 174 ---- ---- ---- 91 D- 9 Y 0 - 74 75 - 99 >/= 100 ---- 10-19 Y 0 - 89 90 - 129 >/= 130 ---- 20-24 Y 0 - 114 115 - 149 >/= 150 ---- >24 Y 0 - 149 150 - 199 200- 499 >/= 500 . Venipuncture immediately after or during the administration of Metamizole may lead to falsely low results. Testing should be performed immediately prior to Metamizole dosing. Performed By: #### L IPID #### [facility] [address] [place] [address] TSH WITH REFLEX TO FREE T4 I F ABNORMALon 09-04-2020 TSH Qn 0.96 m[IU]/L Normal 0.44 - 3.98 [facility] Comment on above: Result Comment: TSH testing is performed using different testing methodology at [facility] than at other [facility]. Direct result comparisons should only be made within the same method. Performed By: #### T HYDS #### [facility] [address] [place] [address] VITAMIN D, 25-HYDROXYon 03-0 VITAMIN D, 25-HYDROXY 22 ng/mL Abnormal [facility] Comment on above: Result Comment: . DEFICIENCY: < 20 NG/ML INSUFFICIENCY: 20-29 NG/ML SUFFICIENCY: 30-100 NG/ML THIS ASSAY ACCURATELY QUANTIFIES THE SUM OF VITAMIN D3, 25-HYDROXY AND VIT D2,25-HYDROXY. Performed By: #### V TDOH #### [facility] [address] [place] [address] Vital Signs Date Time Vital Sign Value Performing Clinician Faci lity 01-14-2025 14:21-0400 Body height 165.[address] Renuka Peters MD Work Phone: [facility] 01-14-2025 14:21-0400 Body mass index (BMI) [Ratio] 28.6 kg/m2 Dr. Renuka Peters MD Work Phone: 3(516)384-606395 [place] [address] 01-14-2025 14:21-0400 Body weight 78.[address] Renuka Peters MD Work Phone: 0(636)762-202295 [place] [address] 01-14-2025 14:21-0400 Diastolic blood pressure 77 mm[Hg] Dr. Renuka Peters MD Work Phone: 2(564)243-616795 [place] [address] 01-14-2025 14:21-0400 Systolic blood pressure 112 mm[Hg] Dr. Renuka Peters MD Work Phone: 3(164)749-873695 [place] [address] 01-08-2025 07:58-0400 Body height 165.[address] Renuka Peters MD Work Phone: 6(989)526-924995 [place] [address] 01-08-2025 07:54-0400 Body mass index (BMI) [Ratio] 28.1 kg/m2 Dr. Renuka Peters MD Work Phone: 3(432)679-155495 [place] [address] 01-08-2025 07:54-0400 Body weight 76.[address] Renuka Peters MD Work Phone: 3(052)301-275195 [place] [address] 01-08-2025 07:54-0400 Diastolic blood pressure 72 mm[Hg] Dr. Renuka Peters MD Work Phone: 4(524)152-680895 [place] [address] 01-08-2025 07:54-0400 Systolic blood pressure 102 mm[Hg] Dr. Renuka Peters MD Work Phone: 9(144)854-652495 [place] [address] 01-02-2025 09:58-0400 Body height 165.[address] Renuka Peters MD Work Phone: 8(388)274-355295 [place] [address] 01-02-2025 09:55-0400 Body mass index (BMI) [Ratio] 28 kg/m2 Dr. Renuka Peters MD Work Phone: 6(451)022-867795 [place] [address] 01-02-2025 09:55-0400 Body weight 76.[address] Renuka Peters MD Work Phone: [facility] 01-02-2025 09:55-0400 Diastolic blood pressure 78 mm[Hg] Dr. Renuka Peters MD Work Phone: 0(318)714-340895 [place] [address] 01-02-2025 09:55-0400 Systolic blood pressure 112 mm[Hg] Dr. Renuka Peters MD Work Phone: 1(823)390-855195 [place] [address] 12-18-2024 13:09-0400 Body height 165.[address] Renuka Peters MD Work Phone: 1(726)751-713995 [place] [address] 12-18-2024 13:05-0400 Body mass index (BMI) [Ratio] 28 kg/m2 Dr. Renuka Peters MD Work Phone: 8(156)762-157295 [place] [address] 12-18-2024 13:05-0400 Body weight 76.[address] Renuka Peters MD Work Phone: 0(649)267-707795 [place] [address] 12-18-2024 13:05-0400 Diastolic blood pressure 74 mm[Hg] Dr. Renuka Peters MD Work Phone: 8(934)101-980495 [place] [address] 12-18-2024 13:05-0400 Systolic blood pressure 111 mm[Hg] Dr. Renuka Peters MD Work Phone: 8(295)074-657195 [place] [address] 12-06-2024 14:05-0400 Body height 165.[address] Renuka Peters MD Work Phone: 9(831)099-454595 [place] [address] 12-06-2024 14:05-0400 Body mass index (BMI) [Ratio] 27.4 kg/m2 Dr. Renuka Peters MD Work Phone: 1(666)595-551895 [place] [address] 12-06-2024 14:05-0400 Body weight 74.[address] Renuka Peters MD Work Phone: 3(126)800-995295 [place] [address] 12-06-2024 14:05-0400 Diastolic blood pressure 72 mm[Hg] Dr. Renuka Peters MD Work Phone: 6(526)765-813495 [place] [address] 12-06-2024 14:05-0400 Systolic blood pressure 109 mm[Hg] Dr. Renuka Peters MD Work Phone: 6(427)287-388995 [place] [address] 11-20-2024 09:09-0400 Body height 165.[address] Renuka Peters MD Work Phone: 4(530)563-445395 [place] [address] 11-20-2024 09:09-0400 Body mass index (BMI) [Ratio] 27.5 kg/m2 Dr. Renuka Peters MD Work Phone: 3(502)042-161595 [place] [address] 11-20-2024 09:09-0400 Body weight 75.[address] Renuka Peters MD Work Phone: 2(938)709-742395 [place] [address] 11-20-2024 09:09-0400 Diastolic blood pressure 74 mm[Hg] Dr. Renuka Peters MD Work Phone: 1(506)076-283295 [place] [address] 11-20-2024 09:09-0400 Systolic blood pressure 113 mm[Hg] Dr. Renuka Peters MD Work Phone: 4(127)008-269995 [place] [address] 11-07-2024 14:15-0400 Body height 165.[address] Renuak Peters MD Work Phone: 3(638)093-926395 [place] [address] 11-07-2024 14:14-0400 Body mass index (BMI) [Ratio] 27 kg/m2 Dr. Renuka Peters MD Work Phone: 6(660)174-619995 [place] [address] 11-07-2024 14:14-0400 Body weight 73.[address] Renuka Peters MD Work Phone: 0(985)661-100995 [place] [address] 11-07-2024 14:14-0400 Diastolic blood pressure 64 mm[Hg] Dr. Renuka Peters MD Work Phone: 6(345)624-446295 [place] [address] 11-07-2024 14:14-0400 Systolic blood pressure 112 mm[Hg] Dr. Renuka Peters MD Work Phone: [facility] 10-09-2024 09:41-0400 Body mass index (BMI) [Ratio] 25.9 kg/m2 Dr. Renuka Peters MD Work Phone: 4(003)195-204995 [place] [address] 10-09-2024 09:41-0400 Body weight 70.[address] Renuka Peters MD Work Phone: 5(731)835-187095 [place] [address] 10-09-2024 09:41-0400 Diastolic blood pressure 61 mm[Hg] Dr. Renuka Peters MD Work Phone: 6(799)047-557195 [place] [address] 10-09-2024 09:41-0400 Systolic blood pressure 115 mm[Hg] Dr. Renuka Peters MD Work Phone: 7(980)083-256095 [place] [address] 09-12-2024 09:50-0400 Body mass index (BMI) [Ratio] 25.4 kg/m2 Dr. Renuka Peters MD Work Phone: 3(449)013-236795 [place] [address] 09-12-2024 09:50-0400 Body weight 69.[address] Renuka Peters MD Work Phone: 2(892)078-729295 [place] [address] 09-12-2024 09:50-0400 Diastolic blood pressure 71 mm[Hg] Dr. Renuka Peters MD Work Phone: 3(405)426-423095 [place] [address] 09-12-2024 09:50-0400 Systolic blood pressure 111 mm[Hg] Dr. Renuka Peters MD Work Phone: 2(678)426-327395 [place] [address] 08-14-2024 13:49-0500 Body mass index (BMI) [Ratio] 25.3 kg/m2 Dr. Renuka Peters MD Work Phone: 7(178)936-781495 [place] [address] 08-14-2024 13:49-0500 Body weight 69.[address] Renuka Peters MD Work Phone: 4(291)051-164195 [place] [address] 08-14-2024 13:49-0500 Diastolic blood pressure 76 mm[Hg] Dr. Renuka Peters MD Work Phone: [facility] 08-14-2024 13:49-0500 Systolic blood pressure 113 mm[Hg] Dr. Renuka Peters MD Work Phone: [facility] 07-17-2024 09:14-0500 Body weight 68.[address] Renuka Peters MD Work Phone: [facility] 07-17-2024 08:52-0500 Diastolic blood pressure 76 mm[Hg] Dr. Renuka Peters MD Work Phone: [facility] 07-17-2024 08:52-0500 Systolic blood pressure 110 mm[Hg] Dr. Renuka Peters MD Work Phone: [facility] 10-31-2023 09:43-0400 Diastolic blood pressure 70 mm[Hg] [facility] 10-31-2023 09:43-0400 Heart rate 99 /min [facility] 10-31-2023 09:43-0400 Systolic blood pressure 101 mm[Hg] [facility] 10-31-2023 08:27-0400 SaO2% (BldA) [Mass fraction] 99 % [facility] 10-31-2023 08:26-0400 Body temperature 97.7 [degF] [facility] 10-31-2023 08:26-0400 Respiratory rate 15 /min [facility] 10-23-2023 14:15-0400 Body height 165.1 cm [facility] 10-23-2023 14:15-0400 Body mass index (BMI) [Ratio] 25.1 kg/m2 [facility] 10-23-2023 14:15-0400 Body weight 68.49 kg [facility] 10-23-2023 14:15-0400 Diastolic blood pressure 82 mm[Hg] [facility] 10-23-2023 14:15-0400 Systolic blood pressure 113 mm[Hg] [facility] 09-29-2023 14:42-0400 Body height 165.1 cm [facility] 09-29-2023 14:42-0400 Body mass index (BMI) [Ratio] 24.5 kg/m2 [facility] 09-29-2023 14:42-0400 Body weight 66.84 kg [facility] 09-29-2023 14:42-0400 Diastolic blood pressure 76 mm[Hg] [facility] 09-29-2023 14:42-0400 Systolic blood pressure 119 mm[Hg] [facility] 08-30-2023 14:20-0500 Body mass index (BMI) [Ratio] 23.5 kg/m2 [facility] 08-30-2023 14:20-0500 Body weight 64.06 kg [facility] 08-30-2023 14:20-0500 Diastolic blood pressure 64 mm[Hg] [facility] 08-30-2023 14:20-0500 Systolic blood pressure 98 mm[Hg] [facility] 08-02-2023 13:13-0500 Body mass index (BMI) [Ratio] 23.1 kg/m2 [facility] 08-02-2023 13:13-0500 Body weight 63.04 kg [facility] 08-02-2023 13:13-0500 Diastolic blood pressure 80 mm[Hg] [facility] 08-02-2023 13:13-0500 Systolic blood pressure 122 mm[Hg] [facility] 07-07-2023 09:12-0500 Body height 165.1 cm [facility] 07-07-2023 09:12-0500 Body mass index (BMI) [Ratio] 23.4 kg/m2 [facility] 07-07-2023 09:12-0500 Body weight 63.95 kg [facility] 07-07-2023 09:12-0500 Diastolic blood pressure 56 mm[Hg] [facility] 07-07-2023 09:12-0500 Systolic blood pressure 92 mm[Hg] kenneth davis [facility] 10-05-2022 11:00-0400 Body height 162.6 cm Kenneth Davis DO Work Phone: [facility] 10-05-2022 11:00-0400 Body mass index (BMI) [Ratio] 25.44 kg/m2 Kenneth Davis DO Work Phone: [facility] 10-05-2022 11:00-0400 Body weight 67.22 kg Kenneth Davis DO Work Phone: [facility] 10-05-2022 11:00-0400 Diastolic blood pressure 66 mm[Hg] Kenneth Davis DO Work Phone: [facility] 10-05-2022 11:00-0400 Heart rate 88 /min Kenneth Davis DO Work Phone: [facility] 10-05-2022 11:00-0400 Systolic blood pressure 110 mm[Hg] Kenneth Davis DO Work Phone: [facility] 03-20-2019 17:56-0400 Body Temperature 98.5 [degF] Kenneth Davis [facility] Work Phone: 03-20-2019 17:56-0400 Body weight 65.23 kg Kenneth Davis [facility] Work Phone: 03-20-2019 17:56-0400 BP Diastolic 74 mm[Hg] Kenneth Davsi [facility] Work Phone: 03-20-2019 17:56-0400 BP Systolic 106 mm[Hg] Kenneth Davis [facility] Work Phone: 03-20-2019 17:56-0400 Pulse (Heart Rate) 76 /min Kenneth Davis [facility] Work Phone: Encounters Encounter Date Encounter Type Care Provider Facility Start: 01-22-2025 ambulatory Tracie Cornejo cility:[facility] Start: 01-14-2025 End: 01-14-[address] Tracie Mcdaniels DO -[facility] Work Phone: Start: 01-14-2025 End: 01-14-[address] Renuka Peters MD Work Phone: -[facility] Start: 01-08-2025 End: 01-08-2025 Patient encounter procedure Renée Thurston [facility] -[facility] @ Start: 01-08-2025 End: 01-08-[address] Renuka Peters MD Work Phone: -[facility] @ Start: 01-02-2025 End: 01-02-[address] Renuka Peters MD Work Phone: -Laboratory Specimen Start: 01-02-2025 End: 01-02-[address] Renuka Peters MD -Laboratory Specimen Work Phone: Start: 01-02-2025 End: 01-02-[address] Renuka Peters MD -[facility] Work Phone: Start: 01-02-2025 End: 01-02-[address] Renuka Peters MD Work Phone: -[facility] Start: 01-02-2025 End: 01-02-2025 ambulatory Renuka Peters Facility:[facility] Start: 12-18-2024 End: 12-18-[address] Renuka Peters MD -[facility] Work Phone: Start: 12-18-2024 End: 12-18-[address] Renuka Peters MD Work Phone: [facility] Work Phone: Start: 12-06-2024 End: 12-06-2024 Patient encounter procedure Fauzia NAVARRETE -[facility] Work Phone: Start: 12-06-2024 End: 12-06-[address] Renuka Peters MD Work Phone: [facility] Work Phone: Start: 11-20-2024 End: 11-20-[address] Tracie Mcdaniels DO -[facility] Work Phone: Start: 11-20-2024 End: 11-20-[address] Renuka Peters MD Work Phone: [facility] Work Phone: Start: 11-07-2024 End: 11-07-2024 Patient encounter procedure Jarrell DANIEL -[facility] Work Phone: Start: 11-07-2024 End: 11-07-[address] Renuka Peters MD Work Phone: [facility] Work Phone: Start: 11-07-2024 End: 11-07-2024 ambulatory Renukaashley Peters Facility:[facility] Start: 10-09-2024 End: 10-09-[address] Renuka Peters MD -[facility] Work Phone: Start: 10-09-2024 End: 10-09-2024 ambulatory Renuka Peters Facility:[facility] Start: 09-12-2024 End: 09-12-[address] Tracie Mcdaniels DO -[facility] Work Phone: Start: 09-12-2024 End: 09-12-2024 ambulatory Tracie Mcdaniels Facility:[facility] Start: 09-05-2024 End: 09-05-2024 ambulatory JARRELL ALVARES [facility] Start: 08-14-2024 End: 08-14-2024 Patient encounter procedure Jarrell DANIEL -[facility] Work Phone: Start: 08-14-2024 End: 08-14-2024 ambulatory Jarrell Alvaers FILLING TECHNICIAN Facility:[facility] Start: 07-17-2024 End: 07-17-2024 Patient encounter procedure Jarrell Alvares FILLING TECHNICIAN-C -[facility] Work Phone: Start: 07-17-2024 End: 07-17-2024 ambulatory Jarrellbayron Alvares FILLING TECHNICIAN Facility:[facility] Start: 06-19-2024 End: 06-19-2024 ambulatory Renukaashley Andrewcathryn Facility:[facility] Start: 06-19-2024 End: 06-19-2024 ambulatory Renuka Agostoony Facility:[facility] Start: 03-08-2024 End: 03-08-2024 ambulatory Renuka Kamranissaarielle Facility:[facility] Start: 01-29-2024 End: 01-29-2024 ambulatory Pat Kapadia FILLING TECHNICIAN Facility:[facility] Start: 01-26-2024 ambulatory Fauzia Martines Facilit y:[facility] Start: 01-26-2024 End: 01-28-2024 Evaluation and management of inpatient Fauzia Martines Facility:[facility] Start: 01-26-2024 End: 01-26-2024 ambulatory Tracie Mcdaniels Facility:[facility] Start: 01-26-2024 End: 01-26-2024 ambulatory Tracie Mcdaniels Facility:[facility] Start: 10-31-2023 Non-patient / Non-visit [facility] Start: 10-31-2023 End: 10-31-2023 ambulatory [facility] Work Phone: Start: 10-31-2023 End: 10-31-2023 Patient encounter procedure [facility] Work Phone: Start: 10-23-2023 End: 10-23-2023 Patient encounter [facility] Work Phone: Start: 10-02-2023 End: 10-02-2023 ambulatory [facility] Work Phone: Start: 10-02-2023 End: 10-02-2023 Patient encounter procedure kenneth davis [facility] Work Phone: Start: 09-29-2023 End: 09-29-2023 Patient encounter procedure kenneth davis [facility] Work Phone: Start: 09-19-2023 End: 09-19-2023 ambulatory MD PRIMARY CARE [facility] Start: 08-30-2023 End: 08-30-2023 Patient encounter procedure kenneth davis [facility] Work Phone: Start: 08-02-2023 End: 08-02-2023 Patient encounter procedure kenneth davis [facility] Work Phone: Start: 07-07-2023 End: 07-07-2023 ambulatory kenneth davis [facility] Work Phone: Start: 07-07-2023 End: 07-07-2023 Patient encounter procedure kenneth davis [facility] Work Phone: Start: 07-07-2023 End: 07-07-2023 Patient encounter procedure kenneth davis [facility] Work Phone: Start: 06-24-2023 End: 06-24-2023 ambulatory [facility] Work Phone: Start: 06-24-2023 End: 06-24-2023 Patient encounter procedure [facility] Work Phone: Start: 06-22-2023 End: 06-22-2023 ambulatory [facility] Work Phone: Start: 06-22-2023 End: 06-22-2023 Patient encounter procedure [facility] Work Phone: Start: 10-05-2022 End: 10-05-2022 Periodic preventive med est patient 18-39 yrs Kenneth Drake Davis DO Work Phone: [facility] Comment on above: Encounter for kimmy blackwood for travel (Primary Dx) Start: 09-23-2020 End: 09-23-2020 Patient encounter procedure Kenneth Davis Work Phone: [facility] Start: 09-23-2020 Results Only Kenneth Davis Work Phone: [facility] Department Start: 09-21-2020 End: 09-21-2020 Subsequent hospital visit by physician Card Lab Stress [facility] Comment on above: Tachycardia, unspeci fied [R00.0] Procedures Date Procedure Procedure Detail Performing Clinician Start: 01-02-2025 Beta-hemolytic Streptococcus culture Dr. Renuka Peters MD Work Phone: Start: 11-07-2024 Serologic test for syphilis Dr. Renuka Peters MD Work Phone: Start: 07-07-2023 Urine culture kenneth bu rns Start: 09-23-2020 LVEF ECHO Kenneth Huy roge Davis Work Phone: Start: 09-04-2020 Lipid 1996 panel - S devi or Plasma Kenneth Davis DO Work Phone: Start: 09-03-2020 Follow-up visit Plan of Treatment Date Care Activity Detail Author Start: 2045 Zoster Vaccines (1 of 2) Zoster Vaccines (1 of 2) [facility] Start: 09-04-2025 Lipid panel Lipid Panel [facility] Start: 06-11-2024 DTaP/Tdap/Td Vaccines (6 - Td or Tdap) DTaP/Tdap/Td Vaccines (6 - Td or Tdap) [facility] Start: 10-31-2023 Nonstress test [facility] Start: 10-31-2023 Obstetric monitoring [facility] Start: 10-31-2023 Vital signs measurements [facility] Start: 10-31-2023 [facility] Start: 10-31-2023 Vital signs measurements [facility] Start: 10-31-2023 Patient discharge [facility] Start: 07-07-2023 Liquid based cervical cytology screening [facility] Start: 03-03-2023 Influenza vaccination Influenza Vaccine (Season Ended) [facility] Start: 03-03-2020 Influenza vaccination INFLUENZA (#1) [facility] Start: 2016 PAP TESTING PAP TESTING [facility] Start: 2016 Screening for malignant neoplasm of cervix [facility] Start: 2014 Urine microalbumin profile DTAP,TDAP,TD (1 - Tdap) [facility] Start: 2013 HEPATITIS C SCREENING HEPATITIS C SCREENING [facility] Start: 2013 Hepatitis C screening Hepatitis C Screening [facility] Start: 2013 HIV SCREENING HIV SCREENING [facility] Start: 2007 Adult depression screening assessment DEPRESSION SCREENING [facility] Start: 2006 HPV VACCINE (1 - 2-dose series) HPV VACCINE (1 - 2-dose series) [facility] Start: 1996 MMR Vaccines (1 of 1 - Standard series) MMR Vaccines (1 of 1 - Standard series) [facility] Start: 1996 Varicella vaccination Varicella Vaccines (1 of 2 - 2-dose childhood series) [facility] Start: 1995 COVID-19 Vaccine (#1) COVID-19 Vaccine (#1) [facility] Start: 1995 HIV screening HIV Screening [facility] Start: 1995 Yearly Adult Physical Yearly Adult Physical [facility] Anti-D (Rh) immunoglobulin W [facility] CBC W Auto Different ial panel - Blood [facility] Glucose [Mass/volume ] in Serum or Plasma --1 hour post 50 g glucose PO [facility] HIV 1+2 Ab+HIV1 p24 Ag [Presence] in Serum or Plasma by Immunoassay [facility] Patient Education Kick Counts ED False Labor OB Triage: Return to Hospital or Notify Physician if you Experience: [facility] Work Phone: Patient referral [facility] Work Phone: Streptococcus agalac tiae [Presence] in Unspecified specimen by Organism specific culture [facility] Treponema sp Ab [Pre sence] in Serum [facility] Immunizations Immunization Date Immunization Notes Care Provider Efrem colmenaresmarzena 10-05-2022 hepatitis A vaccine, adult dosage Kenneth Davis DO Work Phone: [facility] Work Phone: 10-05-2022 typhoid vaccine, unspecified formulation Kenneth Davis DO Work Phone: [facility] Work Phone: 06-11-2014 tuberculin skin test ; purified protein derivative solution, intradermal; Translations: [PPD] Kenneth Davis [facility] Work Phone: 06-11-2014 tetanus toxoid, redu santhosh diphtheria toxoid, and acellular pertussis vaccine, adsorbed; Translations: [Adacel 5-2-15.5 LF-MCG/0.5 Intramuscular Suspension] Kenneth Davis [facility] Work Phone: 06-04-2014 tuberculin skin test ; purified protein derivative solution, intradermal; Translations: [PPD] Kenneth Davis [facility] Work Phone: 06-04-2014 influenza, injectabl e, quadrivalent, preservative free; Translations: [Fluarix Quadrivalent 0.5 ML SUSP] Kenneth Davis [facility] Work Phone: 09-01-2007 tetanus and diphther ia toxoids, adsorbed, preservative free, for adult use (2 Lf of tetanus toxoid and 2 Lf of diphtheria toxoid) Kenneth Davis [facility] Work Phone: 03-15-1996 hepatitis B vaccine, adult dosage Kenneth Davis [facility] Work Phone: 1995 DTP-Haemophilus influenzae type b conjugate vaccine Kenneth Davis [facility] Work Phone: 1995 DTP-Haemophilus influenzae type b conjugate vaccine Kenneth Davis [facility] Work Phone: 1995 trivalent poliovirus vaccine, live, oral Kenneth Davis [facility] Work Phone: 1995 DTP-Haemophilus influenzae type b conjugate vaccine Kenneth Davis [facility] Work Phone: 1995 trivalent poliovirus vaccine, live, oral Kenneth Davis [facility] Work Phone: 1995 hepatitis B vaccine, adult dosage Kenneth Davis [facility] Work Phone: 1995 hepatitis B vaccine, adult dosage Kenneth Davis [facility] Work Phone: Payers Date Payer Category Payer Self-pay 2023 Unknown [id number] 2022 Unknown [employer] [facility] [id number] 2022-Present [address] [place] [address] [id number] 2020 Private Health Insurance AETJESI RUIZ [facility] [id number] 2020-Present [facility] [id number] .[id number] 1995 Unknown [id number] 216.840.1.921019.3.579.2.4 79 1995 Unknown [id number] 2.16.840.1.934519.3.579.2.4 79 Unknown [id number] Unknown [id number] 216.840.1.467457.3.579.2.4 62 Unknown [id number] 2.16.840.1.368755.3.579.2.4 62 Unknown [id number] 2.16.840.1.271115.3.579.2.4 62 Unknown [id number] 2.16.840.1.829863.3.579.2.4 62 Unknown [id number] 2.16.840.1.452732.3.579.2.4 62 Unknown [id number] 2.16.840.1.532692.3.579.2.4 62 Unknown [id number] 2.16.840.1.928964.3.579.2.4 62 Unknown [id number] 2.16.840.1.406206.3.579.2.4 62 Unknown [id number] 2.16.840.1.819007.3.579.2.4 62 Unknown [id number] 2.16.840.1.458150.3.579.2.4 62 Unknown [id number] 2.16.840.1.134006.3.579.2.4 62 Unknown [id number] 2.16.840.1.395895.3.579.2.4 62 Unknown [id number] 2.16.840.1.537764.3.579.2.4 62 Unknown [id number] 2.16.840.1.559840.3.579.2.4 62 Unknown [id number] 2.16.840.1.630757.3.579.2.4 62 Unknown [id number] 2.16.840.1.494905.3.579.2.4 62 Unknown [id number] 2.16.840.1.369953.3.579.2.4 62 Unknown [id number] 2.16.840.1.316417.3.579.2.4 62 Unknown [id number] 2.16.840.1.888556.3.579.2.4 62 Unknown [id number] 2.16.840.1.780058.3.579.2.4 62 Unknown [id number] 2.16.840.1.893567.3.579.2.4 62 Unknown [id number] 2.16.840.1.820682.3.579.2.4 62 Unknown [id number] 2.16.840.1.486233.3.579.2.4 62 Unknown [id number] 2.16.840.1.790412.3.579.2.4 62 Social History Date Type Detail Facility Assertion Unknown if ever smoked [facility] Work Phone: Start: 1995 Sex Assigned At Not on file [facility] Start: 09-24-2022 End: 10-04-2022 Exposure to SARS-CoV-2 (event) Not sure [facility] Start: 10-05-2022 End: 06-11-2024 Tobacco smoking status NHIS Never smoked tobacco [facility] Work Phone: Start: 10-05-2022 Tobacco use and exposure Smokeless tobacco non-user [facility] Work Phone: Start: 10-05-2022 Alcohol intake Lifetime non-d ester (finding) [facility] Work Phone: Start: 10-05-2022 History of Social function [facility] Work Phone: Start: 10-05-2022 Tobacco use panel [facility] Work Phone: Start: 06-27-2023 End: 09-29-2023 Tobacco smoking status NHIS Unknown if ever smoked [facility] Start: 1995 Sex Assigned At Female W [facility] NEGATED: Highlighted rowStart: NINF History of tobacco use Passive smoker [facility] Work Phone: Functional Status Date Assessment Result Facility NEGATED: Highlighted row Functional performance Functional status health issues are not documented Disease [facility] Work Phone: Mental Status Date Assessment Result Facility NEGATED: Highlighted row Cognitive function [Interpretation] Cognitive status health issues are not documented Disease [facility] Work Phone: Clinical Notes 10-05-2022 to 01-14-2025 Note Date & Type Note Facility 01-14-2025 Progress note [facility] 01-14-2025 Progress note Note Date/Time January 14, 2025 2:45pm [facility] [address], [address] [place] [address] OFFICE VISIT Date of Service: 01/14/25 MR#: [id number] Acct: [id number] Name: SHELBY DIAZ Rep #: [id number] : 1995 Provider: Dr. Ashley Mcdaniels DO Age/Sex: 29/F [place] [facility] [place] Signed Intake Vital Signs 12/18/24 13:09 01/08/25 07:58 01/14/25 14:21 Height 5 ft 5 in 5 ft 5 in 5 ft 5 in Weight: 172 lb BMI 28.6 BP 112/77 Intake Visit Reasons: 38 wk ob Chief Complaint: 38wk OB Tension Worker Required: No Is patient in pain?: No Allergies No Known Allergies Allergy (Verified 01/14/25 14:19) Medications 3 ?Medication ?Instructions ?Recorded ?Confirmed ?Type multivitamin no.47-iron fum 27 cap PO 06/27/23 5 History mg-folate no.1 1 mg-dha 300 mg capsule (PNV-DHA) cholecalciferol (vitamin D3) 25 25 mcg PO QDAY 4 01/14/25 History mcg (1,000 unit) capsule Last Menstrual Period: 04/20/24 : No Have you fallen in the past year?: No PFSH PFSH Surgical History [place] teeth extracted Family History Mother Family history of recurrent miscarriage 3 miscarriages Social History adopted: No household members: spouse and children number of children: 1 current occupational status: unemployed current occupation: [employer] current occupational exposures/hazards: No pets and animals: No history of recent travel: Yes (- May) out of state: Yes out of country: No sexually active: Yes Smoking Status: Never smoker alcohol intake: never substance use type: does not use well-balanced diet: about half the time caffeine: No eating out: rarely or never during the past year weight has: increased > 10 lbs what type of physical activity do you participate in: walking frequency: 1-2 times per week duration: 30-45 minutes/day kimberly/orthodoxy: Jain seatbelt use: always do you feel safe at home: Yes 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 Date Name GA/Weeks Outcome Route Bth Weight Infant Gen Labor Lgth Anesthesia Del Locatn Provider FOB 01/26/24 Richie 38 live - full term 7#1oz Male none [facility] Citlali Martines Kailash Delivery Date: 01/26/24 Last Updated by: Chanelle Kerns IOL SROM HPI 38 wk ob Details: SHELBY DIAZ is a 29 year old who presents for routine OB visit. OB Visit FANTA Calculator Estimated Delivery Date Method Current WG Current Estimate 01/25/25 LMP (Certain) 38w 3d Other Estimates 01/29/25 Ultrasound #1 37w 6d Expected Delivery Route/Plan Labor Preferences- CB/BF classes: no labor support person: Kailash labor intervention preferences: [] pain management options preferred: limited cut cord/dad catch: yes : yes PP control planned: discussed discussed possible routes of delivery and associated risks: [] special requests: [] Specific Issue/Plans Covid status: [] Flu vaccine: [] Tdap vaccine: declines Rhogam: na LARC form signed: yes Problem list reviewed and updated with the most current plan of care details and appropriate orders placed. Relevant counseling for the gestational age provided. Continue routine care and follow up unless otherwise noted in visit notes/problem list details Initial Weight: Not Recorded Date -?-?-?-?-?--?-?-?-?-?-?-?- EGA Weight BP Urine Prot -?-?-?-?-?-?-?-?-?-?-?-?- Glucose FHR FuHt Pres Dilation -?-?-?-?-?-?-?-?-?-?-?-?- Effaced St Visit Note 06/19/24 -?-?-?-?-?-?-?-?-?-?-?-?- 8w 4d 153 lb 2 oz 108/73 -?-?-?-?-?-?-?-?-?-?-?-?- 160 -?-?-?-?-?-?-?-?-?-?-?-?- SM- no vb crampi ng CRL SM- no vb cramping CRL 8w0d cons with LMP 07/17/24 -?-?-?-?-?-?-?-?-?-?-?-?- 12w 4d 150 lb 9.6 oz 110/76 Ne gative -?-?-?-?-?-?-?-?-?-?-?-?- Negative 150 -?-?-?-?-?-?-?-?-?-?-?-?- MH-No VB. Managi ng nausea. PN labs reviewed. 08/14/24 -?-?-?-?-?-?-?-?-?-?-?-?- 16w 4d 152 lb 6 oz 113/76 Nega tive -?-?-?-?-?-?-?-?-?-?-?-?- Negative 148 -?-?-?-?-?-?-?-?-?-?-?-?- MH-No VB. No flu tters yet. Nausea resolved. Anatomy US scheduled 09/12/24 -?-?-?-?-?-?-?-?-?-?-?-?- 20w 5d 153 lb 2 oz 111/71 Nega tive -?-?-?-?-?-?-?-?-?-?-?-?- Negative 145 -?-?-?-?-?-?-?-?-?-?-?-?- JV- no complaint s today. anatomy scan reviewed. 10/09/24 -?-?-?-?-?-?-?-?-?-?-?-?- 24w 4d 156 lb 2 oz 115/61 Nega tive -?-?-?-?-?-?-?-?-?-?-?-?- Negative 145 24 -?-?-?-?-?-?-?-?-?-?-?-?- SM- no vb lof go od fm no reuglar ctx 11/07/24 -?-?-?-?-?-?-?-?-?-?-?-?- 28w 5d 162 lb 8 oz 112/64 Nega tive -?-?-?-?-?-?-?-?-?-?-?-?- Negative 143 27 -?-?-?-?-?-?-?-?-?-?-?-?- MH-No VB, LOF. G ood FM. Some irreg BH. Declines tdap. Larc. 28 wk labs pending 11/20/24 -?-?-?-?-?-?-?-?-?-?-?-?- 30w 4d 165 lb 8 oz 113/74 Nega tive -?-?-?-?-?-?-?-?-?-?-?-?- Negative 160 30 -?-?-?-?-?-?-?-?-?-?-?-?- JV- normal 28 we ek labs. no complaints. + FM. questions about evening primrose oil and red raspberry leaf. 12/06/24 -?-?-?-?-?-?-?-?-?-?-?-?- 32w 6d 165 lb 2 oz 109/72 Trac e -?-?-?-?-?-?-?-?-?-?-?-?- Negative 153 31 -?-?-?-?-?-?-?-?-?-?-?-?- LC- n LC- no vb/ctx/lof, good fm. no concerns 12/18/24 -?-?-?-?-?-?-?-?-?-?-?-?- 34w 4d 168 lb 4 oz 111/74 Nega tive -?-?-?-?-?-?-?-?-?-?-?-?- Negative 150 33 -?-?-?-?-?-?-?-?-?-?-?-?- SM- no vb lof go od fm no regular ctx 01/02/25 -?-?-?-?-?-?-?-?-?-?-?-?- 36w 5d 168 lb 4 oz 112/78 Nega tive -?-?-?-?-?-?-?-?-?-?-?-?- Negative 140 35 Cephalic 3 -?-?-?-?-?-?-?-?-?-?-?-?- 60 -2 SM- no vb lof good fm no reugalr ctx gbs done 01/08/25 -?-?-?-?-?-?-?-?-?-?-?-?- 37w 4d 169 lb 102/72 Trace -?-?-?-?-?-?-?-?-?-?-?-?- Negative 130 36 Cephalic 4 -?-?-?-?-?-?-?-?-?-?-?-?- 70 -2 KW- no vb/ lof/reg ctx. good fm. 01/14/25 -?-?-?-?-?-?-?-?-?-?-?-?- 38w 3d 172 lb 112/77 Negative -?-?-?-?-?-?-?-?-?-?-?-?- Negative 146 37 Cephalic 4 -?-?-?-?-?-?-?-?-?-?-?-?- 80 -1 JV- plan m embrane strip next visit. no complaints. ACOG First Trimester First Trimester: Desire for , Alcohol, Tobacco Cessation, Illicit/Recreational Drug/Substance Use, Intimate Partner Violence, Barriers to care, Unstable Housing, Communication Barriers, Environmental/Work Hazards, Anticipated Course of Care, Toxoplasmosis Precations, Use of Any medications, Sexual activity, Exercise, Dental Care, Sauna/Hot tub use, Seat Belt use, Childbirth classes/Hospital facilities, Travel, Indications for Ultrasound and Screening for Aneuploidy; Discussed Second Trimester Second Trimester: Signs and Symptoms of Labor, Reproductive Life Planning & Contreception, Care Planning and Intimate Partner Violence; Discussed Tobacco Cessation and Discussed Depression/Anxiety Third Trimester Third Trimester: Pain Management Plans, Labor support person(s), Immediate Larc, Movement Monitoring, Signs and Symptoms of Preeclampsia, Feeding No and Family Medical Leave or Disability Forms; Discussed Circumcision preference Results POC Urinalysis 2 Dip (Clinic) Office Urine Glucose Negative Last Edit by Josephine Hager on 01/14/25 14:26 Office Urine Protein Negative Last Edit by Josephine Hager on 01/14/25 14:26 Coding Level of Care Code OB Routine Diagnoses GBS (group B Streptococcus carrier), +RV culture, currently O99.820 Family history of recurrent miscarriage Z84.89 Encounter for supervision of other normal in third trimester Z34.83 Normal : other normal Trimester: third trimester 38 weeks gestation of Z3A.38 Weeks of gestation: 38 weeks Assessment and Plan Assessment and Plan (1) GBS (group B Streptococcus carrier), +RV culture, currently : Status: Acute Comment: treat in labor (2) Family history of recurrent miscarriage: Status: Acute Comment: Mother 3 miscarriages (3) Supervision of normal : Status: Acute Qualifiers: Normal : other normal Trimester: third trimester Qualified Code(s): Z34.83 - Encounter for supervision of other normal , third trimester Comment: PRR , FANTA 01/25/25,girl (gender and name secret) CULLEN Quiroz Kailash. (4) : Status: Acute Qualifiers: Weeks of gestation: 38 weeks Qualified Code(s): Z3A.38 - 38 weeks gestation of Comment: declined NIPT & Carrier testing. nl anatomy w/MFM. Orders: Orders POC Urinalysis 2 Dip (Clinic) Today Clinical Quality Measures Falls Risk Screening/Assistive Devices Have you fallen in the past year?: No 01/14/25 1445 <Electronically signed by Tracie Mcgregor DO> Date _ Tracie Mcdaniels DO [facility] Signature: Date (if applicable) CC: ~ [facility] Work Phone: [phone] 188-773607-09-2025 [facility] [address] [place] [address], [address] [place] [address] OFFICE VISIT Date of Service: 01/08/25 MR#: [id number] Acct: [id number] Name: SHELBY DIAZ Rep #: [id number] : 1995 Provider: ZOHAIB Thurston Age/Sex: 29/F Location: [facility] [place] Status: Signed Intake Vital Signs 12/18/24 13:09 01/02/25 09:58 01/08/25 07:54 01/08/25 07:58 Height 5 ft 5 in 5 ft 5 in 5 ft 5 in 5 ft 5 in Weight: 169 lb BMI 28.1 BP 102/72 Intake Visit Reasons: 37 wk ob Tension Worker Required: No Is patient in pain?: No Allergies No Known Allergies Allergy (Verified 01/08/25 07:53) Medications ?Medication ?Instructions ?Recorded ?Confirmed ?Type multivitamin no.47-iron fum 27 cap PO 06/27/23 5 History mg-folate no.1 1 mg-dha 300 mg capsule (PNV-DHA) cholecalciferol (vitamin D3) 25 25 mcg PO QDAY 4 01/08/25 History mcg (1,000 unit) capsule Last Menstrual Period: 04/20/24 : No PFSH PFSH Surgical History [place] teeth extracted Family History Mother Family history of recurrent miscarriage 3 miscarriages Social History adopted: No household members: spouse and children number of children: 1 current occupational status: unemployed current occupation: SAHM current occupational exposures/hazards: No pets and animals: No history of recent travel: Yes (- May) out of state: Yes out of country: No sexually active: Yes Smoking Status: Never smoker alcohol intake: never substance use type: does not use well-balanced diet: about half the time caffeine: No eating out: rarely or never during the past year weight has: increased > 10 lbs what type of physical activity do you participate in: walking frequency: 1-2 times per week duration: 30-45 minutes/day kimberly/orthodoxy: Jain seatbelt use: always do you feel safe at home: Yes 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 Date Name GA/Weeks Outcome Route Bth Weight Gen Labor Lgth Anesthesia Del Locatn Provider FOB 01/26/24 Richie 38 live - full term 7#1oz Male none [facility] Citlali Martines Kailash Delivery Date: 01/26/24 Last Updated by: Chanelle Kerns IOL SROM HPI 37 wk ob Details: SHELBY DIAZ is a 29 year old who presents for routine OB visit. OB Visit FANTA Calculator Estimated Delivery Date Method Current WG Current Estimate 01/25/25 LMP (Certain) 37w 4d Other Estimates 01/29/25 Ultrasound #1 37w 0d Expected Delivery Route/Plan Labor Preferences- CB/BF classes: no labor support person: Kailash labor intervention preferences: [] pain management options preferred: limited cut cord/dad catch: yes : yes PP control planned: discussed discussed possible routes of delivery and associated risks: [] special requests: [] Specific Issue/Plans Covid status: [] Flu vaccine: [] Tdap vaccine: declines Rhogam: na LARC form signed: yes Problem list reviewed and updated with the most current plan of care details and appropriate ordersplaced. Relevant counseling for the gestational age provided. Continue routine care and follow up unless otherwise noted in visit notes/problem list details Initial Weight: Not Recorded Date -?-?-?-?-?-?-?-?-?-?-?-?- EGA Weight BP Urine Prot -?-?-?-?-?-?-?-?-?-?-?-?- Glucose FHR FuHt Pres Dilation -?-?-?-?-?-?-?-?-?-?-?-?- Effaced St Visit Note 06/19/24 -?-?-?-?-?-?-?-?-?-?-?-?- 8w 4d 153 lb 2 oz 108/73 -?-?-?-?-?-?-?-?-?-?-?-?- 160 -?-?-?-?-?-?-?-?-?-?-?-?- SM- no vb crampi ng CRL SM- no vb cramping CRL 8w0d cons with LMP 07/17/24 -?-?-?-?-?-?-?-?-?-?-?-?- 12w 4d 150 lb 9.6 oz 110/76 Ne gative -?-?-?-?-?-?-?-?-?-?-?-?- Negative 150 -?-?-?-?-?-?-?-?-?-?-?-?- MH-No VB. Managi ng nausea. PN labs reviewed. 08/14/24 -?-?-?-?-?-?-?-?-?-?-?-?- 16w 4d 152 lb 6 oz 113/76 Nega tive -?-?-?-?-?-?-?-?-?-?-?-?- Negative 148 -?-?-?-?-?-?-?-?-?-?-?-?- MH-No VB. No flu tters yet. Nausea resolved. Anatomy US scheduled 09/12/24 -?-?-?-?-?-?-?-?-?-?-?-?- 20w 5d 153 lb 2 oz 111/71 Nega tive -?-?-?-?-?-?-?-?-?-?-?-?- Negative 145 -?-?-?-?-?-?-?-?-?-?-?-?- JV- no complaint s today. anatomy scan reviewed. 10/09/24 -?-?-?-?-?-?-?-?-?-?-?-?- 24w 4d 156 lb 2 oz 115/61 Nega tive -?-?-?-?-?-?-?-?-?-?-?-?- Negative 145 24 -?-?-?-?-?-?-?-?-?-?-?-?- SM- no vb lof go od fm no reuglar ctx 11/07/24 -?-?-?-?-?-?-?-?-?-?-?-?- 28w 5d 162 lb 8 oz 112/64 Nega tive -?-?-?-?-?-?-?-?-?-?-?-?- Negative 143 27 -?-?-?-?-?-?-?-?-?-?-?-?- MH-No VB, LOF. G ood FM. Some irreg BH. Declines tdap. Larc. 28 wk labs pending 11/20/24 -?-?-?-?-?-?-?-?-?-?-?-?- 30w 4d 165 lb 8 oz 113/74 Nega tive -?-?-?-?-?-?-?-?-?-?-?-?- Negative 160 30 -?-?-?-?-?-?-?-?-?-?-?-?- JV- normal 28 we ek labs. no complaints. + FM. questions about evening primrose oil and red raspberry leaf. 12/06/24 -?-?-?-?-?-?-?-?-?-?-?-?- 32w 6d 165 lb 2 oz 109/72 Trac e -?-?-?-?-?-?-?-?-?-?-?-?- Negative 153 31 -?-?-?-?-?-?-?-?-?-?-?-?- LC- n LC- no vb/ctx/lof, good fm. no concerns 12/18/24 -?-?-?-?-?-?-?-?-?-?-?-?- 34w 4d 168 lb 4 oz 111/74 Nega tive -?-?-?-?-?-?-?-?-?-?-?-?- Negative 150 33 -?-?-?-?-?-?-?-?-?-?-?-?- SM- no vb lof go od fm no regular ctx 01/02/25 -?-?-?-?-?-?-?-?-?-?-?-?- 36w 5d 168 lb 4 oz 112/78 Nega tive -?-?-?-?-?-?-?-?-?-?-?-?- Negative 140 35 Cephalic 3 -?-?-?-?-?-?-?-?-?-?-?-?- 60 -2 SM- no vb lof good fm no reugalr ctx gbs done 01/08/25 -?-?-?-?-?-?-?-?-?-?-?-?- 37w 4d 169 lb 102/72 Trace -?-?-?-?-?-?-?-?-?-?-?-?- Negative 130 36 Cephalic 4 -?-?-?-?-?-?-?-?-?-?-?-?- 70 -2 KW- no vb/ lof/reg ctx. good fm. ACOG First Trimester First Trimester: Desire for , Alcohol, Tobacco Cessation, Illicit/Recreational Drug/Substance Use, Intimate Partner Violence, Barriers to care, Unstable Housing, Communication Barriers, Environmental/Work Hazards, Anticipated Course of Care, Toxoplasmosis Precations, Use of Any med ications, Sexual activity, Exercise, Dental Care, Sauna/Hot tub use, Seat Belt use, Childbirth classes/Hospital facilities, Travel, Indications for Ultrasound and Screening for Aneuploidy; Discussed Second Trimester Second Trimester: Signs and Symptoms of Labor, Reproductive Life Planning & Contreception, Care Planning and Intimate Partner Violence; Discussed Tobacco Cessation and Discussed Depression/Anxiety Third Trimester Third Trimester: Pain Management Plans, Labor support person(s), Immediate Larc, Movement Monitoring, Signs and Symptoms of Preeclampsia, Infant Feeding No and Family Medical Leave or Disability Forms; Discussed Circumcision preference ROS Const Reports system reviewed and no additional complaints, except as documented Eyes Reports system reviewed and no additional complaints, except as documented ENT Reports system reviewed and no additional complaints, except as documented Card Reports system reviewed and no additional complaints, except as documented Resp Reports system reviewed and no additional complaints, except as documented GI Reports system reviewed and no additional complaints, except as documented, Denies nausea and Denies vomiting Reports system reviewed and no additional complaints, except as documented Musc Reports system reviewed and no additional complaints, except as documented Skin/Breast Reports system reviewed and no additional complaints, except as documented Neuro Yes system reviewed and no additional complaints, except as documented Psych Reports system reviewed and no additional complaints, except as documented Endo Reports system reviewed and no additional complaints, except as documented Demond/Lymph Reports system reviewed and no additional complaints, except as documented Aller/Immun Reports system reviewed and no additional complaints, except as documented Exam Const General: cooperative, healthy appearing and no acute distress Orientation: alert, awake and oriented x3 Neck Neck: normal visual inspection and full ROM Resp Effort & Inspection: normal respiratory effort, able to speak in complete sentences and symmetric chest movement GI Inspection: normal to inspection Palpation: soft and other Other: gravid Skin General: no rashes or lesions noted Neuro General: patient alert, patient awake and patient oriented x3 Cognition: normal cognition Speech: speech normal Gait: normal gait Motor: muscle tone normal throughout Extrem General: normal to inspection and full ROM Psych Appearance: grossly normal Mental Status: mental status grossly normal Mood: congruent mood Affect: normal affect Speech and Movement: speech and movement normal Attitude: cooperative Thought Process: normal Thought Content: normal Judgment: judgment good Results POC Urinalysis 2 Dip (Clinic) Office Urine Glucose Negative Last Edit by Ayla Langley on 01/08/25 07:59 Office Urine Protein Trace Last Edit by Ayla Langley on 01/08/25 07:59 Coding Level of Care Code OB Routine Diagnoses GBS (group B Streptococcus carrier), +RV culture, currently O99.820 Family history of recurrent miscarriage Z84.89 Encounter for supervision of other normal in third trimester Z34.83 Normal : other normal Trimester: third trimester 37 weeks gestation of Z3A.37 Weeks of gestation: 37 weeks Assessment and Plan Assessment and Plan (1) GBS (group B Streptococcus carrier), +RV culture, currently : Status: Acute Comment: treat in labor (2) Family history of recurrent miscarriage: Status: Acute Comment: Mother 3 miscarriages (3) Supervision of normal : Status: Acute Qualifiers: Normal : other normal Trimester: third trimester Qualified Code(s): Z34.83 - Encounter for supervision of other normal , third trimester Comment: PRR , FANTA 01/25/25,girl (gender and name secret) CULLEN Quiroz Kailash. (4) : Status: Acute Qualifiers: Weeks of gestation: 37 weeks Qualified Code(s): Z3A.37 - 37 weeks gestation of Comment: declined NIPT & Carrier testing. nl anatomy w/MFM. Orders: Orders POC Urinalysis 2 Dip (Clinic) Today Plan Details Additional Comments: ACOG trimester education reviewed and updated. see problem list details for updated plan management information and see below for orders placed atthis visit. GA appropriate handout given. 01/08/25 0810 s ZOHAIB> Date _ Renée Lopez Signature: Date (if applicable) CC: ~ [facility] [id number] [facility] [address] [place] [address], [address] [place] [address] OFFICE VISIT Date of Service: 01/02/25 MR#: [id number] Acct: [id number] Name: SHELBY DIAZ Rep #: [id number] : 1995 Provider: Dr. Dawit Peters MD Age/Sex: 29/F [place] [facility] [place]: Signed Intake Vital Signs 11/07/24 14:15 12/18/24 13:09 01/02/25 09:55 01/02/25 09:58 Height 5 ft 5 in 5 ft 5 in 5 ft 5 in 5 ft 5 in Weight: 168 lb 4 oz BMI 28.0 BP 112/78 Intake Visit Reasons: 36 wk ob Tension Worker Required: No Is patient in pain?: No Allergies No Known Allergies Allergy (Verified 01/02/25 09:54) Medications ?Medication ?Instructions ?Recorded ?Confirmed ?Type multivitamin no.47-iron fum 27 cap PO 06/27/23 5 History mg-folate no.1 1 mg-dha 300 mg capsule (PNV-DHA) cholecalciferol (vitamin D3) 25 25 mcg PO QDAY 4 01/02/25 History mcg (1,000 unit) capsule Last Menstrual Period: 04/20/24 Zika: Zika virus screening: Negative : No PFSH PFSH Surgical History [place] teeth extracted Family History Mother Family history of recurrent miscarriage 3 miscarriages Social History adopted: No household members: spouse and children number of children: 1 current occupational status: unemployed current occupation: [employer] current occupational exposures/hazards: No pets and animals: No history of recent travel: Yes (- May) out of state: Yes out of country: No sexually active: Yes Smoking Status: Never smoker alcohol intake: never substance use type: does not use well-balanced diet: about half the time caffeine: No eating out: rarely or never during the past year weight has: increased > 10 lbs what type of physical activity do you participate in: walking frequency: 1-2 times per week duration: 30-45 minutes/day kimberly/orthodoxy: Jain seatbelt use: always do you feel safe at home: Yes 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 Date Name GA/Weeks Outcome Route Bth Weight Infant Gen Labor Lgth Anesthesia Del Locatn Provider FOB 01/26/24 Richie 38 live - full term 7#1oz Male none [facility] Citlali Martines Kailash Delivery Date: 01/26/24 Last Updated by: Chanelle Kerns IOL SROM HPI 36 wk ob Details: SHELBY DIAZ is a 29 year old who presents for routine OB visit. OB Visit FANTA Calculator Estimated Delivery Date Method Current WG Current Estimate 01/25/25 LMP (Certain) 36w 5d Other Estimates 01/29/25 Ultrasound #1 36w 1d Expected Delivery Route/Plan Labor Preferences- CB/BF classes: no labor support person: Kailash labor intervention preferences: [] pain management options preferred: limited cut cord/dad catch: yes : yes PP control planned: discussed discussed possible routes of delivery and associated risks: [] special requests: [] Specific Issue/Plans Covid status: [] Flu vaccine: [] Tdap vaccine: declines Rhogam: na LARC form signed: yes Problem list reviewed and updated with the most current plan of care details and appropriate ordersplaced. Relevant counseling for the gestational age provided. Continue routine care and follow up unless otherwise noted in visit notes/problem list details Initial Weight: Not Recorded Date -?-?-?-?-?-?-?-?-?-?-?-?- EGA Weight BP Urine Prot -?-?-?-?-?-?-?-?-?-?-?-?- Glucose FHR FuHt Pres Dilation -?-?-?-?-?-?-?-?-?-?-?-?- Effaced St Visit Note 06/19/24 -?-?-?-?-?-?-?-?-?-?-?-?- 8w 4d 153 lb 2 oz 108/73 -?-?-?-?-?-?-?-?-?-?-?-?- 160 -?-?-?-?-?-?-?-?-?-?-?-?- SM- no vb crampi ng CRL SM- no vb cramping CRL 8w0d cons with LMP 07/17/24 -?-?-?-?-?-?-?-?-?-?-?-?- 12w 4d 150 lb 9.6 oz 110/76 Ne gative -?-?-?-?-?-?-?-?-?-?-?-?- Negative 150 -?-?-?-?-?-?-?-?-?-?-?-?- MH-No VB. Managi ng nausea. PN labs reviewed. 08/14/24 -?-?-?-?-?-?-?-?-?-?-?-?- 16w 4d 152 lb 6 oz 113/76 Nega tive -?-?-?-?-?-?-?-?-?-?-?-?- Negative 148 -?-?-?-?-?-?-?-?-?-?-?-?- MH-No VB. No flu tters yet. Nausea resolved. Anatomy US scheduled 09/12/24 -?-?-?-?-?-?-?-?-?-?-?-?- 20w 5d 153 lb 2 oz 111/71 Nega tive -?-?-?-?-?-?-?-?-?-?-?-?- Negative 145 -?-?-?-?-?-?-?-?-?-?-?-?- JV- no complaint s today. anatomy scan reviewed. 10/09/24 -?-?-?-?-?-?-?-?-?-?-?-?- 24w 4d 156 lb 2 oz 115/61 Nega tive -?-?-?-?-?-?-?-?-?-?-?-?- Negative 145 24 -?-?-?-?-?-?-?-?-?-?-?-?- - no vb lof go od fm no reuglar ctx 11/07/24 -?-?-?-?-?-?-?-?-?-?-?-?- 28w 5d 162 lb 8 oz 112/64 Nega tive -?-?-?-?-?-?-?-?-?-?-?-?- Negative 143 27 -?-?-?-?-?-?-?-?-?-?-?-?- MH-No VB, LOF. G ood FM. Some irreg BH. Declines tdap. Larc. 28 wk labs pending 11/20/24 -?-?-?-?-?-?-?-?-?-?-?-?- 30w 4d 165 lb 8 oz 113/74 Nega tive -?-?-?-?-?-?-?-?-?-?-?-?- Negative 160 30 -?-?-?-?-?-?-?-?-?-?-?-?- JV- normal 28 we ek labs. no complaints. + FM. questions about evening primrose oil and red raspberry leaf. 12/06/24 -?-?-?-?-?-?-?-?-?-?-?-?- 32w 6d 165 lb 2 oz 109/72 Trac e -?-?-?-?-?-?-?-?-?-?-?-?- Negative 153 31 -?-?-?-?-?-?-?-?-?-?-?-?- LC- n LC- no vb/ctx/lof, good fm. no concerns 12/18/24 -?-?-?-?-?-?-?-?-?-?-?-?- 34w 4d 168 lb 4 oz 111/74 Nega tive -?-?-?-?-?-?-?-?-?-?-?-?- Negative 150 33 -?-?-?-?-?-?-?-?-?-?-?-?- SM- no vb lof go od fm no regular ctx 01/02/25 -?-?-?-?-?-?-?-?-?-?-?-?- 36w 5d 168 lb 4 oz 112/78 Nega tive -?-?-?-?-?-?-?-?-?-?-?-?- Negative 140 35 Cephalic 3 -?-?-?-?-?-?-?-?-?-?-?-?- 60 -2 SM- no vb lof good fm no reugalr ctx gbs done ACOG First Trimester First Trimester: Desire for , Alcohol, Tobacco Cessation, Illicit/Recreational Drug/Substance Use, Intimate Partner Violence, Barriers to care, Unstable Housing, Communication Barriers, Environmental/Work Hazards, Anticipated Course of Care, Toxoplasmosis Precations, Use of Any med ications, Sexual activity, Exercise, Dental Care, Sauna/Hot tub use, Seat Belt use, Childbirth classes/Hospital facilities, Travel, Indications for Ultrasound and Screening for Aneuploidy; Discussed Second Trimester Second Trimester: Signs and Symptoms of Labor, Reproductive Life Planning & Contreception, Care Planning and Intimate Partner Violence; Discussed Tobacco Cessation and Discussed Depression/Anxiety Third Trimester Third Trimester: Pain Management Plans, Labor support person(s), Immediate Larc, Movement Monitoring, Signs and Symptoms of Preeclampsia, Infant Feeding No and Family Medical Leave or Disability Forms; Discussed Circumcision preference Results POC Urinalysis 2 Dip (Clinic) Office Urine Glucose Negative Last Edit by Jarrell Celeste on 01/02/25 09:59 Office Urine Protein Negative Last Edit by Jarrell Celeste on 01/02/25 09:59 Coding Level of Care Code OB Routine Diagnoses Family history of recurrent miscarriage Z84.89 Encounter for supervision of other normal in third trimester Z34.83 Normal : other normal Trimester: third trimester 36 weeks gestation of Z3A.36 Weeks of gestation: 36 weeks Assessment and Plan Assessment and Plan (1) Family history of recurrent miscarriage: Status: Acute Comment: Mother 3 miscarriages (2) Supervision of normal : Status: Acute Qualifiers: Normal : other normal Trimester: third trimester Qualified Code(s): Z34.83 - Encounter for supervision of other normal , third trimester Comment: PRR , FANTA 01/25/25,girl (gender and name secret) CULLEN Quiroz Kailash. (3) : Status: Acute Qualifiers: Weeks of gestation: 36 weeks Qualified Code(s): Z3A.36 - 36 weeks gestation of Comment: declined NIPT & Carrier testing. nl anatomy w/MFM. Orders: Orders POC Urinalysis 2 Dip (Clinic) Today Culture, Group B Streptococcus Today Z34.83 - Encounter for supervision of other normal , third trimester 01/02/25 1010 re LOYA> Date _ Renuka Peters MD [facility] Signature: Date (if applicable) CC: ~ [facility]06-18-2025 Progress [facility] [address], [address] [place] [address] OFFICE VISIT Date of Service: 12/18/24 MR#: [id number] Acct: [id number] Name: SHELBY DIAZ Rep #: [id number] : 1995 Provider: Dr. Dawit Peters MD Age/Sex: 29/F [place] [facility] [place]: [place] Intake Vital Signs 11/07/24 14:15 12/06/24 14:05 12/18/24 13:05 12/18/24 13:09 Height 5 ft 5 in 5 ft 5 in 5 ft 5 in 5 ft 5 in Weight: 168 lb 4 oz BMI 28.0 BP 111/74 Intake Visit Reasons: 34 wk ob Tension Worker Required: No Is patient in pain?: No Allergies No Known Allergies Allergy (Verified 12/18/24 13:06) Medications ?Medication ?Instructions ?Recorded ?Confirmed ?Type multivitamin no.47-iron fum 27 cap PO 06/27/23 5 History mg-folate no.1 1 mg-dha 300 mg capsule (PNV-DHA) cholecalciferol (vitamin D3) 25 25 mcg PO QDAY 4 12/18/24 History mcg (1,000 unit) capsule Last Menstrual Period: 04/20/24 Zika: Zika virus screening: Negative : No PFSH PFSH Surgical History [place] teeth extracted Family History Mother Family history of recurrent miscarriage 3 miscarriages Social History adopted: No household members: spouse and children number of children: 1 current occupational status: unemployed current occupation: [employer] current occupational exposures/hazards: No pets and animals: No history of recent travel: Yes (- May) out of state: Yes out of country: No sexually active: Yes Smoking Status: Never smoker alcohol intake: never substance use type: does not use well-balanced diet: about half the time caffeine: No eating out: rarely or never during the past year weight has: increased > 10 lbs what type of physical activity do you participate in: walking frequency: 1-2 times per week duration: 30-45 minutes/day kimberly/orthodoxy: Jain seatbelt use: always do you feel safe at home: Yes 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 Date Name GA/Weeks Outcome Route Bth Weight Infant Gen Labor Lgth Anesthesia Del Locatn Provider FOB 01/26/24 Richie 38 live - full term 7#1oz Male none [facility] Citlali Martines Kailash Delivery Date: 01/26/24 Last Updated by: Chanelle Kerns IOL SROM HPI 34 wk ob Details: SHELBY DIAZ is a 29 year old who presents for routine OB visit. OB Visit FANTA Calculator Estimated Delivery Date Method Current WG Current Estimate 01/25/25 LMP (Certain) 34w 4d Other Estimates 01/29/25 Ultrasound #1 34w 0d Expected Delivery Route/Plan Labor Preferences- CB/BF classes: no labor support person: Kailash labor intervention preferences: [] pain management options preferred: limited cut cord/dad catch: yes : yes PP control planned: discussed discussed possible routes of delivery and associated risks: [] special requests: [] Specific Issue/Plans Covid status: [] Flu vaccine: [] Tdap vaccine: declines Rhogam: na LARC form signed: yes Problem list reviewed and updated with the most current plan of care details and appropriate ordersplaced. Relevant counseling for the gestational age provided. Continue routine care and follow up unless otherwise noted in visit notes/problem list details Initial Weight: Not Recorded Date -?-?-?-?-?-?-?-?-?-?-?-?- EGA Weight BP Urine Prot -?-?-?-?-?-?-?-?-?-?-?-?- Glucose FHR FuHt Pres Dilation -?-?-?-?-?-?-?-?-?-?-?-?- Effaced St Visit Note 06/19/24 -?-?-?-?-?-?-?-?-?-?-?-?- 8w 4d 153 lb 2 oz 108/73 -?-?-?-?-?-?-?-?-?-?-?-?- 160 -?-?-?-?-?-?-?-?-?-?-?-?- SM- no vb crampi ng CRL SM- no vb cramping CRL 8w0d cons with LMP 07/17/24 -?-?-?-?-?-?-?-?-?-?-?-?- 12w 4d 150 lb 9.6 oz 110/76 Ne gative -?-?-?-?-?-?-?-?-?-?-?-?- Negative 150 -?-?-?-?-?-?-?-?-?-?-?-?- MH-No VB. Managi ng nausea. PN labs reviewed. 08/14/24 -?-?-?-?-?-?-?-?-?-?-?-?- 16w 4d 152 lb 6 oz 113/76 Nega tive -?-?-?-?-?-?-?-?-?-?-?-?- Negative 148 -?-?-?-?-?-?-?-?-?-?-?-?- MH-No VB. No flu tters yet. Nausea resolved. Anatomy US scheduled 09/12/24 -?-?-?-?-?-?-?-?-?-?-?-?- 20w 5d 153 lb 2 oz 111/71 Nega tive -?-?-?-?-?-?-?-?-?-?-?-?- Negative 145 -?-?-?-?-?-?-?-?-?-?-?-?- JV- no complaint s today. anatomy scan reviewed. 10/09/24 -?-?-?-?-?-?-?-?-?-?-?-?- 24w 4d 156 lb 2 oz 115/61 Nega tive -?-?-?-?-?-?-?-?-?-?-?-?- Negative 145 24 -?-?-?-?-?-?-?-?-?-?-?-?- SM- no vb lof go od fm no reuglar ctx 11/07/24 -?-?-?-?-?-?-?-?-?-?-?-?- 28w 5d 162 lb 8 oz 112/64 Nega tive -?-?-?-?-?-?-?-?-?-?-?-?- Negative 143 27 -?-?-?-?-?-?-?-?-?-?-?-?- MH-No VB, LOF. G ood FM. Some irreg BH. Declines tdap. Larc. 28 wk labs pending 11/20/24 -?-?-?-?-?-?-?-?-?-?-?-?- 30w 4d 165 lb 8 oz 113/74 Nega tive -?-?-?-?-?-?-?-?-?-?-?-?- Negative 160 30 -?-?-?-?-?-?-?-?-?-?-?-?- JV- normal 28 we ek labs. no complaints. + FM. questions about evening primrose oil and red raspberry leaf. 12/06/24 -?-?-?-?-?-?-?-?-?-?-?-?- 32w 6d 165 lb 2 oz 109/72 Trac e -?-?-?-?-?-?-?-?-?-?-?-?- Negative 153 31 -?-?-?-?-?-?-?-?-?-?-?-?- LC- n LC- no vb/ctx/lof, good fm. no concerns 12/18/24 -?-?-?-?-?-?-?-?-?-?-?-?- 34w 4d 168 lb 4 oz 111/74 Nega tive -?-?-?-?-?-?-?-?-?-?-?-?- Negative 150 33 -?-?-?-?-?-?-?-?-?-?-?-?- SM- no vb lof go od fm no regular ctx ACOG First Trimester First Trimester: Desire for , Alcohol, Tobacco Cessation, Illicit/Recreational Drug/Substance Use, Intimate Partner Violence, Barriers to care, Unstable Housing, Communication Barriers, Environmental/Work Hazards, Anticipated Course of Care, Toxoplasmosis Precations, Use of Any med ications, Sexual activity, Exercise, Dental Care, Sauna/Hot tub use, Seat Belt use, Childbirth classes/Hospital facilities, Travel, Indications for Ultrasound and Screening for Aneuploidy; Discussed Second Trimester Second Trimester: Signs and Symptoms of Labor, Reproductive Life Planning & Contreception, Care Planning and Intimate Partner Violence; Discussed Tobacco Cessation and Discussed Depression/Anxiety Third Trimester Third Trimester: Pain Management Plans, Labor support person(s), Immediate Larc, Movement Monitoring, Signs and Symptoms of Preeclampsia, Infant Feeding No and Family Medical Leave or Disability Forms; Discussed Circumcision preference Results POC Urinalysis 2 Dip (Clinic) Office Urine Glucose Negative Last Edit by Jarrell Celeste on 12/18/24 13:13 Office Urine Protein Negative Last Edit by Jarrell Celeste on 12/18/24 13:13 Coding Level of Care Code OB Routine Diagnoses Family history of recurrent miscarriage Z84.89 Encounter for supervision of other normal in third trimester Z34.83 Normal : other normal Trimester: third trimester 34 weeks gestation of Z3A.34 Weeks of gestation: 34 weeks Assessment and Plan Assessment and Plan (1) Family history of recurrent miscarriage: Status: Acute Comment: Mother 3 miscarriages (2) Supervision of normal : Status: Acute Qualifiers: Normal : other normal Trimester: third trimester Qualified Code(s): Z34.83 - Encounter for supervision of other normal , third trimester Comment: PRR , FANTA 01/25/25,girl (gender and name secret) CULLEN Richie Kailash. (3) : Status: Acute Qualifiers: Weeks of gestation: 34 weeks Qualified Code(s): Z3A.34 - 34 weeks gestation of Comment: declined NIPT & Carrier testing. nl anatomy w/MFM. Orders: Orders POC Urinalysis 2 Dip (Clinic) Today 12/18/24 Tina grimaldo MD> Date _ Renuka Lopez Signature: Date (if applicable) CC: ~ [facility]04-09-2025 Evaluation note* Diagnosis Onset Date Resolution Status Admit Date Family history of recurrent miscarriage acute October 09, 2024 9:35am acute October 09 9:35am Supervision of normal acut e October 09, 2024 9:35am Family history of recurrent miscarriage acute November 07, 2024 2: 06pm acute November 07, 2024 2:06pm Supervision of normal acut e November 07, 2024 2:06pm Family history of recurrent miscarriage acute November 20, 2024 8 :57am acute November 20, 2024 8:57am Supervision of normal acut e November 20, 2024 8:57am Family history of recurrent miscarriage acute December 06, 2024 2 :03pm acute December 06, 2024 2:03pm Supervision of normal acut e December 06, 2024 2:03pm Family history of recurrent miscarriage acute December 18, 2024 1:02pm acute December 18 1:02pm Supervision of normal acut e December 18, 2024 1:02pm Family history of recurrent miscarriage acute January 02, 2025 9 :51am acute January 02, 2025 9:51am Supervision of normal acut e January 02, 2025 9:51am Family history of recurrent miscarriage acute January 08, 2025 7 :51am GBS (group B Streptococcus carrier), +RV culture, currently acute January 08, 2025 7 :51am acute January 08, 2025 7:51am Supervision of normal acut e January 08, 2025 7:51am Family history of recurrent miscarriage acute January 14, 2025 2:15pm GBS (group B Streptococcus carrier), +RV culture, currently acute January 14, 2025 2:15pm acute January 14 2:15pm Supervision of normal acut e January 14, 2025 2:15pm [facility] Work Phone: [phone]) [phone] Evaluation note* Diagnosis Onset Date Resolution Status Admit Date Family history of recurrent miscarriage acute September 12, 2024 9:32am acute September 12 9:32am Supervision of normal acut e September 12, 2024 9:32am Family history of recurrent miscarriage acute October 09, 2024 9:35am acute October 09 9:35am Supervision of normal acut e October 09, 2024 9:35am Family history of recurrent miscarriage acute November 07, 2024 2: 06pm acute November 07, 2024 2:06pm Supervision of normal acut e November 07, 2024 2:06pm Family history of recurrent miscarriage acute November 20, 2024 8 :57am acute November 20, 2024 8:57am Supervision of normal acut e November 20, 2024 8:57am Family history of recurrent miscarriage acute December 06, 2024 2 :03pm acute December 06, 2024 2:03pm Supervision of normal acut e December 06, 2024 2:03pm Family history of recurrent miscarriage acute December 18, 2024 1:02pm acute December 18 1:02pm Supervision of normal acut e December 18, 2024 1:02pm [facility] [employer] [facility] Work Phone: 1([phone]) [phone] Evaluation note* Diagnosis Onset Date Resolution Status Admit Date Family history of recurrent miscarriage acute September 12, 2024 9:32am acute September 12 9:32am Supervision of normal acut e September 12, 2024 9:32am Family history of recurrent miscarriage acute October 09, 2024 9:35am acute October 09 9:35am Supervision of normal acut e October 09, 2024 9:35am Family history of recurrent miscarriage acute November 07, 2024 2: 06pm acute November 07, 2024 2:06pm Supervision of normal acut e November 07, 2024 2:06pm Family history of recurrent miscarriage acute November 20, 2024 8 :57am acute November 20, 2024 8:57am Supervision of normal acut e November 20, 2024 8:57am Family history of recurrent miscarriage acute December 06, 2024 2 :03pm acute December 06, 2024 2:03pm Supervision of normal acut e December 06, 2024 2:03pm Family history of recurrent miscarriage acute December 18, 2024 1:02pm acute December 18 1:02pm Supervision of normal acut e December 18, 2024 1:02pm Family history of recurrent miscarriage acute January 02, 2025 9 :51am acute January 02, 2025 9:51am Supervision of normal acut e January 02, 2025 9:51am [facility] Work Phone: 1(155) 397-729603-13-2025 Evaluation note* Diagnosis Onset Date Resolution Status Admit Date Family history of recurrent miscarriage acute September 12, 2024 9:32am acute September 12 9:32am Supervision of normal acut e September 12, 2024 9:32am Family history of recurrent miscarriage acute October 09, 2024 9:35am acute October 09 9:35am Supervision of normal acut e October 09, 2024 9:35am Family history of recurrent miscarriage acute November 07, 2024 2: 06pm acute November 07, 2024 2:06pm Supervision of normal acut e November 07, 2024 2:06pm Family history of recurrent miscarriage acute November 20, 2024 8 :57am acute November 20, 2024 8:57am Supervision of normal acut e November 20, 2024 8:57am Family history of recurrent miscarriage acute December 06, 2024 2 :03pm acute December 06, 2024 2:03pm Supervision of normal acut e December 06, 2024 2:03pm Family history of recurrent miscarriage acute December 18, 2024 1:02pm acute December 18 1:02pm Supervision of normal acut e December 18, 2024 1:02pm Family history of recurrent miscarriage acute January 02, 2025 9 :51am acute January 02, 2025 9:51am Supervision of normal acut e January 02, 2025 9:51am Family history of recurrent miscarriage acute January 08, 2025 7 :51am GBS (group B Streptococcus carrier), +RV culture, currently acute January 08, 2025 7 :51am acute January 08, 2025 7:51am Supervision of normal acut e January 08, 2025 7:51am [facility] Work Phone: 1(296) 747-380902-12-2025 Evaluation note* Diagnosis Onset Date Resolution Status Admit Date Family history of recurrent miscarriage acute August 14, 2 025 2:00pm acute August 14, 2024 2:00pm Supervision of normal acute August 14, 2 025 2:00pm Family history of recurrent miscarriage acute September 12, 2024 9:32am acute September 12 9:32am Supervision of normal acute September 12, 2024 9:32am Family history of recurrent miscarriage acute October 09, 2024 9:35am acute October 09 9:35am Supervision of normal acute October 09, 2024 9:35am Family history of recurrent miscarriage acute November 07, 2024 2: 06pm acute November 07, 2024 2:06pm Supervision of normal acute November 07, 2024 2: 06pm Family history of recurrent miscarriage acute November 20, 2024 8 :57am acute November 20, 2024 8:57am Supervision of normal acute November 20, 2024 8 :57am [facility] Work Phone: 1(665) 420-269902-12-2025 Evaluation note* Diagnosis Onset Date Resolution Status Admit Date Family history of recurrent miscarriage acute August 14, 2 025 2:00pm acute August 14, 2024 2:00pm Supervision of normal acute August 14, 2 025 2:00pm Family history of recurrent miscarriage acute September 12, 2024 9:32am acute September 12 9:32am Supervision of normal acute September 12, 2024 9:32am Family history of recurrent miscarriage acute October 09, 2024 9:35am acute October 09 9:35am Supervision of normal acute October 09, 2024 9:35am Family history of recurrent miscarriage acute November 07, 2024 2: 06pm acute November 07, 2024 2:06pm Supervision of normal acute November 07, 2024 2: 06pm Family history of recurrent miscarriage acute May 21st, 2025 8 :57am acute November 20, 2024 8:57am Supervision of normal acute November 20, 2024 8 :57am Family history of recurrent miscarriage acute December 06, 2024 2 :03pm acute December 06, 2024 2:03pm Supervision of normal acute December 06, 2024 2 :03pm [facility] Work Phone: 1(525) 401-950901-15-2025 Evaluation note* Diagnosis Onset Date Resolution Status Admit Date Family history of recurrent miscarriage acute July 17 8:43am acute July 17, 2024 8:43am Supervision of normal acute July 17 8:43am Family history of recurrent miscarriage acute August 14, 025 2:00pm acute August 14, 2024 2:00pm Supervision of normal acute August 14, 025 2:00pm Family history of recurrent miscarriage acute September 12, 2024 9:32am acute September 12 9:32am Supervision of normal acute September 12, 2024 9:32am Family history of recurrent miscarriage acute October 09, 2024 9:35am acute October 09 9:35am Supervision of normal acute October 09, 2024 9:35am Family history of recurrent miscarriage acute November 07, 2024 2: 06pm acute November 07, 2024 2:06pm Supervision of normal acute November 07, 2024 2: 06pm [facility] Work Phone: 1(318) 489-149204-30-2024 Progress note Author Renée Thurston [facility] October 31, 2023 9:34am Note Date/Time October 31, 2023 9:3 4am [facility] Medical Records Department [address] [place] [id number] OB Triage Progress Note 10/31/23 0931 MR#: [id number] Acct: [id number] Name: SHELBY DIAZ Rep #:[id number] : 1995 28 From: Renée Thurston CNM PCP: Care Physician,No Primary Status :REG CLI Y DOS: Location: [place] [address] Progress Notes Date of Service: 10/31/23 Progress Note: Patient presents for triage evaluation secondary to decreased movement FHT: 125 appropriate for gestational age reactive no decelerations Rodman: no Contractions Assessment and plan: Reactive NST, reassuring maternal and status patientdischarged to home to follow-up in office at next appt. movement present. See problem list details for additional plan information. Charges/Coding Multi Select Codes Urinary/Genital Urinary/Genital CPT Codes: 03797-10 non-stress test Interp Assessment & Plan (1) Decreased movement affecting management of mother, antepartum: PLAN: reactive NST (2) Nuchal fold thickening on ultrasound: COMMENT: mfm following and offered genetic testing. low risk NIPT. recommend growth US q 4 weeks 28 weeks on. weekly nsts from (3) headache in second trimester: COMMENT: declines RX. Enc tylenol, caffeine (4) Supervision of normal first : QUALIFIERS: Trimester: second trimester Qualified Code(s): Z34.02- Encounter for supervision of normal first , second trimester COMMENT: PRR FANTA 02/06/24, surprise Kailash. (5) : QUALIFIERS: Weeks of gestation: 24 weeks Qualified Code(s): Z3A.24 - 24 weeks gestation of COMMENT: plan NIPT & carrier testing. DeclinesAFP NIPT low risk 10/31/23 0934 <Electronically signed by Renée fuller CNM> Date _ Renée Thurston CNM Cosigner Signature (if applicable): Date CC: ZOHAIB Thurston; No Primary Care Physician ~ Signed [facility] Work Phone: 1(226) 218-867801-05-2024 NotePap Smear Specimen AdequacyJanuary 2023 12:41pmComment.Satisfactory for evaluation. Endocervical and/or squamous metaplasticcells (endocervical component)are present.[facility] INTER[facility]ACED A#[id number]-Rittman HospitalComment on above:Satisfactory for evaluation. Endocervical and/or squamous metaplasticcells (endocervical component)are present.07-07-2023 NotePap Smear Specimen AdequacyJanuary 2023 1:41pmComment.Satisfactory for evaluation. Endocervical and/or squamous metaplasticcells (endocervical component)are present.[facility] INTER[facility]ED A#[id number]-Rittman HospitalComment on above:Satisfactory for evaluation. Endocervical and/or squamous metaplasticcells (endocervical component)are present.07-07-2023 NotePap Smear Specimen AdequacyJanuary 2023 1:41pmComment.Satisfactory for evaluation. Endocervical and/or squamous metaplasticcells (endocervical component)are present.[facility] INTERFACED A#[id number]-Rittman HospitalComment on above:Satisfactory for evaluation. Endocervical and/or squamous metaplasticcells (endocervical component)are present.10-05-2022 History of Present illness Narrative* Kenneth Davis, - 10/05/2022 11:00 AM EDT Subjective Patient ID: Shelby Flores is a 27 y.o. female who presents for Traveling to [facility]. (Traveling inJune. ). HPI Wishes to come in for travel counseling for going to [facility]. She reports that she is traveling in December. Review of Systems Constitutional: Negative for activity change, appetite change, fatigue and fever. HENT: Negative for congestion. Respiratory: Negative for cough, choking and chest tightness. Cardiovascular: Negative for chest pain, palpitations and leg swelling. Musculoskeletal: Negative for arthralgias, back pain and gait problem. Skin: Negative for color change and pallor. Neurological: Negative for dizziness, facial asymmetry, light-headedness and headaches. Objective BP 110/66 (BP Location: Left arm) Pulse 88 Ht 1.626 m (5' 4") Wt 67.2 kg (148 lb 3.2 oz) BMI 25.44 kg/m BSA Body surface area is 1.74 meters squared. Physical Exam Constitutional: General: She is not in acute distress. Appearance: Normal appearance. She is not toxic-appearing. HENT: Head: Normocephalic. Right Ear: Tympanic membrane, ear canal and external ear normal. Left Ear: Tympanic membrane, ear canal and external ear normal. Nose: Nose normal. Mouth/Throat: Pharynx: Oropharynx is clear. Eyes: Conjunctiva/sclera: Conjunctivae normal. Pupils: Pupils are equal, round, and reactive to light. Cardiovascular: Rate and Rhythm: Normal rate and regular rhythm. Pulses: Normal pulses. Heart sounds: Normal heart sounds. Pulmonary: Effort: No respiratory distress. Breath sounds: No wheezing, rhonchi or rales. Abdominal: General: Bowel sounds are normal. There is no distension. Palpations: Abdomen is soft. Tenderness: There is no abdominal tenderness. Musculoskeletal: General: No swelling or tenderness. Cervical back: No tenderness. Skin: Findings: No lesion or rash. Neurological: General: No focal deficit present. Mental Status: She is alert and oriented to person, place, and time. Mental status is at baseline. Gait: Gait normal. Psychiatric: Mood and Affect: Mood normal. Behavior: Behavior normal. Thought Content: Thought content normal. Judgment: Judgment normal. No visits with results within 1 Year(s) from this visit. Latest known visit with results is: [facility] Encounter on 09/04/2020 Component Date Value Ref Range Status Glucose 09/04/2020 85 74 - 99 mg/dL Final Sodium 09/04/2020 139 136 - 145 mmol/L Final Potassium 09/04/2020 4.2 3.5 - 5.3 mmol/L Final Chloride 09/04/2020 104 98 - 107 mmol/L Final Bicarbonate 09/04/2020 26 21 - 32 mmol/L Final Anion Gap 09/04/2020 13 10 - 20 mmol/L Final Urea Nitrogen 09/04/2020 13 6 - 23 mg/dL Final Creatinine 09/04/2020 0.92 0.50 - 1.05 mg/dL Final GLOMERULAR FILTRATION RATE-NON AFR* 09/04/2020 >60 >60 mL/min/1.73m2 Final GLOMERULAR FILTRATION RATE-* 09/04/2020 >60 >60 mL/min/1.73m2 Final Comment: CALCULATIONS OF ESTIMATED GFR ARE PERFORMED USING THE MDRD STUDY EQUATION FOR THE IDMS-TRACEABLE CREATININE METHODS. CLIN CHEM 2007;53:766-72 Calcium 09/04/2020 9.4 8.6 - 10.6 mg/dL Final Albumin 09/04/2020 4.5 3.4 - 5.0 g/dL Final Alkaline Phosphatase 09/04/2020 59 33 - 110 U/L Final Total Protein 09/04/2020 7.0 6.4 - 8.2 g/dL Final AST 09/04/2020 17 9 - 39 U/L Final Total Bilirubin 09/04/2020 0.5 0.0 - 1.2 mg/dL Final ALT (SGPT) 09/04/2020 22 7 - 45 U/L Final Comment: Patients treated with Sulfasalazine may generate falsely decreased results for ALT. Cholesterol 09/04/2020 177 0 - 199 mg/dL Final Comment: . AGE DESIRABLE BORDERLINE HIGH HIGH 0-19 Y 0 - 169 170 - 199 >/= 200 20-24 Y 0 - 189 190 - 224 >/= 225 >24 Y 0 - 199 200 - 239 >/= 240 All ranges are based on fasting samples. Specific therapeutic targets will vary based on patient-specific cardiac risk. . Pediatric guidelines reference:Pediatrics 2011, 128(S5). Adult guidelines reference: NCEP ATPIII Guidelines, SAGAR 2001, 258:2486-97 . Venipuncture immediately after or during the administration of Metamizole may lead to falsely low results. Testing should be performed immediately prior to Metamizole dosing. HDL 09/04/2020 69.3 mg/dL Final Comment: . AGE VERY LOW LOW NORMAL HIGH 0-19 Y < 35 < 40 40-45 ---- 20-24 Y ---- < 40 >45 ---- >24 Y ---- < 40 40-60 >60 . Cholesterol/HDL Ratio 09/04/2020 2.6 Final Comment: REF VALUES DESIRABLE < 3.4 HIGH RISK > 5.0 LDL 09/04/2020 98 0 - 119 mg/dL Final Comment: . NEAR BORD AGE DESIRABLE OPTIMAL HIGH HIGH VERY HIGH 0-19 Y 0 - 109 --- 110-129 >/= 130 ---- 20-24 Y 0 - 119 --- 120-159 >/= 160 ---- >24 Y 0 - 99 100-129 130-159 160-189 >/=190 . VLDL 09/04/2020 10 0 - 40 mg/dL Final Triglycerides 09/04/2020 50 0 - 149 mg/dL Final Comment: . AGE DESIRABLE BORDERLINE HIGH HIGH VERY HIGH 0 D-90 D 19 - 174 ---- ---- ---- 91 D- 9 Y 0 - 74 75 - 99 >/= 100 ---- 10-19 Y 0 - 89 90 - 129 >/= 130 ---- 20-24 Y 0 - 114 115 - 149 >/= 150 ---- >24 Y 0 - 149 150 - 199 200- 499 >/= 500 . Venipuncture immediately after or during the administration of Metamizole may lead to falsely low results. Testing should be performed immediately prior to Metamizole dosing. TSH 09/04/2020 0.96 0.44 - 3.98 mIU/L Final Comment: TSH testing is performed using different testing methodology at [facility] than at other [facility]. Direct result comparisons should only be made within the same method. Vitamin D, 25-Hydroxy 09/04/2020 22 (A) ng/mL Final Comment: . DEFICIENCY: < 20 NG/ML INSUFFICIENCY: 20-29 NG/ML SUFFICIENCY: 30-100 NG/ML THIS ASSAY ACCURATELY QUANTIFIES THE SUM OF VITAMIN D3, 25-HYDROXY AND VIT D2,25-HYDROXY. WBC 09/04/2020 6.5 4.4 - 11.3 x10E9/L Final nRBC 09/04/2020 0.0 0.0 - 0.0 /100 WBC Final RBC 09/04/2020 4.81 4.00 - 5.20 x10E12/L Final Hemoglobin 09/04/2020 14.2 12.0 - 16.0 g/dL Final Hematocrit 09/04/2020 43.3 36.0 - 46.0 % Final MCV 09/04/2020 90 80 - 100 fL Final MCHC 09/04/2020 32.8 32.0 - 36.0 g/dL Final Platelets 09/04/2020 252 150 - 450 x10E9/L Final RDW 09/04/2020 12.8 11.5 - 14.5 % Final Neutrophils % 09/04/2020 48.6 40.0 - 80.0 % Final Immature Granulocytes %, Automated 09/04/2020 0.3 0.0 - 0.9 % Final Comment: Immature Granulocyte Count (IG) includes promyelocytes, myelocytes and metamyelocytes but does not include bands. Percent differential counts (%) should be interpreted in the context of the absolute cell counts (cells/L). Lymphocytes % 09/04/2020 41.4 13.0 - 44.0 % Final Monocytes % 09/04/2020 7.4 2.0 - 10.0 % Final Eosinophils % 09/04/2020 1.5 0.0 - 6.0 % Final Basophils % 09/04/2020 0.8 0.0 - 2.0 % Final Neutrophils Absolute 09/04/2020 3.15 1.20 - 7.70 x10E9/L Final Lymphocytes Absolute 09/04/2020 2.69 1.20 - 4.80 x10E9/L Final Monocytes Absolute 09/04/2020 0.48 0.10 - 1.00 x10E9/L Final Eosinophils Absolute 09/04/2020 0.10 0.00 - 0.70 x10E9/L Final Basophils Absolute 09/04/2020 0.05 0.00 - 0.10 x10E9/L Final Current Outpatient Medications on File Prior to Visit Medication Sig Dispense Refill cholecalciferol (Vitamin D-3) 50 mcg (2,000 unit) capsule Take 1 capsule (50 mcg) by mouth once daily. No current facility-administered medications on file prior to visit. No images are attached to the encounter. Assessment/Plan Diagnoses and all orders for this visit: Encounter for counseling for travel - Hepatitis A vaccine, age 19 years and greater (HAVRIX) - ciprofloxacin (Cipro) 500 mg tablet; Take 1 tablet (500 mg) by mouth in the morning and 1 tablet (500 mg) before bedtime. Do all this for 7 days. Patient has had 2 documented polio vaccines, not 4, we will try to get old records to see if she needs further vaccination against polio prior to travel Patient has had MMR and varicella titers, immune She will be given cipro for possible travelers diarrhea Patient will be given vivotef and malrone Patient to consider covid vaccine and flu vaccine Patient to call if questions or [facility]* Diagnosis Encounter for counseling for travel- Primary documented in this encounter [facility] Work Phone: Evaluation noteNo assessment information available [facility] Work Phone: Evaluation note* Diagnosis Onset Date Resolution Status acute Supervision of normal first acute Spotting affecting resolved acute headache in second trimester acute Supervision of normal first acute Nuchal fold thickening on ultrasound acute acute headache in second trimester acute Supervision of normal first acute [facility] Work Phone: Evaluation note* Diagnosis Onset Date Resolution Status acute Supervision of normal first acute Spotting affecting resolved acute headache in second trimester acute Supervision of normal first acute Nuchal fold thickening on ultrasound acute acute headache in second trimester acute Supervision of normal first acute Nuchal fold thickening on ultrasound acute acute headache in second trimester acute Supervision of normal first acute Decreased movement aff ecting management of mother, antepartum acute Nuchal fold thickening on ultrasound acute acute headache in second trimester acute Supervision of normal first acute [facility] Work Phone: Progress note Author Renuka Peters [facility] Note Date/Time December 18, 2024 1:35 pm [facility] [address] [place] [address], [address] [place] [address] OFFICE VISIT Date of Service: 12/18/24 MR#: [id number] Acct: [id number] Name: SHELBY DIAZ Rep #: [id number] : 1995 Provider: Dr. Dawit Peters MD Age/Sex: 29/F [place] [facility] [place]: Signed Intake Vital Signs 11/07/24 14:15 12/06/24 14:05 12/18/24 13:05 12/18/24 13:09 Height 5 ft 5 in 5 ft 5 in 5 ft 5 in 5 ft 5 in Weight: 168 lb 4 oz BMI 28.0 BP 111/74 Intake Visit Reasons: 34 wk ob Tension Worker Required: No Is patient in pain?: No Allergies No Known Allergies Allergy (Verified 12/18/24 13:06) Medications ?Medication ?Instructions ?Recorded ?Confirmed ?Type multivitamin no.47-iron fum 27 cap PO 06/27/23 5 History mg-folate no.1 1 mg-dha 300 mg capsule (PNV-DHA) cholecalciferol (vitamin D3) 25 25 mcg PO QDAY 4 12/18/24 History mcg (1,000 unit) capsule Last Menstrual Period: 04/20/24 Zika: Zika virus screening: Negative : No PFSH PFSH Surgical History [place] teeth extracted Family History Mother Family history of recurrent miscarriage 3 miscarriages Social History adopted: No household members: spouse and children number of children: 1 current occupational status: unemployed current occupation: [employer] current occupational exposures/hazards: No pets and animals: No history of recent travel: Yes (- May) out of state: Yes out of country: No sexually active: Yes Smoking Status: Never smoker alcohol intake: never substance use type: does not use well-balanced diet: about half the time caffeine: No eating out: rarely or never during the past year weight has: increased > 10 lbs what type of physical activity do you participate in: walking frequency: 1-2 times per week duration: 30-45 minutes/day kimberly/orthodoxy: Jain seatbelt use: always do you feel safe at home: Yes 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 Date Name GA/Weeks Outcome Route Bth Weight Infant Gen Labor Lgth Anesthesia Del Locatn Provider FOB 01/26/24 Richie 38 live - full term 7#1oz Male none [facility] Citlali Martines Kailash Delivery Date: 01/26/24 Last Updated by: Chanelle MCKINNON SROM HPI 34 wk ob Details: SHELBY DIAZ is a 29 year old who presents for routine OB visit. OB Visit FANTA Calculator Estimated Delivery Date Method Current WG Current Estimate 01/25/25 LMP (Certain) 34w 4d Other Estimates 01/29/25 Ultrasound #1 34w 0d Expected Delivery Route/Plan Labor Preferences- CB/BF classes: no labor support person: Kailash labor intervention preferences: [] pain management options preferred: limited cut cord/dad catch: yes : yes PP control planned: discussed discussed possible routes of delivery and associated risks: [] special requests: [] Specific Issue/Plans Covid status: [] Flu vaccine: [] Tdap vaccine: declines Rhogam: na LARC form signed: yes Problem list reviewed and updated with the most current plan of care details and appropriate orders placed. Relevant counseling for the gestational age provided. Continue routine care and follow up unless otherwise noted in visit notes/problem list details Initial Weight: Not Recorded Date -?-?-?-?-?-?-?-?-?-?-?-?- EGA Weight BP Urine Prot -?-?-?-?-?-?-?-?-?-?-?-?- Glucose FHR FuHt Pres Dilation -?-?-?-?-?-?-?-?-?-?-?-?- Effaced St Visit Note 06/19/24 -?-?-?-?-?-?-?-?-?-?-?-?- 8w 4d 153 lb 2 oz 108/73 -?-?-?-?-?-?-?-?-?-?-?-?- 160 -?-?-?-?-?-?-?-?-?-?-?-?- SM- no vb crampi ng CRL SM- no vb cramping CRL 8w0d cons with LMP 07/17/24 -?-?-?-?-?-?-?-?-?-?-?-?- 12w 4d 150 lb 9.6 oz 110/76 Ne gative -?-?-?-?-?-?-?-?-?-?-?-?- Negative 150 -?-?-?-?-?-?-?-?-?-?-?-?- MH-No VB. Managi ng nausea. PN labs reviewed. 08/14/24 -?-?-?-?-?-?-?-?-?-?-?-?- 16w 4d 152 lb 6 oz 113/76 Nega tive -?-?-?-?-?-?-?-?-?-?-?-?- Negative 148 -?-?-?-?-?-?-?-?-?-?-?-?- MH-No VB. No flu tters yet. Nausea resolved. Anatomy US scheduled 09/12/24 -?-?-?-?-?-?-?-?-?-?-?-?- 20w 5d 153 lb 2 oz 111/71 Nega tive -?-?-?-?-?-?-?-?-?-?-?-?- Negative 145 -?-?-?-?-?-?-?-?-?-?-?-?- JV- no complaint s today. anatomy scan reviewed. 10/09/24 -?-?-?-?-?-?-?-?-?-?-?-?- 24w 4d 156 lb 2 oz 115/61 Nega tive -?-?-?-?-?-?-?-?-?-?-?-?- Negative 145 24 -?-?-?-?-?-?-?-?-?-?-?-?- SM- no vb lof go od fm no reuglar ctx 11/07/24 -?-?-?-?-?-?-?-?-?-?-?-?- 28w 5d 162 lb 8 oz 112/64 Nega tive -?-?-?-?-?-?-?-?-?-?-?-?- Negative 143 27 -?-?-?-?-?-?-?-?-?-?-?-?- MH-No VB, LOF. G ood FM. Some irreg BH. Declines tdap. Larc. 28 wk labs pending 11/20/24 -?-?-?-?-?-?-?-?-?-?-?-?- 30w 4d 165 lb 8 oz 113/74 Nega tive -?-?-?-?-?-?-?-?-?-?-?-?- Negative 160 30 -?-?-?-?-?-?-?-?-?-?-?-?- JV- normal 28 we ek labs. no complaints. + FM. questions about evening primrose oil and red raspberry leaf. 12/06/24 -?-?-?-?-?-?-?-?-?-?-?-?- 32w 6d 165 lb 2 oz 109/72 Trac e -?-?-?-?-?-?-?-?-?-?-?-?- Negative 153 31 -?-?-?-?-?-?-?-?-?-?-?-?- LC- n LC- no vb/ctx/lof, good fm. no concerns 12/18/24 -?-?-?-?-?-?-?-?-?-?-?-?- 34w 4d 168 lb 4 oz 111/74 Nega tive -?-?-?-?-?-?-?-?-?-?-?-?- Negative 150 33 -?-?-?-?-?-?-?-?-?-?-?-?- SM- no vb lof go od fm no regular ctx ACOG First Trimester First Trimester: Desire for , Alcohol, Tobacco Cessation, Illicit/Recreational Drug/Substance Use, Intimate Partner Violence, Barriers to care, Unstable Housing, Communication Barriers, Environmental/Work Hazards, Anticipated Course of Care, Toxoplasmosis Precations, Use of Any medications, Sexual activity, Exercise, Dental Care, Sauna/Hot tub use, Seat Belt use, Childbirth classes/Hospital facilities, Travel, Indications for Ultrasound and Screening for Aneuploidy; Discussed Second Trimester Second Trimester: Signs and Symptoms of Labor, Reproductive Life Planning & Contreception, Care Planning and Intimate Partner Violence; Discussed Tobacco Cessation and Discussed Depression/Anxiety Third Trimester Third Trimester: Pain Management Plans, Labor support person(s), Immediate Larc, Movement Monitoring, Signs and Symptoms of Preeclampsia, Feeding No and Family Medical Leave or Disability Forms; Discussed Circumcision preference Results POC Urinalysis 2 Dip (Clinic) Office Urine Glucose Negative Last Edit by Jarrell Celeste on 12/18/24 13:13 Office Urine Protein Negative Last Edit by Jarrell Celeste on 12/18/24 13:13 Coding Level of Care Code OB Routine Diagnoses Family history of recurrent miscarriage Z84.89 Encounter for supervision of other normal in third trimester Z34.83 Normal : other normal Trimester: third trimester 34 weeks gestation of Z3A.34 Weeks of gestation: 34 weeks Assessment and Plan Assessment and Plan (1) Family history of recurrent miscarriage: Status: Acute Comment: Mother 3 miscarriages (2) Supervision of normal : Status: Acute Qualifiers: Normal : other normal Trimester: third trimester Qualified Code(s): Z34.83 - Encounter for supervision of other normal , third trimester Comment: PRR , FANTA 01/25/25,girl (gender and name secret) CULLEN Quiroz Kailash. (3) : Status: Acute Qualifiers: Weeks of gestation: 34 weeks Qualified Code(s): Z3A.34 - 34 weeks gestation of Comment: declined NIPT & Carrier testing. nl anatomy w/MFM. Orders: Orders POC Urinalysis 2 Dip (Clinic) Today 12/18/24 1321 <Electronically signed by Renuka grimaldo MD> Date _ Renuka Peters MD Cosigner Signature: Date (if applicable) CC: ~ [facility] Work Phone: Progress note Author Renuka Peters [facility] Note Date/Time January 02, 2025 10:10 am [facility] [address] [place] [address], [address] [place] [id number] OFFICE VISIT Date of Service: 01/02/25 MR#: [id number] Acct: [id number] Name: SHELBY DIAZ Rep #: [id number] : 1995 Provider: Dr. Dawit Peters MD Age/Sex: 29/F [place] [facility] [place]: Signed Intake Vital Signs 11/07/24 14:15 12/18/24 13:09 01/02/25 09:55 01/02/25 09:58 Height 5 ft 5 in 5 ft 5 in 5 ft 5 in 5 ft 5 in Weight: 168 lb 4 oz BMI 28.0 BP 112/78 Intake Visit Reasons: 36 wk ob Tension Worker Required: No Is patient in pain?: No Allergies No Known Allergies Allergy (Verified 01/02/25 09:54) Medications ?Medication ?Instructions ?Recorded ?Confirmed ?Type multivitamin no.47-iron fum 27 cap PO 06/27/23 5 History mg-folate no.1 1 mg-dha 300 mg capsule (PNV-DHA) cholecalciferol (vitamin D3) 25 25 mcg PO QDAY 4 01/02/25 History mcg (1,000 unit) capsule Last Menstrual Period: 04/20/24 Zika: Zika virus screening: Negative : No PFSH PFSH Surgical History [place] teeth extracted Family History Mother Family history of recurrent miscarriage 3 miscarriages Social History adopted: No household members: spouse and children number of children: 1 current occupational status: unemployed current occupation: [employer] current occupational exposures/hazards: No pets and animals: No history of recent travel: Yes (- May) out of state: Yes out of country: No sexually active: Yes Smoking Status: Never smoker alcohol intake: never substance use type: does not use well-balanced diet: about half the time caffeine: No eating out: rarely or never during the past year weight has: increased > 10 lbs what type of physical activity do you participate in: walking frequency: 1-2 times per week duration: 30-45 minutes/day kimberly/orthodoxy: Jain seatbelt use: always do you feel safe at home: Yes 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 Date Name GA/Weeks Outcome Route Bth Weight Infant Gen Labor Lgth Anesthesia Del Locatn Provider FOB 01/26/24 Richie 38 live - full term 7#1oz Male none [facility] Citlali Martines Kailash Delivery Date: 01/26/24 Last Updated by: Chanelle Kerns IOL SROM HPI 36 wk ob Details: SHELBY DIAZ is a 29 year old who presents for routine OB visit. OB Visit FANTA Calculator Estimated Delivery Date Method Current WG Current Estimate 01/25/25 LMP (Certain) 36w 5d Other Estimates 01/29/25 Ultrasound #1 36w 1d Expected Delivery Route/Plan Labor Preferences- CB/BF classes: no labor support person: Kailash labor intervention preferences: [] pain management options preferred: limited cut cord/dad catch: yes : yes PP control planned: discussed discussed possible routes of delivery and associated risks: [] special requests: [] Specific Issue/Plans Covid status: [] Flu vaccine: [] Tdap vaccine: declines Rhogam: na LARC form signed: yes Problem list reviewed and updated with the most current plan of care details and appropriate orders placed. Relevant counseling for the gestational age provided. Continue routine care and follow up unless otherwise noted in visit notes/problem list details Initial Weight: Not Recorded Date -?-?-?-?-?-?-?-?-?-?-?-?- EGA Weight BP Urine Prot -?-?-?-?-?-?-?-?-?-?-?-?- Glucose FHR FuHt Pres Dilation -?-?-?-?-?-?-?-?-?-?-?-?- Effaced St Visit Note 06/19/24 -?-?-?-?-?-?-?-?-?-?-?-?- 8w 4d 153 lb 2 oz 108/73 -?-?-?-?-?-?-?-?-?-?-?-?- 160 -?-?-?-?-?-?-?-?-?-?-?-?- SM- no vb crampi ng CRL SM- no vb cramping CRL 8w0d cons with LMP 07/17/24 -?-?-?-?-?-?-?-?-?-?-?-?- 12w 4d 150 lb 9.6 oz 110/76 Ne gative -?-?-?-?-?-?-?-?-?-?-?-?- Negative 150 -?-?-?-?-?-?-?-?-?-?-?-?- MH-No VB. Managi ng nausea. PN labs reviewed. 08/14/24 -?-?-?-?-?-?-?-?-?-?-?-?- 16w 4d 152 lb 6 oz 113/76 Nega tive -?-?-?-?-?-?-?-?-?-?-?-?- Negative 148 -?-?-?-?-?-?-?-?-?-?-?-?- MH-No VB. No flu tters yet. Nausea resolved. Anatomy US scheduled 09/12/24 -?-?-?-?-?-?-?-?-?-?-?-?- 20w 5d 153 lb 2 oz 111/71 Nega tive -?-?-?-?-?-?-?-?-?-?-?-?- Negative 145 -?-?-?-?-?-?-?-?-?-?-?-?- JV- no complaint s today. anatomy scan reviewed. 10/09/24 -?-?-?-?-?-?-?-?-?-?-?-?- 24w 4d 156 lb 2 oz 115/61 Nega tive -?-?-?-?-?-?-?-?-?-?-?-?- Negative 145 24 -?-?-?-?-?-?-?-?-?-?-?-?- SM- no vb lof go od fm no reuglar ctx 11/07/24 -?-?-?-?-?-?-?-?-?-?-?-?- 28w 5d 162 lb 8 oz 112/64 Nega tive -?-?-?-?-?-?-?-?-?-?-?-?- Negative 143 27 -?-?-?-?-?-?-?-?-?-?-?-?- MH-No VB, LOF. G ood FM. Some irreg BH. Declines tdap. Larc. 28 wk labs pending 11/20/24 -?-?-?-?-?-?-?-?-?-?-?-?- 30w 4d 165 lb 8 oz 113/74 Nega tive -?-?-?-?-?-?-?-?-?-?-?-?- Negative 160 30 -?-?-?-?-?-?-?-?-?-?-?-?- JV- normal 28 we ek labs. no complaints. + FM. questions about evening primrose oil and red raspberry leaf. 12/06/24 -?-?-?-?-?-?-?-?-?-?-?-?- 32w 6d 165 lb 2 oz 109/72 Trac e -?-?-?-?-?-?-?-?-?-?-?-?- Negative 153 31 -?-?-?-?-?-?-?-?-?-?-?-?- LC- n LC- no vb/ctx/lof, good fm. no concerns 12/18/24 -?-?-?-?-?-?-?-?-?-?-?-?- 34w 4d 168 lb 4 oz 111/74 Nega tive -?-?-?-?-?-?-?-?-?-?-?-?- Negative 150 33 -?-?-?-?-?-?-?-?-?-?-?-?- SM- no vb lof go od fm no regular ctx 01/02/25 -?-?-?-?-?-?-?-?-?-?-?-?- 36w 5d 168 lb 4 oz 112/78 Nega tive -?-?-?-?-?-?-?-?-?-?-?-?- Negative 140 35 Cephalic 3 -?-?-?-?-?-?-?-?-?-?-?-?- 60 -2 SM- no vb lof good fm no reugalr ctx gbs done ACOG First Trimester First Trimester: Desire for , Alcohol, Tobacco Cessation, Illicit/Recreational Drug/Substance Use, Intimate Partner Violence, Barriers to care, Unstable Housing, Communication Barriers, Environmental/Work Hazards, Anticipated Course of Care, Toxoplasmosis Precations, Use of Any medications, Sexual activity, Exercise, Dental Care, Sauna/Hot tub use, Seat Belt use, Childbirth classes/Hospital facilities, Travel, Indications for Ultrasound and Screening for Aneuploidy; Discussed Second Trimester Second Trimester: Signs and Symptoms of Labor, Reproductive Life Planning & Contreception, Care Planning and Intimate Partner Violence; Discussed Tobacco Cessation and Discussed Depression/Anxiety Third Trimester Third Trimester: Pain Management Plans, Labor support person(s), Immediate Larc, Movement Monitoring, Signs and Symptoms of Preeclampsia, Feeding No and Family Medical Leave or Disability Forms; Discussed Circumcision preference Results POC Urinalysis 2 Dip (Clinic) Office Urine Glucose Negative Last Edit by Jarrell Celeste on 01/02/25 09:59 Office Urine Protein Negative Last Edit by Jarrell Celeste on 01/02/25 09:59 Coding Level of Care Code OB Routine Diagnoses Family history of recurrent miscarriage Z84.89 Encounter for supervision of other normal in third trimester Z34.83 Normal : other normal Trimester: third trimester 36 weeks gestation of Z3A.36 Weeks of gestation: 36 weeks Assessment and Plan Assessment and Plan (1) Family history of recurrent miscarriage: Status: Acute Comment: Mother 3 miscarriages (2) Supervision of normal : Status: Acute Qualifiers: Normal : other normal Trimester: third trimester Qualified Code(s): Z34.83 - Encounter for supervision of other normal , third trimester Comment: PRR , FANTA 01/25/25,girl (gender and name secret) CULLEN Richie Kailash. (3) : Status: Acute Qualifiers: Weeks of gestation: 36 weeks Qualified Code(s): Z3A.36 - 36 weeks gestation of Comment: declined NIPT & Carrier testing. nl anatomy w/MFM. Orders: Orders POC Urinalysis 2 Dip (Clinic) Today Culture, Group B Streptococcus Today Z34.83 - Encounter for supervision of other normal , third trimester 01/02/25 1010 <Electronically signed by Renuka grimaldo MD> Date _ Renuka Lopez Signature: Date (if applicable) CC: ~ [facility] Work Phone: Progress note Author Renée Thurston [facility] Note Date/Time January 08, 2025 8:10a m [facility] [address], [address] [place] [address] OFFICE VISIT Date of Service: 01/08/25 MR#: [id number] Acct: [id number] Name: SHELBY DIAZ Rep #: [id number] : 1995 Provider: ZOHAIB Thurston Age/Sex: 29/F Location: [facility] [place] Status: Signed Intake Vital Signs 12/18/24 13:09 01/02/25 09:58 01/08/25 07:54 01/08/25 07:58 Height 5 ft 5 in 5 ft 5 in 5 ft 5 in 5 ft 5 in Weight: 169 lb BMI 28.1 BP 102/72 Intake Visit Reasons: 37 wk ob Tension Worker Required: No Is patient in pain?: No Allergies No Known Allergies Allergy (Verified 01/08/25 07:53) Medications ?Medication ?Instructions ?Recorded ?Confirmed ?Type multivitamin no.47-iron fum 27 cap PO 06/27/23 5 History mg-folate no.1 1 mg-dha 300 mg capsule (PNV-DHA) cholecalciferol (vitamin D3) 25 25 mcg PO QDAY 4 01/08/25 History mcg (1,000 unit) capsule Last Menstrual Period: 04/20/24 : No PFSH PFSH Surgical History [place] teeth extracted Family History Mother Family history of recurrent miscarriage 3 miscarriages Social History adopted: No household members: spouse and children number of children: 1 current occupational status: unemployed current occupation: [employer] current occupational exposures/hazards: No pets and animals: No history of recent travel: Yes (- May) out of state: Yes out of country: No sexually active: Yes Smoking Status: Never smoker alcohol intake: never substance use type: does not use well-balanced diet: about half the time caffeine: No eating out: rarely or never during the past year weight has: increased > 10 lbs what type of physical activity do you participate in: walking frequency: 1-2 times per week duration: 30-45 minutes/day kimberly/orthodoxy: Jain seatbelt use: always do you feel safe at home: Yes 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 Date Name GA/Weeks Outcome Route Bth Weight Infant Gen Labor Lgth Anesthesia Del Locatn Provider FOB 01/26/24 Richie 38 live - full term 7#1oz Male none [facility] Citlali Martines Kailash Delivery Date: 01/26/24 Last Updated by: Chanelle Kerns IOL SROM HPI 37 wk ob Details: SHELBY DIAZ is a 29 year old who presents for routine OB visit. OB Visit FANTA Calculator Estimated Delivery Date Method Current WG Current Estimate 01/25/25 LMP (Certain) 37w 4d Other Estimates 01/29/25 Ultrasound #1 37w 0d Expected Delivery Route/Plan Labor Preferences- CB/BF classes: no labor support person: Kailash labor intervention preferences: [] pain management options preferred: limited cut cord/dad catch: yes : yes PP control planned: discussed discussed possible routes of delivery and associated risks: [] special requests: [] Specific Issue/Plans Covid status: [] Flu vaccine: [] Tdap vaccine: declines Rhogam: na LARC form signed: yes Problem list reviewed and updated with the most current plan of care details and appropriate orders placed. Relevant counseling for the gestational age provided. Continue routine care and follow up unless otherwise noted in visit notes/problem list details Initial Weight: Not Recorded Date -?-?-?-?-?-?-?-?-?-?-?-?- EGA Weight BP Urine Prot -?-?-?-?-?-?-?-?-?-?-?-?- Glucose FHR FuHt Pres Dilation -?-?-?-?-?-?-?-?-?-?-?-?- Effaced St Visit Note 06/19/24 -?-?-?-?-?-?-?-?-?-?-?-?- 8w 4d 153 lb 2 oz 108/73 -?-?-?-?-?-?-?-?-?-?-?-?- 160 -?-?-?-?-?-?-?-?-?-?-?-?- SM- no vb crampi ng CRL SM- no vb cramping CRL 8w0d cons with LMP 07/17/24 -?-?-?-?-?-?-?-?-?-?-?-?- 12w 4d 150 lb 9.6 oz 110/76 Ne gative -?-?-?-?-?-?-?-?-?-?-?-?- Negative 150 -?-?-?-?-?-?-?-?-?-?-?-?- MH-No VB. Managi ng nausea. PN labs reviewed. 08/14/24 -?-?-?-?-?-?-?-?-?-?-?-?- 16w 4d 152 lb 6 oz 113/76 Nega tive -?-?-?-?-?-?-?-?-?-?-?-?- Negative 148 -?-?-?-?-?-?-?-?-?-?-?-?- MH-No VB. No flu tters yet. Nausea resolved. Anatomy US scheduled 09/12/24 -?-?-?-?-?-?-?-?-?-?-?-?- 20w 5d 153 lb 2 oz 111/71 Nega tive -?-?-?-?-?-?-?-?-?-?-?-?- Negative 145 -?-?-?-?-?-?-?-?-?-?-?-?- JV- no complaint s today. anatomy scan reviewed. 10/09/24 -?-?-?-?-?-?-?-?-?-?-?-?- 24w 4d 156 lb 2 oz 115/61 Nega tive -?-?-?-?-?-?-?-?-?-?-?-?- Negative 145 24 -?-?-?-?-?-?-?-?-?-?-?-?- SM- no vb lof go od fm no reuglar ctx 11/07/24 -?-?-?-?-?-?-?-?-?-?-?-?- 28w 5d 162 lb 8 oz 112/64 Nega tive -?-?-?-?-?-?-?-?-?-?-?-?- Negative 143 27 -?-?-?-?-?-?-?-?-?-?-?-?- MH-No VB, LOF. G ood FM. Some irreg BH. Declines tdap. Larc. 28 wk labs pending 11/20/24 -?-?-?-?-?-?-?-?-?-?-?-?- 30w 4d 165 lb 8 oz 113/74 Nega tive -?-?-?-?-?-?-?-?-?-?-?-?- Negative 160 30 -?-?-?-?-?-?-?-?-?-?-?-?- JV- normal 28 we ek labs. no complaints. + FM. questions about evening primrose oil and red raspberry leaf. 12/06/24 -?-?-?-?-?-?-?-?-?-?-?-?- 32w 6d 165 lb 2 oz 109/72 Trac e -?-?-?-?-?-?-?-?-?-?-?-?- Negative 153 31 -?-?-?-?-?-?-?-?-?-?-?-?- LC- n LC- no vb/ctx/lof, good fm. no concerns 12/18/24 -?-?-?-?-?-?-?-?-?-?-?-?- 34w 4d 168 lb 4 oz 111/74 Nega tive -?-?-?-?-?-?-?-?-?-?-?-?- Negative 150 33 -?-?-?-?-?-?-?-?-?-?-?-?- SM- no vb lof go od fm no regular ctx 01/02/25 -?-?-?-?-?-?-?-?-?-?-?-?- 36w 5d 168 lb 4 oz 112/78 Nega tive -?-?-?-?-?-?-?-?-?-?-?-?- Negative 140 35 Cephalic 3 -?-?-?-?-?-?-?-?-?-?-?-?- 60 -2 SM- no vb lof good fm no reugalr ctx gbs done 01/08/25 -?-?-?-?-?-?-?-?-?-?-?-?- 37w 4d 169 lb 102/72 Trace -?-?-?-?-?-?-?-?-?-?-?-?- Negative 130 36 Cephalic 4 -?-?-?-?-?-?-?-?-?-?-?-?- 70 -2 KW- no vb/ lof/reg ctx. good fm. ACOG First Trimester First Trimester: Desire for , Alcohol, Tobacco Cessation, Illicit/Recreational Drug/Substance Use, Intimate Partner Violence, Barriers to care, Unstable Housing, Communication Barriers, Environmental/Work Hazards, Anticipated Course of Care, Toxoplasmosis Precations, Use of Any medications, Sexual activity, Exercise, Dental Care, Sauna/Hot tub use, Seat Belt use, Childbirth classes/Hospital facilities, Travel, Indications for Ultrasound and Screening for Aneuploidy; Discussed Second Trimester Second Trimester: Signs and Symptoms of Labor, Reproductive Life Planning & Contreception, Care Planning and Intimate Partner Violence; Discussed Tobacco Cessation and Discussed Depression/Anxiety Third Trimester Third Trimester: Pain Management Plans, Labor support person(s), Immediate Larc, Movement Monitoring, Signs and Symptoms of Preeclampsia, Infant Feeding No and Family Medical Leave or Disability Forms; Discussed Circumcision preference ROS Const Reports system reviewed and no additional complaints, except as documented Eyes Reports system reviewed and no additional complaints, except as documented ENT Reports system reviewed and no additional complaints, except as documented Card Reports system reviewed and no additional complaints, except as documented Resp Reports system reviewed and no additional complaints, except as documented GI Reports system reviewed and no additional complaints, except as documented, Denies nausea and Denies vomiting Reports system reviewed and no additional complaints, except as documented Musc Reports system reviewed and no additional complaints, except as documented Skin/Breast Reports system reviewed and no additional complaints, except as documented Neuro Yes system reviewed and no additional complaints, except as documented Psych Reports system reviewed and no additional complaints, except as documented Endo Reports system reviewed and no additional complaints, except as documented Demond/Lymph Reports system reviewed and no additional complaints, except as documented Aller/Immun Reports system reviewed and no additional complaints, except as documented Exam Const General: cooperative, healthy appearing and no acute distress Orientation: alert, awake and oriented x3 Neck Neck: normal visual inspection and full ROM Resp Effort & Inspection: normal respiratory effort, able to speak in complete sentences and symmetric chest movement GI Inspection: normal to inspection Palpation: soft and other Other: gravid Skin General: no rashes or lesions noted Neuro General: patient alert, patient awake and patient oriented x3 Cognition: normal cognition Speech: speech normal Gait: normal gait Motor: muscle tone normal throughout Extrem General: normal to inspection and full ROM Psych Appearance: grossly normal Mental Status: mental status grossly normal Mood: congruent mood Affect: normal affect Speech and Movement: speech and movement normal Attitude: cooperative Thought Process: normal Thought Content: normal Judgment: judgment good Results POC Urinalysis 2 Dip (Clinic) Office Urine Glucose Negative Last Edit by Ayla Langley on 01/08/25 07:59 Office Urine Protein Trace Last Edit by Ayla Langley on 01/08/25 07:59 Coding Level of Care Code OB Routine Diagnoses GBS (group B Streptococcus carrier), +RV culture, currently O99.820 Family history of recurrent miscarriage Z84.89 Encounter for supervision of other normal in third trimester Z34.83 Normal : other normal Trimester: third trimester 37 weeks gestation of Z3A.37 Weeks of gestation: 37 weeks Assessment and Plan Assessment and Plan (1) GBS (group B Streptococcus carrier), +RV culture, currently : Status: Acute Comment: treat in labor (2) Family history of recurrent miscarriage: Status: Acute Comment: Mother 3 miscarriages (3) Supervision of normal : Status: Acute Qualifiers: Normal : other normal Trimester: third trimester Qualified Code(s): Z34.83 - Encounter for supervision of other normal , third trimester Comment: PRR , FANTA 01/25/25,girl (gender and name secret) PC Richie Kailash. (4) : Status: Acute Qualifiers: Weeks of gestation: 37 weeks Qualified Code(s): Z3A.37 - 37 weeks gestation of Comment: declined NIPT & Carrier testing. nl anatomy w/MFM. Orders: Orders POC Urinalysis 2 Dip (Clinic) Today Plan Details Additional Comments: ACOG trimester education reviewed and updated. see problem list details for updated plan management information and see below for orders placed at this visit. GA appropriate handout given. 01/08/25 9415 <Electronically signed by Renée fuller CNM> Date _ Renée Thurston CNM Cosigner Signature: Date (if applicable) CC: ~ [facility] Work Phone: Reason for referral (narrative)No reason for referral information availableW[facility] Work Phone: Family History No Family History Records Found Father Name Dates Details Family history of hypertensi on(V17.49, Z82.49) Status:Active Relationship Condition Age at Onset Recorded Date/T rafael mother Family history of recurrent miscarriage U nknown Summary Purpose Advance Directives No Advanced Directives Records FoundNo Advanced Directives Records FoundNo Advanced Directives Records FoundNo Advanced Directives Records FoundNo Advanced Directives Records Found Assessments Diagnosis Tachycardia Tachycardia, unspecified Chief Complaint and Reason for Visit Chief Complaint eorder Chief Complaint eorder NOB LMP 05/02 INT LABS Chief Complaint eorder NOB LMP 05/02 INT LABS 13 WK OB 17 WK OB 21 WK OB ORDER SCANNED AND BOX Reason for Visit Supervision of normal first Spotting affecting headache in second trimester Supervision of normal first Nuchal fold thickening on ultrasound headache in second trimester Supervision of normal first Chief Complaint NOB LMP 05/02 INT LABS 13 WK OB 17 WK OB 21 WK OB ORDER SCANNED AND BOX 25 WK OB DECREASED MOVEMENT DECREASED MOVEMENT Reason for Visit Supervision of normal first Spotting affecting headache in second trimester Supervision of normal first Nuchal fold thickening on ultrasound headache in second trimester Supervision of normal first Nuchal fold thickening on ultrasound headache in second trimester Supervision of normal first Decreased movement affecting management of mother, antepartum Nuchal fold thickening on ultrasound headache in second trimester Supervision of normal first Chief Complaint Admit Date 12wk OB July 17, 2024 8 :43am 16 wk ob August 14, 2024 2:00pm 20 wk ob September 12, 2024 9:3 2am 24 wk ob October 09, 2024 9:35 am 28 wk ob/glucose November 07, 2024 2:06pm Reason for Visit Admit Date Family history of recurrent miscarriage July 17, 2024 8:43am July 17, 2024 8 :43am Supervision of normal July 17, 2024 8:43am Family history of recurrent miscarriage August 14, 2024 2:00pm August 14, 2024 2:00pm Supervision of normal August 14, 2024 2:00pm Family history of recurrent miscarriage September 12, 2024 9:32am September 12, 2024 9:3 2am Supervision of normal September 122024 9:32am Family history of recurrent miscarriage October 09, 2024 9:35am October 09, 2024 9:35 am Supervision of normal October 9:35am Family history of recurrent miscarriage November 07, 2024 2:06pm November 07, 2024 2:06pm Supervision of normal November 07, 2024 2:06pm Chief Complaint Admit Date 16 wk ob August 14, 2024 2:00pm 20 wk ob September 12, 2024 9:3 2am 24 wk ob October 09, 2024 9:35 am 28 wk ob/glucose November 07, 2024 2:06pm 30 wk ob November 20, 2024 8:57a m Reason for Visit Admit Date Family history of recurrent miscarriage August 14, 2024 2:00pm August 14, 2024 2:00pm Supervision of normal August 14, 2024 2:00pm Family history of recurrent miscarriage September 12, 2024 9:32am September 12, 2024 9:3 2am Supervision of normal September 122024 9:32am Family history of recurrent miscarriage October 09, 2024 9:35am October 09, 2024 9:35 am Supervision of normal October 9:35am Family history of recurrent miscarriage November 07, 2024 2:06pm November 07, 2024 2:06pm Supervision of normal November 07, 2024 2:06pm Family history of recurrent miscarriage November 20, 2024 8:57am November 20, 2024 8:57a m Supervision of normal October 8:57am Chief Complaint Admit Date 16 wk ob August 14, 2024 2:00pm 20 wk ob September 12, 2024 9:3 2am 24 wk ob October 09, 2024 9:35 am 28 wk ob/glucose November 07, 2024 2:06pm 30 wk ob November 20, 2024 8:57a m 32 wk ob December 06, 2024 2:03p m Reason for Visit Admit Date Family history of recurrent miscarriage August 14, 2024 2:00pm August 14, 2024 2:00pm Supervision of normal August 14, 2024 2:00pm Family history of recurrent miscarriage September 12, 2024 9:32am September 12, 2024 9:3 2am Supervision of normal September 122024 9:32am Family history of recurrent miscarriage October 09, 2024 9:35am October 09, 2024 9:35 am Supervision of normal October 9:35am Family history of recurrent miscarriage November 07, 2024 2:06pm November 07, 2024 2:06pm Supervision of normal May 8th, 2025 2:06pm Family history of recurrent miscarriage November 20, 2024 8:57am November 20, 2024 8:57a m Supervision of normal October 8:57am Family history of recurrent miscarriage December 06, 2024 2:03pm December 06, 2024 2:03p m Supervision of normal December 2:03pm Chief Complaint Admit Date 20 wk ob September 12, 2024 9:3 2am 24 wk ob October 09, 2024 9:35 am 28 wk ob/glucose November 07, 2024 2:06pm 30 wk ob November 20, 2024 8:57a m 32 wk ob December 06, 2024 2:03p m 34 wk ob December 18, 2024 1:02 pm Reason for Visit Admit Date Family history of recurrent miscarriage September 12, 2024 9:32am September 12, 2024 9:3 2am Supervision of normal September 122024 9:32am Family history of recurrent miscarriage October 09, 2024 9:35am October 09, 2024 9:35 am Supervision of normal October 9:35am Family history of recurrent miscarriage November 07, 2024 2:06pm November 07, 2024 2:06pm Supervision of normal November 07, 2024 2:06pm Family history of recurrent miscarriage November 20, 2024 8:57am November 20, 2024 8:57a m Supervision of normal October 8:57am Family history of recurrent miscarriage December 06, 2024 2:03pm December 06, 2024 2:03p m Supervision of normal December 2:03pm Family history of recurrent miscarriage December 18, 2024 1:02pm December 18, 2024 1:02 pm Supervision of normal December 1:02pm Chief Complaint Admit Date 20 wk ob September 12, 2024 9:3 2am 24 wk ob October 09, 2024 9:35 am 28 wk ob/glucose November 07, 2024 2:06pm 30 wk ob November 20, 2024 8:57a m 32 wk ob December 06, 2024 2:03p m 34 wk ob December 18, 2024 1:02 pm 36 wk ob January 02, 2025 9:51a m Reason for Visit Admit Date Family history of recurrent miscarriage September 12, 2024 9:32am September 12, 2024 9:3 2am Supervision of normal September 122024 9:32am Family history of recurrent miscarriage October 09, 2024 9:35am October 09, 2024 9:35 am Supervision of normal October 9:35am Family history of recurrent miscarriage November 07, 2024 2:06pm November 07, 2024 2:06pm Supervision of normal November 07, 2024 2:06pm Family history of recurrent miscarriage November 20, 2024 8:57am November 20, 2024 8:57a m Supervision of normal October 8:57am Family history of recurrent miscarriage December 06, 2024 2:03pm December 06, 2024 2:03p m Supervision of normal December 2:03pm Family history of recurrent miscarriage December 18, 2024 1:02pm December 18, 2024 1:02 pm Supervision of normal December 1:02pm Family history of recurrent miscarriage January 02, 2025 9:51am January 02, 2025 9:51a m Supervision of normal December 9:51am Chief Complaint Admit Date 20 wk ob September 12, 2024 9:3 2am 24 wk ob October 09, 2024 9:35 am 28 wk ob/glucose November 07, 2024 2:06pm 30 wk ob November 20, 2024 8:57a m 32 wk ob December 06, 2024 2:03p m 34 wk ob December 18, 2024 1:02 pm 36 wk ob January 02, 2025 9:51a m 37 wk ob January 08, 2025 7:51a m Reason for Visit Admit Date Family history of recurrent miscarriage September 12, 2024 9:32am September 12, 2024 9:3 2am Supervision of normal September 122024 9:32am Family history of recurrent miscarriage October 09, 2024 9:35am October 09, 2024 9:35 am Supervision of normal October 9:35am Family history of recurrent miscarriage November 07, 2024 2:06pm November 07, 2024 2:06pm Supervision of normal November 07, 2024 2:06pm Family history of recurrent miscarriage November 20, 2024 8:57am November 20, 2024 8:57a m Supervision of normal October 8:57am Family history of recurrent miscarriage December 06, 2024 2:03pm December 06, 2024 2:03p m Supervision of normal December 2:03pm Family history of recurrent miscarriage December 18, 2024 1:02pm December 18, 2024 1:02 pm Supervision of normal December 1:02pm Family history of recurrent miscarriage January 02, 2025 9:51am January 02, 2025 9:51a m Supervision of normal December 9:51am Family history of recurrent miscarriage January 08, 2025 7:51am GBS (group B Streptococcus c arrier), +RV culture, currently January 08, 2025 7:51am January 08, 2025 7:51a m Supervision of normal December 7:51am Chief Complaint Admit Date 24 wk ob October 09, 2024 9:35 am 28 wk ob/glucose November 07, 2024 2:06pm 30 wk ob November 20, 2024 8:57a m 32 wk ob December 06, 2024 2:03p m 34 wk ob December 18, 2024 1:02 pm 36 wk ob January 02, 2025 9:51a m 37 wk ob January 08, 2025 7:51a m 38 wk ob January 14, 2025 2:15 pm Reason for Visit Admit Date Family history of recurrent miscarriage October 09, 2024 9:35am October 09, 2024 9:35 am Supervision of normal October 9:35am Family history of recurrent miscarriage November 07, 2024 2:06pm November 07, 2024 2:06pm Supervision of normal November 07, 2024 2:06pm Family history of recurrent miscarriage November 20, 2024 8:57am November 20, 2024 8:57a m Supervision of normal October 8:57am Family history of recurrent miscarriage December 06, 2024 2:03pm December 06, 2024 2:03p m Supervision of normal December 2:03pm Family history of recurrent miscarriage December 18, 2024 1:02pm December 18, 2024 1:02 pm Supervision of normal December 1:02pm Family history of recurrent miscarriage January 02, 2025 9:51am January 02, 2025 9:51a m Supervision of normal December 9:51am Family history of recurrent miscarriage January 08, 2025 7:51am GBS (group B Streptococcus c arrier), +RV culture, currently January 08, 2025 7:51am January 08, 2025 7:51a m Supervision of normal December 7:51am Family history of recurrent miscarriage January 14, 2025 2:15pm GBS (group B Streptococcus c arrier), +RV culture, currently January 14, 2025 2:15pm January 14, 2025 2:15 pm Supervision of normal December 2:15pm Additional Source Comments INFORMATION SOURCE (unrecogn ized section and content) DATE CREATED AUTHOR 09/04/2020 [facility] DATE CREATED AUTHOR AUTHOR'S ORGANIZ ATION 09/04/2020 [employer] DATE CREATED AUTHOR AUTHOR'S ORGANIZ ATION 09/24/2020 [facility] DATE CREATED AUTHOR AUTHOR'S ORGANIZ ATION 09/07/2024 [facility] DATE CREATED AUTHOR AUTHOR'S ORGANIZ ATION 01/18/2025 [facility] Source Comments (unrecognize d section and content) In the event this informatio n is protected by the Federal Confidentiality of Alcohol and Drug Abuse Patient Records regulations: The Federal rules restrict any use of the information to criminally investigate or prosecute any alcohol or drug abuse patient.[facility] the event this information is protected by the Federal Confidentiality of Alcohol and Drug Abuse Patient Records regulations: The Federal rules restrict any use of the information to criminally investigate or prosecute any alcohol or drug abuse patient.[facility] Patient Education - Tamara Barfield (Rn), RN - 09/21/2020 3:00 PM EDT Miscellaneous Notes (unrecog nized section and content) Patient educated on 48 hour holter monitor, and verbalizes understanding. documented in this encounter Reason for Visit (unrecogniz ed section and content) Reason Comments Traveling to [facility]. Traveling in December. Care Teams (unrecognized sec tion and content) Team Status: Active Member Role Status Virgilio davis Primary Care Provider Active Team Status: Inactive Member Role Status yaya De Leon Primary Care Provider Active Renée Thurston CNM Attending Provider, Referring Pro vider Active Toxics Program Officer Relationship Specialty Start Date End Date Kenneth Davis DO [address] [facility] [address] [place] [address] PCP - General 03/20/19 Team Status: Active Member Role Status yaya De Leon Primary Care Provider Active Renée Thurston CNM Attending Provider, Referring Pro vider Active Team Status: Active Member Role Status Virgilio DAVIS Primary Care Provider Active Team Status: Inactive Member Role Status Dates Fauzia Martines CNM Attending Provider Active yaya cooper Primary Care Provider, Referring Provide r Active Team Status: Inactive Member Role Status YAYA De Leon Primary Care Provider Active Fauzia Martines CNM Attending Provider, Referring Pr ovider Active Team Status: Inactive Member Role Status Dates Dr. Tracie Mcdaniels DO Attending Provider YAYA Tate Primary Care Provider, Referring Provide r Active Team Status: Inactive Member Role Status Dates Jarrell Alvares FILLING TECHNICIAN, FILLING TECHNICIAN-C Attending Provider Active Team Status: Inactive Member Role Status Dates Dr. Renuka Peters MD Attending Provider Active Team Status: Inactive Member Role Status Dates Dr. Renuka Peters MD Attending Provider, Referr ing Provider Active YAYA COOPER Primary Care Provider Active Team Status: Active Member Role Status Dates No Primary Care Physician Primary Care Provider Active Team Status: Inactive Member Role Status Dates YAYA COOPER Primary Care Provider, Referring Provide r Active Dr. Renuka Peters MD Attending Provider Active Team Status: Active Member Role Status Dates No Primary Care Physician Primary Care Provider Active Renée Thurston CNM Attending Provider, Referring Provider, Other Provider Active Team Status: Inactive Member Role Status Dates No Primary Care Physician Primary Care Provider Active Renée Thurston CNM Attending Provider, Referring Pro vider Active Team Status: Inactive Member Role Status Dates Jarrell Alvares FILLING TECHNICIAN, FILLING TECHNICIAN-C Attending Provider Active Start: July 17, 2024 End: July 17, 2024 Team Status: Inactive Member Role Status Dates Jarrell Alvares FILLING TECHNICIAN, FILLING TECHNICIAN-C Attending Provider Active Start: August 14, 2024 End: August 14, 2024 Team Status: Inactive Member Role Status Dates Dr. Tracie Mcdaniels DO Attending Provider Activ e Start: September 12, 2024 End: September 12, 2024 Team Status: Inactive Member Role Status Dates Dr. Renuka Peters MD Attending Provider Active Start: October 09, 2024 End: October 09, 2024 Team Status: Inactive Member Role Status Dates Jarrell Alvares FILLING TECHNICIAN, FILLING TECHNICIAN-C Attending Provider Active Start: November 07, 2024 End: November 07, 2024 Team Status: Inactive Member Role Status Dates Dr. Renuka Peters MD Attending Provider Active Start: November 07, 2024 End: November 07, 2024 Dr. Renuka Peters MD Referring Provider Active Start: November 07, 2024 End: November 07, 2024 Team Status: Inactive Member Role Status Dates Dr. Tracie Mcdaniels DO Attending Provider Activ e Start: November 20, 2024 End: November 20, 2024 Team Status: Inactive Member Role Status Dates Fauzia Martines CNM Attending Provider Active Start: December 06, 2024 End: December 06, 2024 Team Status: Inactive Member Role Status Dates Dr. Renuka Peters MD Attending Provider Active Start: December 18, 2024 End: December 18, 2024 Team Status: Inactive Member Role/Relationship Status Dates Dr. Tracie Mcdaniels DO Attending Provider Activ e Start: September 12, 2024 End: September 12, 2024 Team Status: Inactive Member Role/Relationship Status Dates Dr. Renuka Peters MD Attending Provider Active Start: October 09, 2024 End: October 09, 2024 Team Status: Inactive Member Role/Relationship Status Dates Jarrell Alvares NP, FILLING TECHNICIAN-C Attending Provider Active Start: November 07, 2024 End: November 07, 2024 Team Status: Inactive Member Role/Relationship Status Dates Dr. Renuka Peters MD Attending Provider Active Start: November 07, 2024 End: November 07, 2024 Dr. Renuka Peters MD Referring Provider Active Start: November 07, 2024 End: November 07, 2024 Team Status: Inactive Member Role/Relationship Status Dates Dr. Tracie Mcdaniels DO Attending Provider Activ e Start: November 20, 2024 End: November 20, 2024 Team Status: Inactive Member Role/Relationship Status Dates Fauzia Martines CNM Attending Provider Active Start: December 06, 2024 End: December 06, 2024 Team Status: Inactive Member Role/Relationship Status Dates Dr. Renuka Peters MD Attending Provider Active Start: December 18, 2024 End: December 18, 2024 Team Status: Inactive Member Role/Relationship Status Dates Dr. Renuka Peters MD Attending Provider Active Start: January 02, 2025 End: January 02, 2025 Team Status: Active Member Role/Relationship Status Dates Dr. Renuka Peters MD Attending Provider Active Start: January 02, 2025 Dr. Renuka Peters MD Referring Provider Active Start: January 02, 2025 Team Status: Inactive Member Role/Relationship Status Dates Renée Thurston CNM Attending Provider Active S tart: January 08, 2025 End: January 08, 2025 Team Status: Inactive Member Role/Relationship Status Dates Dr. Renuka Peters MD Attending Provider Active Start: January 02, 2025 End: January 02, 2025 Dr. Renuka Peters MD Referring Provider Active Start: January 02, 2025 End: January 02, 2025 Team Status: Inactive Member Role/Relationship Status Dates Dr. Renuka Peters MD Attending Provider Active Start: October 09, 2024 End: October 09, 2024 Team Status: Inactive Member Role/Relationship Status Dates Jarrell Alvares FILLING TECHNICIAN, FILLING TECHNICIAN-C Attending Provider Active Start: November 07, 2024 End: November 07, 2024 Team Status: Inactive Member Role/Relationship Status Dates Dr. Renuka Peters MD Attending Provider Active Start: November 07, 2024 End: November 07, 2024 Dr. Renuka Peters MD Referring Provider Active Start: November 07, 2024 End: November 07, 2024 Team Status: Inactive Member Role/Relationship Status Dates Dr. Tracie Mcdaniels DO Attending Provider Activ e Start: November 20, 2024 End: November 20, 2024 Team Status: Inactive Member Role/Relationship Status Dates Fauzia Martines CNM Attending Provider Active Start: December 06, 2024 End: December 06, 2024 Team Status: Inactive Member Role/Relationship Status Dates Dr. Renuka Peters MD Attending Provider Active Start: December 18, 2024 End: December 18, 2024 Team Status: Inactive Member Role/Relationship Status Dates Dr. Renuka Peters MD Attending Provider Active Start: January 02, 2025 End: January 02, 2025 Team Status: Inactive Member Role/Relationship Status Dates Dr. Renuka Peters MD Attending Provider Active Start: January 02, 2025 End: January 02, 2025 Dr. Renuka Peters MD Referring Provider Active Start: January 02, 2025 End: January 02, 2025 Team Status: Inactive Member Role/Relationship Status Dates Renée Thurston CNM Attending Provider Active S tart: January 08, 2025 End: January 08, 2025 Team Status: Inactive Member Role/Relationship Status Dates Dr. Tracie Mcdaniels DO Attending Provider Activ e Start: January 14, 2025 End: January 14, 2025 Goals (unrecognized section and content) Goals may be documented in a n alternate sectionGoals may be documented in an alternate sectionGoals may be documented in an alternate sectionGoals may be documented in an alternate sectionGoals may be documented in an alternate sectionGoals may be documented in an alternate sectionGoals may be documented in an alternate sectionGoals may be documented in an alternate sectionGoals may be documented in an alternate sectionGoals may be documented in an alternate sectionGoals may be documented in an alternate sectionGoals may be documented in an alternate sectionGoals may be documented in an alternate section FOR RECORDS PERTAINING TO PATIENTS WHO ARE OR HAVE BEEN ENROLLED IN A CHEMICAL DEPENDENCY/SUBSTANCEABUSE PROGRAM, SOME INFORMATION MAY BE OMITTED. This clinical summary was aggregated from multiple sources. Caution should be exercised in using it in the provision of clinical care. This summary normalizes information from multiple sources, and as a consequence, information in this document may materially change the coding, format and clinical context of patient data. In addition, data may be omitted in some cases. CLINICAL DECISIONS SHOULD BE BASED ON THE PRIMARY CLINICAL RECORDS. [facility] [employer] [facility]. provides no warranty or guarantee of the accuracy or completeness of information in this document.
[2025-01-19 22:56] VITALS: PULSE 100; RESP 16; TEMP 36.6; O2SAT 98
[2025-01-19 22:57] VITALS: BP 119/79; PULSE 100
[2025-01-20] VITALS (54 sets, daily range): BP systolic 104–140; BP diastolic 48–85; PULSE 80–114; RESP 16; TEMP 36.2–36.7; O2SAT 97–100
--- NOTE | 2025-01-20 00:59 | HP.PCM.OB_ITS ---
HPI - General General Chief Complaint: Onset of u/c's HPI Narrative NAVEEN DIAZ, is a 29 F who presents w/onset of u/c's around 1800 on 01/19/25, becoming stronger/more frequent. States she is GBS +. Maternal Data Information FANTA Calculator Estimated Delivery Date Method Current WG Current Estimate 01/25/25 LMP (Certain) 39w 2d Other Estimates 01/29/25 Ultrasound #1 38w 5d Gestational age: 39 wk 2 days PFSH PFSH Home Medications Medication Instructions Recorded Last Taken Type multivitamin no.47-iron fum 27 cap PO 06/27/23 5 History mg-folate no.1 1 mg-dha 300 mg capsule (PNV-DHA) Allergy/AdvReac Type Severity Reaction Status Date / Time No Known Allergies Allergy Verified 01/19/25 22:54 Family History Mother Family history of recurrent miscarriage 3 miscarriages Surgical History [place] teeth extracted Social History adopted: No household members: spouse and children number of children: 1 current occupational status: unemployed current occupation: [employer] current occupational exposures/hazards: No pets and animals: No history of recent travel: Yes (- May) out of state: Yes out of country: No sexually active: Yes Smoking Status: Never smoker alcohol intake: never substance use type: does not use well-balanced diet: about half the time caffeine: No eating out: rarely or never during the past year weight has: increased > 10 lbs what type of physical activity do you participate in: walking frequency: 1-2 times per week duration: 30-45 minutes/day kimberly/religious: Worship seatbelt use: always do you feel safe at home: Yes additional social history: Kailash - Room Maid History 2 Elective abortions Hx Para 1 Spontaneous abortions Hx # Term Pregnancies 1 Ectopic pregnancies Hx # Pregnancies Multiple births # of living children 1 Past Pregnancies Del. Date Name GA/Weeks Outcome Route Bth Weight Gen Labor Lgth Anesthesia Del Locatn Provider FOB 01/26/24 Richie 38 live - full term 7#1oz Male none [facility] Citlali Martines Kailash Delivery Date: 01/26/24 Last Updated by: Chanelle Kerns IOL SROM Visit Details Expected Delivery Route/Plan Labor Preferences- CB/BF classes: no labor support person: aKilash labor intervention preferences: [] pain management options preferred: limited cut cord/dad catch: yes : yes PP control planned: discussed discussed possible routes of delivery and associated risks: [] special requests: [] Plans Covid status: [] Flu vaccine: [] Tdap vaccine: declines Rhogam: na LARC form signed: yes Problem list reviewed and updated with the most current plan of care details and appropriate orders placed. Relevant counseling for the gestational age provided. Continue routine care and follow up unless otherwise noted in visit notes/problem list details OB Flowsheet Initial Weight: Not Recorded Date - - - - - - - - - - - - - EGA Weight BP Urine Prot - - - - - - - - - -- - - - Glucose FHR FuHt Pres Dilation - - - - - - - - - - - - - Effaced St Visit Note 06/19/24 - - - - - - - - - - - - - 8w 4d 153 lb 2 oz 108/73 - - - - - - - - - - - - - 160 - - - - - - - - - - - - - SM- no vb crampi ng CRL SM- no vb cramping CRL 8w0d cons with LMP 07/17/24 - -- - - - - - - - - - - - 12w 4d 150 lb 9.6 oz 110/76 Ne gative - - - - - - - - - - - - - Negative 150 - - - - - - - - - - - - - MH-No VB. Managi ng nausea. PN labs reviewed. 08/14/24 - - - - - - - - - - - - - 16w 4d 152 lb 6 oz 113/76 Nega tive - - - - - - - - - - - - - Negative 148 - - - - - - - - - - - - - MH-No VB. No flu tters yet. Nausea resolved. Anatomy US scheduled 09/12/24 - - - - - - - - - - - - - 20w 5d 153 lb 2 oz 111/71 Nega tive - - - - - - - - - - - - - Negative 145 - - - - - - - - - - - - - JV- no complaint s today. anatomy scan reviewed. 10/09/24 - - - - - - - - - -- - - - 24w 4d 156 lb 2 oz 115/61 Nega tive - - - - - - - - - - - - - Negative 145 24 - - - - - - - - - - - - - SM- no vb lof go od fm no reuglar ctx 11/07/24 - - - - - - - - - - - - - 28w 5d 162 lb 8 oz 112/64 Nega tive - - - - - - - - - - - - - Negative 143 27 - - - - - - - -- - - - - - MH-No VB, LOF. G ood FM. Some irreg BH. Declines tdap. Larc. 28 wk labs pending 11/20/24 - - - - - - - - - - - - - 30w 4d 165 lb 8 oz 113/74 Nega tive - - - - - - - - - - - - - Negative 160 30 - - - - - - - - - - - - - JV- normal 28 we ek labs. no complaints. + FM. questions about evening primrose oil and red raspberry leaf. 12/06/24 - - - - - - - - - - - - - 32w 6d 165 lb 2 oz 109/72 Trac e - - - - - - - - - - - - - Negative 153 31 - - - - - - - - - - - - - LC- n LC- no vb/ctx/lof, good fm. no concerns 12/18/24 - - - - - - - - - - - - - 34w 4d 168 lb 4 oz 111/74 Nega tive - - - - - -- - - - - - - - Negative 150 33 - - - - - - - - - - - - - SM- no vb lof go od fm no regular ctx 01/02/25 - - - - - - - - - - - - - 36w 5d 168 lb 4 oz 112/78 Nega tive - - - - - - - - - - - - - Negative 140 35 Cephalic 3 - - - - - - - - - - - - - 60 -2 SM- no vb lof good fm no reugalr ctx gbs done 01/08/25 - - - - - - - - - - - - - 37w 4d 169 lb 102/72 Trace - - - - - - - - - - - - - Negative 130 36 Cephalic 4 - - - - - - - -- - - - - - 70 -2 KW- no vb/ lof/reg ctx. good fm. 01/14/25 - - - - - - - - - - - - - 38w 3d 172 lb 112/77 Negative - - - - - - - - - - - - - Negative 146 37 Cephalic 4 - - - - - - - - - - - - - 80 -1 JV- plan m embrane strip next visit. no complaints. ROS Constitutional Constitutional: Reports systems reviewed and no addt'l complaints, except as documented Cardiovascular Cardiovascular: Reports systems reviewed and no addt'l complaints, except as documented Respiratory/Chest Respiratory/Chest: Reports systems reviewed and no addt'l complaints, except as documented Gastrointestinal Gastrointestinal: Reports systems reviewed and no addt'l complaints, except as documented Genitourinary Genitourinary: Reports systems reviewed and no addt'l complaints, except as documented Musculoskeletal Musculoskeletal: Reports systems reviewed and no addt'l complaints, except as documented Integumentary Integumentary: Reports systems reviewed and no addt'l complaints, except as documented Neurologic Neurologic: Reports systems reviewed and no addt'l complaints, except as documen ronen Vital Signs Vital Signs Vital Signs: 01/19/25 22:56 01/19/25 22:56 01/19/25 22:56 Temperature Temperature Source Temporal Pulse Rate 100 Respiratory Rate 16 Blood Pressure BP Systolic BP Diastolic Pulse Ox 01/19/25 22:56 01/19/25 22:56 01/19/25 22:57 Temperature 97.8 F Temperature Source Pulse Rate Respiratory Rate Blood Pressure 119/79 BP Systolic 119 BP Diastolic 79 Pulse Ox 98 01/19/25 22:57 Temperature Temperature Source Pulse Rate 100 Respiratory Rate Blood Pressure BP Systolic BP Diastolic Pulse Ox Weight Weight: 170 lb 3.2 oz Body Mass Index (BMI) 28.3 Physical Exam Const alert, oriented x3, no apparent distress, average body habitus, healthy appearing and well nourished General Appearance: cooperative and comfortable HEENT normocephalic and moist oral mucous membranes Resp normal respiratory effort, no retractions, no use of accessory muscles and clear to auscultation bilaterally Resp Narrative: Respirations eased & unlabored. Cardio regular rate and regular rhythm GI soft to palpation, non-tender and non-distended GI Narrative: Gravid. Manual OB Exam: presentation cephalic, dilated 4-5cm, effaced 80% and station -1 Psych mental status grossly normal Labs Labs Labs: Blood Type O POSITIVE Antibody Screen NEGATIVE Hct 36.0 % (37-47) L Hgb 12.3 g/dL (12.0-15.0) Obstetrics Ultrasound Syphilis Total Ab Nonreactive (Nonreactive) Rubella IgG Antibody Reactive (Nonreactive) Hep Bs Antigen Non-Reactive (Nonreactive) Hepatitis C Antibody Non-Reactive (Nonreactive) Chlamydia DNA (BANDAR) Negative (Negative) N.gonorrhoeae DNA (BANDAR) Negative (Negative) HIV 1&2 Antibody Nonreactive (Nonreactive) Glucose 1 Hr 50 gm 81 mg/dL (70-140) Rhogam given: No Assessment & Plan (1) GBS (group B Streptococcus carrier), +RV culture, currently : COMMENT: treat in labor (2) Supervision of normal : QUALIFIERS: Normal : other normal Trimester: third trimester Qualified Code(s): Z34.83 - Encounter for supervision of other normal , third trimester COMMENT: PRR , FANTA 01/25/25,girl (gender and name secret) PC Richie Kailash. (3) : QUALIFIERS: Weeks of gestation: 38 weeks Qualified Code(s): Z3A.38 - 38 weeks gestation of COMMENT: declined NIPT & Carrier testing. nl anatomy w/MFM. PLAN: Plan Patient presents in latent labor w/advanced dilation, minimal cervical change within the past hour. Dsc'd option of d/c to home to await more active labor vs admission/start treatment for GBS + status. Pt & spouse desire admission. Plan expectant management for , pitocin/AROM PRN if needed. Pain management: plans natural childbirth, but open to options for pain control. GBS positive plan IV PCN. Management of any complications: None. I have reviewed the [facility] and made any clinically relevant updates.
--- NOTE | 2025-01-20 00:59 | PCM.HP.OB ---
HPI - General General Chief Complaint: Onset of u/c's HPI Narrative NAVEEN DIAZ, is a 29 F who presents w/onset of u/c's around 1800 on 01/19/25, becoming stronger/more frequent. States she is GBS +. Maternal Data Information FANT[facility] Calculator Estimated Delivery Date Method Current WG Current Estimate 01/25/25 LMP (Certain) 39w 2d Other Estimates 01/29/25 Ultrasound #1 38w 5d Gestational age: 39 wk 2 days PFSH PFSH Home Medications Medication Instructions Recorded Last Taken Type multivitamin no.47-iron fum 27 cap PO 06/27/23 01/18/25 History mg-folate no.1 1 mg-dha 300 mg capsule (PNV-DHA) Allergy/AdvReac Type Severity Reaction Status Date / Time No Known Allergies Allergy Verified 01/19/25 22:54 Family History Mother Family history of recurrent miscarriage 3 miscarriages Surgical History [place] teeth extracted Social History adopted: No household members: spouse and children number of children: 1 current occupational status: unemployed current occupation: [employer] current occupational exposures/hazards: No pets and animals: No history of recent travel: Yes (- May) out of state: Yes out of country: No sexually active: Yes Smoking Status: Never smoker alcohol intake: never substance use type: does not use well-balanced diet: about half the time caffeine: No eating out: rarely or never during the past year weight has: increased > 10 lbs what type of physical activity do you participate in: walking frequency: 1-2 times per week duration: 30-45 minutes/day kimberly/religious: Alevism seatbelt use: always do you feel safe at home: Yes additional social history: Kailash - [employer] History 2 Elective abortions Hx Para 1 Spontaneous abortions Hx # Term Pregnancies 1 Ectopic pregnancies Hx # Pregnancies Multiple births # of living children 1 Past Pregnancies Del. Date Name GA/Weeks Outcome Route Bth Weight Gen Labor Lgth Anesthesia Del Locatn Provider FOB 01/26/24 Richie 38 live - full term 7#1oz Male none [facility] L. Mart[facility] Kailash Delivery Date: 01/26/24 Last Updated by: Chanelle Kerns IOL SROM Visit Details Expected Delivery Route/Plan Labor Preferences- CB/BF classes: no labor support person: Kailash labor intervention preferences: [] pain management options preferred: limited cut cord/dad catch: yes : yes PP control planned: discussed discussed possible routes of delivery and associated risks: [] special requests: [] Plans Covid status: [] Flu vaccine: [] Tdap vaccine: declines Rhogam: na LARC form signed: yes Problem list reviewed and updated with the most current plan of care details and appropriate orders placed. Relevant counseling for the gestational age provided. Continue routine care and follow up unless otherwise noted in visit notes/problem list details OB Flowsheet Initial Weight: Not Recorded Date <del> </del> EGA Weight BP Urine Prot <del> </del> Glucose FHR FuHt Pres Dilation <del> </del> Effaced St Visit Note 06/19/24 <del> </del> 8w 4d 153 lb 2 oz 108/73 <del> </del> 160 <del> </del> SM- no vb cramping CRL SM- no vb cramping CRL 8w0d cons with LMP 07/17/24 <del> </del> 12w 4d 150 lb 9.6 oz 110/76 Negative <del> </del> Negative 150 <del> </del> MH-No VB. Managing nausea. PN labs reviewed. 08/14/24 <del> </del> 16w 4d 152 lb 6 oz 113/76 Negative <del> </del> Negative 148 <del> </del> MH-No VB. No flutters yet. Nausea resolved. Anatomy US scheduled 09/12/24 <del> </del> 20w 5d 153 lb 2 oz 111/71 Negative <del> </del> Negative 145 <del> </del> JV- no complaints today. anatomy scan reviewed. 10/09/24 <del> </del> 24w 4d 156 lb 2 oz 115/61 Negative <del> </del> Negative 145 24 <del> </del> SM- no vb lof good fm no reuglar ctx 11/07/24 <del> </del> 28w 5d 162 lb 8 oz 112/64 Negative <del> </del> Negative 143 27 <del> </del> MH-No VB, LOF. Good FM. Some irreg BH. Declines tdap. Larc. 28 wk labs pending 11/20/24 <del> </del> 30w 4d 165 lb 8 oz 113/74 Negative <del> </del> Negative 160 30 <del> </del> JV- normal 28 week labs. no complaints. + FM. questions about evening primrose oil and red raspberry leaf. 12/06/24 <del> </del> 32w 6d 165 lb 2 oz 109/72 Trace <del> </del> Negative 153 31 <del> </del> LC- n LC- no vb/ctx/lof, good fm. no concerns 12/18/24 <del> </del> 34w 4d 168 lb 4 oz 111/74 Negative <del> </del> Negative 150 33 <del> </del> SM- no vb lof good fm no regular ctx 01/02/25 <del> </del> 36w 5d 168 lb 4 oz 112/78 Negative <del> </del> Negative 140 35 Cephalic 3 <del> </del> 60 -2 SM- no vb lof good fm no reugalr ctx gbs done 01/08/25 <del> </del> 37w 4d 169 lb 102/72 Trace <del> </del> Negative 130 36 Cephalic 4 <del> </del> 70 -2 KW- no vb/lof/reg ctx. good fm. 01/14/25 <del> </del> 38w 3d 172 lb 112/77 Negative <del> </del> Negative 146 37 Cephalic 4 <del> </del> 80 -1 JV- plan membrane strip next visit. no complaints. ROS Constitutional Constitutional: Reports systems reviewed and no addt'l complaints, except as documented Cardiovascular Cardiovascular: Reports systems reviewed and no addt'l complaints, except as documented Respiratory/Chest Respiratory/Chest: Reports systems reviewed and no addt'l complaints, except as documented Gastrointestinal Gastrointestinal: Reports systems reviewed and no addt'l complaints, except as documented Genitourinary Genitourinary: Reports systems reviewed and no addt'l complaints, except as documented Musculoskeletal Musculoskeletal: Reports systems reviewed and no addt'l complaints, except as documented Integumentary Integumentary: Reports systems reviewed and no addt'l complaints, except as documented Neurologic Neurologic: Reports systems reviewed and no addt'l complaints, except as documented Vital Signs Vital Signs Vital Signs: 01/19/25 22:56 01/19/25 22:56 01/19/25 22:56 Temperature Temperature Source Temporal Pulse Rate 100 Respiratory Rate 16 Blood Pressure BP Systolic BP Diastolic Pulse Ox 01/19/25 22:56 01/19/25 22:56 01/19/25 22:57 Temperature 97.8 F Temperature Source Pulse Rate Respiratory Rate Blood Pressure 119/79 BP Systolic 119 BP Diastolic 79 Pulse Ox 98 01/19/25 22:57 Temperature Temperature Source Pulse Rate 100 Respiratory Rate Blood Pressure BP Systolic BP Diastolic Pulse Ox Weight Weight: 170 lb 3.2 oz Body Mass Index (BMI) 28.3 Physical Exam Const alert, oriented x3, no apparent distress, average body habitus, healthy appearing and well nourished General Appearance: cooperative and comfortable HEENT normocephalic and moist oral mucous membranes Resp normal respiratory effort, no retractions, no use of accessory muscles and clear to auscultation bilaterally Resp Narrative: Respirations eased & unlabored. Cardio regular rate and regular rhythm GI soft to palpation, non-tender and non-distended GI Narrative: Gravid. Manual OB Exam: presentation cephalic, dilated 4-5cm, effaced 80% and station -1 Psych mental status grossly normal Labs Labs Labs: Blood Type O POSITIVE Antibody Screen NEGATIVE Hct 36.0 % (37-47) L Hgb 12.3 g/dL (12.0-15.0) Obstetrics Ultrasound Syphilis Total Ab Nonreactive (Nonreactive) Rubella IgG Antibody Reactive (Nonreactive) Hep Bs Antigen Non-Reactive (Nonreactive) Hepatitis C Antibody Non-Reactive (Nonreactive) Chlamydia DNA (BANDAR) Negative (Negative) N.gonorrhoeae DNA (BANDAR) Negative (Negative) HIV 1&2 Antibody Nonreactive (Nonreactive) Glucose 1 Hr 50 gm 81 mg/dL (70-140) Rhogam given: No Assessment & Plan (1) GBS (group B Streptococcus carrier), +RV culture, currently : COMMENT: treat in labor (2) Supervision of normal : QUALIFIERS: Normal : other normal Trimester: third trimester Qualified Code(s): Z34.83 - Encounter for supervision of other normal , third trimester COMMENT: PRR , FANTA 01/25/25,girl (gender and name secret) PC Richie Kailash. (3) : QUALIFIERS: Weeks of gestation: 38 weeks Qualified Code(s): Z3A.38 - 38 weeks gestation of COMMENT: declined NIPT & Carrier testing. nl anatomy w/MFM. PLAN: Plan Patient presents in latent labor w/advanced dilation, minimal cervical change within the past hour. Dsc'd option of d/c to home to await more active labor vs admission/start treatment for GBS + status. Pt & spouse desire admission. Plan expectant management for , pitocin/AROM PRN if needed. Pain management: plans natural childbirth, but open to options for pain control. GBS positive plan IV PCN. Management of any complications: None. I have reviewed the [facility] and made any clinically relevant updates.
--- OUTSIDE RECORDS SUMMARY | 2025-01-20 01:10 | XMS RPT_ITS | CCD ---
Author Organization [facility] Providers Care Paralegal Internship Name Role Phone Davis, Kenneth Unavailable Unavailable Davis, Kenneth N Unavailable Unavailable Update Needed Unavailable Unavailable Unavailable Primary Care Provider Unavailabl e Davis DO, Kenneth N Primary Care Provider ZOHAIB Martines Attending Provider [phone] davis, kenneth Primary Care Provider Unavailabl e davis, kenneth Referring Provider Unavailable ZOHAIB Martines Attending Provider davis, kenneth Primary Care Provider Unavailabl e davis, kenneth Referring Provider Unavailable Dr. Tracie Mcdaniels Attending Provider [phone] DAVIS, KENNETH Primary Care Provider Unavailabl e DAVIS, KENNETH Referring Provider Unavailable Tamir DENTAL OFFICE COORDINATOR, DENTAL OFFICE COORDINATOR-C Jarrell Attending Provider [phone] Dr. Renuka Peters Attending Provider [phone] Care Physician, No Primary Primary Care Provider Unavailable ZOHAIB Thurston Attending Provider [phone] ZOHAIB Thurston Referring Provider [phone] ZOHAIB Thurston Other Provider [phone] NO PRIMARY CARE, MD Primary Care Unavailable LACI HEWITT Attending Unavailable TRACIE ZHOU Referring Unavailab le JARRELL ALVARES Referring Unavailable DAVIS, KENNETH Primary Care Unavailable JARRELL ALVARES S Attending Unavailable Tamir RAMSEY-CJarrell Attending Provider Dr. Tracie Mcdaniels DO Attending Provider Dr. Renuka Peters MD Attending Provider Dr. Renuka Peters MD Referring Provider Jarrell Delarosa Attending Provider Conrad PENNY, Fauzia Attending Provider [phone] Tamir DANIEL, Jarrell Attending Provider [phone] Bertrand PENNY, Renée Attending Provider [phone] Dr. Tracie Mcdaniels DO Attending Provider Tamir DENTAL OFFICE COORDINATOR, Jarrell Attending Unavailable Andrey Jackson, Tracie Attending Unavailabl e MarcanthRenuka guzmán Attending Unavailable Vande Velever, Tracie Attending Unavailabl e Vande Velde, Tracie Attending [facility]ailabl e [facility] Unavailable Care Physician, No Primary Referring Unava ilable Martines, Fauzia Admitting Unavailable Martines, Fauzia Referring Unavailable Martines, Fauzia Attending Unavailable [facility] Primary Care Unavailable Marcanthony, Renuka Referring Unavailable Marcanthony, Renuka Attending Unavailable Marcanthony, Renuka Referring Unavailable Marcanthony, Renuka Attending Unavailable Marcanthony, Renuka Referring Unavailable Marcanthony, Renuka Attending Unavailable Vande Velever, Tracie Referring Unavailabl e Vande Velde, Tracie Attending Unavailabl e WILL, GELY Primary Care Unavailable Marcanthony, Renuka Attending Unavailable Tamir DENTAL OFFICE COORDINATOR, Jarrell Attending Unavailable Kang DENTAL OFFICE COORDINATOR, Pat Attending Unavailable [facility] Primary Care Unavailable Marcanthony, Renuka Attending Unavailable Martines, Fauzia Consulting Unavailable Martines, Fauzia Admitting Unavailable Martines, Fauzia Referring Unavailable Martines, Fauzia Attending Unavailable [facility] Unavailable Vande Velever, Tracie Attending Unavailabl e Vande Velde, Tracie Attending Unavailabl e Martines, Fauzia Attending Unavailable Marcanthony, eRnuka Attending Unavailable Tamir DENTAL OFFICE COORDINATOR, Jarrell Attending Unavailable Renée Thurston Attending Unavailable [...] Start: 09-07-2020 take 1 capsule by mo [facility] once daily cholecalciferol (Vitamin D-3) 50 [...] 14 tablet 0 10/05/2022 10/12/2022 Active Multivit 63-Vwcn-Gcryub 1-Dha (Pnv-Dha) 27 mg iron-1 mg -300 mg capsule (13 sources) Start: 06-27-2023 Multivit 25-Jgxb-Alqnax 1-Dha (Pnv-Dha) 27 mg iron-1 mg -300 [...] Test Name Value Interpretation Reference Range Facility Control System Computer Scientist Office Visit Reporton 01-14-2025 Control System Computer Scientist Office Visit Report [facility] [address], [address] [place] [address] OFFICE VISIT Date of Service: 01/14/25 MR#: [id number] Acct: [id number] Name: SHELBY DIAZ Rep #: [id number] : 1995 Provider: Dr. 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 Is patient in pain?: No [...] past year?: No PFSH PFSH Surgical History [place] teeth extracted Family History Mother Family history of recurrent miscarriage 3 miscarriages Social History adopted: No household members: spouse and children number of children: 1 current occupational status: unemployed current occupation: [employer] current occupational exposures/hazards: No pets and animals: [...] 1-2 times per week duration: 30-45 minutes/day kimberly/restorationist: [employer]ism seatbelt use: always do you feel safe at home: Yes additional social history: Kailash - Rn Plastic Surgery History 2 Elective abortions Hx Para 1 [...] scheduled 09/12/24 (more content not included)... Normal [facility] Laboratory - Chemistry and C hemistry - challengeOrdered By: Renée Thurston on 01-08-2025 Glucose Ql (U) Negative [facility] Laboratory - UrinalysisOrder ed By: Renée Thurston on 01-08-2025 Protein Ql (U) Trace [facility] Control System Computer Scientist Office Visit Reporton 01-08-2025 Control System Computer Scientist Office Visit Report [facility] [address], [address] [place] [address] OFFICE VISIT Date of Service: 01/08/25 MR#: [id number] Acct: [id number] Name: SHELBY DIAZ Rep #: [id number] : 1995 Provider: ZOHAIB Mcclellan ams Age/Sex: 29/F Location: [facility] Status: Signed Intake Vital Signs 12/18/24 13:09 01/02/25 09:58 01/08/25 07:54 01/08/25 07:58 Height 5 ft 5 in 5 ft 5 in 5 ft 5 in 5 ft 5 in Weight: 169 lb BMI 28.1 BP 102/72 Intake Visit Reasons: 37 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 Is patient in pain?: No [...] 04/20/24 : No PFSH PFSH Surgical History [place] teeth extracted Family History Mother Family history of recurrent miscarriage 3 miscarriages Social History adopted: No household members: spouse and children number of children: 1 current occupational status: unemployed current occupation: [employer] current occupational exposures/hazards: No pets and animals: [...] 1-2 times per week duration: 30-45 minutes/day kimberly/restorationist: Mormonism seatbelt use: always do you feel safe at home: Yes additional social history: Kailash - Rn Plastic Surgery History 2 Elective abortions Hx Para 1 Spontaneous abortions Hx # Term Pregnancies 1 Ectopic pregnancies Hx # Pregnancies Multiple births # of living children 1 Past Pregnancies Del. Date Name GA/Weeks Outcome Route Bth Weight Gen Labor Lgth Anesthesia Del Locatn Provider FOB 01/26/24 Richie 38 live - full term 7#1oz Male none [facility] LJacqueline Co llins Kailash Delivery Date: 01/26/24 [...] ???-???-???-???-???-? ??-??? (more content not included)... Normal [facility] Rule out Beta Strep (Grp. B) on 01-06-2025 JESUS Streptococcus agalactiae (B) Amount Growth Growth Streptococcus agalactiae (B): REACTION Ampicillin Islt CHILO <=0.25 cefTRIAXone Islt CHILO <=0.12 S Clindamycin Islt CHILO >=1 R Clindamycin.induced Susc Islt NEG Linezolid Islt CHILO <=2 S Vancomycin Islt CHILO 0.5 S Normal [facility] Comment on above: Performed By: #### M 100.3400 #### [facility] [address] [place], [address] Laboratory - Chemistry and C hemistry - challengeOrdered By: Renuka Peters on 01-02-2025 Glucose Ql (U) Negative [facility] Laboratory - UrinalysisOrder ed By: Renuka Peters on 01-02-2025 Protein Ql (U) Negative [facility] Control System Computer Scientist Office Visit Reporton 01-02-2025 Control System Computer Scientist Office Visit Report [facility] [address], [address] [place] [address] OFFICE VISIT Date of Service: 01/02/25 MR#: [id number] Acct: [id number] Name: SHELBY DIAZ Rep #: [id number] : 1995 Provider: Dr. 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 Is patient in pain?: No [...] Negative : No PFSH PFSH Surgical History [place] teeth extracted Family History Mother Family history of recurrent miscarriage 3 miscarriages Social History adopted: No household members: spouse and children number of children: 1 current occupational status: unemployed current occupation: [employer] current occupational exposures/hazards: No pets and animals: [...] 1-2 times per week duration: 30-45 minutes/day kimberly/restorationist: Mormonism seatbelt use: always do you feel safe at home: Yes additional social history: Kailash - Rn Plastic Surgery History 2 Elective abortions Hx Para 1 [...] US scheduled (more content not included)... Normal [facility] Screening beta-hemolytic Str eptococcus cultureOrdered By: Renuka Peters on 01-02-2025 Beta-hemolytic Streptococcus culture Streptococcus agalactiae (B) Abnormal [facility] Laboratory - Chemistry and C hemistry - challengeOrdered By: Renuka Peters on 12-18-2024 Glucose Ql (U) Negative [facility] Laboratory - UrinalysisOrder ed By: Renuka Peters on 12-18-2024 Protein Ql (U) Negative [facility] Control System Computer Scientist Office Visit Reporton 12-18-2024 Control System Computer Scientist Office Visit Report [facility] [address], [address] [place] [address] OFFICE VISIT Date of Service: 12/18/24 MR#: [id number] Acct: [id number] Name: JOE,SHELBY LINETTE Rep #: [id number] : 1995 Provider: Dr. 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 Is patient in pain?: No [...] Negative : No PFSH PFSH Surgical History [place] teeth extracted Family History Mother Family history of recurrent miscarriage 3 miscarriages Social History adopted: No household members: spouse and children number of children: 1 current occupational status: unemployed current occupation: [employer] current occupational exposures/hazards: No pets and animals: [...] 1-2 times per week duration: 30-45 minutes/day kimberly/restorationist: Mormonism seatbelt use: always do you feel safe at home: Yes additional social history: Kailash - Rn Plastic Surgery History 2 Elective abortions Hx Para 1 Spontaneous abortions Hx # Term Pregnancies 1 Ectopic pregnancies Hx # Pregnancies Multiple births # of living children 1 Past Pregnancies Del. Date Name GA/Weeks Outcome Route Bth Weight Gen Labor Lgth Anesthesia Del Maganatn Provider FOB 01/26/24 Richie 38 live - full term 7#1oz Male none [facility] L. Co llins Kailash Delivery Date: 01/26/24 [...] US scheduled (more content not included)... Normal [facility] [place] [facility] Laboratory - Chemistry and C hemistry - challengeOrdered By: Fauzia Martines on 12-06-2024 Glucose Ql (U) Negative [facility] [place] [facility] Laboratory - UrinalysisOrder ed By: Fauzia Martines on 12-06-2024 Protein Ql (U) Trace [facility] [place] [facility] Control System Computer Scientist Office Visit Reporton 12-06-2024 Control System Computer Scientist Office Visit Report [facility] [address], [address] [place] [address] OFFICE VISIT Date of Service: 12/06/24 MR#: [id number] Acct: [id number] Name: SHELBY DIAZ Rep #: [id number] : 1995 Provider: ZOHAIB landa Age/Sex: 29/F Location: [facility] Status: Signed Intake Vital Signs 07/17/24 08:52 11/20/24 09:09 12/06/24 14:05 Height 5 ft 5 in 5 ft 5 in 5 ft 5 in Weight: 165 lb 2 oz BMI 27.4 BP 109/72 Intake Visit Reasons: 32 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 Is patient in pain?: No [...] Negative : No PFSH PFSH Surgical History [place] teeth extracted Family History Mother Family history of recurrent miscarriage 3 miscarriages Social History adopted: No household members: spouse and children number of children: 1 current occupational status: unemployed current occupation: [employer] current occupational exposures/hazards: No pets and animals: [...] 1-2 times per week duration: 30-45 minutes/day kimberly/restorationist: Mormonism seatbelt use: always do you feel safe at home: Yes additional social history: Kailash - Rn Plastic Surgery History 2 Elective abortions Hx Para 1 [...] 09/12/24 -???-???-???-???-???- (more content not included)... Normal [facility] [place] [facility] Laboratory - Chemistry and C hemistry - challengeOrdered By: Tracie Jackson on 11-20-2024 Glucose Ql (U) Negative [facility] [place] [facility] Laboratory - UrinalysisOrder ed By: Tracie Jackson on 11-20-2024 Protein Ql (U) Negative [facility] [place] [facility] Control System Computer Scientist Office Visit Reporton 11-20-2024 Control System Computer Scientist Office Visit Report [facility] [address], [address] [place] [address] OFFICE VISIT Date of Service: 11/20/24 MR#: [id number] Acct: [id number] Name: SHELBY DIAZ Rep #: [id number] : 1995 Provider: Dr. 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 Is patient in pain?: No [...] Negative : No PFSH PFSH Surgical History [place] teeth extracted Family History Mother Family history of recurrent miscarriage 3 miscarriages Social History adopted: No household members: spouse and children number of children: 1 current occupational status: unemployed current occupation: [employer] current occupational exposures/hazards: No pets and animals: [...] 1-2 times per week duration: 30-45 minutes/day kimberly/restorationist: Mormonism seatbelt use: always do you feel safe at home: Yes additional social history: Kailash - Rn Plastic Surgery History 2 Elective abortions Hx Para 1 [...] US scheduled (more content not included)... Normal [facility] Absolute lymphocyte countOrd ered By: Renuka Peters on 11-07-2024 Lymphocytes Auto (Unsp spec) [#/Vol] 1.84 10*3/uL 0.83-4.51 [facility] [place] [facility] Absolute neutrophil countOrd ered By: Renuka Peters on 11-07-2024 Neutrophils (Bld) [#/Vol] 6.1 10*3/uL 2.0-7.7 [facility] Automated lymphocyte count a s percentage of total leukocytesOrdered By: Renuka Peters on 11-07-2024 Lymphocytes/100 WBC Auto (Unsp spec) 21.4 % 19-41 [facility] Basophil percentageOrdered B y: Renuka Peters on 11-07-2024 Basophils/100 WBC (Bld) 0.3 % 0-1 [facility] CBC W/Diff, Automatedon Absolute Lymph 1.84 X10 3/uL Normal 0.83-4.51 [facility] Comment on above: Performed By: #### L 100.0100, L501.0250, L509.8002, L3890.6006 #### [facility] [address] [place], [address] Absolute Neut 6.1 X10 3/uL Normal 2.0-7.7 [facility] [place] [facility] Comment on above: Performed By: #### L 100.0100, L501.0250, L509.8002, L3890.6006 #### [facility] [address] [place], [address] Basophils/100 WBC (Bld) 0.3 % Normal 0-1 [facility] Comment on above: Performed By: #### L 100.0100, L501.0250, L509.8002, L3890.6006 #### [facility] [address] [place], [address] Eosinophils/100 WBC (Bld) 1.0 % Normal 0-5 [facility] [place] [facility] Comment on above: Performed By: #### L 100.0100, L501.0250, L509.8002, L3890.6006 #### [facility] [place] [facility] [address] [place], [address] Erythrocyte distribution width (RBC) [Ratio] 13.8 % Normal 11.6-14.6 [facility] [place] [facility] Comment on above: Performed By: #### L 100.0100, L501.0250, L509.8002, L3890.6006 #### [facility] [address] [place], [address] Hematocrit (Bld) [Volume fraction] 36.0 % Low 37-47 [facility] [place] [facility] Comment on above: Performed By: #### L 100.0100, L501.0250, L509.8002, L3890.6006 #### [facility] [place] [facility] [address] [place], [address] Hemoglobin (Bld) [Mass/Vol] 12.3 g/dL Normal 12.0-15.0 [facility] Comment on above: Performed By: #### L 100.0100, L501.0250, L509.8002, L3890.6006 #### [facility] [address] [place], [address] IG% 1.000 High 0.0-0.9 [facility] Comment on above: Result Comment: IG% - Immature Granulocytes (promyelocytes, myelocytes and metamyelocytes) > 1% indicates that a LEFT SHIFT is Present. Performed By: #### L 100.0100, L501.0250, L509.8002, L3890.6006 #### [facility] [address] [place], [address] Lymphocytes/100 WBC (Bld) 21.4 % Normal 19-41 [facility] [place] [facility] Comment on above: Performed By: #### L 100.0100, L501.0250, L509.8002, L3890.6006 #### [facility] [address] [place], [address] MCH (RBC) [Entitic mass] 30.2 pg Normal 27.0-32.0 [facility] [place] [facility] Comment on above: Performed By: #### L 100.0100, L501.0250, L509.8002, L3890.6006 #### [facility] [address] [place], [address] MCHC (RBC) [Mass/Vol] 34.2 g/dL Normal 32-36 [facility] Comment on above: Performed By: #### L 100.0100, L501.0250, L509.8002, L3890.6006 #### [facility] [address] [place], [address] MCV (RBC) [Entitic vol] 88.5 fL Normal 81-99 [facility] Comment on above: Performed By: #### L 100.0100, L501.0250, L509.8002, L3890.6006 #### [facility] [address] [place], [address] Monocytes/100 WBC (Bld) 5.6 % Normal 0-10 [facility] Comment on above: Performed By: #### L 100.0100, L501.0250, L509.8002, L3890.6006 #### [facility] [address] [place], [address] Neutrophils/100 WBC (Bld) 70.7 % High 47-70 [facility] [place] [facility] Comment on above: Performed By: #### L 100.0100, L501.0250, L509.8002, L3890.6006 #### [facility] [address] [place], [address] Nucleated RBC (Bld) [#/Vol] 0 10*3/uL Normal 0-5 [facility] Comment on above: Performed By: #### L 100.0100, L501.0250, L509.8002, L3890.6006 #### [facility] [address] [place], [address] Platelet mean volume (Bld) [Entitic vol] 9.7 fL Normal 6.2-12.0 [facility] Comment on above: Performed By: #### L 100.0100, L501.0250, L509.8002, L3890.6006 #### [facility] [address] [place], [address] Platelets (Bld) [#/Vol] 191 10*3/uL Normal 150-450 [facility] Comment on above: Performed By: #### L 100.0100, L501.0250, L509.8002, L3890.6006 #### [facility] [address] [place], [address] RBC (Bld) [#/Vol] 4.07 10*6/uL Low 4.2-5.4 [facility] Comment on above: Performed By: #### L 100.0100, L501.0250, L509.8002, L3890.6006 #### [facility] [address] [place], [address] RDW SD 44.6 fl High 35.1-43.9 [facility] Comment on above: Performed By: #### L 100.0100, L501.0250, L509.8002, L3890.6006 #### [facility] [address] [place], [address] WBC (Bld) [#/Vol] 8.6 10*3/uL Normal 4.4-11.0 [facility] Comment on above: Performed By: #### L 100.0100, L501.0250, L509.8002, L3890.6006 #### [facility] [address] [place], [address] Eosinophil percentageOrdered By: Renuka Peters on 11-07-2024 Eosinophils/100 WBC (Bld) 1.0 % 0-5 [facility] [place] [facility] Erythrocyte distribution wid th ratioOrdered By: Renuka Peters on 11-07-2024 Erythrocyte distribution width (RBC) [Ratio] 13.8 % 11.6-14.6 [facility] Erythrocyte distribution wid th standard deviationOrdered By: Renuka Peters on 11-07-2024 Erythrocyte distribution width (RBC) [Ratio] 44.6 fl High 35.1-43.9 [facility] Glucose Challenge Gest 1H 50 acacia 11-07-2024 GLU GEST 50g 1H 81 mg/dL Normal 70-140 [facility] Comment on above: Performed By: #### L 100.0100, L501.0250, L509.8002, L3890.6006 #### [facility] [address] [place], [address] Glucose measurement at 2 radha rs post-dose gestational glucose tolerance testOrdered By: Renuka Peters on 11-07-2024 Glucose [Mass/Vol] 81 mg/dL 70-140 [facility] HIVon 11-07-2024 HIV Non-Reactive Normal Nonreactive [facility] Comment on above: Result Comment: Non- Reactive Reactive Repeatedly reactive samples must be confirmed according to CDC recommended confirmatory algorithms. The subresults for either HIVAG or AHIV can be used as an aid in the selection of the confirmation algorithm for reactive samples. Send out specimens with Reactive results to [facility] for confirmation. Order the HIV antibody detection and differentiation: #[id number] Performed By: #### L 100.0100, L501.0250, L509.8002, L3890.6006 #### [facility] [address] [place], [place], [address] Hematocrit Auto (Bld) [Volum e fraction]Ordered By: Renuka Peters on 11-07-2024 Hematocrit (Bld) [Volume fraction] 36.0 % Low 37-47 [facility] Hemoglobin measurementOrdere d By: Renuka Peters on 11-07-2024 Hemoglobin (Bld) [Mass/Vol] 12.3 g/dL 12.0-15.0 [facility] Immature granulocytes/100 WB C Auto (Bld)Ordered By: Renuka Peters on 11-07-2024 Immature granulocytes/100 WBC (Bld) 1.000 % High 0.0-0.9 [facility] [facility] Comment on above: IG% - Immature Granu locytes (promyelocytes, myelocytes and metamyelocytes) > 1% indicates that a LEFT SHIFT is Present. Laboratory - Chemistry and C hemistry - challengeOrdered By: Jarrell Alvares on 11-07-2024 Glucose Ql (U) Negative [facility] Laboratory - UrinalysisOrder ed By: Jarrell Alvares on 11-07-2024 Protein Ql (U) Negative [facility] MCV (mean corpuscular volume ) determinationOrdered By: Renuka Peters on 11-07-2024 MCV (RBC) [Entitic vol] 88.5 fL 81-99 [facility] Mean corpuscular hemoglobin (MCH) determinationOrdered By: Renuka Peters on 11-07-2024 MCH (RBC) [Entitic mass] 30.2 pg 27.0-32.0 [facility] Mean corpuscular hemoglobin concentration (MCHC) determinationOrdered By: Renuka Peters on 11-07-2024 MCHC (RBC) [Mass/Vol] 34.2 g/dL 32-36 [facility] Mean platelet volume determi nationOrdered By: Renuka Peters on 11-07-2024 Platelet mean volume (Bld) [Entitic vol] 9.7 fL 6.2-12.0 [facility] Monocyte percentageOrdered B y: Renuka Peters on 11-07-2024 Monocytes/100 WBC (Bld) 5.6 % 0-10 [facility] Neutrophil percentageOrdered By: Renuka Peters on 11-07-2024 Neutrophils/100 WBC (Bld) 70.7 % High 47-70 [facility] No Panel InformationOrdered By: Renuka Peters on 11-07-2024 HIV (1&2) Antibody Non-Reactive Nonreactive [facility] Comment on above: Non-ReactiveReactive Repeatedly reactive samples must be confirmed according to CDC recommended confirmatory algorithms. The subresults for either HIVAG or AHIV can be used as an aid in the selection of the confirmation algorithm for reactive samples.Send out specimens with Reactive results to [facility] for confirmation.Order the HIV antibody detection and differentiation: #[id number] Nucleated red blood cell per centageOrdered By: Renuka Peters on 11-07-2024 Nucleated RBC/100 WBC (Bld) [Ratio] 0 % 0-5 [facility] Control System Computer Scientist Office Visit Reporton 11-07-2024 Control System Computer Scientist Office Visit Report [facility] [place] [facility] [address], [address] [place] [address] OFFICE VISIT Date of Service: 11/07/24 MR#: [id number] Acct: [id number] Name: SHELBY DIAZ Rep #: [id number] : 1995 Provider: MARÍA andrew Age/Sex: 29/F Location: [facility] Status: Signed Intake Vital Signs 07/17/24 08:52 10/09/24 09:41 11/07/24 14:14 11/07/24 14:15 Height 5 ft 5 in 5 ft 5 in 5 ft 5 in 5 ft 5 in Weight: 162 lb 8 oz BMI 27.0 BP 112/64 Intake Visit Reasons: 28 wk ob/glucose Chief Complaint: 28 Week 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 Date Name GA/Weeks Outcome Route Bth Weight Infant Gen Labor Lgth Anesthesia Del Locatn Provider FOB 01/26/24 Richie 38 live - full term 7#1oz Male none [facility] Kailash Delivery Date: 01/26/24 [...] flutters ye (more content not included)... Normal [facility] Platelet countOrdered By: Rob Peters on 11-07-2024 Platelets (Bld) [#/Vol] 191 10*3/uL 150-450 [facility] RBC Auto (Bld) [#/Vol]Ordere d By: Renuka Peters on 11-07-2024 RBC (Bld) [#/Vol] 4.07 10*6/uL Low 4.2-5.4 [facility] Syphilis Antibodieson 2024 Syphilis Abs Non-Reactive Normal Nonreactive [facility] Comment on above: Performed By: #### L 100.0100, L501.0250, L509.8002, L3890.6006 #### [facility] Laboratory [address] [place], [place] [address], [address] White blood cell (WBC) count Ordered By: Renuka Peters on 11-07-2024 WBC (Bld) [#/Vol] 8.6 10*3/uL 4.4-11.0 [facility] Laboratory - Chemistry and C hemistry - challengeOrdered By: Renuka Peters on 10-09-2024 Glucose Ql (U) Negative [facility] Laboratory - UrinalysisOrder ed By: Renuka Peters on 10-09-2024 Protein Ql (U) Negative [facility] Control System Computer Scientist Office Visit Reporton 10-09-2024 Control System Computer Scientist Office Visit Report [facility] [address], [address] [place] [address] OFFICE VISIT Date of Service: 10/09/24 MR#: [id number] Acct: [id number] Name: SHELBY DIAZ Rep #: [id number] : 1995 Provider: Dr. 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 Is patient in pain?: No [...] Negative : No PFSH PFSH Surgical History [place] teeth extracted Family History Mother Family history of recurrent miscarriage 3 miscarriages Social History adopted: No household members: spouse and children number of children: 1 current occupational status: unemployed current occupation: [employer] current occupational exposures/hazards: No pets and animals: [...] 1-2 times per week duration: 30-45 minutes/day kimberly/restorationist: Mormonism seatbelt use: always do you feel safe at home: Yes additional social history: Kailash - Rn Plastic Surgery History 2 Elective abortions Hx Para 1 [...] 09/12/24 -???-???-???-???- (more content not included)... Normal [facility] Laboratory - Chemistry and C hemistry - challengeOrdered By: Tracie Jackson on 09-12-2024 Glucose Ql (U) Negative [facility] Laboratory - UrinalysisOrder ed By: Tracie Jackson on 09-12-2024 Protein Ql (U) Negative [facility] Control System Computer Scientist Office Visit Reporton 09-12-2024 Control System Computer Scientist Office Visit Report [facility] [address], [address] [place] [address] OFFICE VISIT Date of Service: 09/12/24 MR#: [id number] Acct: [id number] Name: SHELBY DIAZ Rep #: [id number] : 1995 Provider: Dr. 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 Is patient in pain?: No [...] Negative : No PFSH PFSH Surgical History [place] teeth extracted Family History Mother Family history of recurrent miscarriage 3 miscarriages Social History adopted: No household members: spouse and children number of children: 1 current occupational status: unemployed current occupation: [employer] current occupational exposures/hazards: No pets and animals: [...] 1-2 times per week duration: 30-45 minutes/day kimberly/restorationist: Mormonism seatbelt use: always do you feel safe at home: Yes additional social history: Kailash - Rn Plastic Surgery History 2 Elective abortions Hx Para 1 Spontaneous abortions Hx # Term Pregnancies 1 Ectopic pregnancies Hx # Pregnancies Multiple births # of living children 1 Past Pregnancies Del. Date Name GA/Weeks Outcome Route Bth [facility] Richie 38 live - full term 7#1oz Male none [facility] Kailash Delivery Date: 01/26/24 [...] -???-???-???-???-???- ???-???-???-??? (more content not included)... Normal [facility] Laboratory - Chemistry and C hemistry - challengeOrdered By: Renuka Peters on 08-14-2024 Glucose Ql (U) Negative [facility] Laboratory - UrinalysisOrder ed By: Renuka Peters on 08-14-2024 Protein Ql (U) Negative [facility] Control System Computer Scientist Office Visit Reporton 08-14-2024 Control System Computer Scientist Office Visit Report [address], [address] [place] [address] OFFICE VISIT Date of Service: 08/14/24 MR#: [id number] Acct: [id number] Name: SHELBY DIAZ Rep #: [id number] : 1995 Provider: MARÍA andrew Age/Sex: 29/F Location: [facility] Status: Signed Intake Vital Signs 06/19/24 14:00 07/17/24 08:52 08/14/24 13:49 Height 5 ft 5 in 5 ft 5 in 5 ft 5 in Weight: 152 lb 6 oz BMI 25.3 BP 113/76 Intake Visit Reasons: 16 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 Is patient in pain?: No [...] past year?: No PFSH PFSH Surgical History [place] teeth extracted Family History Mother Family history of recurrent miscarriage 3 miscarriages Social History adopted: No household members: spouse and children number of children: 1 current occupational status: unemployed current occupation: [employer] current occupational exposures/hazards: No pets and animals: [...] 1-2 times per week duration: 30-45 minutes/day kimberly/restorationist: Mormonism seatbelt use: always do you feel safe at home: Yes additional social history: Kailash - Rn Plastic Surgery History 2 Elective abortions Hx Para 1 Spontaneous abortions Hx # Term Pregnancies 1 Ectopic pregnancies Hx # Pregnancies Multiple births # of living children 1 Past Pregnancies Del. Date Name GA/Weeks Outcome Route Bth Weight Infant Gen Labor Lgth Anesthesia Del Locatn Provider FOB 01/26/24 Richie 38 live - full term 7#1oz Male none [facility] Kailash Delivery Date: 01/26/24 [...] No flutters (more content not included)... Normal [facility] Laboratory - Chemistry and C hemistry - challengeon 07-17-2024 Glucose Ql (U) Negative [facility] Laboratory - Urinalysison Protein Ql (U) Negative [facility] Control System Computer Scientist Office Visit Reporton 07-17-2024 Control System Computer Scientist Office Visit Report [facility], [address] [place] [address] OFFICE VISIT Date of Service: 07/17/24 MR#: [id number] Acct: [id number] Name: SHELBY DIAZ Rep #: [id number] : 1995 Provider: MARÍA andrew Age/Sex: 29/F Location: [facility] Status: Signed Intake Vital Signs 03/08/24 15:16 06/19/24 14:00 07/17/24 08:52 07/17/24 09:14 Height 5 ft 5 in 5 ft 5 in 5 ft 5 in Weight: 150 lb 9.6 oz BP 110/76 Intake Visit Reasons: 12wk OB Chief Complaint: 12 Week 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 Is patient in pain?: No [...] Negative : No PFSH PFSH Surgical History [place] teeth extracted Family History Mother Family history of recurrent miscarriage 3 miscarriages Social History adopted: No household members: spouse and children number of children: 1 current occupational status: unemployed current occupation: [employer] current occupational exposures/hazards: No pets and animals: [...] 1-2 times per week duration: 30-45 minutes/day kimberly/restorationist: Mormonism seatbelt use: always do you feel safe at home: Yes additional social history: Kailash - Rn Plastic Surgery History 2 Elective abortions Hx Para 1 Spontaneous abortions Hx # Term Pregnancies 1 Ectopic pregnancies Hx # Pregnancies Multiple births # of living children 1 Past Pregnancies Del. Date Name GA/Weeks Outcome Route Bth Weight Infant Gen Labor Lgth Anesthesia Del Locatn Provider FOB 01/26/24 Richie 38 live - full term 7#1oz Male none [facility] Kailash Delivery Date: 01/26/24 [...] Toxoplasmosis Precati (more content not included)... Normal [facility] Chlamydia/GC BANDAR aptimaon CHLAMY,NUC ACID Negative Normal Negative [facility] Comment on above: Performed By: #### L 7000.1800, M100.2200 ####[facility] [address] [place], [address] GC BY NUC ACID Negative Normal Negative [facility] Comment on above: Result Comment: Perf ormed at: =G - [facility] [address] [id number] Vp Security: Bea Acosta MD, Phone: [phone] Performed By: #### L 7000.1800, M100.2200 ####[facility] [address] [place], [address] HIV - WCHon 06-20-2024 HIV Non-Reactive Normal Nonreactive [facility] Comment on above: Order Comment: Reaso n for Exam: Performed By: #### L 509.8000, L3890.6005, L100.0100, L3890.6300, L3890.6100, BTS, L509.4005 ####[facility] [address] [place], [address] Hepatitis B Surface Antigeno n 06-20-2024 HEP B Surf Ag Non-Reactive Normal Nonreactive [facility] Comment on above: Order Comment: Reaso n for Exam: Performed By: #### L 509.8000, L3890.6005, L100.0100, L3890.6300, L3890.6100, BTS, L509.4005 ####[facility] [address] [place], [address] Hepatitis C Antibodyon 06-20 Hepatitis C AB Non-Reactive Normal Nonreactive [facility] Comment on above: Order Comment: Reaso n for Exam: Result Comment: Non Reactive: < 0.8 Equivocal: >/= 0.8 to < 1.0 Reactive: >/= 1.0 The [facility] requires that a reactive/equivocal HCV antibody result be sent out for confirmation. HCV Quant by PCR testing. Performed By: #### L 509.8000, L3890.6005, L100.0100, L3890.6300, L3890.6100, BTS, L509.4005 ####[facility] [address] [place], [address] L509.8000on 06-20-2024 Syphilis Abs Non-Reactive Normal [facility] [place] [facility] Comment on above: Order Comment: Reaso n for Exam: Performed By: #### L 509.8000, L3890.6005, L100.0100, L3890.6300, L3890.6100, BTS, L509.4005 ####[facility] [address] [place], [address] Rubella IgGon 06-20-2024 Rubella IgG Reactive Normal Nonreactive [facility] [place] [facility] Comment on above: Order Comment: Reaso n for Exam: Result Comment: Anti body Results Interpretation of Immune Status Non Reactive Presumed Non-Immune Equivocal Equivocal Reactive Presumed Immune Performed By: #### L 509.8000, L3890.6005, L100.0100, L3890.6300, L3890.6100, BTS, L509.4005 ####[facility] [address] [place], [address] Urine Cultureon 06-20-2024 URC Culture exhibits no growth. Normal [facility] Comment on above: Performed By: #### L 7000.1800, M100.2200 ####[facility] [address] [place], [address] CBC W/Diff, Automatedon 06-02 Absolute Lymph 2.23 X10 3/uL Normal 0.83-4.51 [facility] [place] [facility] Comment on above: Performed By: #### L 509.8000, L3890.6005, L100.0100, L3890.6300, L3890.6100, BTS, L509.4005 #### [facility] Laboratory [address] [place], [address] Absolute Neut 6.1 X10 3/uL Normal 2.0-7.7 [facility] [place] [facility] Comment on above: Performed By: #### L 509.8000, L3890.6005, L100.0100, L3890.6300, L3890.6100, BTS, L509.4005 #### [facility] [place] [facility] [address] [place], [address] Basophils/100 WBC (Bld) 0.3 % Normal 0-1 [facility] Comment on above: Performed By: #### L 509.8000, L3890.6005, L100.0100, L3890.6300, L3890.6100, BTS, L509.4005 #### [facility] [address] [place], [address] Eosinophils/100 WBC (Bld) 0.8 % Normal 0-5 [facility] [place] [facility] Comment on above: Performed By: #### L 509.8000, L3890.6005, L100.0100, L3890.6300, L3890.6100, BTS, L509.4005 #### [facility] [place] [facility] [address] [place], [address] Erythrocyte distribution width (RBC) [Ratio] 13.4 % Normal 11.6-14.6 [facility] Comment on above: Performed By: #### L 509.8000, L3890.6005, L100.0100, L3890.6300, L3890.6100, BTS, L509.4005 #### [facility] [address] [place], [address] Hematocrit (Bld) [Volume fraction] 37.9 % Normal 37-47 [facility] [place] [facility] Comment on above: Performed By: #### L 509.8000, L3890.6005, L100.0100, L3890.6300, L3890.6100, BTS, L509.4005 #### [facility] [address] [place], [address] Hemoglobin (Bld) [Mass/Vol] 12.5 g/dL Normal 12.0-15.0 [facility] Comment on above: Performed By: #### L 509.8000, L3890.6005, L100.0100, L3890.6300, L3890.6100, BTS, L509.4005 #### [facility] [address] [place], [address] IG% 0.300 Normal 0.0-0.9 [facility] Comment on above: Result Comment: IG% - Immature Granulocytes (promyelocytes, myelocytes and metamyelocytes) > 1% indicates that a LEFT SHIFT is Present. Performed By: #### L 509.8000, L3890.6005, L100.0100, L3890.6300, L3890.6100, BTS, L509.4005 #### [facility] [address] [place], [address] Lymphocytes/100 WBC (Bld) 25.0 % Normal 19-41 [facility] [place] [facility] Comment on above: Performed By: #### L 509.8000, L3890.6005, L100.0100, L3890.6300, L3890.6100, BTS, L509.4005 #### [facility] [place] [facility] [address] [place], [address] MCH (RBC) [Entitic mass] 27.4 pg Normal 27.0-32.0 [facility] Comment on above: Performed By: #### L 509.8000, L3890.6005, L100.0100, L3890.6300, L3890.6100, BTS, L509.4005 #### [facility] [address] [place], [address] MCHC (RBC) [Mass/Vol] 33.0 g/dL Normal 32-36 [facility] Comment on above: Performed By: #### L 509.8000, L3890.6005, L100.0100, L3890.6300, L3890.6100, BTS, L509.4005 #### [facility] [address] [place], [address] MCV (RBC) [Entitic vol] 82.9 fL Normal 81-99 [facility] Comment on above: Performed By: #### L 509.8000, L3890.6005, L100.0100, L3890.6300, L3890.6100, BTS, L509.4005 #### [facility] [address] [place], [address] Monocytes/100 WBC (Bld) 5.5 % Normal 0-10 [facility] Comment on above: Performed By: #### L 509.8000, L3890.6005, L100.0100, L3890.6300, L3890.6100, BTS, L509.4005 #### [facility] [address] [place], [address] Neutrophils/100 WBC (Bld) 68.1 % Normal 47-70 [facility] Comment on above: Performed By: #### L 509.8000, L3890.6005, L100.0100, L3890.6300, L3890.6100, BTS, L509.4005 #### [facility] [address] [place], [address] Nucleated RBC (Bld) [#/Vol] 0 10*3/uL Normal 0-5 [facility] Comment on above: Performed By: #### L 509.8000, L3890.6005, L100.0100, L3890.6300, L3890.6100, BTS, L509.4005 #### [facility] [address] [place], [address] Platelet mean volume (Bld) [Entitic vol] 10.0 fL Normal 6.2-12.0 [facility] Comment on above: Performed By: #### L 509.8000, L3890.6005, L100.0100, L3890.6300, L3890.6100, BTS, L509.4005 #### [facility] [address] [place], [address] Platelets (Bld) [#/Vol] 262 10*3/uL Normal 150-450 [facility] Comment on above: Performed By: #### L 509.8000, L3890.6005, L100.0100, L3890.6300, L3890.6100, BTS, L509.4005 #### [facility] [address] [place], [address] RBC (Bld) [#/Vol] 4.57 10*6/uL Normal 4.2-5.4 [facility] Comment on above: Performed By: #### L 509.8000, L3890.6005, L100.0100, L3890.6300, L3890.6100, BTS, L509.4005 #### [facility] [address] [place], [address] RDW SD 40.7 fl Normal 35.1-43.9 [facility] Comment on above: Performed By: #### L 509.8000, L3890.6005, L100.0100, L3890.6300, L3890.6100, BTS, L509.4005 #### [facility] [address] [place], [address] WBC (Bld) [#/Vol] 8.9 10*3/uL Normal 4.4-11.0 [facility] Comment on above: Performed By: #### L 509.8000, L3890.6005, L100.0100, L3890.6300, L3890.6100, BTS, L509.4005 #### [facility] [address] [place], [address] Control System Computer Scientist Office Visit Reporton 06-19-2024 Control System Computer Scientist Office Visit Report [facility] [address], [address] [place] [address] OFFICE VISIT Date of Service: 06/19/24 MR#: [id number] Acct: [id number] Name: SHELBY DIAZ Rep #: [id number] : 1995 Provider: Dr. 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 Is patient in pain?: No [...] past year?: No PFSH PFSH Surgical History [place] teeth extracted Family History Mother Family history of recurrent miscarriage 3 miscarriages Social History adopted: No household members: spouse and children number of children: 1 service: No current occupational status: unemployed current occupation: [employer] current occupational exposures/hazards: No pets and animals: [...] 1-2 times per week duration: 30-45 minutes/day kimberly/restorationist: Mormonism seatbelt use: always do you feel safe at home: Yes additional social history: Kailash - Rn Plastic Surgery History 2 Elective abortions Hx Para 1 Spontaneous abortions Hx # Term Pregnancies 1 Ectopic pregnancies Hx # Pregnancies Multiple births # of living children 1 Past Pregnancies Del. Date Name GA/Weeks Outcome Route Bth Weight Gen Labor Lgth Anesthesia Del Locatn Provider FOB 01/26/24 Richie 38 live - full term 7#1oz Male none [facility] Kailash Delivery Date: 01/26/24 [...] Abnormality: Other, (more content not included)... Normal [facility] Type AND Screenon 06-19-2024 ABO and Rh group Nom (Bld) Blood group O Rh(D) positive Normal [facility] Comment on above: Order Comment: PN Performed By: #### L 509.8000, L3890.6005, L100.0100, L3890.6300, L3890.6100, BTS, L509.4005 ####[facility] [address] [place], [address] Control System Computer Scientist Office Visit Reporton 03-08-2024 Control System Computer Scientist Office Visit Report [facility] Women's [address], [address] [place] [address] OFFICE VISIT Date of Service: 03/08/24 MR#: [id number] Acct: [id number] Name: SHELBY DIAZ Rep #: [id number] : 1995 Provider: Dr. Renuka wilkinson MD Age/Sex: 28/F Location: [facility] Status: Signed Intake Vital Signs 01/29/24 08:56 03/08/24 15:14 03/08/24 15:16 Height 5 ft 5 in 5 ft 5 in 5 ft 5 in Weight: 151 lb BMI 25.1 BP 114/75 Intake Visit Reasons: visit (obstetrics) 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 Is patient in pain?: No Allergies No Known Allergies Allergy (Verified 03/08/24 15:14) Medications ???Medication ???Instructions ???Recorded ???Confirmed ???Type multivitamin no.47-iron fum 27 cap PO 06/27/23 03/08/24 History mg-folate no.1 1 mg-dha 300 mg capsule (PNV-DHA) cholecalciferol (vitamin D3) 25 25 mcg PO QDAY 03/08/24 03/08/24 History mcg (1,000 unit) capsule : Yes PFSH Surgical History [place] teeth extracted Family History Mother Family history [...] 1-2 times per week duration: 30-45 minutes/day kimberly/restorationist: Mormonism seatbelt use: sometimes do you feel safe at home: Yes additional social history: Kailash - Rn Plastic Surgery History 1 Elective abortions Hx Para 0 Spontaneous abortions Hx # Term Pregnancies 1 Ectopic pregnancies Hx # Pregnancies Multiple births # of living children 1 Past Pregnancies Del. Date Name GA/Weeks Outcome Route Bth Weight Infant Gen Labor Lgth Anesthesia Del [facility] Provider FOB 01/26/24 Richie 38 live - [...] visit. Infant Feeding: Breast Menses resumed: No Mcmullen since delivery: No Emotional Support: Yes Last [...] Level of (more content not included)... Normal [facility] [address] [place] [address] OFFICE VISIT Date of Service: 01/29/24 MR#: [id number] Acct: [id number] Name: SHELBY DIAZ Rep #: [id number] : 1995 Provider: Pat Kapadia NP Age/Sex: 28/F Location: [facility] Status: Signed Intake Vital Signs 01/26/24 16:13 Height 5 ft 5 in Intake Visit Reasons: Chief Complaint: assessment Accompanied by: Allergies No Known Allergies Allergy (Verified 01/26/24 16:06) : Yes PFSH PFSH Surgical History [place] teeth extracted Family History Mother Family history [...] 1-2 times per week duration: 30-45 minutes/day kimberly/restorationist: Mormonism seatbelt use: sometimes do you feel safe at home: Yes additional social history: Kailash - Rn Plastic Surgery History 1 Elective abortions Hx Para 0 [...] with PRN. Coding Level of Care Code 56608 PRVT COUNSELING INDIVID Diagnoses Care and examination of lactating mother Z39.1 Time Spent (min) 01/29/24 0856 Date Pat Kang DENTAL OFFICE COORDINATOR DENTAL OFFICE COORDINATOR-C Cosigner Signature: Date (if applicable) CC: Normal [facility] [place] [facility] CBC W/Diff, Automatedon 07-2 Absolute Lymph 1.60 X10 3/uL Normal 0.83-4.51 [facility] [place] [facility] Comment on above: Performed By: #### L 100.0100 ####[facility] [address] [place], [address] Absolute Neut 8.6 X10 3/uL High 2.0-7.7 [facility] [place] [facility] Comment on above: Performed By: #### L 100.0100 ####[facility] [address] [place], [address] Basophils/100 WBC (Bld) 0.4 % Normal 0-1 [facility] Comment on above: Performed By: #### L 100.0100 ####[facility] [place] [facility] [address] [place], [address] Eosinophils/100 WBC (Bld) 0.4 % Normal 0-5 [facility] [place] [facility] Comment on above: Performed By: #### L 100.0100 ####[facility] [address] [place], [address] Erythrocyte distribution width (RBC) [Ratio] 13.1 % Normal 11.6-14.6 [facility] [place] [facility] Comment on above: Performed By: #### L 100.0100 ####[facility] [address] [place], [address] Hematocrit (Bld) [Volume fraction] 31.1 % Low 37-47 [facility] [place] [facility] Comment on above: Performed By: #### L 100.0100 ####[facility] [address] [place], [address] Hemoglobin (Bld) [Mass/Vol] 10.6 g/dL Low 12.0-15.0 [facility] [place] [facility] Comment on above: Performed By: #### L 100.0100 ####[facility] [address] [place], [address] IG% 1.000 High 0.0-0.9 [facility] [place] [facility] Comment on above: Result Comment: IG% - Immature Granulocytes (promyelocytes, myelocytes and metamyelocytes) > 1% indicates that a LEFT SHIFT is Present. Performed By: #### L 100.0100 ####[facility] [place] [facility] [address] [place], [address] Lymphocytes/100 WBC (Bld) 14.1 % Low 19-41 [facility] [place] [facility] Comment on above: Performed By: #### L 100.0100 ####[facility] [address] [place], [address] MCH (RBC) [Entitic mass] 30.4 pg Normal 27.0-32.0 [facility] [place] [facility] Comment on above: Performed By: #### L 100.0100 ####[facility] [address] [place], [address] MCHC (RBC) [Mass/Vol] 34.1 g/dL Normal 32-36 [facility] Comment on above: Performed By: #### L 100.0100 ####[facility] [place] [facility] [address] [place], [address] MCV (RBC) [Entitic vol] 89.1 fL Normal 81-99 [facility] Comment on above: Performed By: #### L 100.0100 ####[facility] [place] [facility] [address] [place], [address] Monocytes/100 WBC (Bld) 8.4 % Normal 0-10 [facility] Comment on above: Performed By: #### L 100.0100 ####[facility] [place] [facility] [address] [place], [address] Neutrophils/100 WBC (Bld) 75.7 % High 47-70 [facility] [place] [facility] Comment on above: Performed By: #### L 100.0100 ####[facility] [address] [place], [address] Nucleated RBC (Bld) [#/Vol] 0 10*3/uL Normal 0-5 [facility] [place] [facility] Comment on above: Performed By: #### L 100.0100 ####[facility] [address] [place], [address] Platelet mean volume (Bld) [Entitic vol] 10.7 fL Normal 6.2-12.0 [facility] [place] [facility] Comment on above: Performed By: #### L 100.0100 ####[facility] [address] [place], [address] Platelets (Bld) [#/Vol] 149 10*3/uL Low 150-450 [facility] [place] [facility] Comment on above: Performed By: #### L 100.0100 ####[facility] [address] [place], [address] RBC (Bld) [#/Vol] 3.49 10*6/uL Low 4.2-5.4 [facility] Comment on above: Performed By: #### L 100.0100 ####[facility] [place] [facility] [address] [place], [address] RDW SD 42.3 fl Normal 35.1-43.9 [facility] [place] [facility] Comment on above: Performed By: #### L 100.0100 ####[facility] [address] [place], [address] WBC (Bld) [#/Vol] 11.3 10*3/uL High 4.4-11.0 [facility] Comment on above: Performed By: #### L 100.0100 ####[facility] [place] [facility] [address] [place], [address] Absolute Lymph 0.61 X10 3/uL Low 0.83-4.51 [facility] [place] [facility] Comment on above: Order Comment: Comme nts: First day Performed By: #### L 100.0100 ####[facility] [address] [place], [address] Absolute Neut 12.4 X10 3/uL High 2.0-7.7 [facility] [place] [facility] Comment on above: Order Comment: Comme nts: First day Performed By: #### L 100.0100 ####[facility] [address] [place], [address] Basophils/100 WBC (Bld) 0.1 % Normal 0-1 [facility] Comment on above: Order Comment: Comme nts: First day Performed By: #### L 100.0100 ####[facility] [place] [facility] [address] [place], [address] Eosinophils/100 WBC (Bld) 0.0 % Normal 0-5 [facility] [place] [facility] Comment on above: Order Comment: Comme nts: First day Performed By: #### L 100.0100 ####[facility] [place] [facility] [address] [place], [address] Erythrocyte distribution width (RBC) [Ratio] 12.6 % Normal 11.6-14.6 [facility] [place] [facility] Comment on above: Order Comment: Comme nts: First day Performed By: #### L 100.0100 ####[facility] [address] [place], [address] Hematocrit (Bld) [Volume fraction] 30.3 % Low 37-47 [facility] [place] [facility] Comment on above: Order Comment: Comme nts: First day Performed By: #### L 100.0100 ####[facility] [address] [place], [address] Hemoglobin (Bld) [Mass/Vol] 10.5 g/dL Low 12.0-15.0 [facility] [place] [facility] Comment on above: Order Comment: Comme nts: First day Performed By: #### L 100.0100 ####[facility] [place] [facility] [address] [place], [address] IG% 0.600 Normal 0.0-0.9 [facility] [place] [facility] Comment on above: Order Comment: Comme nts: First day Result Comment: IG% - Immature Granulocytes (promyelocytes, myelocytes and metamyelocytes) > 1% indicates that a LEFT SHIFT is Present. Performed By: #### L 100.0100 ####[facility] [place] [facility] [address] [place], [address] Lymphocytes/100 WBC (Bld) 4.4 % Low 19-41 [facility] [place] [facility] Comment on above: Order Comment: Comme nts: First day Performed By: #### L 100.0100 ####[facility] [address] [place], [address] MCH (RBC) [Entitic mass] 30.6 pg Normal 27.0-32.0 [facility] [place] [facility] Comment on above: Order Comment: Comme nts: First day Performed By: #### L 100.0100 ####[facility] [address] [place], [address] MCHC (RBC) [Mass/Vol] 34.7 g/dL Normal 32-36 [facility] Comment on above: Order Comment: Comme nts: First day Performed By: #### L 100.0100 ####[facility] [place] [facility] [address] [place], [address] MCV (RBC) [Entitic vol] 88.3 fL Normal 81-99 [facility] Comment on above: Order Comment: Comme nts: First day Performed By: #### L 100.0100 ####[facility] [place] [facility] [address] [place], [address] Monocytes/100 WBC (Bld) 6.2 % Normal 0-10 [facility] Comment on above: Order Comment: Comme nts: First day Performed By: #### L 100.0100 ####[facility] [place] [facility] [address] [place], [address] Neutrophils/100 WBC (Bld) 88.7 % High 47-70 [facility] [place] [facility] Comment on above: Order Comment: Comme nts: First day Performed By: #### L 100.0100 ####[facility] [place] [facility] [address] [place], [address] Nucleated RBC (Bld) [#/Vol] 0 10*3/uL Normal 0-5 [facility] [place] [facility] Comment on above: Order Comment: Comme nts: First day Performed By: #### L 100.0100 ####[facility] [address] [place], [address] Platelet mean volume (Bld) [Entitic vol] 11.0 fL Normal 6.2-12.0 [facility] [place] [facility] Comment on above: Order Comment: Comme nts: First day Performed By: #### L 100.0100 ####[facility] [address] [place], [address] Platelets (Bld) [#/Vol] 110 10*3/uL Low 150-450 [facility] [place] [facility] Comment on above: Order Comment: Comme nts: First day Performed By: #### L 100.0100 ####[facility] [address] [place], [address] RBC (Bld) [#/Vol] 3.43 10*6/uL Low 4.2-5.4 [facility] Comment on above: Order Comment: Comme nts: First day Performed By: #### L 100.0100 ####[facility] [address] [place], [address] RDW SD 40.1 fl Normal 35.1-43.9 [facility] [place] [facility] Comment on above: Order Comment: Comme nts: First day Performed By: #### L 100.0100 ####[facility] [address] [place], [address] WBC (Bld) [#/Vol] 13.9 10*3/uL High 4.4-11.0 [facility] Comment on above: Order Comment: Comme nts: First day Performed By: #### L 100.0100 ####[facility] [address] [place], [address] (ROM) Rupture Of Membraneson 01-26-2024 ROM Positive Abnormal Negative [facility] Comment on above: Result Comment: Amni otic fluid present indicates rupture of Membranes. RESULTS CALLED TO SANTINO SNYDER AT [facility] 01/26/24 Coby4 Renetta Santos. REPORT READ BACK BY SAME . Performed By: #### L 205.1000 ####[facility] [address] [place], [address] CBC W/Diff, Automatedon - Absolute Lymph 0.71 X10 3/uL Low 0.83-4.51 [facility] [place] [facility] Comment on above: Performed By: #### B BRENDAN, L100.0100 ####[facility] [address] [place], [address] Absolute Neut 7.2 X10 3/uL Normal 2.0-7.7 [facility] [place] [facility] Comment on above: Performed By: #### B BRENDAN, L100.0100 ####[facility] [address] [place], [address] Basophils/100 WBC (Bld) 0.2 % Normal 0-1 [facility] Comment on above: Performed By: #### B BRENDAN, L100.0100 ####[facility] [address] [place], [address] Eosinophils/100 WBC (Bld) 0.3 % Normal 0-5 [facility] [place] [facility] Comment on above: Performed By: #### Nasrin CARDONA, L100.0100 ####[facility] [address] [place], [address] Erythrocyte distribution width (RBC) [Ratio] 12.7 % Normal 11.6-14.6 [facility] [place] [facility] Comment on above: Performed By: #### Nasrin CARDONA, L100.0100 ####[facility] [address] [place], [address] Hematocrit (Bld) [Volume fraction] 35.2 % Low 37-47 [facility] [place] [facility] Comment on above: Performed By: #### Nasrin CARDONA, L100.0100 ####[facility] [address] [place], [address] Hemoglobin (Bld) [Mass/Vol] 11.8 g/dL Low 12.0-15.0 [facility] Comment on above: Performed By: #### Nasrin CARDONA, L100.0100 ####[facility] [address] [place], [address] IG% 0.700 Normal 0.0-0.9 [facility] Comment on above: Result Comment: IG% - Immature Granulocytes (promyelocytes, myelocytes and metamyelocytes) > 1% indicates that a LEFT SHIFT is Present. Performed By: #### Nasrin CARDONA, L100.0100 ####[facility] [address] [place], [address] Lymphocytes/100 WBC (Bld) 8.3 % Low 19-41 [facility] Comment on above: Performed By: #### Nasrin CARDONA, L100.0100 ####[facility] [address] [place], [address] MCH (RBC) [Entitic mass] 29.8 pg Normal 27.0-32.0 [facility] Comment on above: Performed By: #### Nasrin CARDONA, L100.0100 ####[facility] [address] [place], [address] MCHC (RBC) [Mass/Vol] 33.5 g/dL Normal 32-36 [facility] Comment on above: Performed By: #### Nasrin CARDONA, L100.0100 ####[facility] [address] [place], [address] MCV (RBC) [Entitic vol] 88.9 fL Normal 81-99 [facility] Comment on above: Performed By: #### Nasrin CARDONA, L100.0100 ####[facility] [address] [place], [address] Monocytes/100 WBC (Bld) 6.3 % Normal 0-10 [facility] Comment on above: Performed By: #### Nasrin CARDONA, L100.0100 ####[facility] [address] [place], [address] Neutrophils/100 WBC (Bld) 84.2 % High 47-70 [facility] Comment on above: Performed By: #### Nasrin CARDONA, L100.0100 ####[facility] [address] [place], [address] Nucleated RBC (Bld) [#/Vol] 0 10*3/uL Normal 0-5 [facility] Comment on above: Performed By: #### Nasrin CARDOAN, L100.0100 ####[facility] [address] [place], [address] Platelet mean volume (Bld) [Entitic vol] 10.9 fL Normal 6.2-12.0 [facility] Comment on above: Performed By: #### Nasrin CARDONA, L100.0100 ####[facility] [address] [place], [address] Platelets (Bld) [#/Vol] 156 10*3/uL Normal 150-450 [facility] Comment on above: Performed By: #### Nasrin CARDONA, L100.0100 ####[facility] [address] [place], [address] RBC (Bld) [#/Vol] 3.96 10*6/uL Low 4.2-5.4 [facility] Comment on above: Performed By: #### Nasrin CARDONA, L100.0100 ####[facility] [address] [place], [address] RDW SD 41.8 fl Normal 35.1-43.9 [facility] Comment on above: Performed By: #### aNsrin CARDONA, L100.0100 ####[facility] [address] [place], [address] WBC (Bld) [#/Vol] 8.6 10*3/uL Normal 4.4-11.0 [facility] Comment on above: Performed By: #### Nasrin CARDONA, L100.0100 ####[facility] [address] [place], [address] Discharge Instructionon 01-01 Discharge Instruction [facility] Medical Records Department [address] [place] [address] Instructions for Home/Discharge Instructions 01/26/24 2302 MR#: [id number] Acct: [id number] Name: SHELBY DIAZ Rep #: [id number] : 1995 28 From: Fauzia Martines CNM [...] Martines CNM CC: KENNETH DAVIS Signed Normal [facility] H AND P Exam - OB/GYNon 01-01 H&P Exam - INVESTMENT FUND MANAGER [facility] Medical Records Department [address] [place] [address] H P Exam - INVESTMENT FUND MANAGER 01/26/24 1938 MR#: [id number] Acct: [id number] Name: SHELBY DIAZ Rep #: [id number] : 1995 From: Fauzia Martines CNM PCP: KENNETH DAVIS Status:ADM IN Location: [id number] HPI - General General Date of Admission: [...] of recurrent miscarriage 3 miscarriages Surgical History [place] teeth extracted Social History adopted: No household [...] 1-2 times per week duration: 30-45 minutes/day kimberly/restorationist: Mormonism seatbelt use: sometimes do you feel safe at home: Yes additional social history: Kailash - Rn Plastic Surgery History 1 Elective abortions Hx Para 0 [...] -???-???-???-???-???- ???-???-???-???-? (more content not included)... Normal [facility] L509.8000on 01-26-2024 Syphilis Abs Non-Reactive Normal [facility] Comment on above: Performed By: #### L 509.8000 ####[facility] [address] [place], [address] Control System Computer Scientist Office Visit Reporton 01-26-2024 Control System Computer Scientist Office Visit Report [facility] [address] [place] [address] OFFICE VISIT Date of Service: 01/26/24 MR#: [id number] Acct: [id number] Name: SHELBY DIAZ Rep #: [id number] : 1995 Provider: Dr. 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 Is patient in pain?: No Allergies No Known Allergies Allergy (Verified 01/26/24 14:31) Medications ???Medication ???Instructions ???Recorded ???Confirmed ???Type multivitamin no.47-iron fum 27 cap PO 06/27/23 01/26/24 History mg-folate no.1 1 mg-dha 300 mg capsule (PNV-DHA) Last Menstrual Period: 05/02/23 Zika: Zika virus screening: Negative : No PFSH PFSH Surgical History [place] teeth extracted Family History Mother Family history [...] 1-2 times per week duration: 30-45 minutes/day kimberly/restorationist: Mormonism seatbelt use: sometimes do you feel safe at home: Yes additional social history: Kailash - Rn Plastic Surgery History 1 Elective abortions Hx Para 0 [...] -???-???-???-???-???- ?? (more content not included)... Normal [facility] Operative Reporton 4 Operative Report [facility] Medical Records Department [address] [place] [address] Operative Report 01/26/24 2257 MR#: [id number] Acct: [id number] Name: SHELBY DIAZ Rep #: [id number] : 1995 28 From: Fauzia Martines CNM PCP: KENNETH DAVIS Status:ADM IN Location: [id number] Assessment Plan (1) (spontaneous vaginal delivery): COMMENT: LC IAL/SROM boy: Richie (2) Hemorrhage: COMMENT: 600 EBL s/p pit, methergine manual clot removal Maternal Data Information FANTA Calculator Estimated Delivery Date Method Current WG Current Estimate 02/06/24 LMP (Certain) 38w 3d Final FANTA: 02/06/24 Final AFNTA Source: LMP Gestational age: 38.3 Vaginal Delivery [...] None Laceration: 1st degree Procedures Urinary/Genital 52xxx-59xxx: 34981 Vaginal Delivery global pkg 01/26/24 2302 Cosigner Signature (if applicable): CC: ZOHAIB Martines; KENNETH DAVIS Signed Normal [facility] Type AND Screenon 01-26-2024 Ab SCREEN GEL Negative Normal [facility] Comment on above: Order Comment: Labor Performed By: #### B TS, L100.0100 ####[facility] [address] [place], [address] Laboratory - Chemistry and C hemistry - challengeon 10-23-2023 Glucose Ql (U) Negative [facility] Laboratory - Urinalysison Protein Ql (U) Negative [facility] No Panel InformationOrdered By: Renuka Peters on 10-02-2023 Miscellaneous Test Comment SEE SCANNED REPORT [facility] Laboratory - Chemistry and C hemistry - challengeon 09-29-2023 Glucose Ql (U) Negative [facility] Laboratory - Urinalysison Protein Ql (U) Negative [facility] Laboratory - Chemistry and C hemistry - challengeon 08-30-2023 Glucose Ql (U) Negative [facility] Laboratory - Urinalysison Protein Ql (U) Negative [facility] Laboratory - Chemistry and C hemistry - challengeon 08-02-2023 Glucose Ql (U) Negative [facility] Laboratory - Urinalysison Protein Ql (U) Negative [facility] Absolute lymphocyte countOrd ered By: Fauzia Martines on 07-07-2023 Lymphocytes Auto (Unsp spec) [#/Vol] 1.83 10*3/uL 0.83-4.51 [facility] Basophil percentageOrdered B y: Fauzia Martines on 07-07-2023 Basophils/100 WBC (Bld) 0.4 % 0-1 [facility] Eosinophils/100 WBC (Bld) 0.8 % 0-5 [facility] Neutrophils (Bld) [#/Vol] 6.8 10*3/uL 2.0-7.7 [facility] Neutrophils/100 WBC (Bld) 73.5 % 47-70 [facility] WBC (Bld) [#/Vol] 9.3 10*3/uL 4.4-11.0 [facility] Blood erythrocytes count (nu mber/volume)Ordered By: Fauzia Martines on 07-07-2023 RBC (Bld) [#/Vol] 4.36 10*6/uL 4.2-5.4 [facility] Blood hemoglobin measurement (mass/volume)Ordered By: Fauzia Martines on 07-07-2023 Hemoglobin (Bld) [Mass/Vol] 12.6 g/dL 12.0-15.0 [facility] Blood lymphocytes/100 leukoc ytesOrdered By: Fauzia Martines on 07-07-2023 Lymphocytes/100 WBC (Bld) 19.7 % 19-41 [facility] Blood monocytes/100 leukocyt esOrdered By: Fauzia Martines on 07-07-2023 Monocytes/100 WBC (Bld) 5.3 % 0-10 [facility] Blood platelet mean volumeOr dered By: Fauzia Martines on 07-07-2023 Platelet mean volume (Bld) [Entitic vol] 9.8 fL 6.2-12.0 [facility] Cervical or vagninal specime n microscopic examination by cytology stain (reported asOrdered By: Fauzia Martines on 07-07-2023 Cytology report Cyto stain Doc (Cvx/Vag) Comment . [facility] Comment on above: The Pap smear [...] rRNA BANDAR+probe Ql (Unsp spec) Negative Negative [facility] Culture, urineOrdered By: Modesta Martines on 07-07-2023 Bacteria identified Cx Nom (U) Mixed Gram Pos & Gram Neg Org [facility] Bacteria identified Cx Nom (U) Mixed Gram Pos & Gram Neg Org [facility] Determination of erythrocyte mean corpuscular volume (MCV)Ordered By: Fauzia Martines on 07-07-2023 MCV (RBC) [Entitic vol] 86.7 fL 81-99 [facility] HIV 1 and HIV-2 antibody ass ay with HIV-1 p24 antigen detectionOrdered By: Fauzia Martines on 07-07-2023 HIV 1+2 Ab+HIV1 p24 Ag IA Ql Non-Reactive Nonreactive [facility] Hematocrit Auto (Bld) [Volum e fraction]Ordered By: Fauzia Martines on 07-07-2023 Hematocrit (Bld) [Volume fraction] 37.8 % 37-47 [facility] Laboratory - Chemistry and C hemistry - challengeon 07-07-2023 Bilirubin Ql (U) Small (1+) [facility] Glucose Ql (U) Negative [facility] Ketones Ql (U) Negative [facility] pH (U) 5.0 [pH] [facility] Specific gravity (U) [Rel density] 1.015 [facility] Urobilinogen (U) [Mass/Vol] 0.4721729 mg/dL [facility] Laboratory - CytologyOrdered By: Fauzia Martines on 07-07-2023 Rigger Cyto stain Nom (Cvx/Vag) [ID] Comment . [facility] Comment on above: Flo Tapia , Patient Access Registrar (ASCP) Laboratory - Hematology and Cell countsOrdered By: Fauzia Martines on 07-07-2023 Erythrocyte distribution width (RBC) [Entitic vol] 40.6 fL 35.1-43.9 [facility] Erythrocyte distribution width (RBC) [Ratio] 13.0 % 11.6-14.6 [facility] Immature granulocytes/100 WBC (Bld) 0.300 % 0.0-0.9 [facility] Comment on above: IG% - Immature Granu locytes (promyelocytes, myelocytes and metamyelocytes) > 1% indicates that a LEFT SHIFT is Present. MCH (RBC) [Entitic mass] 28.9 pg 27.0-32.0 [facility] Nucleated RBC/100 WBC (Bld) [Ratio] 0 % 0-5 [facility] Laboratory - Hematology and Cell countson 07-07-2023 Hemoglobin Ql (U) Negative [facility] Laboratory - Microbiology an d Antimicrobial susceptibilityOrdered By: Fauzia Martines on 07-07-2023 N. gonorrhoeae DNA BANDAR+probe Ql (Unsp spec) Negative Negative [facility] Comment on above: Performed at: =G - [facility] [address] [id number] Director: Bea Acosta MD, Phone: [phone] Laboratory - Miscellaneous t estsOrdered By: Fauzia Martines on 07-07-2023 Service comment (Unsp spec) [Interp] Comment . [facility] Comment on above: This liquid based Th inPrep(R) pap test was screened withthe use of an image guided system. Service comment (Unsp spec) [Interp] . . [facility] Laboratory - Specimen inform ationon 07-07-2023 Clarity (U) Slightly Hazy [facility] Color (U) DARK YELLOW [facility] Laboratory - Urinalysison Nitrite Ql (U) Negative [facility] Protein Ql (U) Trace [facility] MCHC Auto (RBC) [Mass/Vol]Or dered By: Fauzia Martines on 07-07-2023 MCHC (RBC) [Mass/Vol] 33.3 g/dL 32-36 [facility] No Panel InformationOrdered By: Fauzia Martines on 07-07-2023 Human Papillomavirus Screen Comment . [facility] Comment on above: The HPV DNA reflex c riteria were not met with this specimenresult therefore, no HPV testing was performed.Performed at: [facility] - [facility] [address] [id number] Director: Bea Acosta MD, Phone: [phone] Pathology report final diagnosis Narrative Comment . [facility] Comment on above: NEGATIVE FOR INTRAEP ITHELIAL LESION OR MALIGNANCY. Hepatitis B Surface Antigen Non-Reactive Nonreactive [facility] Hepatitis C Antibody Non-Reactive Nonreactive [facility] Comment on above: Non Reactive: < 0.8 Equivocal: >/= 0.8 to < 1.0 Reactive: >/= 1.0The CDC recommends that a reactive/equivocal HCV antibody result be followed up by the HCV Nucleic Acid Amplificationtest ([id number]) Rubella IgG Antibody Reactive Nonreactive [facility] Comment on above: Antibody Results Int erpretation of Immune Status Non Reactive Presumed Non-Immune Equivocal Equivocal Reactive Presumed Immune No Panel Informationon 07-07 Urine Leukocytes Positive [facility] Urine Non-Hemolyzed Blood Negative [facility] Platelets bldOrdered By: Deysi Martines on 07-07-2023 Platelets (Bld) [#/Vol] 208 10*3/uL 150-450 [facility] Serum Treponema species anti body detectionOrdered By: Fauzia Martines on 07-07-2023 Treponema sp Ab Ql (S) Non-Reactive [facility] Serum or plasma choriogonado tropin detectionOrdered By: Renée Thurston on 06-24-2023 HCG ( test) [place]l [address]235 mIU/mL <4 [facility] Comment on above: hCG levels with Gest ational AgeGestational Age hCG mIU/mL (IU/L)0.2 - 1 week 5 - 501-2 weeks 50 - 5002-3 weeks 100 - 38251-2 weeks 500 - 577723-6 weeks 1000 - 404169-3 weeks 31798 - 100,0006-8 weeks 66874 - 200,0002-3 months 40906 - 100,000 Serum or plasma choriogonado tropin detectionOrdered By: Renée Thurston on 06-22-2023 HCG ( test) Ql 38261 mIU/mL <4 [facility] Comment on above: hCG levels with Gest ational AgeGestational Age hCG mIU/mL (IU/L)0.2 - 1 week 5 - 501-2 weeks 50 - 5002-3 weeks 100 - 35186-4 weeks 500 - 710065-9 weeks 1000 - 430855-9 weeks 35978 - 100,0006-8 weeks 97735 - 200,0002-3 months 22091 - 100,000 NURSING PROGon 09-23-2020 NURSING PROG HNO ID: [id number] Author: Fouzia (Rn) LILLIAN Kevin Service: Cardiovascular Testing Author Type: Registered Nurse Type: Nursing Progress Note Filed: 09/23/2020 10:30 AM Note Text: Echo with Agitated Saline Bubble Study performed per protocol. IV #22 Left AC inserted. Pt tolerated well. IV d/cd prior to discharge - no infiltrate. Normal [facility] Otheron 09-23-2020 LV Ejection Fraction 60 % [facility] PT EDon 09-21-2020 PT ED HNO ID: [id number] Author: Tamara SheaRn) LILLIAN Barfield Service: ? Author Type: Registered Nurse Type: Patient Education Filed: 09/21/2020 3:19 PM Note Text: Patient educated on 48 hour holter monitor, and verbalizes understanding. Normal [facility] CBC AND DIFFERENTIALon 09-04 % AUTOMATED IMMATURE GRAN 0.3 % Normal 0.0 - 0.9 [facility] Comment on above: Result Comment: Maria Del Carmen ture Granulocyte Count (IG) includes promyelocytes, myelocytes and metamyelocytes but does not include bands. Percent differential counts (%) should be interpreted in the context of the absolute cell counts (cells/L). Performed By: #### C BCDF #### [facility] [address] [place] [address] Basophils (Bld) [#/Vol] 0.05 10*3/uL Normal 0.00 - 0.1 0 [facility] Comment on above: Performed By: #### C BCDF #### [facility] [address] [place] [address] Basophils/100 WBC (Bld) 0.8 % Normal 0.0 - 2.0 [facility] Comment on above: Performed By: #### C BCDF #### [facility] [address] [place] [address] Eosinophils (Bld) [#/Vol] 0.10 10*3/uL Normal 0.00 - 0.70 [facility] Comment on above: Performed By: #### C BCDF #### [facility] [address] [place] [address] Eosinophils/100 WBC (Bld) 1.5 % Normal 0.0 - 6.0 [facility] Comment on above: Performed By: #### C BCDF #### [facility] [address] [place] [address] Erythrocyte distribution width (RBC) [Ratio] 12.8 % Normal 11.5 - 14.5 [facility] Comment on above: Performed By: #### C BCDF #### [facility] [address] [place] [address] Hematocrit (Bld) [Volume fraction] 43.3 % Normal 36.0 - 46.0 [facility] Comment on above: Performed By: #### C BCDF #### [facility] [address] [place] [address] Hemoglobin (Bld) [Mass/Vol] 14.2 g/dL Normal 12.0 - 16.0 [facility] Comment on above: Performed By: #### C BCDF #### [facility] [address] [place] [address] Lymphocytes (Bld) [#/Vol] 2.69 10*3/uL Normal 1.20 - 4.80 [facility] Comment on above: Performed By: #### C BCDF #### [facility] [address] [place] [address] Lymphocytes/100 WBC (Bld) 41.4 % Normal 13.0 - 44.0 [facility] Comment on above: Performed By: #### C BCDF #### [facility] [address] [place] [address] MCHC (RBC) [Mass/Vol] 32.8 g/dL Normal 32.0 - 36.0 [facility] Comment on above: Performed By: #### C BCDF #### [facility] [address] [place] [address] MCV (RBC) [Entitic vol] 90 fL Normal 80 - 100 [facility] Comment on above: Performed By: #### C BCDF #### [facility] [address] [place] [address] Monocytes (Bld) [#/Vol] 0.48 10*3/uL Normal 0.10 - 1.0 0 [facility] Comment on above: Performed By: #### C BCDF #### [place] [address] [place] [address] Monocytes/100 WBC (Bld) 7.4 % Normal 2.0 - 10.0 [facility] Comment on above: Performed By: #### C BCDF #### [facility] [address] [place] [address] Neutrophils (Bld) [#/Vol] 3.15 10*3/uL Normal 1.20 - 7.70 [facility] Comment on above: Performed By: #### C BCDF #### [facility] [address] [place] [address] Neutrophils/100 WBC (Bld) 48.6 % Normal 40.0 - 80.0 [facility] Comment on above: Performed By: #### C BCDF #### [facility] [address] [place] [address] Nucleated RBC/100 WBC (Bld) [Ratio] 0.0 /100 WBC Normal 0.0-0.0 [facility] Comment on above: Performed By: #### C BCDF #### [facility] [address] [place] [address] Platelets (Bld) [#/Vol] 252 10*3/uL Normal 150 - 450 [facility] Comment on above: Performed By: #### C BCDF #### [facility] [address] [place] [address] RBC (Bld) [#/Vol] 4.81 x10E12/L Normal 4.00 - 5.20 [facility] Comment on above: Performed By: #### C BCDF #### [facility] [address] [place] [address] WBC (Bld) [#/Vol] 6.5 10*3/uL Normal 4.4 - 11.3 [facility] Comment on above: Performed By: #### C BCDF #### [facility] [address] [place] [address] COMPREHENSIVE PANELon 2020 Albumin [Mass/Vol] 4.5 g/dL Normal 3.4 - 5.0 [facility] Comment on above: Performed By: #### C MP #### [facility] [address] [place] [address] ALP [Catalytic activity/Vol] 59 U/L Normal 33 - 110 [facility] Comment on above: Performed By: #### C MP #### [facility] [address] [place] [address] ALT [Catalytic activity/Vol] 22 U/L Normal 7 - 45 [facility] Comment on above: Result Comment: Estela ents treated with Sulfasalazine may generate falsely decreased results for ALT. Performed By: #### C MP #### [facility] [address] [place] [address] Anion gap [Moles/Vol] 13 mmol/L Normal 10 - 20 [facility] Comment on above: Performed By: #### C MP #### [facility] [address] [place] [address] AST [Catalytic activity/Vol] 17 U/L Normal 9 - 39 [facility] Comment on above: Performed By: #### C MP #### [facility] [address] [place] [address] Bilirubin [Mass/Vol] 0.5 mg/dL Normal 0.0 - 1.2 [facility] Comment on above: Performed By: #### C MP #### [facility] [address] [place] [address] Calcium [Mass/Vol] 9.4 mg/dL Normal 8.6 - 10.6 [facility] Comment on above: Performed By: #### C MP #### [facility] [address] [place] [address] Chloride [Moles/Vol] 104 mmol/L Normal 98 - 107 [facility] Comment on above: Performed By: #### C MP #### [facility] [address] [place] [address] Creatinine [Mass/Vol] 0.92 mg/dL Normal 0.50 - 1.05 [facility] Comment on above: Performed By: #### C MP #### [facility] [address] [place] [address] GFR- AM. >60 Normal >60 [facility] Comment on above: Result Comment: CALC ULATIONS OF ESTIMATED GFR ARE PERFORMED USING THE MDRD STUDY EQUATION FOR THE IDMS-TRACEABLE CREATININE METHODS. CLIN CHEM 2007;53:766-72 Performed By: #### C MP #### [facility] [address] [place] [address] GFR-NON AM. >60 Normal >60 [facility] Comment on above: Performed By: #### C MP #### [facility] [address] [place] [address] Glucose [Mass/Vol] 85 mg/dL Normal 74 - 99 [facility] Comment on above: Performed By: #### C MP #### [facility] [address] [place] [address] HCO3 (Bld) [Moles/Vol] 26 mmol/L Normal 21 - 32 [facility] Comment on above: Performed By: #### C MP #### [facility] [address] [place] [address] Potassium [Moles/Vol] 4.2 mmol/L Normal 3.5 - 5.3 [facility] Comment on above: Performed By: #### C MP #### [facility] [address] [place] [address] Protein [Mass/Vol] 7.0 g/dL Normal 6.4 - 8.2 [facility] Comment on above: Performed By: #### C MP #### [facility] [address] [place] [address] Sodium [Moles/Vol] 139 mmol/L Normal 136 - 145 [facility] Comment on above: Performed By: #### C MP #### [facility] [address] [place] [address] Urea nitrogen [Mass/Vol] 13 mg/dL Normal 6 - 23 [facility] Comment on above: Performed By: #### C MP #### [facility] [address] [place] [address] LIPID PANEL (CORONARY RISK 2 )on 09-04-2020 Cholesterol [Mass/Vol] 177 mg/dL Normal 0 - 199 [facility] Comment on above: Result Comment: . AGE [...] Performed By: #### L IPID #### [facility] [address] [place] [address] Cholesterol in HDL [Mass/Vol] 69.3 mg/dL Normal [facility] Comment on above: Result Comment: . AGE VERY LOW LOW NORMAL HIGH 0-19 Y < 35 < 40 40-45 ---- 20-24 Y ---- < 40 >45 ---- >24 Y ---- < 40 40-60 >60 . Performed By: #### L IPID #### [facility] [address] [place] [address] Cholesterol in LDL [Mass/Vol] 98 mg/dL Normal 0 - 119 [facility] Comment on above: Result Comment: . NEAR BORD AGE DESIRABLE OPTIMAL HIGH HIGH VERY HIGH 0-19 Y 0 - 109 --- 110-129 >/= 130 ---- 20-24 Y 0 - 119 --- 120-159 >/= 160 ---- >24 Y 0 - 99 100-129 130-159 160-189 >/=190 . Performed By: #### L IPID #### [facility] [address] [place] [address] Cholesterol in VLDL [Mass/Vol] 10 mg/dL Normal 0 - 40 [facility] Comment on above: Performed By: #### L IPID #### [facility] [address] [place] [id number] Cholesterol.total/Choles terol in HDL [Mass ratio] 2.6 {ratio} Normal [facility] Comment on above: Result Comment: REF VALUES DESIRABLE < 3.4 HIGH RISK > 5.0 Performed By: #### L IPID #### [facility] [address] [place] [address] Triglyceride [Mass/Vol] 50 mg/dL Normal 0 - 149 [facility] Comment on above: Result Comment: . AGE [...] Performed By: #### L IPID #### [facility] [address] [place] [address] TSH WITH REFLEX TO FREE T4 I F ABNORMALon 09-04-2020 TSH Qn 0.96 m[IU]/L Normal 0.44 - 3.98 [facility] Comment on above: Result Comment: TSH testing is performed using different testing methodology at [facility] than at other [facility]. Direct result comparisons should only be made within the same method. Performed By: #### T HYDS #### [facility] [address] [place] [address] VITAMIN D, 25-HYDROXYon 03-0 VITAMIN D, 25-HYDROXY 22 ng/mL Abnormal [facility] Comment on above: Result Comment: . DEFICIENCY: < 20 NG/ML INSUFFICIENCY: 20-29 NG/ML SUFFICIENCY: 30-100 NG/ML THIS ASSAY ACCURATELY QUANTIFIES THE SUM OF VITAMIN D3, 25-HYDROXY AND VIT D2,25-HYDROXY. Performed By: #### V TDOH #### [facility] [address] [place] [address] Vital Signs Date Time Vital Sign Value Performing Clinician Faci lity 01-14-2025 14:21-0400 Body height 165.[address] Renuka Peters MD Work Phone: [facility] 01-14-2025 14:21-0400 Body mass index (BMI) [Ratio] 28.6 kg/m2 Dr. Renuka Peters MD Work Phone: 1(060)412-670943 [place] [address] 01-14-2025 14:21-0400 Body weight 78.[address] Renuka Peters MD Work Phone: 2(248)036-080343 [place] [address] 01-14-2025 14:21-0400 Diastolic blood pressure 77 mm[Hg] Dr. Renuka Peters MD Work Phone: 2(001)895-950243 [place] [address] 01-14-2025 14:21-0400 Systolic blood pressure 112 mm[Hg] Dr. Renuka Peters MD Work Phone: 9(811)747-619943 [place] [address] 01-08-2025 07:58-0400 Body height 165.[address] Renuka Peters MD Work Phone: 1(609)521-333143 [place] [address] 01-08-2025 07:54-0400 Body mass index (BMI) [Ratio] 28.1 kg/m2 Dr. Renuka Peters MD Work Phone: 0(578)411-723443 [place] [address] 01-08-2025 07:54-0400 Body weight 76.[address] Renuka Peters MD Work Phone: 6(840)611-839343 [place] [address] 01-08-2025 07:54-0400 Diastolic blood pressure 72 mm[Hg] Dr. Renuka Peters MD Work Phone: 0(720)157-160643 [place] [address] 01-08-2025 07:54-0400 Systolic blood pressure 102 mm[Hg] Dr. Renuka Peters MD Work Phone: 8(152)364-698343 [place] [address] 01-02-2025 09:58-0400 Body height 165.[address] Renuka Peters MD Work Phone: 2(855)438-591243 [place] [address] 01-02-2025 09:55-0400 Body mass index (BMI) [Ratio] 28 kg/m2 Dr. Renuka Peters MD Work Phone: 9(515)456-312143 [place] [address] 01-02-2025 09:55-0400 Body weight 76.[address] Renuka Peters MD Work Phone: [facility] 01-02-2025 09:55-0400 Diastolic blood pressure 78 mm[Hg] Dr. Renuka Peters MD Work Phone: 3(468)479-612043 [place] [address] 01-02-2025 09:55-0400 Systolic blood pressure 112 mm[Hg] Dr. Renuka Peters MD Work Phone: 5(762)140-194743 [place] [address] 12-18-2024 13:09-0400 Body height 165.[address] Renuka Peters MD Work Phone: 4(196)842-060243 [place] [address] 12-18-2024 13:05-0400 Body mass index (BMI) [Ratio] 28 kg/m2 Dr. Renuka Peters MD Work Phone: 1(506)975-872943 [place] [address] 12-18-2024 13:05-0400 Body weight 76.[address] Renuka Peters MD Work Phone: 9(198)908-439743 [place] [address] 12-18-2024 13:05-0400 Diastolic blood pressure 74 mm[Hg] Dr. Renuka Peters MD Work Phone: 7(615)845-931343 [place] [address] 12-18-2024 13:05-0400 Systolic blood pressure 111 mm[Hg] Dr. Renuka Peters MD Work Phone: 2(138)697-481543 [place] [address] 12-06-2024 14:05-0400 Body height 165.[address] Renuka Peters MD Work Phone: 2(393)460-398043 [place] [address] 12-06-2024 14:05-0400 Body mass index (BMI) [Ratio] 27.4 kg/m2 Dr. Renuka Peters MD Work Phone: 7(802)227-706543 [place] [address] 12-06-2024 14:05-0400 Body weight 74.[address] Renuka Peters MD Work Phone: 0(272)009-248543 [place] [address] 12-06-2024 14:05-0400 Diastolic blood pressure 72 mm[Hg] Dr. Renuka Peters MD Work Phone: 0(627)497-502143 [place] [address] 12-06-2024 14:05-0400 Systolic blood pressure 109 mm[Hg] Dr. Renuka Peters MD Work Phone: 1(458)302-780643 [place] [address] 11-20-2024 09:09-0400 Body height 165.[address] Renuka Peters MD Work Phone: 6(854)801-753443 [place] [address] 11-20-2024 09:09-0400 Body mass index (BMI) [Ratio] 27.5 kg/m2 Dr. Renuka Peters MD Work Phone: 1(241)204-010343 [place] [address] 11-20-2024 09:09-0400 Body weight 75.[address] Renuka Peters MD Work Phone: 5(879)518-043043 [place] [address] 11-20-2024 09:09-0400 Diastolic blood pressure 74 mm[Hg] Dr. Renuka Peters MD Work Phone: 5(582)763-473343 [place] [address] 11-20-2024 09:09-0400 Systolic blood pressure 113 mm[Hg] Dr. Renuka Peters MD Work Phone: 9(541)111-241343 [place] [address] 11-07-2024 14:15-0400 Body height 165.[address] Renuka Peters MD Work Phone: 4(570)946-139743 [place] [address] 11-07-2024 14:14-0400 Body mass index (BMI) [Ratio] 27 kg/m2 Dr. Renuka Peters MD Work Phone: 6(604)359-801743 [place] [address] 11-07-2024 14:14-0400 Body weight 73.[address] Renuka Peters MD Work Phone: 7(446)955-794243 [place] [address] 11-07-2024 14:14-0400 Diastolic blood pressure 64 mm[Hg] Dr. Renuka Peters MD Work Phone: 1(135)191-586143 [place] [address] 11-07-2024 14:14-0400 Systolic blood pressure 112 mm[Hg] Dr. Renuka Peters MD Work Phone: [facility] 10-09-2024 09:41-0400 Body mass index (BMI) [Ratio] 25.9 kg/m2 Dr. Renuka Peters MD Work Phone: 8(290)879-740743 [place] [address] 10-09-2024 09:41-0400 Body weight 70.[address] Renuka Peters MD Work Phone: 6(058)667-414743 [place] [address] 10-09-2024 09:41-0400 Diastolic blood pressure 61 mm[Hg] Dr. Renuka Peters MD Work Phone: 6(662)188-929143 [place] [address] 10-09-2024 09:41-0400 Systolic blood pressure 115 mm[Hg] Dr. Renuka Peters MD Work Phone: 3(733)151-089143 [place] [address] 09-12-2024 09:50-0400 Body mass index (BMI) [Ratio] 25.4 kg/m2 Dr. Renuka Peters MD Work Phone: 3(733)970-342943 [place] [address] 09-12-2024 09:50-0400 Body weight 69.[address] Renuka Peters MD Work Phone: 8(708)399-206343 [place] [address] 09-12-2024 09:50-0400 Diastolic blood pressure 71 mm[Hg] Dr. Renuka Peters MD Work Phone: 1(655)911-827743 [place] [address] 09-12-2024 09:50-0400 Systolic blood pressure 111 mm[Hg] Dr. Renuka Peters MD Work Phone: 6(738)331-931843 [place] [address] 08-14-2024 13:49-0500 Body mass index (BMI) [Ratio] 25.3 kg/m2 Dr. Renuka Peters MD Work Phone: 7(065)882-625243 [place] [address] 08-14-2024 13:49-0500 Body weight 69.[address] Renuka Peters MD Work Phone: 5(450)963-025243 [place] [address] 08-14-2024 13:49-0500 Diastolic blood pressure 76 mm[Hg] Dr. Renuka Peters MD Work Phone: [facility] 08-14-2024 13:49-0500 Systolic blood pressure 113 mm[Hg] Dr. Renuka Peters MD Work Phone: [facility] 07-17-2024 09:14-0500 Body weight 68.[address] Renuka Peters MD Work Phone: [facility] 07-17-2024 08:52-0500 Diastolic blood pressure 76 mm[Hg] Dr. Renuka Peters MD Work Phone: [facility] 07-17-2024 08:52-0500 Systolic blood pressure 110 mm[Hg] Dr. Renuka Peters MD Work Phone: [facility] 10-31-2023 09:43-0400 Diastolic blood pressure 70 mm[Hg] [facility] 10-31-2023 09:43-0400 Heart rate 99 /min [facility] 10-31-2023 09:43-0400 Systolic blood pressure 101 mm[Hg] [facility] 10-31-2023 08:27-0400 SaO2% (BldA) [Mass fraction] 99 % [facility] 10-31-2023 08:26-0400 Body temperature 97.7 [degF] [facility] 10-31-2023 08:26-0400 Respiratory rate 15 /min [facility] 10-23-2023 14:15-0400 Body height 165.1 cm [facility] 10-23-2023 14:15-0400 Body mass index (BMI) [Ratio] 25.1 kg/m2 [facility] 10-23-2023 14:15-0400 Body weight 68.49 kg [facility] 10-23-2023 14:15-0400 Diastolic blood pressure 82 mm[Hg] [facility] 10-23-2023 14:15-0400 Systolic blood pressure 113 mm[Hg] [facility] 09-29-2023 14:42-0400 Body height 165.1 cm [facility] 09-29-2023 14:42-0400 Body mass index (BMI) [Ratio] 24.5 kg/m2 [facility] 09-29-2023 14:42-0400 Body weight 66.84 kg [facility] 09-29-2023 14:42-0400 Diastolic blood pressure 76 mm[Hg] [facility] 09-29-2023 14:42-0400 Systolic blood pressure 119 mm[Hg] [facility] 08-30-2023 14:20-0500 Body mass index (BMI) [Ratio] 23.5 kg/m2 [facility] 08-30-2023 14:20-0500 Body weight 64.06 kg [facility] 08-30-2023 14:20-0500 Diastolic blood pressure 64 mm[Hg] [facility] 08-30-2023 14:20-0500 Systolic blood pressure 98 mm[Hg] [facility] 08-02-2023 13:13-0500 Body mass index (BMI) [Ratio] 23.1 kg/m2 [facility] 08-02-2023 13:13-0500 Body weight 63.04 kg [facility] 08-02-2023 13:13-0500 Diastolic blood pressure 80 mm[Hg] [facility] 08-02-2023 13:13-0500 Systolic blood pressure 122 mm[Hg] [facility] 07-07-2023 09:12-0500 Body height 165.1 cm [facility] 07-07-2023 09:12-0500 Body mass index (BMI) [Ratio] 23.4 kg/m2 [facility] 07-07-2023 09:12-0500 Body weight 63.95 kg [facility] 07-07-2023 09:12-0500 Diastolic blood pressure 56 mm[Hg] [facility] 07-07-2023 09:12-0500 Systolic blood pressure 92 mm[Hg] kenneth davis [facility] 10-05-2022 11:00-0400 Body height 162.6 cm Kenneth Davis DO Work Phone: [facility] 10-05-2022 11:00-0400 Body mass index (BMI) [Ratio] 25.44 kg/m2 Kenneth Davis DO Work Phone: [facility] 10-05-2022 11:00-0400 Body weight 67.22 kg Kenneth Davis DO Work Phone: [facility] 10-05-2022 11:00-0400 Diastolic blood pressure 66 mm[Hg] Kenneth Davis DO Work Phone: [facility] 10-05-2022 11:00-0400 Heart rate 88 /min Kenneth Davis DO Work Phone: [facility] 10-05-2022 11:00-0400 Systolic blood pressure 110 mm[Hg] Kenneth Davis DO Work Phone: [facility] 03-20-2019 17:56-0400 Body Temperature 98.5 [degF] Kenneth Davis [facility] Work Phone: 03-20-2019 17:56-0400 Body weight 65.23 kg Kenneth Davis [facility] Work Phone: 03-20-2019 17:56-0400 BP Diastolic 74 mm[Hg] Kenneth Davis [facility] Work Phone: 03-20-2019 17:56-0400 BP Systolic 106 mm[Hg] Kenneth Davis [facility] Work Phone: 03-20-2019 17:56-0400 Pulse (Heart Rate) 76 /min Kenneth Davis [facility] Work Phone: Encounters Encounter Date Encounter Type Care Provider Facility Start: 01-22-2025 ambulatory Tracie Cornejo cility:[facility] Start: 01-14-2025 End: 01-14-[address] Tracie Mcdaniels DO -[facility] Work Phone: Start: 01-14-2025 End: 01-14-[address] Renuka Peters MD Work Phone: -[facility] Start: 01-08-2025 End: 01-08-2025 Patient encounter procedure Renée Thurston [facility] -[facility] @ Start: 01-08-2025 End: 01-08-[address] Renuka Peters MD Work Phone: -[facility] @ Start: 01-02-2025 End: 01-02-[address] Renuka Peters MD Work Phone: -Laboratory Specimen Start: 01-02-2025 End: 01-02-[address] Renuka Peters MD -Laboratory Specimen Work Phone: Start: 01-02-2025 End: 01-02-[address] Renuka Peters MD -[facility] Work Phone: Start: 01-02-2025 End: 01-02-[address] Renuka Peters MD Work Phone: -[facility] Start: 01-02-2025 End: 01-02-2025 ambulatory Renuka Peters Facility:[facility] Start: 12-18-2024 End: 12-18-[address] Renuka Peters MD -[facility] Work Phone: Start: 12-18-2024 End: 12-18-[address] Renuka Peters MD Work Phone: [facility] Work Phone: Start: 12-06-2024 End: 12-06-2024 Patient encounter procedure Fauzia NAVARRETE -[facility] Work Phone: Start: 12-06-2024 End: 12-06-[address] Renuka Peters MD Work Phone: [facility] Work Phone: Start: 11-20-2024 End: 11-20-[address] Tracie Mcdaniels DO -[facility] Work Phone: Start: 11-20-2024 End: 11-20-[address] Renuka Peters MD Work Phone: [facility] Work Phone: Start: 11-07-2024 End: 11-07-2024 Patient encounter procedure Jarrell DANIEL -[facility] Work Phone: Start: 11-07-2024 End: 11-07-[address] Renuka Peters MD Work Phone: [facility] Work Phone: Start: 11-07-2024 End: 11-07-2024 ambulatory Renukaashley Peters Facility:[facility] Start: 10-09-2024 End: 10-09-[address] Renuka Peters MD -[facility] Work Phone: Start: 10-09-2024 End: 10-09-2024 ambulatory Renuka Peters Facility:[facility] Start: 09-12-2024 End: 09-12-[address] Tracie Mcdaniels DO -[facility] Work Phone: Start: 09-12-2024 End: 09-12-2024 ambulatory Tracie Mcdaniels Facility:[facility] Start: 09-05-2024 End: 09-05-2024 ambulatory JARRELL ALVARES [facility] Start: 08-14-2024 End: 08-14-2024 Patient encounter procedure Jarrell DANIEL -[facility] Work Phone: Start: 08-14-2024 End: 08-14-2024 ambulatory Jarrell Alvares DENTAL OFFICE COORDINATOR Facility:[facility] Start: 07-17-2024 End: 07-17-2024 Patient encounter procedure Jarrell Alvares DENTAL OFFICE COORDINATOR-C -[facility] Work Phone: Start: 07-17-2024 End: 07-17-2024 ambulatory Jarrellbayron Alvares DENTAL OFFICE COORDINATOR Facility:[facility] Start: 06-19-2024 End: 06-19-2024 ambulatory Renukaashley Andrewcathryn Facility:[facility] Start: 06-19-2024 End: 06-19-2024 ambulatory Renuka Agostoony Facility:[facility] Start: 03-08-2024 End: 03-08-2024 ambulatory Renuka Kamranissaarielle Facility:[facility] Start: 01-29-2024 End: 01-29-2024 ambulatory Pat Kapadia DENTAL OFFICE COORDINATOR Facility:[facility] Start: 01-26-2024 ambulatory Fauzia Martines Facilit y:[facility] Start: 01-26-2024 End: 01-28-2024 Evaluation and management of inpatient Fauzia Martines Facility:[facility] Start: 01-26-2024 End: 01-26-2024 ambulatory Tracie Mcdaniels Facility:[facility] Start: 01-26-2024 End: 01-26-2024 ambulatory Tracie Mcdaniels Facility:[facility] Start: 10-31-2023 Non-patient / Non-visit [facility] Start: 10-31-2023 End: 10-31-2023 ambulatory [facility] Work Phone: Start: 10-31-2023 End: 10-31-2023 Patient encounter procedure [facility] Work Phone: Start: 10-23-2023 End: 10-23-2023 Patient encounter procedure [facility] Work Phone: Start: 10-02-2023 End: 10-02-2023 ambulatory [facility] Work Phone: Start: 10-02-2023 End: 10-02-2023 Patient encounter procedure kenneth davis [facility]Labor[facility] Work Phone: Start: 09-29-2023 End: 09-29-2023 Patient encounter procedure kenneth davis [facility] Work Phone: Start: 09-19-2023 End: 09-19-2023 ambulatory MD PRIMARY CARE [facility] Start: 08-30-2023 End: 08-30-2023 Patient encounter procedure kenneth davis [facility] Work Phone: Start: 08-02-2023 End: 08-02-2023 Patient encounter procedure kenneth davis [facility] Work Phone: Start: 07-07-2023 End: 07-07-2023 ambulatory kenneth davis [facility] Work Phone: Start: 07-07-2023 End: 07-07-2023 Patient encounter procedure kenneth davis [facility] Work Phone: Start: 07-07-2023 End: 07-07-2023 Patient encounter procedure kenneth davis [facility] Work Phone: Start: 06-24-2023 End: 06-24-2023 ambulatory [facility] Work Phone: Start: 06-24-2023 End: 06-24-2023 Patient encounter procedure [facility] Work Phone: Start: 06-22-2023 End: 06-22-2023 ambulatory [facility] Work Phone: Start: 06-22-2023 End: 06-22-2023 Patient encounter procedure [facility] Work Phone: Start: 10-05-2022 End: 10-05-2022 Periodic preventive med est patient 18-39 yrs Kenneth Drake Davis DO Work Phone: [facility] Comment on above: Encounter for kimmy blackwood for travel (Primary Dx) Start: 09-23-2020 End: 09-23-2020 Patient encounter procedure Kenneth Davis Work Phone: [facility] Start: 09-23-2020 Results Only Kenneth Davis Work Phone: [facility] Department Start: 09-21-2020 End: 09-21-2020 Subsequent hospital [...] of 2) Zoster Vaccines (1 of 2) [facility] Start: 09-04-2025 Lipid panel Lipid Panel [facility] Start: 06-11-2024 DTaP/Tdap/Td Vaccines (6 - Td or Tdap) DTaP/Tdap/Td Vaccines (6 - Td or Tdap) [facility] Start: 10-31-2023 Nonstress test [facility] Start: 10-31-2023 Obstetric monitoring [facility] Start: 10-31-2023 Vital signs measurements [facility] Start: 10-31-2023 [facility] Start: 10-31-2023 Vital signs measurements [facility] Start: 10-31-2023 Patient discharge [facility] Start: 07-07-2023 Liquid based cervical cytology screening [facility] Start: 03-03-2023 Influenza vaccination Influenza Vaccine (Season Ended) [facility] Start: 03-03-2020 Influenza vaccination INFLUENZA (#1) [facility] Start: 2016 PAP TESTING PAP TESTING [facility] Start: 2016 Screening for malignant neoplasm of cervix [facility] Start: 2014 Urine microalbumin profile DTAP,TDAP,TD (1 - Tdap) [facility] Start: 2013 HEPATITIS C SCREENING HEPATITIS C SCREENING [facility] Start: 2013 Hepatitis C screening Hepatitis C Screening [facility] Start: 2013 HIV SCREENING HIV SCREENING [facility] Start: 2007 Adult depression screening assessment DEPRESSION SCREENING [facility] Start: 2006 HPV VACCINE (1 - 2-dose series) HPV VACCINE (1 - 2-dose series) [facility] Start: 1996 MMR Vaccines (1 of 1 - Standard series) MMR Vaccines (1 of 1 - Standard series) [facility] Start: 1996 Varicella vaccination Varicella Vaccines (1 of 2 - 2-dose childhood series) [facility] Start: 1995 COVID-19 Vaccine (#1) COVID-19 Vaccine (#1) [facility] Start: 1995 HIV screening HIV Screening [facility] Start: 1995 Yearly Adult Physical Yearly Adult Physical [facility] Anti-D (Rh) immunoglobulin [facility] CBC W Auto Different ial panel - Blood [facility] Glucose [Mass/volume ] in Serum or Plasma --1 hour post 50 g glucose PO [facility] HIV 1+2 Ab+HIV1 p24 Ag [Presence] in Serum or Plasma by Immunoassay [facility] Patient Education Kick Counts ED False Labor OB Triage: Return to Hospital or Notify Physician if you Experience: [facility] Work Phone: Patient referral [facility] Work Phone: Streptococcus agalac tiae [Presence] in Unspecified specimen by Organism specific culture [facility] Treponema sp Ab [Pre sence] in Serum [facility] Immunizations Immunization Date Immunization Notes Care Provider Efrem colmenaresmarzena 10-05-2022 hepatitis A vaccine, adult dosage Kenneth Davis DO Work Phone: [facility] Work Phone: 10-05-2022 typhoid vaccine, unspecified formulation Kenneth Davis DO Work Phone: [facility] Work Phone: 06-11-2014 tuberculin skin test ; purified protein derivative solution, intradermal; Translations: [PPD] Kenneth Davis [facility] Work Phone: 06-11-2014 tetanus toxoid, redu santhosh diphtheria toxoid, and acellular pertussis vaccine, adsorbed; Translations: [Adacel 5-2-15.5 LF-MCG/0.5 Intramuscular Suspension] Kenneth Davis [facility] Work Phone: 06-04-2014 tuberculin skin test ; purified protein derivative solution, intradermal; Translations: [PPD] Kenneth Davis [facility] Work Phone: 06-04-2014 influenza, injectabl e, quadrivalent, preservative free; Translations: [Fluarix Quadrivalent 0.5 ML SUSP] Kenneth Davis [facility] Work Phone: 09-01-2007 tetanus and diphther ia toxoids, adsorbed, preservative free, for adult use (2 Lf of tetanus toxoid and 2 Lf of diphtheria toxoid) Kenneth Davis [facility] Work Phone: 03-15-1996 hepatitis B vaccine, adult dosage Kenneth Davis [facility] Work Phone: 1995 DTP-Haemophilus influenzae type b conjugate vaccine Kenneth Davis [facility] Work Phone: 1995 DTP-Haemophilus influenzae type b conjugate vaccine Kenneth Davis [facility] Work Phone: 1995 trivalent poliovirus vaccine, live, oral Kenneth Davis [facility] Work Phone: 1995 DTP-Haemophilus influenzae type b conjugate vaccine Kenneth Davis [facility] Work Phone: 1995 trivalent poliovirus vaccine, live, oral Kenneth Davis [facility] Work Phone: 1995 hepatitis B vaccine, adult dosage Kenneth Davis [facility] Work Phone: 1995 hepatitis B vaccine, adult dosage Kenneth Davis [facility] Work Phone: Payers Date Payer Category Payer Self-pay 2023 Unknown [id number] 2022 Unknown [employer] [facility] [id number] 2022-Present [address] [place] [address] [id number] 2020 Private Health Insurance AETJESI RUIZ [facility] [id number] 2020-Present [facility] [id number] 1995 Unknown [id number] 79 1995 Unknown [id number] 2.16.840.1.673727.3.579.2.4 79 Unknown [id number] Unknown [id number] 62 Unknown [id number] 2.16.840.1.219636.3.579.2.4 62 Unknown [id number] 2.16.840.1.920187.3.579.2.4 62 Unknown [id number] 2.16.840.1.313777.3.579.2.4 62 Unknown [id number] 2.16.840.1.343590.3.579.2.4 62 Unknown [id number] 2.16.840.1.104134.3.579.2.4 62 Unknown [id number] 2.16.840.1.757409.3.579.2.4 62 Unknown [id number] 2.16.840.1.606028.3.579.2.4 62 Unknown [id number] 2.16.840.1.644203.3.579.2.4 62 Unknown [id number] 2.16.840.1.176653.3.579.2.4 62 Unknown [id number] 2.16.840.1.826464.3.579.2.4 62 Unknown [id number] 2.16.840.1.788725.3.579.2.4 62 Unknown [id number] 2.16.840.1.367585.3.579.2.4 62 Unknown [id number] 2.16.840.1.200609.3.579.2.4 62 Unknown [id number] 2.16.840.1.818275.3.579.2.4 62 Unknown [id number] 2.16.840.1.598661.3.579.2.4 62 Unknown [id number] 2.16.840.1.760810.3.579.2.4 62 Unknown [id number] 2.16.840.1.822967.3.579.2.4 62 Unknown [id number] 2.16.840.1.170154.3.579.2.4 62 Unknown [id number] 2.16.840.1.169325.3.579.2.4 62 Unknown [id number] 2.16.840.1.953384.3.579.2.4 62 Unknown [id number] 2.16.840.1.951272.3.579.2.4 62 Unknown [id number] 2.16.840.1.844824.3.579.2.4 62 Unknown [id number] 2.16.840.1.395538.3.579.2.4 62 Social History Date Type Detail Facility Assertion Unknown if ever smoked [facility] Work Phone: Start: 1995 Sex Assigned At Not on file [facility] Start: 09-24-2022 End: 10-04-2022 Exposure to SARS-CoV-2 (event) Not sure [facility] Start: 10-05-2022 End: 06-11-2024 Tobacco smoking status NHIS Never smoked tobacco [facility] Work Phone: Start: 10-05-2022 Tobacco use and exposure Smokeless tobacco non-user [facility] Work Phone: Start: 10-05-2022 Alcohol intake Lifetime non-d ester (finding) [facility] Work Phone: Start: 10-05-2022 History of Social function [facility] Work Phone: Start: 10-05-2022 Tobacco use panel [facility] Work Phone: Start: 06-27-2023 End: 09-29-2023 Tobacco smoking status NHIS Unknown if ever smoked [facility] Start: 1995 Sex Assigned At Female [facility] NEGATED: Highlighted rowStart: NINF History of tobacco use Passive smoker [facility] Work Phone: Functional Status Date Assessment Result Facility NEGATED: Highlighted row Functional performance Functional status health issues are not documented Disease [facility] Work Phone: Mental Status Date Assessment Result Facility NEGATED: Highlighted row Cognitive function [Interpretation] Cognitive status health issues are not documented Disease [facility] Work Phone: Clinical Notes 10-05-2022 to 01-14-2025 Note Date & Type Note Facility 01-14-2025 Progress note [facility] 01-14-2025 Progress note Note Date/Time January 14, 2025 2:45pm [facility] [address], [address] [place] [address] OFFICE VISIT Date of Service: 01/14/25 MR#: [id number] Acct: [id number] Name: SHELBY DIAZ Rep #: [id number] : 1995 Provider: Dr. 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 Is patient in pain?: No [...] past year?: No PFSH PFSH Surgical History [place] teeth extracted Family History Mother Family history of recurrent miscarriage 3 miscarriages Social History adopted: No household members: spouse and children number of children: 1 current occupational status: unemployed current occupation: [employer] current occupational exposures/hazards: No pets and animals: [...] 1-2 times per week duration: 30-45 minutes/day kimberly/restorationist: [employer] seatbelt use: always do you feel safe at home: Yes additional social history: Kailash - Rn Plastic Surgery History 2 Elective abortions Hx Para 1 Spontaneous abortions Hx # Term Pregnancies 1 Ectopic pregnancies Hx # Pregnancies Multiple births # of living children 1 Past Pregnancies Del. Date Name GA/Weeks Outcome Route Bth Weight Infant Gen Labor Lgth Anesthesia Del Locatn Provider FOB 01/26/24 Richie 38 live - full term 7#1oz Male none [facility] Citlali Martines Kailash Delivery Date: 01/26/24 Last [...] signed by Tracie Mcgregor DO> Date _ Trcaie Mcdaniels DO [facility] Signature: Date (if applicable) CC: ~ [facility] Work Phone: 1(544) 640-881207-09-2025 [facility] [address] [place] [address], [address] [place] [address] OFFICE VISIT Date of Service: 01/08/25 MR#: [id number] Acct: [id number] Name: SHELBY DIAZ Rep #: [id number] : 1995 Provider: ZOHAIB Thurston Age/Sex: 29/F Location: [facility] Status: Signed Intake Vital Signs 12/18/24 13:09 01/02/25 09:58 01/08/25 07:54 01/08/25 07:58 Height 5 ft 5 in 5 ft 5 in 5 ft 5 in 5 ft 5 in Weight: 169 lb BMI 28.1 BP 102/72 Intake Visit Reasons: 37 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 Is patient in pain?: No Allergies No Known Allergies Allergy (Verified 01/08/25 07:53) Medications ?Medication ?Instructions ?Recorded ?Confirmed ?Type multivitamin no.47-iron fum 27 cap PO 06/27/23 5 History mg-folate no.1 1 mg-dha 300 mg capsule (PNV-DHA) cholecalciferol (vitamin D3) 25 25 mcg PO QDAY 4 01/08/25 History mcg (1,000 unit) capsule Last Menstrual Period: 04/20/24 : No PFSH PFSH Surgical History [place] teeth extracted Family History Mother Family history [...] 1-2 times per week duration: 30-45 minutes/day kimberly/restorationist: Mormonism seatbelt use: always do you feel safe at home: Yes additional social history: Kailash - Rn Plastic Surgery History 2 Elective abortions Hx Para 1 Spontaneous abortions Hx # Term Pregnancies 1 Ectopic pregnancies Hx # Pregnancies Multiple births # of living children 1 Past Pregnancies Del. Date Name GA/Weeks Outcome Route Bth Weight Gen Labor Lgth Anesthesia Del Locatn Provider FOB 01/26/24 Richie 38 live - full term 7#1oz Male none [facility] Citlali Martines Kailash Delivery Date: 01/26/24 Last [...] Lopez Signature: Date (if applicable) CC: ~ [facility] [id number] [facility] [address] [place] [address], [address] [place] [address] OFFICE VISIT Date of Service: 01/02/25 MR#: [id number] Acct: [id number] Name: SHELBY DIAZ Rep #: [id number] : 1995 Provider: Dr. 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 Is patient in pain?: No [...] Negative : No PFSH PFSH Surgical History [place] teeth extracted Family History Mother Family history of recurrent miscarriage 3 miscarriages Social History adopted: No household members: spouse and children number of children: 1 current occupational status: unemployed current occupation: [employer] current occupational exposures/hazards: No pets and animals: [...] 1-2 times per week duration: 30-45 minutes/day kimberly/restorationist: Mormonism seatbelt use: always do you feel safe at home: Yes additional social history: Kailash - Rn Plastic Surgery History 2 Elective abortions Hx Para 1 Spontaneous abortions Hx # Term Pregnancies 1 Ectopic pregnancies Hx # Pregnancies Multiple births # of living children 1 Past Pregnancies Del. Date Name GA/Weeks Outcome Route Bth Weight Infant Gen Labor Lgth Anesthesia Del Locatn Provider FOB 01/26/24 Richie 38 live - full term 7#1oz Male none [facility] Citlali Martines Kailash Delivery Date: 01/26/24 Last [...] re LOYA> Date _ [facility] Signature: Date (if applicable) CC: ~ [facility]06-18-2025 [facility] [address], [address] [place] [address] OFFICE VISIT Date of Service: 12/18/24 MR#: [id number] Acct: [id number] Name: SHELBY DIAZ Rep #: [id number] : 1995 Provider: Dr. 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 Is patient in pain?: No [...] Negative : No PFSH PFSH Surgical History [place] teeth extracted Family History Mother Family history of recurrent miscarriage 3 miscarriages Social History adopted: No household members: spouse and children number of children: 1 current occupational status: unemployed current occupation: [employer] current occupational exposures/hazards: No pets and animals: [...] 1-2 times per week duration: 30-45 minutes/day kimberly/restorationist: Mormonism seatbelt use: always do you feel safe at home: Yes additional social history: Kailash - Rn Plastic Surgery History 2 Elective abortions Hx Para 1 Spontaneous abortions Hx # Term Pregnancies 1 Ectopic pregnancies Hx # Pregnancies Multiple births # of living children 1 Past Pregnancies Del. Date Name GA/Weeks Outcome Route Bth Weight Infant Gen Labor Lgth Anesthesia Del Locatn Provider FOB 01/26/24 Richie 38 live - full term 7#1oz Male none [facility] Citlali Martines Kailash Delivery Date: 01/26/24 Last [...] Lopez Signature: Date (if applicable) CC: ~ [facility]04-09-2025 Evaluation note* Diagnosis Onset Date Resolution [...] normal acut e January 14, 2025 2:15pm [facility] Work Phone: [phone] Evaluation note* Diagnosis Onset Date Resolution Status [...] normal acut e December 18, 2024 1:02pm [facility] [facility] Work Phone: [phone] Evaluation note* Diagnosis Onset Date Resolution Status [...] normal acut e January 02, 2025 9:51am [facility] Work Phone: [phone]) 294-738803-13-2025 Evaluation note* Diagnosis Onset Date Resolution Status [...] normal acut e January 08, 2025 7:51am [facility] Work Phone: 1([phone]) 892-432002-12-2025 Evaluation note* Diagnosis Onset Date Resolution Status [...] normal acute November 20, 2024 8 :57am [facility] Work Phone: 1([phone]) [phone] Evaluation note* Diagnosis Onset Date Resolution Status [...] normal acute December 06, 2024 2 :03pm [facility] Work Phone: 1([phone]) 933-990601-15-2025 Evaluation note* Diagnosis Onset Date Resolution Status [...] normal acute November 07, 2024 2: 06pm [facility] Work Phone: 1([phone]) 359-733404-30-2024 Progress note Author Renée Thurston [facility] October 31, 2023 9:34am Note Date/Time October 31, 2023 9:3 4am [facility] Medical Records Department [address] [place] [address] OB Triage Progress Note 10/31/23 0931 MR#: [id number] Acct: [id number] Name: SHELBY DIAZ Rep #:[id number] : 1995 28 From: Renée Thurston CNM PCP: Care Physician,No Primary Status :REG CLI Y DOS: Location: [place] [address] Progress Notes Date of Service: 10/31/23 Progress Note: Patient presents for triage evaluation secondary to decreased movement FHT: 125 appropriate for gestational age reactive no decelerations [place]: no Contractions Assessment and plan: Reactive NST, reassuring maternal and status patientdischarged to home to follow-up in office at next appt. movement present. See problem list details for additional plan information. Charges/Coding Multi Select Codes Urinary/Genital Urinary/Genital CPT Codes: 01716-83 non-stress test Interp Assessment & Plan (1) [...] Thurston; No Primary Care Physician ~ Signed [facility] Work Phone: 1(274) 849-477601-05-2024 NotePap Smear Specimen AdequacyJanuary 2023 12:41pmComment.Satisfactory for evaluation. Endocervical and/or squamous metaplasticcells (endocervical component)are present.[facility] INTER[facility]ED A#[id number] [facility] District Memorial HospitalComment on above:Satisfactory for evaluation. Endocervical and/or squamous metaplasticcells (endocervical component)are present.07-07-2023 NotePap Smear Specimen AdequacyJanuary 2023 1:41pmComment.Satisfactory for evaluation. Endocervical and/or squamous metaplasticcells (endocervical component)are present.[facility] A#[id number] [facility] Joint [facility] District Memorial HospitalComment on above:Satisfactory for evaluation. Endocervical and/or squamous metaplasticcells (endocervical component)are present.07-07-2023 NotePap Smear Specimen AdequacyJanuary 2023 1:41pmComment.Satisfactory for evaluation. Endocervical and/or squamous metaplasticcells (endocervical component)are present.[facility] INTER[facility] A#[id number] [facility] Joint [facility] District Memorial HospitalComment on above:Satisfactory for evaluation. Endocervical and/or [...] is performed using different testing methodology at [facility] than at other [facility]. Direct result comparisons should only be made [...] if questions or concerns [facility] Work Phone: Evaluation note* Diagnosis Encounter for counseling for travel- Primary documented in this encounter [facility] Work Phone: Evaluation noteNo assessment information available [facility] Work Phone: Evaluation note* Diagnosis Onset Date Resolution Status acute Supervision of normal first acute Spotting affecting resolved acute headache in second trimester acute Supervision of normal first acute Nuchal fold thickening on ultrasound acute acute headache in second trimester acute Supervision of normal first acute [facility] Work Phone: Evaluation note* Diagnosis Onset [...] trimester acute Supervision of normal first acute [facility] Work Phone: Progress note Author Renuka Peters [facility] Note Date/Time December 18, 2024 1:35 pm [facility] [address] [place] [address], [address] [place] [address] OFFICE VISIT Date of Service: 12/18/24 MR#: [id number] Acct: [id number] Name: SHELBY DIAZ Rep #: [id number] : 1995 Provider: Dr. 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 Is patient in pain?: No [...] Negative : No PFSH PFSH Surgical History [place] teeth extracted Family History Mother Family history of recurrent miscarriage 3 miscarriages Social History adopted: No household members: spouse and children number of children: 1 current occupational status: unemployed current occupation: [employer] current occupational exposures/hazards: No pets and animals: [...] 1-2 times per week duration: 30-45 minutes/day kimberly/restorationist: Mormonism seatbelt use: always do you feel safe at home: Yes additional social history: Kailash - Rn Plastic Surgery History 2 Elective abortions Hx Para 1 [...] POC Urinalysis 2 Dip (Clinic) Today 12/18/24 2749 <Electronically signed by Renuka grimaldo MD> Date _ Renuka Peters MD Cosigner Signature: Date (if applicable) CC: ~ [facility] Work Phone: Progress note Author Renuka Peters [facility] Note Date/Time January 02, 2025 10:10 am [facility] [address] [place] [address], [address] [place] [id number] OFFICE VISIT Date of Service: 01/02/25 MR#: [id number] Acct: [id number] Name: SHELBY DIAZ Rep #: [id number] : 1995 Provider: Dr. 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 Is patient in pain?: No [...] Negative : No PFSH PFSH Surgical History [place] teeth extracted Family History Mother Family history of recurrent miscarriage 3 miscarriages Social History adopted: No household members: spouse and children number of children: 1 current occupational status: unemployed current occupation: [employer] current occupational exposures/hazards: No pets and animals: [...] 1-2 times per week duration: 30-45 minutes/day kimberly/restorationist: Mormonism seatbelt use: always do you feel safe at home: Yes additional social history: Kailash - Rn Plastic Surgery History 2 Elective abortions Hx Para 1 Spontaneous abortions Hx # Term Pregnancies 1 Ectopic pregnancies Hx # Pregnancies Multiple births # of living children 1 Past Pregnancies Del. Date Name GA/Weeks Outcome Route Bth Weight Infant Gen Labor Lgth Anesthesia Del Locatn Provider FOB 01/26/24 Richie 38 live - full term 7#1oz Male none [facility] Citlali Martines Kailash Delivery Date: 01/26/24 Last [...] Lopez Signature: Date (if applicable) CC: ~ [facility] Work Phone: Progress note Author Renée Thurston [facility] Note Date/Time January 08, 2025 8:10a m [facility] [address], [address] [place] [address] OFFICE VISIT Date of Service: 01/08/25 MR#: [id number] Acct: [id number] Name: SHELBY DIAZ Rep #: [id number] : 1995 Provider: ZOHAIB Thurston Age/Sex: 29/F Location: [facility] Status: Signed Intake Vital Signs 12/18/24 13:09 01/02/25 09:58 01/08/25 07:54 01/08/25 07:58 Height 5 ft 5 in 5 ft 5 in 5 ft 5 in 5 ft 5 in Weight: 169 lb BMI 28.1 BP 102/72 Intake Visit Reasons: 37 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 Is patient in pain?: No Allergies No Known Allergies Allergy (Verified 01/08/25 07:53) Medications ?Medication ?Instructions ?Recorded ?Confirmed ?Type multivitamin no.47-iron fum 27 cap PO 06/27/23 5 History mg-folate no.1 1 mg-dha 300 mg capsule (PNV-DHA) cholecalciferol (vitamin D3) 25 25 mcg PO QDAY 4 01/08/25 History mcg (1,000 unit) capsule Last Menstrual Period: 04/20/24 : No PFSH PFSH Surgical History [place] teeth extracted Family History Mother Family history of recurrent miscarriage 3 miscarriages Social History adopted: No household members: spouse and children number of children: 1 current occupational status: unemployed current occupation: [employer] current occupational exposures/hazards: No pets and animals: [...] 1-2 times per week duration: 30-45 minutes/day kimberly/restorationist: Mormonism seatbelt use: always do you feel safe at home: Yes additional social history: Kailash - Rn Plastic Surgery History 2 Elective abortions Hx Para 1 Spontaneous abortions Hx # Term Pregnancies 1 Ectopic pregnancies Hx # Pregnancies Multiple births # of living children 1 Past Pregnancies Del. Date Name GA/Weeks Outcome Route Bth Weight Infant Gen Labor Lgth Anesthesia Del Locatn Provider FOB 01/26/24 Richie 38 live - full term 7#1oz Male none [facility] Citlali Martines Kailash Delivery Date: 01/26/24 Last [...] this visit. GA appropriate handout given. 01/08/25 1428 <Electronically signed by Renée fuller CNM> Date _ Renée Thurston CNM Cosigner Signature: Date (if applicable) CC: ~ [facility] Work Phone: Reason for referral (narrative)No reason for referral information availableWWilson Health Work Phone: Family History No Family History [...] section and content) DATE CREATED AUTHOR 09/04/2020 [facility] DATE CREATED AUTHOR AUTHOR'S ORGANIZ ATION 09/04/2020 [employer] DATE CREATED AUTHOR AUTHOR'S ORGANIZ ATION 09/24/2020 [facility] DATE CREATED AUTHOR AUTHOR'S ORGANIZ ATION 09/07/2024 [facility] DATE CREATED AUTHOR AUTHOR'S ORGANIZ ATION 01/18/2025 [facility] Comments (unrecognize d section and content) In the event this informatio n is protected by the Federal Confidentiality of Alcohol and Drug Abuse Patient Records regulations: The Federal rules restrict any use of the information to criminally investigate or prosecute any alcohol or drug abuse patient.[facility] CenterIn the event this information is protected by the Federal Confidentiality of Alcohol and Drug Abuse Patient Records regulations: The Federal rules restrict any use of the information to criminally investigate or prosecute any alcohol or drug abuse patient.[facility] Patient Education - Tamara Barfield (Rn), RN [...] CNM Attending Provider, Referring Pro vider Active Paralegal Internship Relationship Specialty Start Date End Date Kenneth Davis DO [address] [facility], [facility] [address] [place] [address] PCP - General 03/20/19 Team Status: Active [...] Inactive Member Role Status Dates Jarrell Alvares DENTAL OFFICE COORDINATOR, DENTAL OFFICE COORDINATOR-C Attending Provider Active Team Status: Inactive Member [...] Inactive Member Role Status Dates Jarrell Alvares DENTAL OFFICE COORDINATOR, DENTAL OFFICE COORDINATOR-C Attending Provider Active Start: July 17, 2024 End: July 17, 2024 Team Status: Inactive Member Role Status Dates Jarrell Alvares DENTAL OFFICE COORDINATOR, DENTAL OFFICE COORDINATOR-C Attending Provider Active Start: August 14, 2024 [...] Inactive Member Role Status Dates Jarrell Alvares DENTAL OFFICE COORDINATOR, DENTAL OFFICE COORDINATOR-C Attending Provider Active Start: November 07, 2024 [...] Status: Inactive Member Role/Relationship Status Dates Jarrell Alavres NP, DENTAL OFFICE COORDINATOR-C Attending Provider Active Start: November 07, 2024 [...] Inactive Member Role/Relationship Status Dates Jarrell Alvares DENTAL OFFICE COORDINATOR, DENTAL OFFICE COORDINATOR-C Attending Provider Active Start: November 07, 2024 [...] BE BASED ON THE PRIMARY CLINICAL RECORDS. [facility] [employer] [facility]. provides no warranty or guarantee of the accuracy or completeness of information in this document.
[2025-01-20] MEDS: Lactated Ringers 1,000 ML 50 ML IV (01:29)
[2025-01-20] MEDS: Penicillin G Pot 5,000,000 UNITS in 0.9% Normal Saline (100mL MB+) 100 ML 150 UNITS IV (01:30)
[2025-01-20 01:42] LABS: Hematocrit 34.6 % (37-47); Hemoglobin 12.0 g/dL (12.0-15.0); Immature Granulocytes Count 0.070 X10^3/uL (0.0-0.0); Mean Corp Hgb Conc 34.7 g/dL (32-36); Mean Corpuscular Volume 86.9 fL (81-99); Mean Platelet Vol. 10.6 fl (6.2-12.0); NRBC Flagged by Analyzer 0 % (0-5); Platelet Count 142 K/mm3 (150-450); RBC Distribution Width CV 13.3 % (11.6-14.6); RBC Distribution Width SD 41.7 fl (35.1-43.9); Red Blood Count 3.98 M/mm3 (4.2-5.4); White Blood Count 10.6 K/mm3 (4.4-11.0)
[2025-01-20] MEDS: 0.9% Saline Lock 10 ML Syringe IV (01:59)
[2025-01-20 02:14] LABS: Syphilis Antibodies Nonreactive (Nonreactive)
[2025-01-20] MEDS: Penicillin G 3,000,000 Units 50 ML 100 UNITS IV (05:31)
--- NOTE | 2025-01-20 06:55 | PN.OBGYN_ITS ---
Subjective Subjective Calm cooperative, resting comfortably in bed. Reports u/c's still present, spaced for a bit, but now becoming more frequent/slightly stronger. Dsc'd options moving forward watch/wait vs AROM to further stimulate labor. (Pt desires to avoid Pitocin), Privacy given for further discussion. Pt & spouse decided to move forward w/AROM. Objective Data Objective Data Vital Signs: Vital Signs Temp Pulse Resp BP Pulse Ox 97.5 F L 90 16 119/78 97 01/20/25 05:10 01/20/25 05:35 01/20/25 05:10 01/20/25 05:09 01/20/25 05:09 Weight: 170 lb 3.2 oz Body Mass Index (BMI) 28.3 Intake & Output: Intake and Output for Last 24 Hours 01/18/25 01/19/25 01/20/25 23:59 23:59 23:59 Intake Total 150.83 / 150.83 Balance 150.83 / 150.83 Lab / Micro Data 01/20/25 01:31 Labs: Laboratory Results - last 24 hr 01/20/25 01:31: WBC 10.6, RBC 3.98 L, Hgb 12.0, Hct 34.6 L, MCV 86.9, MCH 30.2, MCHC 34.7, RDW Std Deviation 41.7, RDW Coeff of Porfirio 13.3, Plt Count 142 L, MPV 10.6, Immature Gran % (Auto) 0.700, Neut % (Auto) 68.8, Lymph % (Auto) 24.3, Hardin % (Auto) 5.3, Eos % (Auto) 0.6, Baso % (Auto) 0.3, Absolute Neuts (auto) 7.3, Absolute Lymphs (auto) 2.56, Nucleated RBC % 0, Syphilis Total Ab Nonreactive, Blood Type O POSITIVE, Antibody Screen NEGATIVE Physical Exam Manual OB Exam: dilated 5, effaced 80%, station -1 and other Soft & Stretchy Amniotic Fluid: clear amniotic fluid, ROM+plus and other AROM for moderate amount of clear, odorless amniotic fluid. NST FHR Rate Baby A Baseline: Intermittent Auscultation - 125, moderate variability. Uterine Activity:: u/c's every 7 to 10 mins, lasting 80 to 120 seconds. Palpates mild to moderate. Assessment & Plan (1) GBS (group B Streptococcus carrier), +RV culture, currently : COMMENT: treat in labor (2) : QUALIFIERS: Weeks of gestation: 38 weeks Qualified Code(s): Z 3A.38 - 38 weeks gestation of COMMENT: declined NIPT & Carrier testing. nl anatomy w/MFM. (3) Supervision of normal : QUALIFIERS: Normal : other normal T rimester: third trimester Qualified Code(s): Z34.83 - Encounter for supervision of other normal , third trimester COMMENT: PRR , FANTA 01/25/25,girl (gender and name secret) PC Richie Kailash. PLAN: Plan Continue GBS Prophylaxis (PCN) May resume Intermittent Auscultation after reactive tracing achieved post AROM. Maintain [place] position for ~ 30 mins. Encourage freedom of movement/birthing ball/shower for comfort etc... Consider Nipple Stimulation. Pain meds or Epidural as desired. Anticipate .
[2025-01-20] MEDS: Oxytocin 15 Units/NS 250ml 15 UNITS/250 ML IV.SOLN 334 UNITS IV (08:29)
[2025-01-20] MEDS: Lidocaine 1% (20 ml mdv) 20 ML Vial INFILT (08:35)
--- NOTE | 2025-01-20 09:01 | EX.PCM.OBVAG ---
Assessment & Plan (1) Vaginal delivery: COMMENT: KW girl Vera (2) GBS (group B Streptococcus carrier), +RV culture, currently : COMMENT: treat in labor (3) Family history of recurrent miscarriage: COMMENT: Mother 3 miscarriages (4) Supervision of normal : QUALIFIERS: Normal : other normal Trimester: third trimester Qualified Code(s): Z34.83 - Encounter for supervision of other normal , third trimester COMMENT: PRR , FANTA 01/25/25,girl (gender and name secret) CULLEN Quiroz Kailash. (5) : QUALIFIERS: Weeks of gestation: 38 weeks Qualified Code(s): Z3A.38 - 38 weeks gestation of COMMENT: declined NIPT & Carrier testing. nl anatomy w/MFM. Maternal Data Information FANTA Calculator Estimated Delivery Date Method Current WG Current Estimate 01/25/25 LMP (Certain) 39w 2d Other Estimates 01/29/25 Ultrasound #1 38w 5d Final FANTA: 01/25/25 Final FANTA Source: US >20 weeks Gestational age: 39.2 Vaginal Delivery Maternal Presentation Maternal Presentation: Active Labor Maternal Presentation: Presented to unit for active labor. Vaginal Delivery Information Procedure Performed: Spontaneous Vaginal Delivery Surgeon/Practitioner: Renée Thurston Date of Procedure: 01/20/25 Pre-Procedure Diagnosis: see problem list Post-Procedure Diagnosis: same Type of anesthesia: Local with 1% Lidocaine Estimated Blood Loss: 200 Time of Delivery: 08:23 Findings Description of procedure: Progressed well to 10cm dilated and made steady progress with effective maternal pushing. Delivered the head in MARK ANTHONY presentation. The head was delivered atraumatically and a loose nuchal cord was identified and was easily reduced over the infant's head. The anterior and posterior shoulders delivered without complication followed by the rest of the infant and the infant was placed on the maternal abdomen. Delayed cord clamping was employed for approximately 3 minutes. Cord was clamped and cut and gentle traction was applied to the cord and the placenta delivered spontaneously. Immediately following, it was noted to be intact with a 3 vessel cord. Uterine bleeding stable. The perineum and vagina were inspected and noted to have a first degree laceration which was repaired with 3-0 Vicryl in the usual fashion. EBL was 200cc. Patient and tolerated delivery well. Apgars 8/9. Dr Irwin notified of vaginal delivery and orders reviewed. Physician agrees with current plan of care. Presentation: Vertex Amniotic Membrane Rupture Type: Artificial Amniotic Fluid Description: Clear Placental Delivery Description: Spontaneous Placenta Disposition: [facility] Specimen collected: No Cord Vessel Description: 3 Vessels Cord Entanglement: Around neck x 1, loose A Gender: Female (1 minute): 8 (5 minute): 9 Delayed Cord Clamping: Yes Torque Tester equestrian trainer: No Post Vaginal Deli Medications given after delivery: IV Pitocin and IM Pitocin Episiotomy Description: None Laceration: 1st degree Complication Complications: No Multi Select Codes Urinary/Genital Urinary/Genital CPT Codes: 24374 Vaginal Delivery [facility]
--- NOTE | 2025-01-20 09:04 | DCINST_ITS ---
Discharge Instructions DC O2, CPAP, BIPAP needs Home O2 Discharge instructions: No Dressing / Incision Discharge Activity: Return to Normal Activity May resume sexual activity in: 6-8 weeks Dressing / Incision Call your doctor if you observe: Fever of 101 or Higher, Coldness, Increased Pain, Numbness or Tingling, Change in Color, Inability to urinate, Inability to have a bowel movement, Using more than 1 pad per hour, Shortness of breath, Dizziness, Fainting spells, Swelling in the ankles, Chest pain, Increased palpitations (irregular heartbeat), Calf discomfort and Uncontrolled pain Follow Up Care Please Follow Up With: Renée Thurston CNM When: Please call the office to schedule your follow up appointment in 6 weeks. If you had high blood pressure please call to schedule an appointment in 2 weeks. Test Results: Test results from this visit will be discussed in further detail at your follow- up appointment, if applicable. Discharge Plan Admission Admit Date/Time: 01/20/25 00:48 Attending Provider: Renée Thurston Discharge Orders/Prescriptions Prescriptions: No Action PNV-DHA 27 mg iron-1 mg -300 mg capsule PO
[2025-01-21 01:10] VITALS: BP 97/69; PULSE 81; RESP 16; TEMP 36.4; O2SAT 98
[2025-01-21 05:13] VITALS: BP 99/76; PULSE 83; RESP 16; TEMP 36.6; O2SAT 98
--- NOTE | 2025-01-21 07:24 | PCM.PN.OB ---
Subjective Subjective Patient doing well without complaints. Tolerating PO. Ambulating and voiding without difficulty. feeding well. Denies chest pain, shortness of breath, calf pain/swelling, fevers, chills, lightheadedness. Objective Data Objective Data Vital Signs: Vital Signs Temp Pulse Resp BP Pulse Ox O2 Del Method 97.8 F 83 16 99/76 98 Room Air 01/21/25 05:13 01/21/25 05:13 01/21/25 05:13 01/21/25 05:13 01/21/25 05:13 01/21/25 05:13 Oxygen Delivery Method Room Air Weight: 170 lb 3.2 oz Body Mass Index (BMI) 28.3 Intake & Output: Intake and Output for Last 24 Hours 01/19/25 01/20/25 01/21/25 23:59 23:59 23:59 Intake Total 526.66 / 526.66 Output Total 600 / 600 Balance -73.34 / -73.34 Lab / Micro Data 01/20/25 01:31 ROS Constitutional Constitutional: Reports systems reviewed and no addt'l complaints, except as documented Cardiovascular Cardiovascular: Reports systems reviewed and no addt'l complaints, except as documented Respiratory/Chest Respiratory/Chest: Reports systems reviewed and no addt'l complaints, except as documented Gastrointestinal Gastrointestinal: Reports systems reviewed and no addt'l complaints, except as documented Physical Exam Const alert, oriented x3 and no apparent distress HEENT Head and Scalp: atraumatic Resp normal respiratory effort GI soft to palpation and non-tender Bimanual Exam - Vag & Uterus: uterus non-tender Uterus Palpation: uterus fundus firm (below Umbilicus) Assessment & Plan (1) Vaginal delivery: COMMENT: KW girl Vera PLAN: Plan s/p PPD # 1 1. routine post delivery care 2. breast feeding- support given 3. rh positive 4. rubella immune
[2025-01-21 08:33] VITALS: BP 99/75; PULSE 83; RESP 14; TEMP 36.4; O2SAT 99
== END 2025-01-21 11:20 | disposition home or self-care (01) | DRG 807 ==
LOC: WPOUT 01:08 → WP 01:08
PROVIDERS: Midwife; Admitting Provider Advanced Practice Midwife; Referring Provider Advanced Practice Midwife; Visit Provider Advanced Practice Midwife
DX: O98.82 Other maternal infectious and parasitic diseases complicating childbirth (principal); Z37.0 Single live birth; B95.1 Streptococcus, group B, as the cause of diseases classified elsewhere; O70.0 First degree perineal laceration during delivery; O69.81X0 Labor and delivery complicated by cord around neck, without compression, not applicable or unspecified; Z3A.39 39 weeks gestation of pregnancy
CPT/HCPCS: 59025; 59050; 85025; 86780; 86850; 86900; 86901; 99221; A4216; G0378; J2405